=== PATIENT | male | born 1975 | race Caucasian/White ===

== ENCOUNTER 2017-04-23 17:39 | Inpatient (IN) | payer MEDICAID ==
[2017-04-23] MEDS ORDERED: Potassium Chloride 20 MEQ Tab.ER PO ONE (18:29)
[2017-04-23] MEDS ORDERED: cefTRIAXone 1,000 MG VIAL IVPUSH SCH (18:30)
[2017-04-23] MEDS ORDERED: Ibuprofen 800 MG Tab PO PRN (18:34)
[2017-04-23] MEDS ORDERED: Ondansetron 4 MG Tab.DIS PO PRN (18:34)
[2017-04-23] MEDS ORDERED: LORazepam 1 MG Tab PO PRN (18:42)
[2017-04-23] MEDS ORDERED: Aspirin 81 MG Tab.Chew PO SCH (18:45)
[2017-04-23] MEDS ORDERED: Potassium Chloride 40 MEQ in Sodium Chloride 0.9% 480 ML IV ONE (18:45)
[2017-04-23 19:00] LABS: ACETAMINOPHEN 4.1 ug/mL
[2017-04-23 19:21] LABS: HIV12 AG/AB 4TH GEN W/REFLEX 0.1 (<1.0)
--- NOTE | 2017-04-23 19:26 | PCM.HP ---
H&P History of Present Illness - General Date of Service: 04/23/17 Admit Problem/Dx: Admission Diagnosis/Problem Admission Diagnosis/Problem Jaundice secondary to alcoholic hepatitis Source of Information: Patient History Limitations: Reports: No Limitations - History of Present Illness Initial Comments - Free Text/Narative: 42-year-old male with no significant past medical history that is being admitted with jaundice secondary to alcoholic hepatitis. Patient was seen in a family medicine clinic today complaining of abdominal pain and overall feeling of "not feeling well". It was noted that the patient was extremely jaundiced and had significant abdominal distention with abdominal tenderness with palpation. Labs showed a total bilirubin of 34, albumin of 2.3, sodium of 122, potassium of 2.4 and an AST of 139. Patient's INR is 2.08, ammonia 80 and GGT 313. Urinalysis also showed evidence of a UTI with positive nitrites and +3 bacteria with large bilirubin present. Patient's urine was extremely dark. Patient was admitted to the hospital directly from clinic for further assessment and evaluation of his poor liver function and excessive jaundice. The patient also notes having some blood in his stools over the past week. Patient has no history of peptic ulcer disease or bloody stools in the past. Patient has also put on 15 pounds over the past 2 weeks. He notes that his jaundice started over the last couple of days. Patient has consumed alcohol over many years and notes that he had his last drink 4 days ago. He typically would have 4 cocktails a night. He has never been told that he has liver problems in the past. Patient currently denies any chest pain, palpitations, shortness of breath, wheezing, cough, nausea, vomiting, diarrhea, fever. He does endorse some constipation over the past few weeks. - Related Data Allergies/Adverse Reactions: Allergies Allergy/AdvReac Type Severity Reaction Status Date / Time No Known Allergies Allergy Verified 01/18/16 16:43 Home Medications: Home Meds Aspirin 81 mg PO ONETIME 01/18/16 [History] Past Medical History Cardiovascular History: Reports: Arrhythmia - Infectious Disease History Infectious Disease History: Reports: Chicken Pox - Past Surgical History Other Male Surgeries/Procedures: kidney surgery Social & Family History - Tobacco Use Smoking Status *Q: Never Smoker - Alcohol Use Days Per Week of Alcohol Use: 7 Number of Drinks Per Day: 5 Total Drinks Per Week: 35 - Recreational Drug Use Recreational Drug Use: No H&P Review of Systems - Review of Systems: Review Of Systems: See Below General: Reports: Weakness, Fatigue HEENT: Reports: No Symptoms Pulmonary: Reports: No Symptoms Cardiovascular: Reports: No Symptoms Gastrointestinal: Reports: Abdominal Pain, Bloody Stool, Constipation Genitourinary: Reports: No Symptoms Musculoskeletal: Reports: No Symptoms Skin: Reports: Jaundice Psychiatric: Reports: No Symptoms Neurological: Reports: No Symptoms Hematologic/Lymphatic: Reports: No Symptoms Immunologic: Reports: No Symptoms Exam - Exam Exam: See Below - Exam General: Alert, Oriented, Cooperative HEENT: Conjunctiva Clear, Hearing Intact, Mucosa Moist & [place], Nares Patent, Normal Nasal Septum, Posterior Pharynx Clear, Scleral Icterus Neck: Supple, Trachea Midline, 2 Lungs: Clear to Auscultation, Normal Respiratory Effort Cardiovascular: Regular Rate, Regular Rhythm GI/Abdominal Exam: Normal Bowel Sounds, No Abnormal Bruit, No Mass, Pelvis Stable, Distended, Tender, Hepatomegaly Extremities: Normal Inspection, Normal Range of Motion, Non-Tender, No Pedal Edema, Normal Capillary Refill Peripheral Pulses: 2+: Radial (L), Radial (R), Posterior Tibial (L), Posterior Tibial (R) Skin: Warm, Dry, Intact, Other (Patient is extremely jaundiced from head to toe) Neuro Extensive - Mental Status: Alert, Oriented x3, Normal Mood/Affect, Normal Cognition Psychiatric: Alert, Normal Affect, Normal Mood - Patient Data Lab Results Last 24 hrs: Laboratory Results - last 24 hr 04/23/17 04/23/17 Range/Units 16:09 16:09 Phosphorus 2.7 (2.4-4.7) mg/dL Magnesium 0.9 L (1.5-2.3) mEq/L Amylase 35 (10-90) U/L Lipase 48 (7-80) U/L Acetaminophen 4.1 ug/mL *Q Meaningful Use (ADM) - VTE *Q VTE Criteria *Q: - Stroke *Q Stroke Criteria *Q: - AMI *Q AMI Criteria *Q: - Problem List (1) Alcoholic hepatitis with ascites SNOMED Code(s): 658771008 ICD Code: K70.11 - ALCOHOLIC HEPATITIS WITH ASCITES Status: Acute Current Visit: Yes (2) Jaundice due to hepatitis SNOMED Code(s): 99328146 ICD Code: K75.9 - INFLAMMATORY LIVER DISEASE, UNSPECIFIED Status: Acute Current Visit: Yes (3) UTI (urinary tract infection) SNOMED Code(s): 76327408 ICD Code: N39.0 - URINARY TRACT INFECTION, SITE NOT SPECIFIED Status: Acute Current Visit: Yes (4) Hyponatremia SNOMED Code(s): 11571491 ICD Code: E87.1 - HYPO-OSMOLALITY AND HYPONATREMIA Status: Acute Current Visit: Yes (5) Hypokalemia SNOMED Code(s): 21075748 ICD Code: E87.6 - HYPOKALEMIA Status: Acute Current Visit: Yes (6) Bloody stool SNOMED Code(s): 052599826 ICD Code: K92.1 - MELENA Status: Acute Current Visit: Yes Problem List Initiated/Reviewed/Updated: Yes Orders Last 24hrs: Active Orders 24 hr Category Date Time Status Patient Status [ADT] Routine ADT 04/23/17 18:37 Active Antiembolic Devices [RC] PER UNIT ROUTINE Care 04/23/17 18:40 Active CIWAA Assessment [RC] Q4H Care 04/23/17 18:42 Active Height and Weight [RC] DAILY Care 04/23/17 18:34 Active Intake and Output [RC] QSHIFT Care 04/23/17 18:38 Active Notify Provider Vital Signs [RC] ASDIRECTED Care 04/23/17 18:38 Active Oxygen Therapy [RC] PRN Care 04/23/17 18:37 Active Pulse Oximetry [RC] PRN Care 04/23/17 18:38 Active Up With Assistance [RC] ASDIRECTED Care 04/23/17 18:34 Active VTE/DVT Education [RC] PER UNIT ROUTINE Care 04/23/17 18:37 Active Vital Signs [RC] Q4H Care 04/23/17 18:37 Active Regular Diet [DIET] Diet 04/23/17 Breakfast Active Abdomen Comp [US] Routine Exams 04/23/17 18:31 Ordered ACETAMINOPHEN [CHEM] Routine Lab 04/23/17 16:09 Results AMYLASE [CHEM] Routine Lab 04/23/17 16:09 Results ANCA PANEL W/TRAMAINE REFLEX [REF] Routine Lab 04/23/17 16:09 Received BASIC METABOLIC PANEL,BMP [CHEM] Q4H Lab 04/23/17 22:00 Ordered BASIC METABOLIC PANEL,BMP [CHEM] Q4H Lab 04/24/17 02:00 Ordered BASIC METABOLIC PANEL,BMP [CHEM] Q4H Lab 04/24/17 06:00 Ordered CBC WITH AUTO DIFF [HEME] AM Lab 04/24/17 05:11 Ordered CBC WITH AUTO DIFF [HEME] AM Lab 04/25/17 05:11 Ordered CBC WITH AUTO DIFF [HEME] AM Lab 04/26/17 05:11 Ordered COMPREHENSIVE METABOLIC PN,CMP [CHEM] AM Lab 04/24/17 05:11 Ordered COMPREHENSIVE METABOLIC PN,CMP [CHEM] AM Lab 04/25/17 05:11 Ordered COMPREHENSIVE METABOLIC PN,CMP [CHEM] AM Lab 04/26/17 05:11 Ordered CULTURE BLOOD [BC] Stat Lab 04/23/17 18:29 Ordered CULTURE BLOOD [BC] Stat Lab 04/23/17 18:29 Ordered CULTURE URINE [RM] Routine Lab 04/23/17 18:29 Uncollected HEPATITIS PANEL, ACUTE [REF] Routine Lab 04/23/17 16:09 Received HIV12 AG/AB 4TH GEN W/REFLEX [CHEM] Routine Lab 04/23/17 16:09 Results INR,PT,PROTHROMBIN TIME [COAG] AM Lab 04/24/17 05:11 Ordered INR,PT,PROTHROMBIN TIME [COAG] AM Lab 04/25/17 05:11 Ordered INR,PT,PROTHROMBIN TIME [COAG] AM Lab 04/26/17 05:11 Ordered LACTIC ACID,WHOLE BLOOD [BG] Routine Lab 04/23/17 18:42 Ordered LIPASE [CHEM] Routine Lab 04/23/17 16:09 Results Aspirin Med 04/23/17 18:45 Active 81 mg PO ONETIME Ibuprofen [Motrin] Med 04/23/17 18:34 Active 800 mg PO Q6H PRN LORazepam [Ativan] Med 04/23/17 18:42 Active See Protocol PO Q4H PRN Magnesium Sulfate/Water [Magnesium Sulfate 4 GM in Med 04/23/17 19:20 Ordered Water 100 ML] 4 gm Premix Bag 1 bag IV ONETIME Ondansetron [Zofran ODT] Med 04/23/17 18:34 Active 4 mg PO Q4H PRN Potassium Chloride 40 meq Med 04/23/17 18:45 Active Sodium Chloride 0.9% [Normal Saline] 480 ml IV ONETIME cefTRIAXone [Rocephin in Dextrose,Iso-Osm 1 GM/50 ML] Med 04/23/17 19:00 Active 50 ml IV Q24H Blood Culture x2 Reflex Set [OM.PC] Stat Oth 04/23/17 18:28 Ordered Sequential Compression Device [OM.PC] Per Unit Routine Oth 04/23/17 18:38 Ordered Resuscitation Status Routine Resus Stat 04/23/17 18:34 Ordered Medication Orders Aspirin (Aspirin) 81 mg PO ONETIME HOSSEIN Ceftriaxone Sodium/Dextrose (Rocephin In Dextrose,Iso-Osm 1 Gm/50 Ml) 50 mls @ 100 mls/hr IV Q24H HOSSEIN Potassium Chloride 40 meq/ (Sodium Chloride) 500 mls @ 125 mls/hr IV ONETIME ONE Stop: 04/23/17 22:44 Magnesium Sulfate 4 gm/ Premix 100 mls @ 50 mls/hr IV ONETIME ONE Stop: 04/23/17 21:19 Ibuprofen (Motrin) 800 mg PO Q6H PRN PRN Reason: Pain (mild 1-3) Lorazepam (Ativan) 0 mg PO Q4H PRN; Protocol PRN Reason: Withdrawal Symptoms Ondansetron HCl (Zofran Odt) 4 mg PO Q4H PRN PRN Reason: nausea, able to take PO Assessment/Plan Comment:: 42-year-old male admitted with jaundice/liver failure secondary to alcoholic hepatitis #1. Jaundice/liver failure secondary to alcoholic hepatitis: -Patient's calculated meld score is 33 giving a 52% three-month mortality rate. -Liver enzymes will be trended with daily CMP's. -Further workup pending including hepatitis panel, HIV, autoimmune panel, Tylenol level, lactate, amylase, lipase, magnesium, phosphorus -Abdominal ultrasound is pending. -I spoke with Dr. Sanford, gericare aide teacher, from [place], [place] who suggested that we could transfer the patient if we are not comfortable treating him. He stated that there is not much more that they would do there then what we are doing here. He recommended that we watch the patient's total bilirubin and keep him admitted until it plateaus and begins to decrease. He notes that this can take a number of days. He does not recommend treating the patient with steroids at this time secondary to the patient's current UTI and bloody stools. He does agree with our current treatment plan of Rocephin for the patient's UTI and to prevent spontaneous bacterial peritonitis. #2. Hyponatremia, hypokalemia: -Patient will receive by mouth potassium chloride daily. -Patient will also receive normal saline with potassium at 125 mL/hour. -BMP will be trended every 4 hours to make sure that sodium is not rising too quickly. Will need to be careful that we do not exacerbate the patient's ascites. #3. UTI: -We'll treat with Rocephin 1 g every 24 hours -White blood cell count is 12,000. #4. Bloody stools: -Hemoccult is pending. -We will treat with Protonix by mouth. #5. Alcohol abuse: -Patient's last drink was 4 nights ago. -Patient will be placed on CIWAA protocol and Ativan protocol for withdrawal symptoms. -Patient will be given thiamine and folate. DVT prophylaxis: SCDs. Lovenox not being used secondary to possible GI bleed Discharge: 3-5 days pending improvement.
[2017-04-23] MEDS ORDERED: Pantoprazole 40 MG in Sodium Chloride 0.9% 20 ML IV ONE (19:34)
[2017-04-23] MEDS ORDERED: Phytonadione 10 MG in Sodium Chloride 0.9% 50 ML IV ONE (19:59)
[2017-04-23] MEDS: Folic Acid 1 MG Tab PO SCH (20:37)
[2017-04-23] MEDS: Pantoprazole 40 MG Tab.CR PO SCH (20:37)
[2017-04-23] MEDS: Thiamine 100 MG Tab PO SCH ×2 (20:37→21:24)
[2017-04-23] MEDS: Lactulose Soln 10 GM/15 ML 15 ML UD Cup PO SCH ×2 (20:37→21:23)
[2017-04-24] MEDS ORDERED: Potassium Chloride 20 MEQ Tab.ER PO ONE (02:56)
[2017-04-24] MEDS ORDERED: fentaNYL 250 MCG/5 ML SDV IVPUSH ONE (02:59)
[2017-04-24] MEDS ORDERED: fentaNYL 100 MCG/2 ML SDV IVPUSH ONE ×2 (03:45→16:50)
[2017-04-24] MEDS: Pantoprazole 40 MG Tab.CR PO SCH ×2 (10:18→16:39)
[2017-04-24] MEDS: Lactulose Soln 10 GM/15 ML 15 ML UD Cup PO SCH ×2 (10:40→20:50)
[2017-04-24] MEDS: Folic Acid 1 MG Tab PO SCH (10:41)
--- NOTE | 2017-04-24 11:03 | PCM.PN ---
- General Info Date of Service: 04/24/17 Admission Dx/Problem (Free Text): Admission Diagnosis/Problem Admission Diagnosis/Problem Jaundice secondary to alcoholic hepatitis Subjective Update: Patient is doing well this morning. He continues to have abdominal pain rated as 8 out of 10. He does have an appetite but it is diminished. He denies any nausea or vomiting. He is voiding appropriately. Overnight he did have some back pain and was given fentanyl 25 g 2 by the eICU. He does not complain of back pains morning. See was scores have been 0. He has not required any Ativan for withdrawal symptoms from alcohol. Patient is also started on lactulose by the eICU. He continues on Rocephin IV for his UTI. Patient has no additional concerns including chest pain, palpitations, shortness of breath, wheezing, cough. Functional Status: Reports: Pain Controlled, Tolerating Diet, Ambulating, Urinating - Patient Data Vitals - Most Recent: Last Vital Signs Temp 97.8 F 04/24/17 04:00 Pulse 87 04/24/17 06:00 Resp 19 04/24/17 06:00 BP 96/67 04/24/17 06:00 Pulse Ox 92 L 04/24/17 06:29 Weight - Most Recent: 201 lb 12.8 oz I&O - Last 24 Hours: Intake & Output 04/23/17 04/24/17 04/24/17 22:59 06:59 14:59 Intake Total 150 600 Output Total 400 Balance 150 200 Lab Results Last 24 Hours: Laboratory Results - last 24 hr 04/23/17 04/23/17 04/23/17 Range/Units 16:09 16:09 19:11 WBC (4.0-11.0) K/uL RBC (4.50-5.90) M/uL Hgb (13.0-17.0) g/dL Hct (38.0-50.0) % MCV (80.0-98.0) fL MCH (27.0-32.0) pg MCHC (31.0-37.0) g/dL RDW Std Deviation (28.0-62.0) fl RDW Coeff of Sandra (11.0-15.0) % Plt Count (150-400) K/uL MPV (7.40-12.00) fL Add Manual Diff Neutrophils % (Manual) (48.0-80.0) % Band Neutrophils % % Lymphocytes % (Manual) (16.0-40.0) % Monocytes % (Manual) (0.0-15.0) % Nucleated RBC % /100WBC Absolute Seg Neuts (1.4-5.7) Band Neutrophils # Lymphocytes # (Manual) (0.6-2.4) Monocytes # (Manual) (0.0-0.8) Nucleated RBCs # K/uL INR (0.86-1.11) Lactate 1.8 (0.20-2.00) mmol/L Sodium (136-146) mmol/L Potassium (3.5-5.1) mmol/L Chloride (98-110) mmol/L Carbon Dioxide (21-31) mmol/L BUN (6.0-23.0) mg/dL Creatinine (0.6-1.5) mg/dL Est Cr Clr Drug Dosing mL/min Estimated GFR (MDRD) ml/min Glucose (60-110) mg/dL Calcium (8.8-10.8) mg/dL Phosphorus 2.7 (2.4-4.7) mg/dL Magnesium 0.9 L (1.5-2.3) mEq/L Total Bilirubin (0.1-1.5) mg/dL AST (5-40) IU/L ALT (8-54) IU/L Alkaline Phosphatase (40-150) Total Protein (6.0-8.0) g/dL Albumin (3.5-5.0) g/dL Globulin (2.0-3.5) g/dL Albumin/Globulin Ratio (1.3-2.8) Amylase 35 (10-90) U/L Lipase 48 (7-80) U/L Acetaminophen 4.1 ug/mL HIV 1&2 Ag/Ab, 4th Gen 0.1 (<1.0) 04/23/17 04/24/17 04/24/17 Range/Units 22:05 01:58 01:58 WBC (4.0-11.0) K/uL RBC (4.50-5.90) M/uL Hgb (13.0-17.0) g/dL Hct (38.0-50.0) % MCV (80.0-98.0) fL MCH (27.0-32.0) pg MCHC (31.0-37.0) g/dL RDW Std Deviation (28.0-62.0) fl RDW Coeff of Sandra (11.0-15.0) % Plt Count (150-400) K/uL MPV (7.40-12.00) fL Add Manual Diff Neutrophils % (Manual) (48.0-80.0) % Band Neutrophils % % Lymphocytes % (Manual) (16.0-40.0) % Monocytes % (Manual) (0.0-15.0) % Nucleated RBC % /100WBC Absolute Seg Neuts (1.4-5.7) Band Neutrophils # Lymphocytes # (Manual) (0.6-2.4) Monocytes # (Manual) (0.0-0.8) Nucleated RBCs # K/uL INR (0.86-1.11) Lactate (0.20-2.00) mmol/L Sodium 122 L 123 L (136-146) mmol/L Potassium 2.7 L 3.1 L (3.5-5.1) mmol/L Chloride 91 L 93 L (98-110) mmol/L Carbon Dioxide 20 L 20 L (21-31) mmol/L BUN 20 20 (6.0-23.0) mg/dL Creatinine 1.7 H 1.8 H (0.6-1.5) mg/dL Est Cr Clr Drug Dosing 66.96 63.24 mL/min Estimated GFR (MDRD) 44.2 41.4 ml/min Glucose 125 H 111 H (60-110) mg/dL Calcium 7.7 L 7.9 L (8.8-10.8) mg/dL Phosphorus (2.4-4.7) mg/dL Magnesium 1.8 (1.5-2.3) mEq/L Total Bilirubin (0.1-1.5) mg/dL AST (5-40) IU/L ALT (8-54) IU/L Alkaline Phosphatase (40-150) Total Protein (6.0-8.0) g/dL Albumin (3.5-5.0) g/dL Globulin (2.0-3.5) g/dL Albumin/Globulin Ratio (1.3-2.8) Amylase (10-90) U/L Lipase (7-80) U/L Acetaminophen ug/mL HIV 1&2 Ag/Ab, 4th Gen (<1.0) 04/24/17 04/24/17 04/24/17 Range/Units 05:58 05:58 05:58 WBC 13.42 H (4.0-11.0) K/uL RBC 3.73 L (4.50-5.90) M/uL Hgb 13.0 (13.0-17.0) g/dL Hct 34.5 L (38.0-50.0) % MCV 92.5 (80.0-98.0) fL MCH 34.9 H (27.0-32.0) pg MCHC 37.7 H (31.0-37.0) g/dL RDW Std Deviation 59.4 (28.0-62.0) fl RDW Coeff of Sandra 18 H (11.0-15.0) % Plt Count 180 (150-400) K/uL MPV 11.40 (7.40-12.00) fL Add Manual Diff YES Neutrophils % (Manual) 81 H (48.0-80.0) % Band Neutrophils % 1 % Lymphocytes % (Manual) 12 L (16.0-40.0) % Monocytes % (Manual) 6 (0.0-15.0) % Nucleated RBC % 0.1 /100WBC Absolute Seg Neuts 10.9 H (1.4-5.7) Band Neutrophils # 0.1 Lymphocytes # (Manual) 1.6 (0.6-2.4) Monocytes # (Manual) 0.8 (0.0-0.8) Nucleated RBCs # 0 K/uL INR 2.02 H (0.86-1.11) Lactate (0.20-2.00) mmol/L Sodium 124 L (136-146) mmol/L Potassium 3.8 (3.5-5.1) mmol/L Chloride 92 L (98-110) mmol/L Carbon Dioxide 21 (21-31) mmol/L BUN 21 (6.0-23.0) mg/dL Creatinine 1.8 H (0.6-1.5) mg/dL Est Cr Clr Drug Dosing 63.58 mL/min Estimated GFR (MDRD) 41.4 ml/min Glucose 99 (60-110) mg/dL Calcium 7.9 L (8.8-10.8) mg/dL Phosphorus (2.4-4.7) mg/dL Magnesium (1.5-2.3) mEq/L Total Bilirubin 28.9 H (0.1-1.5) mg/dL AST 122 H (5-40) IU/L ALT 36 (8-54) IU/L Alkaline Phosphatase 112 (40-150) Total Protein 6.9 (6.0-8.0) g/dL Albumin 2.0 L (3.5-5.0) g/dL Globulin 4.9 H (2.0-3.5) g/dL Albumin/Globulin Ratio 0.4 L (1.3-2.8) Amylase (10-90) U/L Lipase (7-80) U/L Acetaminophen ug/mL HIV 1&2 Ag/Ab, 4th Gen (<1.0) Enzo Results Last 24 Hours: Microbiology 04/24/17 01:00 Stool Occult Blood (ENZO) - Final Stool / Feces POSITIVE OCCULT BLOOD Med Orders - Current: Current Medications Folic Acid (Folic Acid) 1 mg PO DAILY [facility] Last Admin: 04/24/17 10:41 Dose: Not Given Ceftriaxone Sodium/Dextrose (Rocephin In Dextrose,Iso-Osm 1 Gm/50 Ml) 50 mls @ 100 mls/hr IV Q24H [facility] Last Admin: 04/23/17 19:40 Dose: 100 mls/hr Lactulose (Chronulac) 10 gm PO BID [facility] Last Admin: 04/24/17 10:40 Dose: Not Given Lorazepam (Ativan) 0 mg PO Q4H PRN; Protocol PRN Reason: Withdrawal Symptoms Ondansetron HCl (Zofran Odt) 4 mg PO Q4H PRN PRN Reason: nausea, able to take PO Pantoprazole Sodium (Protonix) 40 mg PO BIDAC [facility] Last Admin: 04/24/17 10:18 Dose: Not Given Thiamine HCl (Vitamin B-1) 100 mg PO BEDTIME [facility] Last Admin: 04/23/17 21:24 Dose: Not Given Discontinued Medications Aspirin (Aspirin) 81 mg PO ONETIME [facility] Ceftriaxone Sodium (Rocephin) 1,000 mg IVPUSH Q24H [facility] Last Admin: 04/23/17 20:23 Dose: Not Given Fentanyl (Sublimaze) 25 mcg IVPUSH ONETIME ONE Stop: 04/24/17 03:00 Last Admin: 04/24/17 03:41 Dose: Not Given Fentanyl (Sublimaze) 25 mcg IVPUSH ONETIME ONE Stop: 04/24/17 03:46 Last Admin: 04/24/17 04:48 Dose: 25 mcg Potassium Chloride 40 meq/ (Sodium Chloride) 500 mls @ 125 mls/hr IV ONETIME ONE Stop: 04/23/17 22:44 Last Infusion: 04/23/17 20:00 Dose: 75 mls/hr Magnesium Sulfate 4 gm/ Sodium (Chloride) 108 mls @ 54 mls/hr IV ONETIME HOSSEIN Stop: 04/23/17 21:29 Last Admin: 04/23/17 20:22 Dose: 54 mls/hr Pantoprazole Sodium 40 mg/ (Sodium Chloride) 20 mls @ 80 mls/hr IV Q12HR ONE Stop: 04/23/17 19:48 Last Admin: 04/23/17 20:23 Dose: Not Given Phytonadione 10 mg/ Sodium (Chloride) 51 mls @ 100 mls/hr IV NOW ONE Stop: 04/23/17 20:29 Last Admin: 04/23/17 22:49 Dose: 100 mls/hr Ibuprofen (Motrin) 800 mg PO Q6H PRN PRN Reason: Pain (mild 1-3) Potassium Chloride (Klor-Con M20) 40 meq PO ONETIME ONE Stop: 04/23/17 18:30 Last Admin: 04/23/17 18:39 Dose: 40 meq Potassium Chloride (Klor-Con M20) 40 meq PO ONETIME ONE Stop: 04/24/17 02:57 Last Admin: 04/24/17 03:15 Dose: 40 meq - Exam Quality Assessment: Supplemental Oxygen (5 L via nasal cannula), DVT Prophylaxis (SCDs.) General: Alert, Oriented, Cooperative, No Acute Distress HEENT: Scleral Icterus (Bilaterally) Neck: Supple Lungs: Clear to Auscultation, Normal Respiratory Effort Cardiovascular: Regular Rate, Regular Rhythm GI/Abdominal Exam: Normal Bowel Sounds, No Abnormal Bruit, Distended, Tender, Hepatomegaly Extremities: Normal Inspection, Normal Range of Motion, Non-Tender, No Pedal Edema, Normal Capillary Refill Peripheral Pulses: 2+: Radial (L), Radial (R), Posterior Tibial (L), Posterior Tibial (R) Skin: Warm, Dry, Intact, Other (Diffuse jaundice) Neurological: No New Focal Deficit Psy/Mental Status: Alert, Normal Affect, Normal Mood - Problem List & Annotations (1) Alcoholic hepatitis with ascites SNOMED Code(s): 128868251 Code(s): K70.11 - ALCOHOLIC HEPATITIS WITH ASCITES Status: Acute Current Visit: Yes (2) Jaundice due to hepatitis SNOMED Code(s): 62249062 Code(s): K75.9 - INFLAMMATORY LIVER DISEASE, UNSPECIFIED Status: Acute Current Visit: Yes (3) UTI (urinary tract infection) SNOMED Code(s): 38053770 Code(s): N39.0 - URINARY TRACT INFECTION, SITE NOT SPECIFIED Status: Acute Current Visit: Yes (4) Hyponatremia SNOMED Code(s): 34649631 Code(s): E87.1 - HYPO-OSMOLALITY AND HYPONATREMIA Status: Acute Current Visit: Yes (5) Hypokalemia SNOMED Code(s): 80671957 Code(s): E87.6 - HYPOKALEMIA Status: Acute Current Visit: Yes (6) Bloody stool SNOMED Code(s): 583870717 Code(s): K92.1 - MELENA Status: Acute Current Visit: Yes - Problem List Review Problem List Initiated/Reviewed/Updated: Yes - My Orders Last 24 Hours: My Active Orders 04/23/17 16:09 ANCA PANEL W/TRAMAINE REFLEX [REF] Routine HEPATITIS PANEL, ACUTE [REF] Routine 04/23/17 18:34 Height and Weight [RC] DAILY Up With Assistance [RC] ASDIRECTED Ondansetron [Zofran ODT] 4 mg PO Q4H PRN Resuscitation Status Routine 04/23/17 18:37 Patient Status [ADT] Routine Oxygen Therapy [RC] PRN Vital Signs [RC] Q1H 04/23/17 18:38 Intake and Output [RC] Q12H Notify Provider Vital Signs [RC] ASDIRECTED Pulse Oximetry [RC] PRN Sequential Compression Device [OM.PC] Per Unit Routine 04/23/17 18:40 Antiembolic Devices [RC] PER UNIT ROUTINE 04/23/17 18:42 CIWAA Assessment [RC] Q4H LORazepam [Ativan] See Protocol PO Q4H PRN 04/23/17 19:45 Folic Acid 1 mg PO DAILY Pantoprazole [ProTONIX] 40 mg PO BIDAC Thiamine [Vitamin B-1] 100 mg PO BEDTIME 04/24/17 10:33 Abdomen Pelvis wo Cont [CT] Routine 04/25/17 05:11 CBC WITH AUTO DIFF [HEME] AM COMPREHENSIVE METABOLIC PN,CMP [CHEM] AM INR,PT,PROTHROMBIN TIME [COAG] AM 04/26/17 05:11 CBC WITH AUTO DIFF [HEME] AM COMPREHENSIVE METABOLIC PN,CMP [CHEM] AM INR,PT,PROTHROMBIN TIME [COAG] AM - Plan Plan:: 42-year-old male admitted with jaundice/liver failure secondary to alcoholic hepatitis #1. Jaundice/liver failure secondary to alcoholic hepatitis: -Patient's calculated meld score is 33 giving a 52% three-month mortality rate. -AST has improved to 122. ALT and ALP remain within normal limits. Total bilirubin has improved to 29 from 34 albumin has decreased to 2 from 2.3. INR is 2.02. -Results of liver ultrasound are pending. I spoke with Dr. Jeffery, radiologist, who is hesitant about doing a paracentesis given the patient's INR greater than 2. He suggested getting a abdomen/pelvis CT to assess further for ascites. Patient will get this CT this morning. -EICU recommends giving the patient's potassium and magnesium stable before introducing any diuretic medications to treat the patient's ascites. -I spoke with Dr. Sanford, paper products inspector, from [place], [place] who suggested that we could transfer the patient if we are not comfortable treating him. He stated that there is not much more that they would do there then what we are doing here. He recommended that we watch the patient's total bilirubin and keep him admitted until it plateaus and begins to decrease. He notes that this can take a number of days. He does not recommend treating the patient with steroids at this time secondary to the patient's current UTI and bloody stools. He does agree with our current treatment plan of Rocephin for the patient's UTI and to prevent spontaneous bacterial peritonitis. #2. Hyponatremia, hypokalemia: -Continue oral potassium chloride daily. -Sodium has improved to 124. -BMP will be trended every 4 hours to make sure that sodium is not rising too quickly. #3. UTI: -Continue Rocephin 1 g every 24 hours. WBC has increased to 13.4 from 12. We'll continue with IV antibiotics and recheck CBC in the morning. If WBC continues to rise we can consider more aggressive antibiotic therapy. #4. Bloody stools: -Hemoccult-positive. Continue with oral Protonix #5. Alcohol abuse: -Patient's last drink was 4 nights ago. -CIWAA scores have been 0. Patient has not required any Ativan. -continue thiamine and folate. DVT prophylaxis: SCDs. Discharge: 3-5 days pending improvement.
[2017-04-24] MEDS ORDERED: Potassium Chloride 20 MEQ Tab.ER PO SCH (17:15)
[2017-04-24] MEDS: Thiamine 100 MG Tab PO SCH (20:50)
[2017-04-24] MEDS: fentaNYL 100 MCG/2 ML SDV IVPUSH PRN (22:11)
[2017-04-25] MEDS ORDERED: Potassium Chloride 20 MEQ Tab.ER PO ONE ×3 (00:30→15:05)
[2017-04-25 05:52] LABS: CHLORIDE,CL 92 mmol/L (98-110); SODIUM,NA 122 mmol/L (136-146)
[2017-04-25] MEDS: Pantoprazole 40 MG Tab.CR PO SCH ×2 (07:43→16:59)
[2017-04-25] MEDS ORDERED: Potassium Chloride 20 MEQ Tab.ER PO SCH (09:00)
[2017-04-25] MEDS: Folic Acid 1 MG Tab PO SCH (09:06)
[2017-04-25] MEDS: Lactulose Soln 10 GM/15 ML 15 ML UD Cup PO SCH ×2 (09:06→20:51)
--- NOTE | 2017-04-25 11:25 | PCM.PN ---
- General Info Date of Service: 04/25/17 Admission Dx/Problem (Free Text): Admission Diagnosis/Problem Admission Diagnosis/Problem Jaundice secondary to alcoholic hepatitis and liver failure Subjective Update: Patient is doing better this morning. He did have some diffuse back pain last night and was treated with fentanyl with the back pain resolving and the patient was able to sleep through the night. He notes continued abdominal distention and abdominal pain. He is voiding appropriately. He has very little appetite but denies any nausea, vomiting. Patient does not have any other acute concerns this morning. Functional Status: Reports: Pain Controlled, Tolerating Diet, Ambulating, Urinating - Review of Systems General: Reports: Weakness, Fatigue HEENT: Reports: No Symptoms Pulmonary: Reports: No Symptoms Cardiovascular: Reports: No Symptoms Gastrointestinal: Reports: Abdominal Pain, Decreased Appetite Genitourinary: Reports: No Symptoms Musculoskeletal: Reports: Back Pain Skin: Reports: Jaundice Neurological: Reports: No Symptoms Psychiatric: Reports: No Symptoms - Patient Data Vitals - Most Recent: Last Vital Signs Temp 97.2 F 04/25/17 08:00 Pulse 87 04/24/17 06:00 Resp 14 04/25/17 11:00 BP 98/77 04/25/17 11:00 Pulse Ox 96 04/25/17 11:00 Weight - Most Recent: 205 lb 14.4 oz I&O - Last 24 Hours: Intake & Output 04/24/17 04/25/17 04/25/17 22:59 06:59 14:59 Intake Total 980 860 Output Total 330 325 Balance 650 535 Lab Results Last 24 Hours: Laboratory Results - last 24 hr 04/24/17 04/24/17 04/24/17 Range/Units 16:04 16:04 22:54 WBC (4.0-11.0) K/uL RBC (4.50-5.90) M/uL Hgb (13.0-17.0) g/dL Hct (38.0-50.0) % MCV (80.0-98.0) fL MCH (27.0-32.0) pg MCHC (31.0-37.0) g/dL RDW Std Deviation (28.0-62.0) fl RDW Coeff of Sandra (11.0-15.0) % Plt Count (150-400) K/uL MPV (7.40-12.00) fL Add Manual Diff Neutrophils % (Manual) (48.0-80.0) % Band Neutrophils % % Lymphocytes % (Manual) (16.0-40.0) % Monocytes % (Manual) (0.0-15.0) % Nucleated RBC % /100WBC Absolute Seg Neuts (1.4-5.7) Band Neutrophils # Lymphocytes # (Manual) (0.6-2.4) Monocytes # (Manual) (0.0-0.8) Nucleated RBCs # K/uL ESR 14 (0-14) mm/hr INR (0.86-1.11) Sodium 124 L (136-146) mmol/L Potassium 3.0 L (3.5-5.1) mmol/L Chloride 92 L (98-110) mmol/L Carbon Dioxide 22 (21-31) mmol/L BUN 21 (6.0-23.0) mg/dL Creatinine 2.0 H (0.6-1.5) mg/dL Est Cr Clr Drug Dosing 57.22 mL/min Estimated GFR (MDRD) 36.6 ml/min Glucose 120 H (60-110) mg/dL Calcium 7.9 L (8.8-10.8) mg/dL Phosphorus (2.4-4.7) mg/dL Magnesium (1.5-2.3) mEq/L Total Bilirubin (0.1-1.5) mg/dL AST (5-40) IU/L ALT (8-54) IU/L Alkaline Phosphatase (40-150) Ammonia (14-68) UG/DL C-Reactive Protein 4.63 H (0.0-0.5) mg/dL Total Protein (6.0-8.0) g/dL Albumin (3.5-5.0) g/dL Globulin (2.0-3.5) g/dL Albumin/Globulin Ratio (1.3-2.8) 04/24/17 04/24/17 04/24/17 Range/Units 22:54 22:54 22:54 WBC (4.0-11.0) K/uL RBC (4.50-5.90) M/uL Hgb (13.0-17.0) g/dL Hct (38.0-50.0) % MCV (80.0-98.0) fL MCH (27.0-32.0) pg MCHC (31.0-37.0) g/dL RDW Std Deviation (28.0-62.0) fl RDW Coeff of Sandra (11.0-15.0) % Plt Count (150-400) K/uL MPV (7.40-12.00) fL Add Manual Diff Neutrophils % (Manual) (48.0-80.0) % Band Neutrophils % % Lymphocytes % (Manual) (16.0-40.0) % Monocytes % (Manual) (0.0-15.0) % Nucleated RBC % /100WBC Absolute Seg Neuts (1.4-5.7) Band Neutrophils # Lymphocytes # (Manual) (0.6-2.4) Monocytes # (Manual) (0.0-0.8) Nucleated RBCs # K/uL ESR (0-14) mm/hr INR (0.86-1.11) Sodium 122 L (136-146) mmol/L Potassium 3.2 L (3.5-5.1) mmol/L Chloride 92 L (98-110) mmol/L Carbon Dioxide 19 L (21-31) mmol/L BUN 22 (6.0-23.0) mg/dL Creatinine 1.9 H (0.6-1.5) mg/dL Est Cr Clr Drug Dosing 60.24 mL/min Estimated GFR (MDRD) 38.9 ml/min Glucose 108 (60-110) mg/dL Calcium 8.0 L (8.8-10.8) mg/dL Phosphorus (2.4-4.7) mg/dL Magnesium 1.5 (1.5-2.3) mEq/L Total Bilirubin (0.1-1.5) mg/dL AST (5-40) IU/L ALT (8-54) IU/L Alkaline Phosphatase (40-150) Ammonia 105 H (14-68) UG/DL C-Reactive Protein (0.0-0.5) mg/dL Total Protein (6.0-8.0) g/dL Albumin (3.5-5.0) g/dL Globulin (2.0-3.5) g/dL Albumin/Globulin Ratio (1.3-2.8) 04/25/17 04/25/17 04/25/17 Range/Units 05:02 05:02 05:02 WBC 13.72 H (4.0-11.0) K/uL RBC 3.81 L (4.50-5.90) M/uL Hgb 13.4 (13.0-17.0) g/dL Hct 35.3 L (38.0-50.0) % MCV 92.7 (80.0-98.0) fL MCH 35.2 H (27.0-32.0) pg MCHC 38.0 H (31.0-37.0) g/dL RDW Std Deviation 60.0 (28.0-62.0) fl RDW Coeff of Sandra 18 H (11.0-15.0) % Plt Count 169 (150-400) K/uL MPV 10.80 (7.40-12.00) fL Add Manual Diff YES Neutrophils % (Manual) 78 (48.0-80.0) % Band Neutrophils % 1 % Lymphocytes % (Manual) 15 L (16.0-40.0) % Monocytes % (Manual) 6 (0.0-15.0) % Nucleated RBC % 0.0 /100WBC Absolute Seg Neuts 10.7 H (1.4-5.7) Band Neutrophils # 0.1 Lymphocytes # (Manual) 2.1 (0.6-2.4) Monocytes # (Manual) 0.8 (0.0-0.8) Nucleated RBCs # 0 K/uL ESR (0-14) mm/hr INR 1.85 H (0.86-1.11) Sodium 122 L (136-146) mmol/L Potassium 3.6 (3.5-5.1) mmol/L Chloride 92 L (98-110) mmol/L Carbon Dioxide 20 L (21-31) mmol/L BUN 23 (6.0-23.0) mg/dL Creatinine 2.0 H (0.6-1.5) mg/dL Est Cr Clr Drug Dosing 57.22 mL/min Estimated GFR (MDRD) 36.6 ml/min Glucose 92 (60-110) mg/dL Calcium 8.2 L (8.8-10.8) mg/dL Phosphorus 3.3 (2.4-4.7) mg/dL Magnesium 1.6 (1.5-2.3) mEq/L Total Bilirubin > 18.2 H (0.1-1.5) mg/dL AST 106 H (5-40) IU/L ALT 36 (8-54) IU/L Alkaline Phosphatase 113 (40-150) Ammonia (14-68) UG/DL C-Reactive Protein (0.0-0.5) mg/dL Total Protein 6.9 (6.0-8.0) g/dL Albumin 2.1 L (3.5-5.0) g/dL Globulin 4.8 H (2.0-3.5) g/dL Albumin/Globulin Ratio 0.4 L (1.3-2.8) 04/25/17 Range/Units 05:02 WBC (4.0-11.0) K/uL RBC (4.50-5.90) M/uL Hgb (13.0-17.0) g/dL Hct (38.0-50.0) % MCV (80.0-98.0) fL MCH (27.0-32.0) pg MCHC (31.0-37.0) g/dL RDW Std Deviation (28.0-62.0) fl RDW Coeff of Sandra (11.0-15.0) % Plt Count (150-400) K/uL MPV (7.40-12.00) fL Add Manual Diff Neutrophils % (Manual) (48.0-80.0) % Band Neutrophils % % Lymphocytes % (Manual) (16.0-40.0) % Monocytes % (Manual) (0.0-15.0) % Nucleated RBC % /100WBC Absolute Seg Neuts (1.4-5.7) Band Neutrophils # Lymphocytes # (Manual) (0.6-2.4) Monocytes # (Manual) (0.0-0.8) Nucleated RBCs # K/uL ESR (0-14) mm/hr INR (0.86-1.11) Sodium (136-146) mmol/L Potassium (3.5-5.1) mmol/L Chloride (98-110) mmol/L Carbon Dioxide (21-31) mmol/L BUN (6.0-23.0) mg/dL Creatinine (0.6-1.5) mg/dL Est Cr Clr Drug Dosing mL/min Estimated GFR (MDRD) ml/min Glucose (60-110) mg/dL Calcium (8.8-10.8) mg/dL Phosphorus (2.4-4.7) mg/dL Magnesium (1.5-2.3) mEq/L Total Bilirubin (0.1-1.5) mg/dL AST (5-40) IU/L ALT (8-54) IU/L Alkaline Phosphatase (40-150) Ammonia 81 H (14-68) UG/DL C-Reactive Protein (0.0-0.5) mg/dL Total Protein (6.0-8.0) g/dL Albumin (3.5-5.0) g/dL Globulin (2.0-3.5) g/dL Albumin/Globulin Ratio (1.3-2.8) Enzo Results Last 24 Hours: Microbiology 04/23/17 16:50 Urine Culture - Final Urine, Clean Catch MIXED SATNAM 10,000-100,000 CFU/ML 04/23/17 19:11 Aerobic Blood Culture - Preliminary Blood - Venous - Lab Draw NO GROWTH AFTER 1 DAY Anaerobic Blood Culture - Preliminary NO GROWTH AFTER 1 DAY 04/23/17 19:01 Aerobic Blood Culture - Preliminary Blood - Venous NO GROWTH AFTER 1 DAY Anaerobic Blood Culture - Preliminary NO GROWTH AFTER 1 DAY Med Orders - Current: Current Medications Fentanyl (Sublimaze) 25 mcg IVPUSH Q1H PRN PRN Reason: Pain Last Admin: 04/24/17 22:11 Dose: 25 mcg Folic Acid (Folic Acid) 1 mg PO DAILY [facility] Last Admin: 04/25/17 09:06 Dose: 1 mg Ceftriaxone Sodium/Dextrose (Rocephin In Dextrose,Iso-Osm 1 Gm/50 Ml) 50 mls @ 100 mls/hr IV Q24H [facility] Last Admin: 04/24/17 18:37 Dose: 100 mls/hr Lactulose (Chronulac) 10 gm PO BID [facility] Last Admin: 04/25/17 09:06 Dose: 10 gm Lorazepam (Ativan) 0 mg PO Q4H PRN; Protocol PRN Reason: Withdrawal Symptoms Ondansetron HCl (Zofran Odt) 4 mg PO Q4H PRN PRN Reason: nausea, able to take PO Pantoprazole Sodium (Protonix) 40 mg PO BIDAC [facility] Last Admin: 04/25/17 07:43 Dose: 40 mg Thiamine HCl (Vitamin B-1) 100 mg PO BEDTIME [facility] Last Admin: 04/24/17 20:50 Dose: 100 mg Discontinued Medications Aspirin (Aspirin) 81 mg PO ONETIME [facility] Ceftriaxone Sodium (Rocephin) 1,000 mg IVPUSH Q24H [facility] Last Admin: 04/23/17 20:23 Dose: Not Given Fentanyl (Sublimaze) 25 mcg IVPUSH ONETIME ONE Stop: 04/24/17 03:00 Last Admin: 04/24/17 03:41 Dose: Not Given Fentanyl (Sublimaze) 25 mcg IVPUSH ONETIME ONE Stop: 04/24/17 03:46 Last Admin: 04/24/17 04:48 Dose: 25 mcg Fentanyl (Sublimaze) 25 mcg IVPUSH ONETIME ONE Stop: 04/24/17 16:51 Last Admin: 04/24/17 17:05 Dose: 25 mcg Potassium Chloride 40 meq/ (Sodium Chloride) 500 mls @ 125 mls/hr IV ONETIME ONE Stop: 04/23/17 22:44 Last Infusion: 04/23/17 20:00 Dose: 75 mls/hr Magnesium Sulfate 4 gm/ Sodium (Chloride) 108 mls @ 54 mls/hr IV ONETIME [facility] Stop: 04/23/17 21:29 Last Admin: 04/23/17 20:22 Dose: 54 mls/hr Pantoprazole Sodium 40 mg/ (Sodium Chloride) 20 mls @ 80 mls/hr IV Q12HR ONE Stop: 04/23/17 19:48 Last Admin: 04/23/17 20:23 Dose: Not Given Phytonadione 10 mg/ Sodium (Chloride) 51 mls @ 100 mls/hr IV NOW ONE Stop: 04/23/17 20:29 Last Admin: 04/23/17 22:49 Dose: 100 mls/hr Ibuprofen (Motrin) 800 mg PO Q6H PRN PRN Reason: Pain (mild 1-3) Potassium Chloride (Klor-Con M20) 40 meq PO ONETIME ONE Stop: 04/23/17 18:30 Last Admin: 04/23/17 18:39 Dose: 40 meq Potassium Chloride (Klor-Con M20) 40 meq PO ONETIME ONE Stop: 04/24/17 02:57 Last Admin: 04/24/17 03:15 Dose: 40 meq Potassium Chloride (Klor-Con M20) 40 meq PO DAILY [facility] Last Admin: 04/24/17 17:25 Dose: 40 meq Potassium Chloride (Klor-Con M20) 40 meq PO ONETIME ONE Stop: 04/25/17 00:31 Last Admin: 04/25/17 00:51 Dose: 40 meq Potassium Chloride (Klor-Con M20) 40 meq PO DAILY [facility] Comments:: Patient was sitting in a bedside chair and seemed comfortable. - Exam Quality Assessment: Supplemental Oxygen (2 L nasal cannula), DVT Prophylaxis General: Alert, Oriented, Cooperative, No Acute Distress HEENT: Mucous Membr. Moist/[place], Scleral Icterus Neck: Supple Lungs: Clear to Auscultation, Normal Respiratory Effort Cardiovascular: Regular Rate, Regular Rhythm GI/Abdominal Exam: Normal Bowel Sounds, No Abnormal Bruit, No Mass, Distended, Tender, Hepatomegaly Extremities: Normal Inspection, Normal Range of Motion, Non-Tender, No Pedal Edema, Normal Capillary Refill Peripheral Pulses: 2+: Radial (L), Radial (R), Posterior Tibial (L), Posterior Tibial (R) Skin: Warm, Dry, Intact, Other (Jaundice) Neurological: No New Focal Deficit Psy/Mental Status: Alert, Normal Affect, Normal Mood - Problem List & Annotations (1) Alcoholic hepatitis with ascites SNOMED Code(s): 089878444 Code(s): K70.11 - ALCOHOLIC HEPATITIS WITH ASCITES Status: Acute Current Visit: Yes (2) Jaundice due to hepatitis SNOMED Code(s): 52813073 Code(s): K75.9 - INFLAMMATORY LIVER DISEASE, UNSPECIFIED Status: Acute Current Visit: Yes (3) UTI (urinary tract infection) SNOMED Code(s): 52268014 Code(s): N39.0 - URINARY TRACT INFECTION, SITE NOT SPECIFIED Status: Acute Current Visit: Yes (4) Hyponatremia SNOMED Code(s): 56049473 Code(s): E87.1 - HYPO-OSMOLALITY AND HYPONATREMIA Status: Acute Current Visit: Yes (5) Hypokalemia SNOMED Code(s): 40085036 Code(s): E87.6 - HYPOKALEMIA Status: Acute Current Visit: Yes (6) Bloody stool SNOMED Code(s): 180831616 Code(s): K92.1 - MELENA Status: Acute Current Visit: Yes - Problem List Review Problem List Initiated/Reviewed/Updated: Yes - My Orders Last 24 Hours: My Active Orders 04/24/17 10:33 Abdomen Pelvis wo Cont [CT] Routine 04/24/17 17:01 fentaNYL [Sublimaze] 25 mcg IVPUSH Q1H PRN 04/25/17 10:44 ALBUMIN,BODY FLUID [BF] Routine 04/25/17 12:00 BASIC METABOLIC PANEL,BMP [CHEM] Q6H 04/25/17 18:00 BASIC METABOLIC PANEL,BMP [CHEM] Q6H 04/25/17 Breakfast Fluid Restriction [DIET] 04/26/17 00:00 BASIC METABOLIC PANEL,BMP [CHEM] Q6H 04/26/17 05:11 CBC WITH AUTO DIFF [HEME] AM COMPREHENSIVE METABOLIC PN,CMP [CHEM] AM INR,PT,PROTHROMBIN TIME [COAG] AM MAGNESIUM [CHEM] AM PHOSPHORUS [CHEM] AM 04/27/17 05:11 MAGNESIUM [CHEM] AM PHOSPHORUS [CHEM] AM - Plan Plan:: 42-year-old male admitted with jaundice/liver failure secondary to alcoholic hepatitis #1. Jaundice/liver failure secondary to alcoholic hepatitis: -Patient's calculated meld score is 33 giving a 52% three-month mortality rate. -AST continues to improve. ALT and ALP are normal. INR is 1.85. Total bilirubin continues to decrease and today is 18.2. -I spoke with Dr. Jeffery, radiologist, and he believes that the patient would benefit from a paracentesis. He notes that on CT abdomen/pelvis that hepatocellular carcinoma cannot be ruled out. Orders have been placed and patient will receive paracentesis with fluid being sent off for analysis. -EICU recommends giving the patient's potassium and magnesium stable before introducing any diuretic medications to treat the patient's ascites. -I spoke with Dr. Sanford, correspondence renew clerk, from [place], [place] who suggested that we could transfer the patient if we are not comfortable treating him. He stated that there is not much more that they would do there then what we are doing here. He recommended that we watch the patient's total bilirubin and keep him admitted until it plateaus and begins to decrease. He notes that this can take a number of days. He does not recommend treating the patient with steroids at this time secondary to the patient's current UTI and bloody stools. He does agree with our current treatment plan of Rocephin for the patient's UTI and to prevent spontaneous bacterial peritonitis. #2. Hyponatremia, hypokalemia: -Continue oral potassium chloride daily. Potassium is within normal limits -Sodium has decreased to 122. Continue fluid restriction. Fluid not being given secondary to the patient's abdominal distention. -BMP will be trended every 6 hours. #3. UTI: -Continue Rocephin 1 g every 24 hours. WBC has increased to 13.7. We'll continue with IV antibiotics and recheck CBC in the morning. If WBC continues to rise we can consider more aggressive antibiotic therapy. #4. Bloody stools: -Hemoccult-positive. Continue with oral Protonix #5. Alcohol abuse: -CIWAA scores have been 0. Patient has not required any Ativan. -continue thiamine and folate. DVT prophylaxis: SCDs. Discharge: 3-5 days pending improvement.
--- NOTE | 2017-04-25 11:57 | CT ---
CT of the abdomen and pelvis without contrast. HISTORY: Abdominal distention TECHNIQUE: Axial CT images were obtained of the abdomen and pelvis without contrast. Coronal and sagi ttal reconstructions obtained. FINDINGS: There is atelectasis within the lung bases. The liver is heterogeneous in echotexture and nodular and contour. There is possibly a round 2.5 cm h ypodensity within the right hepatic lobe adjacent to the gallbladder fossa. Spleen, adrenal glands, a nd pancreas appear unremarkable for noncontrast examination. The gallbladder is mildly distended with out notable wall thickening. Cholelithiasis noted. There is no bulky retroperitoneal lymphadenopathy. There is a moderate amount of abdominal ascites. There are no calcifications noted within the kidneys or along the courses of the ureters bilaterally. Partial left nephrectomy changes noted. The large and small bowel are normal in caliber without evidence of obstruction. The appendix appears normal. There is no bulky pelvic lymphadenopathy. No free fluid. No free air. The urinary bladder ap pears normal. Degenerative changes are noted within the lower lumbar spine. No acute osseous abnormalities. IMPRESSION: 1. Moderate to large amount of abdominal ascites. 2. Heterogeneous nodular appearing liver consistent with cirrhosis and/or hepatitis. 3. There is a vague nodular area within the lower right hepatic lobe there are the falciform ligament , and underlying hepatic neoplastic process is not excluded without IV contrast. 4. Partial left nephrectomy.
--- NOTE | 2017-04-25 12:22 | US ---
EXAMINATION: Abdomen ultrasound HISTORY: Elevated bilirubin COMPARISON: None TECHNIQUE: Grayscale and color Doppler images obtained of the abdomen. FINDINGS: The visualized pancreas appears normal. The gallbladder is distended with underlying sludge . No shadowing gallstones or pericholecystic fluid. Gallbladder wall measures 3 mm. The liver is hete rogeneous in echotexture and nodular in contour. Right kidney measures 14.3 cm and the left kidney is not well characterized. The spleen appears grossly unremarkable. Abdominal ascites is noted. Common bile duct measures 8 mm. The visualized aorta and IVC appear normal. IMPRESSION: 1. Heterogeneous echogenic liver consistent with hepatocellular disease and/or fatty infiltration. 2. Abdominal ascites. 3. Sludge within an otherwise unremarkable gallbladder. 4. The left kidney is not well characterized.
[2017-04-25] MEDS ORDERED: Albumin 25% 12.5 GM/50 ML BAG IV ONE ×2 (15:27→15:29)
--- NOTE | 2017-04-25 16:54 | US ---
EXAMINATION: Ultrasound guided paracentesis. HISTORY: Ascites. FINDINGS/TECHNIQUE: The procedure, risks, and benefits were discussed with the patient. The patient is informed of his in creased bleeding risk due to elevated INR. The risk of transfusion or additional intervention was exp lained. Written informed consent was obtained. The right lower quadrant was sterilely prepped and ana ped. 1% lidocaine was administered for local anesthesia. Using ultrasound guidance a 5 Sinhala one-ryan p needle was advanced. The catheter was left in place. 4.3 L of bright yellow fluid was collected. Th e patient tolerated the procedure well. IMPRESSION: Successful US guided paracentesis.
[2017-04-25] MEDS: Thiamine 100 MG Tab PO SCH (20:51)
[2017-04-26] MEDS: Pantoprazole 40 MG Tab.CR PO SCH ×2 (06:32→18:02)
[2017-04-26] MEDS: Lactulose Soln 10 GM/15 ML 15 ML UD Cup PO SCH ×2 (08:09→21:17)
[2017-04-26] MEDS: Folic Acid 1 MG Tab PO SCH (08:09)
--- NOTE | 2017-04-26 11:34 | PCM.PN ---
- General Info Date of Service: 04/26/17 Admission Dx/Problem (Free Text): Admission Diagnosis/Problem Admission Diagnosis/Problem Jaundice secondary to alcoholic hepatitis and liver failure Subjective Update: Patient had 4.5 L taken from his abdomen yesterday via paracentesis. He states improved abdominal pain, improved shortness of breath and desire to eat. He continues to be fatigued when transferring from his bed to the bedside chair but denies any dizziness, lightheadedness when ambulating. He denies any chest pain, palpitations, wheezing, cough, nausea, vomiting. He is voiding appropriately. Functional Status: Reports: Pain Controlled, Tolerating Diet, Ambulating, Urinating - Review of Systems General: Reports: Fatigue HEENT: Reports: No Symptoms Pulmonary: Reports: No Symptoms Cardiovascular: Reports: No Symptoms Gastrointestinal: Reports: Abdominal Pain (Improved following paracentesis), Decreased Appetite (Improved following paracentesis) Genitourinary: Reports: No Symptoms Musculoskeletal: Reports: No Symptoms Skin: Reports: No Symptoms Neurological: Reports: No Symptoms Psychiatric: Reports: No Symptoms - Patient Data Vitals - Most Recent: Last Vital Signs Temp 97.5 F 04/26/17 08:00 Pulse 90 04/26/17 08:00 Resp 18 04/26/17 08:00 BP 103/65 04/26/17 08:00 Pulse Ox 91 L 04/26/17 08:00 Weight - Most Recent: 195 lb 1.745 oz I&O - Last 24 Hours: Intake & Output 04/25/17 04/26/17 04/26/17 22:59 06:59 14:59 Intake Total 900 500 Output Total 450 500 Balance 450 0 Lab Results Last 24 Hours: Laboratory Results - last 24 hr 04/25/17 04/25/17 04/25/17 Range/Units 11:55 14:10 14:10 WBC (4.0-11.0) K/uL RBC (4.50-5.90) M/uL Hgb (13.0-17.0) g/dL Hct (38.0-50.0) % MCV (80.0-98.0) fL MCH (27.0-32.0) pg MCHC (31.0-37.0) g/dL RDW Std Deviation (28.0-62.0) fl RDW Coeff of Sandra (11.0-15.0) % Plt Count (150-400) K/uL MPV (7.40-12.00) fL Add Manual Diff Neutrophils % (Manual) (48.0-80.0) % Band Neutrophils % % Lymphocytes % (Manual) (16.0-40.0) % Monocytes % (Manual) (0.0-15.0) % Basophils % (Manual) (0.0-1.5) % Nucleated RBC % /100WBC Absolute Seg Neuts (1.4-5.7) Band Neutrophils # Lymphocytes # (Manual) (0.6-2.4) Monocytes # (Manual) (0.0-0.8) Basophils # (Manual) (0.0-0.1) Nucleated RBCs # K/uL INR (0.86-1.11) Sodium 122 L (136-146) mmol/L Potassium 3.4 L (3.5-5.1) mmol/L Chloride 93 L (98-110) mmol/L Carbon Dioxide 20 L (21-31) mmol/L BUN 23 (6.0-23.0) mg/dL Creatinine 2.0 H (0.6-1.5) mg/dL Est Cr Clr Drug Dosing 57.22 mL/min Estimated GFR (MDRD) 36.6 ml/min Glucose 110 (60-110) mg/dL Calcium 8.3 L (8.8-10.8) mg/dL Phosphorus (2.4-4.7) mg/dL Magnesium (1.5-2.3) mEq/L Total Bilirubin (0.1-1.5) mg/dL AST (5-40) IU/L ALT (8-54) IU/L Alkaline Phosphatase (40-150) Total Protein (6.0-8.0) g/dL Albumin (3.5-5.0) g/dL Globulin (2.0-3.5) g/dL Albumin/Globulin Ratio (1.3-2.8) Fluid Type PER PER Fluid Color YELLOW Fluid Appearance CLEAR Fluid pH 8.0 Fluid WBC 0.18 K/uL Fluid RBC 0.00 M/uL Fluid Mononuclear Cell 89.8 % Fl Polymorphonucl Cell 10.2 % Fluid Glucose 121 mg/dL Fluid Total Protein g/dL Fluid Albumin g/dL Fluid LDH 39 U/L Fluid Amylase < 12 U/L Fluid Cholesterol < 16.0 g/dL Fluid Triglycerides mg/dL 04/25/17 04/26/17 04/26/17 Range/Units 14:10 05:02 05:02 WBC 12.12 H (4.0-11.0) K/uL RBC 3.58 L (4.50-5.90) M/uL Hgb 11.5 L (13.0-17.0) g/dL Hct 33.3 L (38.0-50.0) % MCV 93.0 (80.0-98.0) fL MCH 32.1 H (27.0-32.0) pg MCHC 34.5 (31.0-37.0) g/dL RDW Std Deviation 60.7 (28.0-62.0) fl RDW Coeff of Sandra 18 H (11.0-15.0) % Plt Count 164 (150-400) K/uL MPV 11.40 (7.40-12.00) fL Add Manual Diff YES Neutrophils % (Manual) 71 (48.0-80.0) % Band Neutrophils % 1 % Lymphocytes % (Manual) 22 (16.0-40.0) % Monocytes % (Manual) 5 (0.0-15.0) % Basophils % (Manual) 1 (0.0-1.5) % Nucleated RBC % 0.0 /100WBC Absolute Seg Neuts 8.6 H (1.4-5.7) Band Neutrophils # 0.1 Lymphocytes # (Manual) 2.7 H (0.6-2.4) Monocytes # (Manual) 0.6 (0.0-0.8) Basophils # (Manual) 0.1 (0.0-0.1) Nucleated RBCs # 0 K/uL INR 2.01 H (0.86-1.11) Sodium (136-146) mmol/L Potassium (3.5-5.1) mmol/L Chloride (98-110) mmol/L Carbon Dioxide (21-31) mmol/L BUN (6.0-23.0) mg/dL Creatinine (0.6-1.5) mg/dL Est Cr Clr Drug Dosing mL/min Estimated GFR (MDRD) ml/min Glucose (60-110) mg/dL Calcium (8.8-10.8) mg/dL Phosphorus (2.4-4.7) mg/dL Magnesium (1.5-2.3) mEq/L Total Bilirubin (0.1-1.5) mg/dL AST (5-40) IU/L ALT (8-54) IU/L Alkaline Phosphatase (40-150) Total Protein (6.0-8.0) g/dL Albumin (3.5-5.0) g/dL Globulin (2.0-3.5) g/dL Albumin/Globulin Ratio (1.3-2.8) Fluid Type PER Fluid Color Fluid Appearance Fluid pH Fluid WBC K/uL Fluid RBC M/uL Fluid Mononuclear Cell % Fl Polymorphonucl Cell % Fluid Glucose mg/dL Fluid Total Protein < 1.6 g/dL Fluid Albumin < 0.7 g/dL Fluid LDH U/L Fluid Amylase U/L Fluid Cholesterol g/dL Fluid Triglycerides 20 mg/dL 04/26/17 Range/Units 05:02 WBC (4.0-11.0) K/uL RBC (4.50-5.90) M/uL Hgb (13.0-17.0) g/dL Hct (38.0-50.0) % MCV (80.0-98.0) fL MCH (27.0-32.0) pg MCHC (31.0-37.0) g/dL RDW Std Deviation (28.0-62.0) fl RDW Coeff of Sandra (11.0-15.0) % Plt Count (150-400) K/uL MPV (7.40-12.00) fL Add Manual Diff Neutrophils % (Manual) (48.0-80.0) % Band Neutrophils % % Lymphocytes % (Manual) (16.0-40.0) % Monocytes % (Manual) (0.0-15.0) % Basophils % (Manual) (0.0-1.5) % Nucleated RBC % /100WBC Absolute Seg Neuts (1.4-5.7) Band Neutrophils # Lymphocytes # (Manual) (0.6-2.4) Monocytes # (Manual) (0.0-0.8) Basophils # (Manual) (0.0-0.1) Nucleated RBCs # K/uL INR (0.86-1.11) Sodium 124 L (136-146) mmol/L Potassium 3.5 (3.5-5.1) mmol/L Chloride 97 L (98-110) mmol/L Carbon Dioxide 17 L (21-31) mmol/L BUN 26 H (6.0-23.0) mg/dL Creatinine 2.1 H (0.6-1.5) mg/dL Est Cr Clr Drug Dosing 54.50 mL/min Estimated GFR (MDRD) 34.6 ml/min Glucose 100 (60-110) mg/dL Calcium 8.1 L (8.8-10.8) mg/dL Phosphorus 2.6 (2.4-4.7) mg/dL Magnesium 1.5 (1.5-2.3) mEq/L Total Bilirubin 30.5 H (0.1-1.5) mg/dL AST 87 H (5-40) IU/L ALT 30 (8-54) IU/L Alkaline Phosphatase 95 (40-150) Total Protein 6.2 (6.0-8.0) g/dL Albumin 2.1 L (3.5-5.0) g/dL Globulin 4.1 H (2.0-3.5) g/dL Albumin/Globulin Ratio 0.5 L (1.3-2.8) Fluid Type Fluid Color Fluid Appearance Fluid pH Fluid WBC K/uL Fluid RBC M/uL Fluid Mononuclear Cell % Fl Polymorphonucl Cell % Fluid Glucose mg/dL Fluid Total Protein g/dL Fluid Albumin g/dL Fluid LDH U/L Fluid Amylase U/L Fluid Cholesterol g/dL Fluid Triglycerides mg/dL Enzo Results Last 24 Hours: Microbiology 04/25/17 14:10 Gram Stain - Preliminary Peritoneal Fluid Body Fluid Culture - Preliminary NO GROWTH AFTER 1 DAY 04/23/17 19:11 Aerobic Blood Culture - Preliminary Blood - Venous - Lab Draw NO GROWTH AFTER 2 DAYS Anaerobic Blood Culture - Preliminary NO GROWTH AFTER 2 DAYS 04/23/17 19:01 Aerobic Blood Culture - Preliminary Blood - Venous NO GROWTH AFTER 2 DAYS Anaerobic Blood Culture - Preliminary NO GROWTH AFTER 2 DAYS 04/23/17 16:50 Urine Culture - Final Urine, Clean Catch MIXED SATNAM 10,000-100,000 CFU/ML Med Orders - Current: Current Medications Cefdinir (Omnicef) 300 mg PO BID [facility] Fentanyl (Sublimaze) 25 mcg IVPUSH Q1H PRN PRN Reason: Pain Last Admin: 04/24/17 22:11 Dose: 25 mcg Folic Acid (Folic Acid) 1 mg PO DAILY [facility] Last Admin: 04/26/17 08:09 Dose: 1 mg Lactulose (Chronulac) 10 gm PO BID [facility] Last Admin: 04/26/17 08:09 Dose: 10 gm Lorazepam (Ativan) 0 mg PO Q4H PRN; Protocol PRN Reason: Withdrawal Symptoms Ondansetron HCl (Zofran Odt) 4 mg PO Q4H PRN PRN Reason: nausea, able to take PO Pantoprazole Sodium (Protonix) 40 mg PO BIDAC [facility] Last Admin: 04/26/17 06:32 Dose: 40 mg Thiamine HCl (Vitamin B-1) 100 mg PO BEDTIME [facility] Last Admin: 04/25/17 20:51 Dose: 100 mg Discontinued Medications Aspirin (Aspirin) 81 mg PO ONETIME [facility] Ceftriaxone Sodium (Rocephin) 1,000 mg IVPUSH Q24H [facility] Last Admin: 04/23/17 20:23 Dose: Not Given Fentanyl (Sublimaze) 25 mcg IVPUSH ONETIME ONE Stop: 04/24/17 03:00 Last Admin: 04/24/17 03:41 Dose: Not Given Fentanyl (Sublimaze) 25 mcg IVPUSH ONETIME ONE Stop: 04/24/17 03:46 Last Admin: 04/24/17 04:48 Dose: 25 mcg Fentanyl (Sublimaze) 25 mcg IVPUSH ONETIME ONE Stop: 04/24/17 16:51 Last Admin: 04/24/17 17:05 Dose: 25 mcg Ceftriaxone Sodium/Dextrose (Rocephin In Dextrose,Iso-Osm 1 Gm/50 Ml) 50 mls @ 100 mls/hr IV Q24H [facility] Last Admin: 04/25/17 19:43 Dose: 100 mls/hr Potassium Chloride 40 meq/ (Sodium Chloride) 500 mls @ 125 mls/hr IV ONETIME ONE Stop: 04/23/17 22:44 Last Infusion: 04/23/17 20:00 Dose: 75 mls/hr Magnesium Sulfate 4 gm/ Sodium (Chloride) 108 mls @ 54 mls/hr IV ONETIME [facility] Stop: 04/23/17 21:29 Last Admin: 04/23/17 20:22 Dose: 54 mls/hr Pantoprazole Sodium 40 mg/ (Sodium Chloride) 20 mls @ 80 mls/hr IV Q12HR ONE Stop: 04/23/17 19:48 Last Admin: 04/23/17 20:23 Dose: Not Given Phytonadione 10 mg/ Sodium (Chloride) 51 mls @ 100 mls/hr IV NOW ONE Stop: 04/23/17 20:29 Last Admin: 04/23/17 22:49 Dose: 100 mls/hr Albumin Human (Flexbumin 25%) 12.5 gm in 50 mls @ 100 mls/hr IV ONETIME ONE Stop: 04/25/17 15:56 Last Admin: 04/25/17 15:43 Dose: 100 mls/hr Albumin Human (Flexbumin 25%) 12.5 gm in 50 mls @ 100 mls/hr IV ONETIME ONE Stop: 04/25/17 15:58 Last Admin: 04/25/17 16:15 Dose: 100 mls/hr Ibuprofen (Motrin) 800 mg PO Q6H PRN PRN Reason: Pain (mild 1-3) Potassium Chloride (Klor-Con M20) 40 meq PO ONETIME ONE Stop: 04/23/17 18:30 Last Admin: 04/23/17 18:39 Dose: 40 meq Potassium Chloride (Klor-Con M20) 40 meq PO ONETIME ONE Stop: 04/24/17 02:57 Last Admin: 04/24/17 03:15 Dose: 40 meq Potassium Chloride (Klor-Con M20) 40 meq PO DAILY [facility] Last Admin: 04/24/17 17:25 Dose: 40 meq Potassium Chloride (Klor-Con M20) 40 meq PO ONETIME ONE Stop: 04/25/17 00:31 Last Admin: 04/25/17 00:51 Dose: 40 meq Potassium Chloride (Klor-Con M20) 40 meq PO DAILY [facility] Potassium Chloride (Klor-Con M20) 40 meq PO ONETIME ONE Stop: 04/25/17 13:57 Last Admin: 04/25/17 15:18 Dose: Not Given Potassium Chloride (Klor-Con M20) 40 meq PO ONETIME ONE Stop: 04/25/17 15:06 Last Admin: 04/25/17 15:21 Dose: 40 meq Comments:: Patient is sitting in bedside chair - Exam Quality Assessment: DVT Prophylaxis General: Alert, Oriented, Cooperative, No Acute Distress HEENT: Mucous Membr. Moist/[place], Scleral Icterus Neck: Supple Lungs: Clear to Auscultation, Normal Respiratory Effort Cardiovascular: Regular Rate, Regular Rhythm GI/Abdominal Exam: Normal Bowel Sounds, No Abnormal Bruit, Distended (Improved following paracentesis), Tender (Improved), Hepatomegaly Extremities: Normal Inspection, Normal Range of Motion, Non-Tender, No Pedal Edema, Normal Capillary Refill Peripheral Pulses: 2+: Radial (L), Radial (R), Posterior Tibial (L), Posterior Tibial (R) Skin: Warm, Dry, Intact, Other (Jaundice) Neurological: No New Focal Deficit Psy/Mental Status: Alert, Normal Affect, Normal Mood - Problem List & Annotations (1) Alcoholic hepatitis with ascites SNOMED Code(s): 926883082 Code(s): K70.11 - ALCOHOLIC HEPATITIS WITH ASCITES Status: Acute Current Visit: Yes (2) Jaundice due to hepatitis SNOMED Code(s): 60820928 Code(s): K75.9 - INFLAMMATORY LIVER DISEASE, UNSPECIFIED Status: Acute Current Visit: Yes (3) UTI (urinary tract infection) SNOMED Code(s): 94273499 Code(s): N39.0 - URINARY TRACT INFECTION, SITE NOT SPECIFIED Status: Acute Current Visit: Yes (4) Hyponatremia SNOMED Code(s): 04069063 Code(s): E87.1 - HYPO-OSMOLALITY AND HYPONATREMIA Status: Acute Current Visit: Yes (5) Hypokalemia SNOMED Code(s): 73568594 Code(s): E87.6 - HYPOKALEMIA Status: Acute Current Visit: Yes (6) Bloody stool SNOMED Code(s): 017075366 Code(s): K92.1 - MELENA Status: Acute Current Visit: Yes - Problem List Review Problem List Initiated/Reviewed/Updated: Yes - My Orders Last 24 Hours: My Active Orders 04/26/17 21:00 Cefdinir [Omnicef] 300 mg PO BID 04/27/17 05:11 CBC WITH AUTO DIFF [HEME] AM CMP [COMPREHENSIVE METABOLIC PN,CMP] [CHEM] AM MAGNESIUM [CHEM] AM PHOSPHORUS [CHEM] AM 04/28/17 05:11 CBC WITH AUTO DIFF [HEME] AM CMP [COMPREHENSIVE METABOLIC PN,CMP] [CHEM] AM 04/29/17 05:11 CBC WITH AUTO DIFF [HEME] AM CMP [COMPREHENSIVE METABOLIC PN,CMP] [CHEM] AM - Plan Plan:: 42-year-old male admitted with jaundice/liver failure secondary to alcoholic hepatitis #1. Jaundice/liver failure secondary to alcoholic hepatitis: -Patient's calculated meld score is 33 giving a 52% three-month mortality rate. -AST continues to improve. ALT and ALP are normal. INR is 2.01. Total bilirubin is 30.5. -Paracentesis yesterday drained 4.5 L. Analysis of fluid does not show evidence of spontaneous bacterial peritonitis. -Consider introducing Lasix tomorrow to help with reaccumulating ascites. We'll continue to monitor sodium, potassium and magnesium. -I spoke with Dr. Sanford, transit mixer operator, from [place], [place] who suggested that we could transfer the patient if we are not comfortable treating him. He stated that there is not much more that they would do there then what we are doing here. He recommended that we watch the patient's total bilirubin and keep him admitted until it plateaus and begins to decrease. He notes that this can take a number of days. He does not recommend treating the patient with steroids at this time secondary to the patient's current UTI and bloody stools. #2. Hyponatremia, hypokalemia: -Continue oral potassium chloride daily. Potassium is within normal limits -Sodium has increased to 124. Fluids are not being given secondary to the patient's abdominal distention secondary to his ascites. #3. UTI: -Patient switched to cefdinir 300 mg daily. Her blood cell count is improving. #4. Bloody stools: -Hemoccult-positive. Continue with oral Protonix #5. Alcohol abuse: -CIWAA assessment has been discontinued as CIWAA scores have been 0. -continue thiamine and folate. DVT prophylaxis: SCDs. Discharge: 2-4 days pending improvement.
[2017-04-26] MEDS: Cefdinir 300 MG Cap PO SCH (21:17)
[2017-04-26] MEDS: Thiamine 100 MG Tab PO SCH (21:17)
[2017-04-27] MEDS: Pantoprazole 40 MG Tab.CR PO SCH ×2 (06:56→17:00)
[2017-04-27] MEDS: Cefdinir 300 MG Cap PO SCH ×2 (08:08→20:08)
[2017-04-27] MEDS: Lactulose Soln 10 GM/15 ML 15 ML UD Cup PO SCH (08:08)
[2017-04-27] MEDS: Folic Acid 1 MG Tab PO SCH (08:08)
[2017-04-27] MEDS ORDERED: Lactulose Soln 10 GM/15 ML 15 ML UD Cup PO PRN (10:06)
--- NOTE | 2017-04-27 10:10 | PCM.PN ---
- Review of Systems Systems Review Comment:: feeling better, no new complaints - Patient Data Vitals - Most Recent: Last Vital Signs Temp 36.1 C 04/27/17 08:00 Pulse 86 04/27/17 08:00 Resp 18 04/27/17 08:00 BP 108/66 04/27/17 08:00 Pulse Ox 93 L 04/27/17 08:00 Weight - Most Recent: 89.993 kg I&O - Last 24 Hours: Intake & Output 04/26/17 04/27/17 04/27/17 22:59 06:59 14:59 Intake Total 450 500 Output Total 400 450 Balance 50 50 Lab Results Last 24 Hours: Laboratory Results - last 24 hr 04/27/17 04/27/17 04/27/17 Range/Units 05:30 05:30 05:30 WBC 15.07 H (4.0-11.0) K/uL RBC 3.79 L (4.50-5.90) M/uL Hgb 13.4 (13.0-17.0) g/dL Hct 35.5 L (38.0-50.0) % MCV 93.7 (80.0-98.0) fL MCH 35.4 H (27.0-32.0) pg MCHC 37.7 H (31.0-37.0) g/dL RDW Std Deviation 61.9 (28.0-62.0) fl RDW Coeff of Sandra 18 H (11.0-15.0) % Plt Count 178 (150-400) K/uL MPV 11.10 (7.40-12.00) fL Add Manual Diff YES Neutrophils % (Manual) 66 (48.0-80.0) % Band Neutrophils % 8 % Lymphocytes % (Manual) 14 L (16.0-40.0) % Monocytes % (Manual) 10 (0.0-15.0) % Eosinophils % (Manual) 1 (0.0-7.0) % Basophils % (Manual) 1 (0.0-1.5) % Nucleated RBC % 0.0 /100WBC Absolute Seg Neuts 9.9 H (1.4-5.7) Band Neutrophils # 1.2 Lymphocytes # (Manual) 2.1 (0.6-2.4) Monocytes # (Manual) 1.5 H (0.0-0.8) Eosinophils # (Manual) 0.2 (0.0-0.7) Basophils # (Manual) 0.2 H (0.0-0.1) Nucleated RBCs # 0 K/uL INR 2.02 H (0.86-1.11) Sodium 123 L (136-146) mmol/L Potassium 3.5 (3.5-5.1) mmol/L Chloride 96 L (98-110) mmol/L Carbon Dioxide 18 L (21-31) mmol/L BUN 29 H (6.0-23.0) mg/dL Creatinine 2.2 H (0.6-1.5) mg/dL Est Cr Clr Drug Dosing 52.02 mL/min Estimated GFR (MDRD) 32.8 ml/min Glucose 89 (60-110) mg/dL Calcium 8.4 L (8.8-10.8) mg/dL Phosphorus 2.8 (2.4-4.7) mg/dL Magnesium 1.4 L (1.5-2.3) mEq/L Total Bilirubin 31.1 H (0.1-1.5) mg/dL AST 91 H (5-40) IU/L ALT 33 (8-54) IU/L Alkaline Phosphatase 112 (40-150) Total Protein 6.9 (6.0-8.0) g/dL Albumin 2.1 L (3.5-5.0) g/dL Globulin 4.8 H (2.0-3.5) g/dL Albumin/Globulin Ratio 0.4 L (1.3-2.8) Enzo Results Last 24 Hours: Microbiology 04/25/17 14:10 Gram Stain - Final Peritoneal Fluid Body Fluid Culture - Preliminary NO GROWTH AFTER 2 DAYS 04/23/17 19:11 Aerobic Blood Culture - Preliminary Blood - Venous - Lab Draw NO GROWTH AFTER 3 DAYS Anaerobic Blood Culture - Preliminary NO GROWTH AFTER 3 DAYS 04/23/17 19:01 Aerobic Blood Culture - Preliminary Blood - Venous NO GROWTH AFTER 3 DAYS Anaerobic Blood Culture - Preliminary NO GROWTH AFTER 3 DAYS Med Orders - Current: Current Medications Cefdinir (Omnicef) 300 mg PO BID [facility] Last Admin: 04/27/17 08:08 Dose: 300 mg Fentanyl (Sublimaze) 25 mcg IVPUSH Q1H PRN PRN Reason: Pain Last Admin: 04/24/17 22:11 Dose: 25 mcg Folic Acid (Folic Acid) 1 mg PO DAILY [facility] Last Admin: 04/27/17 08:08 Dose: 1 mg Lactulose (Chronulac) 10 gm PO BID PRN PRN Reason: titrate to two loose BM Lorazepam (Ativan) 0 mg PO Q4H PRN; Protocol PRN Reason: Withdrawal Symptoms Ondansetron HCl (Zofran Odt) 4 mg PO Q4H PRN PRN Reason: nausea, able to take PO Pantoprazole Sodium (Protonix) 40 mg PO BIDAC [facility] Last Admin: 04/27/17 06:56 Dose: 40 mg Thiamine HCl (Vitamin B-1) 100 mg PO BEDTIME [facility] Last Admin: 04/26/17 21:17 Dose: 100 mg Discontinued Medications Aspirin (Aspirin) 81 mg PO ONETIME [facility] Ceftriaxone Sodium (Rocephin) 1,000 mg IVPUSH Q24H [facility] Last Admin: 04/23/17 20:23 Dose: Not Given Fentanyl (Sublimaze) 25 mcg IVPUSH ONETIME ONE Stop: 04/24/17 03:00 Last Admin: 04/24/17 03:41 Dose: Not Given Fentanyl (Sublimaze) 25 mcg IVPUSH ONETIME ONE Stop: 04/24/17 03:46 Last Admin: 04/24/17 04:48 Dose: 25 mcg Fentanyl (Sublimaze) 25 mcg IVPUSH ONETIME ONE Stop: 04/24/17 16:51 Last Admin: 04/24/17 17:05 Dose: 25 mcg Ceftriaxone Sodium/Dextrose (Rocephin In Dextrose,Iso-Osm 1 Gm/50 Ml) 50 mls @ 100 mls/hr IV Q24H [facility] Last Admin: 04/25/17 19:43 Dose: 100 mls/hr Potassium Chloride 40 meq/ (Sodium Chloride) 500 mls @ 125 mls/hr IV ONETIME ONE Stop: 04/23/17 22:44 Last Infusion: 04/23/17 20:00 Dose: 75 mls/hr Magnesium Sulfate 4 gm/ Sodium (Chloride) 108 mls @ 54 mls/hr IV ONETIME [facility] Stop: 04/23/17 21:29 Last Admin: 04/23/17 20:22 Dose: 54 mls/hr Pantoprazole Sodium 40 mg/ (Sodium Chloride) 20 mls @ 80 mls/hr IV Q12HR ONE Stop: 04/23/17 19:48 Last Admin: 04/23/17 20:23 Dose: Not Given Phytonadione 10 mg/ Sodium (Chloride) 51 mls @ 100 mls/hr IV NOW ONE Stop: 04/23/17 20:29 Last Admin: 04/23/17 22:49 Dose: 100 mls/hr Albumin Human (Flexbumin 25%) 12.5 gm in 50 mls @ 100 mls/hr IV ONETIME ONE Stop: 04/25/17 15:56 Last Admin: 04/25/17 15:43 Dose: 100 mls/hr Albumin Human (Flexbumin 25%) 12.5 gm in 50 mls @ 100 mls/hr IV ONETIME ONE Stop: 04/25/17 15:58 Last Admin: 04/25/17 16:15 Dose: 100 mls/hr Ibuprofen (Motrin) 800 mg PO Q6H PRN PRN Reason: Pain (mild 1-3) Lactulose (Chronulac) 10 gm PO BID [facility] Last Admin: 04/27/17 08:08 Dose: 10 gm Potassium Chloride (Klor-Con M20) 40 meq PO ONETIME ONE Stop: 04/23/17 18:30 Last Admin: 04/23/17 18:39 Dose: 40 meq Potassium Chloride (Klor-Con M20) 40 meq PO ONETIME ONE Stop: 04/24/17 02:57 Last Admin: 04/24/17 03:15 Dose: 40 meq Potassium Chloride (Klor-Con M20) 40 meq PO DAILY [facility] Last Admin: 04/24/17 17:25 Dose: 40 meq Potassium Chloride (Klor-Con M20) 40 meq PO ONETIME ONE Stop: 04/25/17 00:31 Last Admin: 04/25/17 00:51 Dose: 40 meq Potassium Chloride (Klor-Con M20) 40 meq PO DAILY [facility] Potassium Chloride (Klor-Con M20) 40 meq PO ONETIME ONE Stop: 04/25/17 13:57 Last Admin: 04/25/17 15:18 Dose: Not Given Potassium Chloride (Klor-Con M20) 40 meq PO ONETIME ONE Stop: 04/25/17 15:06 Last Admin: 04/25/17 15:21 Dose: 40 meq - Exam General: Alert, Oriented Lungs: Clear to Auscultation, Normal Respiratory Effort Cardiovascular: Regular Rate, Regular Rhythm GI/Abdominal Exam: Soft, Non-Tender, Distended Extremities: No Pedal Edema Skin: Warm, Dry, Intact - Problem List Review Problem List Initiated/Reviewed/Updated: Yes - My Orders Last 24 Hours: My Active Orders 04/27/17 10:06 Lactulose [Chronulac] 10 gm PO BID PRN - Plan Plan:: 42-year-old male admitted with jaundice/liver failure secondary to alcoholic hepatitis and UTI. alcoholic hepatitis: continue to trend CMP, not on steroids due to UTI and reported hsitory of bloody stools prior to admission, s/p paracentesis on , anticipate discharge in next few days. Kidney disease: creatinine 2.2, will continue to monitor UTI: continue cefdinir
[2017-04-27] MEDS: Thiamine 100 MG Tab PO SCH (20:08)
[2017-04-28] MEDS: fentaNYL 100 MCG/2 ML SDV IVPUSH PRN (00:33)
[2017-04-28 06:18] LABS: CHLORIDE,CL 96 mmol/L (98-110); SODIUM,NA 124 mmol/L (136-146)
[2017-04-28] MEDS: Pantoprazole 40 MG Tab.CR PO SCH ×2 (06:38→16:04)
[2017-04-28] MEDS: Spironolactone 25 MG Tab PO SCH ×2 (09:03→10:18)
[2017-04-28] MEDS: Cefdinir 300 MG Cap PO SCH ×2 (10:19→21:24)
[2017-04-28] MEDS: Folic Acid 1 MG Tab PO SCH (10:19)
[2017-04-28] MEDS: Furosemide 40 MG Tab PO SCH (10:19)
--- NOTE | 2017-04-28 11:40 | PCM.PN ---
- General Info Date of Service: 04/28/17 Subjective Update: 42-year-old male with alcoholic hepatitis status post paracentesis for ascites currently on our service. Patient complains of persistent abdominal pain that is under control. He feels that his abdominal distention is about the same as how it's been. Denies any new symptoms such as fevers chills nausea or vomiting. Denies any confusion or headache. - Review of Systems General: Reports: Other (See history of present illness) - Patient Data Vitals - Most Recent: Last Vital Signs Temp 36.3 C 04/28/17 08:00 Pulse 88 04/28/17 08:00 Resp 18 04/28/17 08:00 BP 100/67 04/28/17 08:00 Pulse Ox 96 04/28/17 08:00 Weight - Most Recent: 90.265 kg I&O - Last 24 Hours: Intake & Output 04/27/17 04/28/17 04/28/17 23:59 06:59 14:59 Intake Total Output Total Balance Lab Results Last 24 Hours: Laboratory Results - last 24 hr 04/23/17 04/28/17 04/28/17 Range/Units 16:09 05:30 05:30 WBC 17.17 H (4.0-11.0) K/uL RBC 3.82 L (4.50-5.90) M/uL Hgb 13.6 (13.0-17.0) g/dL Hct 35.9 L (38.0-50.0) % MCV 94.0 (80.0-98.0) fL MCH 35.6 H (27.0-32.0) pg MCHC 37.9 H (31.0-37.0) g/dL RDW Std Deviation 62.6 H (28.0-62.0) fl RDW Coeff of Sandra 19 H (11.0-15.0) % Plt Count 180 (150-400) K/uL MPV 10.70 (7.40-12.00) fL Add Manual Diff YES Neutrophils % (Manual) 71 (48.0-80.0) % Band Neutrophils % 2 % Lymphocytes % (Manual) 11 L (16.0-40.0) % Monocytes % (Manual) 15 (0.0-15.0) % Basophils % (Manual) 1 (0.0-1.5) % Nucleated RBC % 0.0 /100WBC Absolute Seg Neuts 12.2 H (1.4-5.7) Band Neutrophils # 0.3 Lymphocytes # (Manual) 1.9 (0.6-2.4) Monocytes # (Manual) 2.6 H (0.0-0.8) Basophils # (Manual) 0.2 H (0.0-0.1) Nucleated RBCs # 0 K/uL INR (0.86-1.11) Sodium 124 L (136-146) mmol/L Potassium 4.0 (3.5-5.1) mmol/L Chloride 96 L (98-110) mmol/L Carbon Dioxide 20 L (21-31) mmol/L BUN 35 H (6.0-23.0) mg/dL Creatinine 2.3 H (0.6-1.5) mg/dL Est Cr Clr Drug Dosing 49.76 mL/min Estimated GFR (MDRD) 31.2 ml/min Glucose 94 (60-110) mg/dL Calcium 8.9 (8.8-10.8) mg/dL Total Bilirubin > 18.2 H (0.1-1.5) mg/dL AST 86 H (5-40) IU/L ALT 34 (8-54) IU/L Alkaline Phosphatase 111 (40-150) Total Protein 7.0 (6.0-8.0) g/dL Albumin 2.1 L (3.5-5.0) g/dL Globulin 4.9 H (2.0-3.5) g/dL Albumin/Globulin Ratio 0.4 L (1.3-2.8) ANCA Screen <1:20 Proteinase 3 (PR3) Ab <0.2 (<1.0) AI Myeloperoxidase Ab <0.2 (<1.0) AI Anti-Neutrophil Ab Negative (NEG) 04/28/17 Range/Units 05:30 WBC (4.0-11.0) K/uL RBC (4.50-5.90) M/uL Hgb (13.0-17.0) g/dL Hct (38.0-50.0) % MCV (80.0-98.0) fL MCH (27.0-32.0) pg MCHC (31.0-37.0) g/dL RDW Std Deviation (28.0-62.0) fl RDW Coeff of Sandra (11.0-15.0) % Plt Count (150-400) K/uL MPV (7.40-12.00) fL Add Manual Diff Neutrophils % (Manual) (48.0-80.0) % Band Neutrophils % % Lymphocytes % (Manual) (16.0-40.0) % Monocytes % (Manual) (0.0-15.0) % Basophils % (Manual) (0.0-1.5) % Nucleated RBC % /100WBC Absolute Seg Neuts (1.4-5.7) Band Neutrophils # Lymphocytes # (Manual) (0.6-2.4) Monocytes # (Manual) (0.0-0.8) Basophils # (Manual) (0.0-0.1) Nucleated RBCs # K/uL INR 1.87 H (0.86-1.11) Sodium (136-146) mmol/L Potassium (3.5-5.1) mmol/L Chloride (98-110) mmol/L Carbon Dioxide (21-31) mmol/L BUN (6.0-23.0) mg/dL Creatinine (0.6-1.5) mg/dL Est Cr Clr Drug Dosing mL/min Estimated GFR (MDRD) ml/min Glucose (60-110) mg/dL Calcium (8.8-10.8) mg/dL Total Bilirubin (0.1-1.5) mg/dL AST (5-40) IU/L ALT (8-54) IU/L Alkaline Phosphatase (40-150) Total Protein (6.0-8.0) g/dL Albumin (3.5-5.0) g/dL Globulin (2.0-3.5) g/dL Albumin/Globulin Ratio (1.3-2.8) ANCA Screen Proteinase 3 (PR3) Ab (<1.0) AI Myeloperoxidase Ab (<1.0) AI Anti-Neutrophil Ab (NEG) Enzo Results Last 24 Hours: Microbiology 04/25/17 14:10 Gram Stain - Final Peritoneal Fluid Body Fluid Culture - Final NO GROWTH AFTER 3 DAYS 04/23/17 19:11 Aerobic Blood Culture - Preliminary Blood - Venous - Lab Draw NO GROWTH AFTER 4 DAYS Anaerobic Blood Culture - Preliminary NO GROWTH AFTER 4 DAYS 04/23/17 19:01 Aerobic Blood Culture - Preliminary Blood - Venous NO GROWTH AFTER 4 DAYS Anaerobic Blood Culture - Preliminary NO GROWTH AFTER 4 DAYS Med Orders - Current: Current Medications Cefdinir (Omnicef) 300 mg PO BID [facility] Last Admin: 04/28/17 10:19 Dose: 300 mg Folic Acid (Folic Acid) 1 mg PO DAILY [facility] Last Admin: 04/28/17 10:19 Dose: 1 mg Furosemide (Lasix) 40 mg PO DAILY [facility] Last Admin: 04/28/17 10:19 Dose: 40 mg Lactulose (Chronulac) 10 gm PO BID PRN PRN Reason: titrate to two loose BM Lorazepam (Ativan) 0 mg PO Q4H PRN; Protocol PRN Reason: Withdrawal Symptoms Ondansetron HCl (Zofran Odt) 4 mg PO Q4H PRN PRN Reason: nausea, able to take PO Pantoprazole Sodium (Protonix) 40 mg PO BIDAC [facility] Last Admin: 04/28/17 06:38 Dose: 40 mg Spironolactone (Aldactone) 12.5 mg PO DAILY [facility] Last Admin: 04/28/17 10:18 Dose: 12.5 mg Thiamine HCl (Vitamin B-1) 100 mg PO BEDTIME [facility] Last Admin: 04/27/17 20:08 Dose: 100 mg Discontinued Medications Aspirin (Aspirin) 81 mg PO ONETIME [facility] Ceftriaxone Sodium (Rocephin) 1,000 mg IVPUSH Q24H [facility] Last Admin: 04/23/17 20:23 Dose: Not Given Fentanyl (Sublimaze) 25 mcg IVPUSH ONETIME ONE Stop: 04/24/17 03:00 Last Admin: 04/24/17 03:41 Dose: Not Given Fentanyl (Sublimaze) 25 mcg IVPUSH ONETIME ONE Stop: 04/24/17 03:46 Last Admin: 04/24/17 04:48 Dose: 25 mcg Fentanyl (Sublimaze) 25 mcg IVPUSH ONETIME ONE Stop: 04/24/17 16:51 Last Admin: 04/24/17 17:05 Dose: 25 mcg Fentanyl (Sublimaze) 25 mcg IVPUSH Q1H PRN PRN Reason: Pain Last Admin: 04/28/17 00:33 Dose: 25 mcg Ceftriaxone Sodium/Dextrose (Rocephin In Dextrose,Iso-Osm 1 Gm/50 Ml) 50 mls @ 100 mls/hr IV Q24H [facility] Last Admin: 04/25/17 19:43 Dose: 100 mls/hr Potassium Chloride 40 meq/ (Sodium Chloride) 500 mls @ 125 mls/hr IV ONETIME ONE Stop: 04/23/17 22:44 Last Infusion: 04/23/17 20:00 Dose: 75 mls/hr Magnesium Sulfate 4 gm/ Sodium (Chloride) 108 mls @ 54 mls/hr IV ONETIME [facility] Stop: 04/23/17 21:29 Last Admin: 04/23/17 20:22 Dose: 54 mls/hr Pantoprazole Sodium 40 mg/ (Sodium Chloride) 20 mls @ 80 mls/hr IV Q12HR ONE Stop: 04/23/17 19:48 Last Admin: 04/23/17 20:23 Dose: Not Given Phytonadione 10 mg/ Sodium (Chloride) 51 mls @ 100 mls/hr IV NOW ONE Stop: 04/23/17 20:29 Last Admin: 04/23/17 22:49 Dose: 100 mls/hr Albumin Human (Flexbumin 25%) 12.5 gm in 50 mls @ 100 mls/hr IV ONETIME ONE Stop: 04/25/17 15:56 Last Admin: 04/25/17 15:43 Dose: 100 mls/hr Albumin Human (Flexbumin 25%) 12.5 gm in 50 mls @ 100 mls/hr IV ONETIME ONE Stop: 04/25/17 15:58 Last Admin: 04/25/17 16:15 Dose: 100 mls/hr Ibuprofen (Motrin) 800 mg PO Q6H PRN PRN Reason: Pain (mild 1-3) Lactulose (Chronulac) 10 gm PO BID [facility] Last Admin: 04/27/17 08:08 Dose: 10 gm Potassium Chloride (Klor-Con M20) 40 meq PO ONETIME ONE Stop: 04/23/17 18:30 Last Admin: 04/23/17 18:39 Dose: 40 meq Potassium Chloride (Klor-Con M20) 40 meq PO ONETIME ONE Stop: 04/24/17 02:57 Last Admin: 04/24/17 03:15 Dose: 40 meq Potassium Chloride (Klor-Con M20) 40 meq PO DAILY [facility] Last Admin: 04/24/17 17:25 Dose: 40 meq Potassium Chloride (Klor-Con M20) 40 meq PO ONETIME ONE Stop: 04/25/17 00:31 Last Admin: 04/25/17 00:51 Dose: 40 meq Potassium Chloride (Klor-Con M20) 40 meq PO DAILY [facility] Potassium Chloride (Klor-Con M20) 40 meq PO ONETIME ONE Stop: 04/25/17 13:57 Last Admin: 04/25/17 15:18 Dose: Not Given Potassium Chloride (Klor-Con M20) 40 meq PO ONETIME ONE Stop: 04/25/17 15:06 Last Admin: 04/25/17 15:21 Dose: 40 meq - Exam General: Alert, Oriented, Cooperative HEENT: Pupils Equal, Pupils Reactive, Other (Scleral icterus) Neck: Supple Lungs: Clear to Auscultation, Normal Respiratory Effort Cardiovascular: Regular Rate, Regular Rhythm GI/Abdominal Exam: Normal Bowel Sounds, Distended, Other (Generalized ascites with spider angiomas no fluid wave. ) - Problem List Review Problem List Initiated/Reviewed/Updated: Yes - My Orders Last 24 Hours: My Active Orders 04/28/17 08:45 Spironolactone [Aldactone] 12.5 mg PO DAILY 04/28/17 09:00 Furosemide [Lasix] 40 mg PO DAILY - Assessment Assessment:: #1. Acute alcoholic hepatitis #2. Abdominal ascites, jaundice secondary to #1 #3. Thrombocytopenia #4. Elevated INR #5. Hyponatremia #6. Urinary tract infection #7. Renal insufficiency with elevated BUNs/creatinine #8. Elevated bilirubin, elevated LFTs Plan #1. Hepatitis panel that was done in clinic prior to admission was negative #2. Continue Cefdinir for UTI #3. Continue to trend CMP. #4. Fluid restriction for hyponatremia #5. Start Lasix 40 mg by mouth daily for ascites along with 12.5 mg spironolactone by mouth daily
[2017-04-28] MEDS: Morphine 2 MG/ML Syringe IVPUSH PRN ×2 (16:04→21:04)
[2017-04-28] MEDS: Thiamine 100 MG Tab PO SCH (21:06)
[2017-04-29] MEDS: Morphine 2 MG/ML Syringe IVPUSH PRN ×6 (01:12→22:49)
[2017-04-29] MEDS: Pantoprazole 40 MG Tab.CR PO SCH ×2 (06:49→17:46)
[2017-04-29] MEDS ORDERED: Potassium Chloride 20 MEQ Tab.ER PO ONE (07:51)
[2017-04-29] MEDS: Spironolactone 25 MG Tab PO SCH (09:22)
[2017-04-29] MEDS: Cefdinir 300 MG Cap PO SCH ×2 (09:24→20:22)
[2017-04-29] MEDS: Folic Acid 1 MG Tab PO SCH (09:24)
[2017-04-29] MEDS: Furosemide 40 MG Tab PO SCH (09:25)
[2017-04-29] MEDS: Cyclobenzaprine 5 MG Tab PO PRN (09:44)
--- NOTE | 2017-04-29 10:33 | PCM.PN ---
- General Info Date of Service: 04/29/17 Admission Dx/Problem (Free Text): Admission Diagnosis/Problem Admission Diagnosis/Problem Jaundice secondary to alcoholic hepatitis and liver failure Subjective Update: Patient doing well. Has been started on IV morphine for pain relief of his belly and back which he states has been helping. Patient is tolerating oral intake and voiding appropriately. He does note some cramping in his thighs bilaterally since last night. He denies any other acute concerns today. Functional Status: Reports: Pain Controlled, Tolerating Diet, Ambulating, Urinating - Review of Systems General: Reports: Weakness, Fatigue HEENT: Reports: No Symptoms Pulmonary: Reports: No Symptoms Cardiovascular: Reports: No Symptoms Gastrointestinal: Reports: Abdominal Pain Genitourinary: Reports: No Symptoms Musculoskeletal: Reports: Other (Cramping in thighs bilaterally.) Skin: Reports: Jaundice Neurological: Reports: No Symptoms Psychiatric: Reports: No Symptoms - Patient Data Vitals - Most Recent: Last Vital Signs Temp 98.8 F 04/29/17 08:00 Pulse 82 04/29/17 08:00 Resp 20 04/29/17 08:00 BP 100/58 L 04/29/17 08:00 Pulse Ox 93 L 04/29/17 08:00 Weight - Most Recent: 194 lb 9.6 oz I&O - Last 24 Hours: Intake & Output 04/28/17 04/29/17 04/29/17 22:59 06:59 14:59 Intake Total 500 500 Output Total 275 460 Balance 225 40 Lab Results Last 24 Hours: Laboratory Results - last 24 hr 04/29/17 04/29/17 04/29/17 Range/Units 05:30 05:30 05:30 WBC 18.78 H (4.0-11.0) K/uL RBC 3.63 L (4.50-5.90) M/uL Hgb 12.8 L (13.0-17.0) g/dL Hct 34.1 L (38.0-50.0) % MCV 93.9 (80.0-98.0) fL MCH 35.3 H (27.0-32.0) pg MCHC 37.5 H (31.0-37.0) g/dL RDW Std Deviation 62.3 H (28.0-62.0) fl RDW Coeff of Sandra 18 H (11.0-15.0) % Plt Count 206 (150-400) K/uL MPV 10.90 (7.40-12.00) fL Add Manual Diff YES Neutrophils % (Manual) 69 (48.0-80.0) % Band Neutrophils % 5 % Lymphocytes % (Manual) 14 L (16.0-40.0) % Monocytes % (Manual) 12 (0.0-15.0) % Nucleated RBC % 0.0 /100WBC Absolute Seg Neuts 13.0 H (1.4-5.7) Band Neutrophils # 0.9 Lymphocytes # (Manual) 2.6 H (0.6-2.4) Monocytes # (Manual) 2.3 H (0.0-0.8) Nucleated RBCs # 0 K/uL INR 1.78 H (0.86-1.11) Sodium 125 L (136-146) mmol/L Potassium 3.4 L (3.5-5.1) mmol/L Chloride 97 L (98-110) mmol/L Carbon Dioxide 20 L (21-31) mmol/L BUN 44 H (6.0-23.0) mg/dL Creatinine 2.8 H (0.6-1.5) mg/dL Est Cr Clr Drug Dosing 40.87 mL/min Estimated GFR (MDRD) 24.9 ml/min Glucose 104 (60-110) mg/dL Calcium 8.6 L (8.8-10.8) mg/dL Magnesium (1.5-2.3) mEq/L Total Bilirubin 30.0 H (0.1-1.5) mg/dL AST 82 H (5-40) IU/L ALT 35 (8-54) IU/L Alkaline Phosphatase 106 (40-150) Total Protein 7.0 (6.0-8.0) g/dL Albumin 2.1 L (3.5-5.0) g/dL Globulin 4.9 H (2.0-3.5) g/dL Albumin/Globulin Ratio 0.4 L (1.3-2.8) 04/29/17 Range/Units 05:30 WBC (4.0-11.0) K/uL RBC (4.50-5.90) M/uL Hgb (13.0-17.0) g/dL Hct (38.0-50.0) % MCV (80.0-98.0) fL MCH (27.0-32.0) pg MCHC (31.0-37.0) g/dL RDW Std Deviation (28.0-62.0) fl RDW Coeff of Sandra (11.0-15.0) % Plt Count (150-400) K/uL MPV (7.40-12.00) fL Add Manual Diff Neutrophils % (Manual) (48.0-80.0) % Band Neutrophils % % Lymphocytes % (Manual) (16.0-40.0) % Monocytes % (Manual) (0.0-15.0) % Nucleated RBC % /100WBC Absolute Seg Neuts (1.4-5.7) Band Neutrophils # Lymphocytes # (Manual) (0.6-2.4) Monocytes # (Manual) (0.0-0.8) Nucleated RBCs # K/uL INR (0.86-1.11) Sodium (136-146) mmol/L Potassium (3.5-5.1) mmol/L Chloride (98-110) mmol/L Carbon Dioxide (21-31) mmol/L BUN (6.0-23.0) mg/dL Creatinine (0.6-1.5) mg/dL Est Cr Clr Drug Dosing mL/min Estimated GFR (MDRD) ml/min Glucose (60-110) mg/dL Calcium (8.8-10.8) mg/dL Magnesium 1.4 L (1.5-2.3) mEq/L Total Bilirubin (0.1-1.5) mg/dL AST (5-40) IU/L ALT (8-54) IU/L Alkaline Phosphatase (40-150) Total Protein (6.0-8.0) g/dL Albumin (3.5-5.0) g/dL Globulin (2.0-3.5) g/dL Albumin/Globulin Ratio (1.3-2.8) Enzo Results Last 24 Hours: Microbiology 04/23/17 19:11 Aerobic Blood Culture - Final Blood - Venous - Lab Draw NO GROWTH AFTER 5 DAYS Anaerobic Blood Culture - Final NO GROWTH AFTER 5 DAYS 04/23/17 19:01 Aerobic Blood Culture - Final Blood - Venous NO GROWTH AFTER 5 DAYS Anaerobic Blood Culture - Final NO GROWTH AFTER 5 DAYS 04/25/17 14:10 Gram Stain - Final Peritoneal Fluid Body Fluid Culture - Final NO GROWTH AFTER 3 DAYS Med Orders - Current: Current Medications Cefdinir (Omnicef) 300 mg PO BID [facility] Last Admin: 04/29/17 09:24 Dose: 300 mg Cyclobenzaprine HCl (Flexeril) 5 mg PO TID PRN PRN Reason: Spasms Last Admin: 04/29/17 09:44 Dose: 5 mg Folic Acid (Folic Acid) 1 mg PO DAILY [facility] Last Admin: 04/29/17 09:24 Dose: 1 mg Lactulose (Chronulac) 10 gm PO BID PRN PRN Reason: titrate to two loose BM Lorazepam (Ativan) 0 mg PO Q4H PRN; Protocol PRN Reason: Withdrawal Symptoms Morphine Sulfate (Morphine) 2 mg IVPUSH Q4H PRN PRN Reason: Pain Last Admin: 04/29/17 09:19 Dose: 2 mg Ondansetron HCl (Zofran Odt) 4 mg PO Q4H PRN PRN Reason: nausea, able to take PO Pantoprazole Sodium (Protonix) 40 mg PO BIDAC [facility] Last Admin: 04/29/17 06:49 Dose: 40 mg Thiamine HCl (Vitamin B-1) 100 mg PO BEDTIME [facility] Last Admin: 04/28/17 21:06 Dose: 100 mg Discontinued Medications Aspirin (Aspirin) 81 mg PO ONETIME [facility] Ceftriaxone Sodium (Rocephin) 1,000 mg IVPUSH Q24H [facility] Last Admin: 04/23/17 20:23 Dose: Not Given Fentanyl (Sublimaze) 25 mcg IVPUSH ONETIME ONE Stop: 04/24/17 03:00 Last Admin: 04/24/17 03:41 Dose: Not Given Fentanyl (Sublimaze) 25 mcg IVPUSH ONETIME ONE Stop: 04/24/17 03:46 Last Admin: 04/24/17 04:48 Dose: 25 mcg Fentanyl (Sublimaze) 25 mcg IVPUSH ONETIME ONE Stop: 04/24/17 16:51 Last Admin: 04/24/17 17:05 Dose: 25 mcg Fentanyl (Sublimaze) 25 mcg IVPUSH Q1H PRN PRN Reason: Pain Last Admin: 04/28/17 00:33 Dose: 25 mcg Furosemide (Lasix) 40 mg PO DAILY [facility] Last Admin: 04/29/17 09:25 Dose: 40 mg Ceftriaxone Sodium/Dextrose (Rocephin In Dextrose,Iso-Osm 1 Gm/50 Ml) 50 mls @ 100 mls/hr IV Q24H [facility] Last Admin: 04/25/17 19:43 Dose: 100 mls/hr Potassium Chloride 40 meq/ (Sodium Chloride) 500 mls @ 125 mls/hr IV ONETIME ONE Stop: 04/23/17 22:44 Last Infusion: 04/23/17 20:00 Dose: 75 mls/hr Magnesium Sulfate 4 gm/ Sodium (Chloride) 108 mls @ 54 mls/hr IV ONETIME [facility] Stop: 04/23/17 21:29 Last Admin: 04/23/17 20:22 Dose: 54 mls/hr Pantoprazole Sodium 40 mg/ (Sodium Chloride) 20 mls @ 80 mls/hr IV Q12HR ONE Stop: 04/23/17 19:48 Last Admin: 04/23/17 20:23 Dose: Not Given Phytonadione 10 mg/ Sodium (Chloride) 51 mls @ 100 mls/hr IV NOW ONE Stop: 04/23/17 20:29 Last Admin: 04/23/17 22:49 Dose: 100 mls/hr Albumin Human (Flexbumin 25%) 12.5 gm in 50 mls @ 100 mls/hr IV ONETIME ONE Stop: 04/25/17 15:56 Last Admin: 04/25/17 15:43 Dose: 100 mls/hr Albumin Human (Flexbumin 25%) 12.5 gm in 50 mls @ 100 mls/hr IV ONETIME ONE Stop: 04/25/17 15:58 Last Admin: 04/25/17 16:15 Dose: 100 mls/hr Ibuprofen (Motrin) 800 mg PO Q6H PRN PRN Reason: Pain (mild 1-3) Lactulose (Chronulac) 10 gm PO BID [facility] Last Admin: 04/27/17 08:08 Dose: 10 gm Potassium Chloride (Klor-Con M20) 40 meq PO ONETIME ONE Stop: 04/23/17 18:30 Last Admin: 04/23/17 18:39 Dose: 40 meq Potassium Chloride (Klor-Con M20) 40 meq PO ONETIME ONE Stop: 04/24/17 02:57 Last Admin: 04/24/17 03:15 Dose: 40 meq Potassium Chloride (Klor-Con M20) 40 meq PO DAILY [facility] Last Admin: 04/24/17 17:25 Dose: 40 meq Potassium Chloride (Klor-Con M20) 40 meq PO ONETIME ONE Stop: 04/25/17 00:31 Last Admin: 04/25/17 00:51 Dose: 40 meq Potassium Chloride (Klor-Con M20) 40 meq PO DAILY [facility] Potassium Chloride (Klor-Con M20) 40 meq PO ONETIME ONE Stop: 04/25/17 13:57 Last Admin: 04/25/17 15:18 Dose: Not Given Potassium Chloride (Klor-Con M20) 40 meq PO ONETIME ONE Stop: 04/25/17 15:06 Last Admin: 04/25/17 15:21 Dose: 40 meq Potassium Chloride (Klor-Con M20) 40 meq PO ONETIME ONE Stop: 04/29/17 07:52 Last Admin: 04/29/17 09:25 Dose: 40 meq Spironolactone (Aldactone) 12.5 mg PO DAILY [facility] Last Admin: 04/29/17 09:22 Dose: 12.5 mg - Exam General: Alert, Oriented, Cooperative, No Acute Distress HEENT: Mucous Membr. Moist/[place], Scleral Icterus Lungs: Clear to Auscultation, Normal Respiratory Effort Cardiovascular: Regular Rate, Regular Rhythm GI/Abdominal Exam: Normal Bowel Sounds, No Abnormal Bruit, No Mass, Distended, Tender, Hepatomegaly Extremities: Normal Inspection, Normal Range of Motion, Non-Tender, No Pedal Edema, Normal Capillary Refill Peripheral Pulses: 2+: Radial (L), Radial (R), Posterior Tibial (L), Posterior Tibial (R) Skin: Warm, Dry, Intact, Other (Jaundice) Neurological: No New Focal Deficit Psy/Mental Status: Alert, Normal Affect, Normal Mood - Problem List & Annotations (1) Alcoholic hepatitis with ascites SNOMED Code(s): 927278101 Code(s): K70.11 - ALCOHOLIC HEPATITIS WITH ASCITES Status: Acute Current Visit: Yes (2) Jaundice due to hepatitis SNOMED Code(s): 70468933 Code(s): K75.9 - INFLAMMATORY LIVER DISEASE, UNSPECIFIED Status: Acute Current Visit: Yes (3) UTI (urinary tract infection) SNOMED Code(s): 14953496 Code(s): N39.0 - URINARY TRACT INFECTION, SITE NOT SPECIFIED Status: Acute Current Visit: Yes (4) Hyponatremia SNOMED Code(s): 25366847 Code(s): E87.1 - HYPO-OSMOLALITY AND HYPONATREMIA Status: Acute Current Visit: Yes (5) Hypokalemia SNOMED Code(s): 71739194 Code(s): E87.6 - HYPOKALEMIA Status: Acute Current Visit: Yes (6) Bloody stool SNOMED Code(s): 862938305 Code(s): K92.1 - MELENA Status: Acute Current Visit: Yes - Problem List Review Problem List Initiated/Reviewed/Updated: Yes - My Orders Last 24 Hours: My Active Orders 04/29/17 08:24 Cyclobenzaprine [Flexeril] 5 mg PO TID PRN - Plan Plan:: 42-year-old male admitted with jaundice/liver failure secondary to alcoholic hepatitis #1. Jaundice/liver failure secondary to alcoholic hepatitis: -Patient's calculated meld score is 33 giving a 52% three-month mortality rate. -AST, ALP and ALT have stabilized. INR is 1.87. -I spoke with Dr. Gonzales, stone carriage operator, from [place] who suggested that we speak to a handicapped teacher in [place]. I spoke with Dr. Carlisle from the [facility] who is a stone carriage operator and he suggested that the patient does not need to be transferred as there is no additional treatment that they would initiate there. He does think that the patient needs follow-up at some point in the next several weeks with a specialist to have the mass on his liver examined further. He does recommend starting the patient on prednisone 40 mg daily. He also recommended that we get an alpha-fetoprotein to assess for hepatocellular carcinoma. #2. Hyponatremia, hypokalemia: -Discontinue Lasix and spironolactone secondary to worsening kidney function -Sodium has increased to 12. Fluids are not being given secondary to the patient 's abdominal distention secondary to his ascites. patient is on a 2 L fluid restriction to try and increase his sodium #3. UTI: -Continue cefdinir #4. Bloody stools: -Hemoccult-positive. Continue with oral Protonix #5. Alcohol abuse: -continue thiamine and folate. DVT prophylaxis: SCDs. Discharge: After speaking with both Dr. Gonzales and Dr. Carlisle, both stone carriage operator from [place] and [place] respectively, they do not believe that the patient needs to be transferred is no additional treatments would be done apart from what were doing here. Patient will need to be set up with a specialist as an outpatient. They believe that the patient is safe to be discharged. Potential discharge tomorrow.
[2017-04-29] MEDS: Thiamine 100 MG Tab PO SCH (20:22)
[2017-04-30] MEDS: Morphine 2 MG/ML Syringe IVPUSH PRN ×4 (03:43→16:14)
[2017-04-30] MEDS: Pantoprazole 40 MG Tab.CR PO SCH ×2 (06:32→16:17)
[2017-04-30] MEDS ORDERED: Potassium Chloride 20 MEQ Tab.ER PO ONE (08:24)
[2017-04-30] MEDS ORDERED: Magnesium Oxide 400 MG Tab PO ONE (08:25)
[2017-04-30] MEDS: Folic Acid 1 MG Tab PO SCH (10:03)
[2017-04-30] MEDS: Cefdinir 300 MG Cap PO SCH (10:04)
[2017-04-30] MEDS: Cyclobenzaprine 5 MG Tab PO PRN (14:58)
[2017-04-30 16:33] VITALS: BP 98/64
== END 2017-04-30 16:53 | disposition home or self-care (01) | DRG 433 ==
LOC: MW.ICU 17:39 → MW.MS 04-25 15:08 → MW.ICU 04-25 15:08 → MW.MS 04-25 15:23 → MW.ICU 04-25 16:11 → MW.MS 04-26 20:06
PROVIDERS: ADMIT Internal Medicine; ATTEND Internal Medicine
PROC: 0W9G3ZX Drainage of Peritoneal Cavity, Percutaneous Approach, Diagnostic (ICD-10-PCS; principal; 2017-04-25)
DX: K70.11 Alcoholic hepatitis with ascites (principal); R17 Unspecified jaundice; N39.0 Urinary tract infection, site not specified; E87.1 Hypo-osmolality and hyponatremia; K92.1 Melena; F10.239 Alcohol dependence with withdrawal, unspecified; K70.40 Alcoholic hepatic failure without coma; K75.9 Inflammatory liver disease, unspecified; E87.6 Hypokalemia
CPT/HCPCS: 36415; 49083; 74176; 74176-26; 76700; 76700-26; 80048; 80053; 82105; 82140; 82150; 82272; 82945; 83516; 83605; 83615; 83690; 83735; 83986; 84100; 84157; 84478; 85025; 85610; 85652; 86038; 86140; 86256; 87040; 87070; 87086; 87205; 87389; 88104; 89050; A9270-GY; C1729; G0480; J0696; J2270; J3010; J3430; J3475; J3480; J7030; J7040; J7050; P9047

== ENCOUNTER 2017-05-03 15:33 | Emergency (ER) | payer MEDICAID ==
[2017-05-03] MEDS ORDERED: Sodium Chloride 0.9% 2.5 ML Syringe FLUSH PRN (16:02)
[2017-05-03] MEDS ORDERED: Sodium Chloride 0.9% 10 ML Syringe FLUSH PRN (16:02)
[2017-05-03] MEDS ORDERED: Cefdinir 300 MG Cap PO ONE (16:04)
[2017-05-03] MEDS ORDERED: Pantoprazole 40 MG Vial IVPUSH ONE (16:04)
--- NOTE | 2017-05-03 16:04 | EDM.PDOC ---
ED HPI GENERAL MEDICAL PROBLEM - General Chief Complaint: General Stated Complaint: PT SPOKE TO NURSE Time Seen by Provider: 05/03/17 15:46 - History of Present Illness INITIAL COMMENTS - FREE TEXT/NARRATIVE: HISTORY AND PHYSICAL: History of present illness: The patient is a 42-year-old male who follows in our clinic and recently had an admission from April 23 until April 30 and was discharged home on antibiotics for his UTI as well as lactulose prednisone a PPI and fluid restrictions due to his recurrent ascites and he presents from the clinic saying that his ascites is worsening and he is having pain. He tells me here in the ER that he was unable to fill his prescriptions because they were too expensive and he is unsure if he discussed this with the drug abuse social worker before he left. According to the clinic he does look at his baseline overall and when he was discharged from our hospital he had a meld score of 33 and his bilirubin was still elevated. On that admission gastroenterology at [place] as well as in [place] was contacted and they did not feel that the patient needed to be emergently transferred on that admission. On that admission he also had a CT scan of the abdomen and pelvis and an abdominal ultrasound. He did have fluid drained and the fluid was sent to the lab for study. I will be reviewing his labs from this admission. He did not have any labs or workup in the clinic and he was sent over here for probable transfer or admission. The patient tells me he is eating and drinking but not very much as he does not have much of an appetite. He is mostly constipated but is not passing any black or bloody stools and he is passing his urine. He says he has been alcohol free for over 10 days. He says he has generalized weakness but is not passing out or blacking out. He has no headache chest pain or shortness of breath. Complains only of diffuse abdominal pain which is mild to moderate. Please note the patient does have a history of a partial nephrectomy on the left side Review of systems: As per history of present illness and below otherwise all systems reviewed and negative. Past medical history: As per history of present illness and as reviewed below otherwise noncontributory. Surgical history: As per history of present illness and as reviewed below otherwise noncontributory. Social history: No reported history of drug or alcohol abuse. Family history: As per history of present illness and as reviewed below otherwise noncontributory. Physical exam: Gen.: Well-developed thin man who is visibly jaundiced and is nontoxic speaking clearly and easily in the ED. His mucous membranes are very dry. HEENT: Atraumatic, normocephalic, pupils reactive, mucous membranes very tacky , throat clear, neck supple, nontender, trachea midline. Lungs: Clear to auscultation with scattered breath sounds bilaterally but no worker breathing or sensory muscle use, breath sounds equal bilaterally, chest nontender. Heart: S1S2, regular rate and rhythm no overt murmurs are appreciated Abdomen: Soft, not completely tense with ascites but there is a large amount of ascites and a fluid wave appreciated, there is no rebound or guarding but there is diffuse tenderness which is very mild on deep palpation. I cannot assess for hepatosplenomegaly due to the ascites. Bowel sounds are hypoactive and there is some tympany on percussion but no rebound or guarding with percussion Pelvis: Stable nontender. Genitourinary: Deferred. Rectal: Deferred. Extremities: Atraumatic, negative for cords or calf pain. Neurovascular unremarkable. Full range of motion without defects or deficits and there is no pedal edema Neuro: Awake, alert, oriented. Cranial nerves II through XII unremarkable. Motor and sensory unremarkable throughout. Exam nonfocal. Skin: Slightly decreased turgor and jaundice is appreciated no diaphoresis Diagnostics: CBC CMP EtOH level ammonia INR amylase lipase UA chest x-ray magnesium level Therapeutics: Small IV fluid bolus morphine Zofran thiamine Solu-Medrol cefdinir, lactulose Protonix These note that the patient did not fill his prescription for the Cefdinir Protonix lactulose or prednisone I will give him those medications here I discussed with the patient his testing results and the concern for the worsening renal function -- and h/o partiel left nephrectomy in the past --- as well as the persistent elevated liver function tests and he has increased ascites. I've also discussed with them has hyperammonemia and the need for lactulose. He says that he would like to meet with gastroenterology and nephrology to see if there are any options and he is willing to be transferred to [place] to at least start that process. 1654: I discussed his case with our hospitalist Dr. Kathleen and he agrees that the patient merits transfer for GI and nephrology consult as we are unable to offer at that here at our hospital. 1714: Case was discussed with the ER physician at [facility] in [place]. He is aware of this patient's clinical course over the last weeks and his current presentation here and has accepted him for transfer. Patient is willing to do the transfer. Critical care time excluding procedures:35min Impression: Alcoholic hepatitis with extreme jaundice, recurrent ascites, hyperammonemia and progressive renal dysfunction, dominant pain Definitive disposition and diagnosis as appropriate pending reevaluation and review of above. Back Pain Score (Numeric/FACES): 8 Lower Abdominal Pain Score (Numeric/FACES): 8 - Related Data Allergies Allergy/AdvReac Type Severity Reaction Status Date / Time No Known Allergies Allergy Verified 05/03/17 15:47 Home Meds: Home Meds Cefdinir [IJD: Cefdinir] 300 mg PO BID 3 Days #6 capsule 04/30/17 [Rx] Lactulose 10 gm PO BID PRN 30 Days #1 bottle 04/30/17 [Rx] Pantoprazole [ProTONIX] 40 mg PO BIDAC 30 Days #60 tab.cr 04/30/17 [Rx] Prednisone [IMW: predniSONE] 40 mg PO WITHBREAKFAST 28 Days #28 tab 04/30/17 [Rx ] Prednisone [IJD: predniSONE] See Taper PO WITHBREAKFAST #20 tab 05/28/17 [Rx] Past Medical History Cardiovascular History: Reports: Arrhythmia Other Cardiovascular History: palpitations Gastrointestinal History: Reports: Hemorrhoids, Hepatitis, Jaundice, Other (See Below) Other Gastrointestinal History: hematochezia. ascities Genitourinary History: Reports: Prostate Disorder - Infectious Disease History Infectious Disease History: Reports: Chicken Pox - Past Surgical History GI Surgical History: Reports: None Other Male Surgeries/Procedures: kidney surgery Social & Family History - Family History Family Medical History: Noncontributory Cardiac: Reports: Heart Failure, [place] - Tobacco Use Smoking Status *Q: Never Smoker Years of Tobacco use: 20 Packs/Tins Daily: 1 Used Tobacco, but Quit: Yes Month Tobacco Last Used: 0 Second Hand Smoke Exposure: No - Caffeine Use Caffeine Use: Reports: None - Alcohol Use Days Per Week of Alcohol Use: 7 Number of Drinks Per Day: 3 Total Drinks Per Week: 21 - Recreational Drug Use Recreational Drug Use: No ED ROS GENERAL - Review of Systems Review Of Systems: ROS reveals no pertinent complaints other than HPI. ED EXAM, GENERAL - Physical Exam Exam: See Below (See dictation) Course - Vital Signs Last Recorded V/S: Last Vital Signs Temp 36.5 C 05/03/17 15:43 Pulse 90 05/03/17 15:43 Resp 16 05/03/17 15:43 BP 109/72 05/03/17 15:43 Pulse Ox 94 L 05/03/17 15:43 - Orders/Labs/Meds Orders: Active Orders 24 hr Category Date Time Status Blood Glucose Check, Bedside [RC] ONETIME Care 05/03/17 15:54 Active Cardiac Monitoring [RC] . DIRECTED Care 05/03/17 16:02 Active Oxygen Therapy, ED [RC] ASDIRECTED Care 05/03/17 16:02 Active Pulse Oximetry [RC] ASDIRECTED Care 05/03/17 16:02 Active Chest 1V Frontal [CR] Stat Exams 05/03/17 16:02 Taken UA W/MICROSCOPIC [URIN] Stat Lab 05/03/17 16:56 Received Sodium Chloride 0.9% [Normal Saline] 250 ml Med 05/03/17 16:15 Active IV STAT Sodium Chloride 0.9% [Saline Flush] Med 05/03/17 16:02 Active 10 ml FLUSH ASDIRECTED PRN Sodium Chloride 0.9% [Saline Flush] Med 05/03/17 16:02 Active 2.5 ml FLUSH ASDIRECTED PRN Saline Lock Insert [OM.PC] Stat Oth 05/03/17 16:02 Ordered Medication Orders Sodium Chloride (Normal Saline) 250 mls @ 999 mls/hr IV STAT HOSSEIN Last Admin: 05/03/17 16:24 Dose: 999 mls/hr Sodium Chloride (Saline Flush) 10 ml FLUSH ASDIRECTED PRN PRN Reason: Keep Vein Open Last Admin: 05/03/17 16:17 Dose: 10 ml Sodium Chloride (Saline Flush) 2.5 ml FLUSH ASDIRECTED PRN PRN Reason: Keep Vein Open Last Admin: 05/03/17 16:17 Dose: 2.5 ml Labs: Laboratory Tests 05/03/17 05/03/17 05/03/17 Range/Units 16:02 16:02 16:02 WBC 19.82 H (4.0-11.0) K/uL RBC 3.57 L (4.50-5.90) M/uL Hgb 12.5 L (13.0-17.0) g/dL Hct 33.6 L (38.0-50.0) % MCV 94.1 (80.0-98.0) fL MCH 35.0 H (27.0-32.0) pg MCHC 37.2 H (31.0-37.0) g/dL RDW Std Deviation 60.1 (28.0-62.0) fl RDW Coeff of Sandra 18 H (11.0-15.0) % Plt Count 267 (150-400) K/uL MPV 10.40 (7.40-12.00) fL Add Manual Diff YES Neutrophils % (Manual) 78 (48.0-80.0) % Band Neutrophils % 4 % Lymphocytes % (Manual) 8 L (16.0-40.0) % Monocytes % (Manual) 10 (0.0-15.0) % Nucleated RBC % 0.0 /100WBC Absolute Seg Neuts 15.5 H (1.4-5.7) Band Neutrophils # 0.8 Lymphocytes # (Manual) 1.6 (0.6-2.4) Monocytes # (Manual) 2.0 H (0.0-0.8) Nucleated RBCs # 0 K/uL INR 1.83 H (0.86-1.11) Sodium 125 L (136-146) mmol/L Potassium 3.4 L (3.5-5.1) mmol/L Chloride 96 L (98-110) mmol/L Carbon Dioxide 17 L (21-31) mmol/L BUN 70 H (6.0-23.0) mg/dL Creatinine 3.5 H (0.6-1.5) mg/dL Est Cr Clr Drug Dosing 32.53 mL/min Estimated GFR (MDRD) 19.2 ml/min Glucose 105 (60-110) mg/dL Calcium 8.7 L (8.8-10.8) mg/dL Magnesium (1.5-2.3) mEq/L Total Bilirubin 28.0 H (0.1-1.5) mg/dL AST 103 H (5-40) IU/L ALT 41 (8-54) IU/L Alkaline Phosphatase 104 (40-150) Ammonia (14-68) UG/DL Total Protein 7.1 (6.0-8.0) g/dL Albumin 2.1 L (3.5-5.0) g/dL Globulin 5.0 H (2.0-3.5) g/dL Albumin/Globulin Ratio 0.4 L (1.3-2.8) Amylase 48 (10-90) U/L Lipase 77 (7-80) U/L Ethyl Alcohol < 10.0 mg/dL 05/03/17 05/03/17 Range/Units 16:02 16:02 WBC (4.0-11.0) K/uL RBC (4.50-5.90) M/uL Hgb (13.0-17.0) g/dL Hct (38.0-50.0) % MCV (80.0-98.0) fL MCH (27.0-32.0) pg MCHC (31.0-37.0) g/dL RDW Std Deviation (28.0-62.0) fl RDW Coeff of Sandra (11.0-15.0) % Plt Count (150-400) K/uL MPV (7.40-12.00) fL Add Manual Diff Neutrophils % (Manual) (48.0-80.0) % Band Neutrophils % % Lymphocytes % (Manual) (16.0-40.0) % Monocytes % (Manual) (0.0-15.0) % Nucleated RBC % /100WBC Absolute Seg Neuts (1.4-5.7) Band Neutrophils # Lymphocytes # (Manual) (0.6-2.4) Monocytes # (Manual) (0.0-0.8) Nucleated RBCs # K/uL INR (0.86-1.11) Sodium (136-146) mmol/L Potassium (3.5-5.1) mmol/L Chloride (98-110) mmol/L Carbon Dioxide (21-31) mmol/L BUN (6.0-23.0) mg/dL Creatinine (0.6-1.5) mg/dL Est Cr Clr Drug Dosing mL/min Estimated GFR (MDRD) ml/min Glucose (60-110) mg/dL Calcium (8.8-10.8) mg/dL Magnesium 1.9 (1.5-2.3) mEq/L Total Bilirubin (0.1-1.5) mg/dL AST (5-40) IU/L ALT (8-54) IU/L Alkaline Phosphatase (40-150) Ammonia 90 H (14-68) UG/DL Total Protein (6.0-8.0) g/dL Albumin (3.5-5.0) g/dL Globulin (2.0-3.5) g/dL Albumin/Globulin Ratio (1.3-2.8) Amylase (10-90) U/L Lipase (7-80) U/L Ethyl Alcohol mg/dL Meds: Medications Generic Name Dose Route Start Last Admin Trade Name Freq PRN Reason Stop Dose Admin Sodium Chloride 250 mls @ 999 mls/hr 05/03/17 16:15 05/03/17 16:24 Normal Saline IV 999 mls/hr STAT HOSSEIN Administration Sodium Chloride 10 ml 05/03/17 16:02 05/03/17 16:17 Saline Flush FLUSH 10 ml ASDIRECTED PRN Administration Keep Vein Open Sodium Chloride 2.5 ml 05/03/17 16:02 05/03/17 16:17 Saline Flush FLUSH 2.5 ml ASDIRECTED PRN Administration Keep Vein Open Discontinued Medications Generic Name Dose Route Start Last Admin Trade Name Freq PRN Reason Stop Dose Admin Cefdinir 300 mg 05/03/17 16:04 05/03/17 16:30 Omnicef PO 05/03/17 16:05 300 mg ONETIME ONE Administration Thiamine HCl 100 mg/ Sodium 101 mls @ 202 mls/hr 05/03/17 16:10 05/03/17 17: 03 Chloride IV 05/03/17 16:11 202 mls/hr ONETIME ONE Administration Lactulose 30 gm 05/03/17 16:59 05/03/17 17:20 Chronulac PO 05/03/17 17:00 30 gm ONETIME ONE Administration Methylprednisolone Sodium Succinate 125 mg 05/03/17 16:58 05/03/17 17:20 Solu-Medrol IVPUSH 05/03/17 16:59 125 mg ONETIME ONE Administration Morphine Sulfate 2 mg 05/03/17 16:10 05/03/17 16:24 Morphine IVPUSH 05/03/17 16:11 2 mg ONETIME ONE Administration Ondansetron HCl 4 mg 05/03/17 16:10 05/03/17 16:24 Zofran IVPUSH 05/03/17 16:11 4 mg ONETIME ONE Administration Pantoprazole Sodium 80 mg 05/03/17 16:04 05/03/17 16:24 Protonix Iv IVPUSH 05/03/17 16:05 80 mg .BOLUS ONE Administration Departure - Departure Time of Disposition: 17:23 Disposition: DC/Tfer to Acute Hospital 02 Condition: Fair Clinical Impression: Hyperammonemia, Alcoholic hepatitis with ascites, Abnormal renal function Abdominal pain Qualifiers: Abdominal location: generalized Qualified Code(s): R10.84 - Generalized abdominal pain - Discharge Information Referrals: PCP,None [Primary Care Provider] - Forms: ED Department Discharge - My Orders Last 24 Hours: My Active Orders 05/03/17 15:54 Blood Glucose Check, Bedside [RC] ONETIME 05/03/17 16:02 Cardiac Monitoring [RC] . DIRECTED Oxygen Therapy, ED [RC] ASDIRECTED Pulse Oximetry [RC] ASDIRECTED Chest 1V Frontal [CR] Stat Sodium Chloride 0.9% [Saline Flush] 10 ml FLUSH ASDIRECTED PRN Sodium Chloride 0.9% [Saline Flush] 2.5 ml FLUSH ASDIRECTED PRN Saline Lock Insert [OM.PC] Stat 05/03/17 16:15 Sodium Chloride 0.9% [Normal Saline] 250 ml IV STAT 05/03/17 16:56 UA W/MICROSCOPIC [URIN] Stat - Assessment/Plan Last 24 Hours: My Active Orders 05/03/17 15:54 Blood Glucose Check, Bedside [RC] ONETIME 05/03/17 16:02 Cardiac Monitoring [RC] . DIRECTED Oxygen Therapy, ED [RC] ASDIRECTED Pulse Oximetry [RC] ASDIRECTED Chest 1V Frontal [CR] Stat Sodium Chloride 0.9% [Saline Flush] 10 ml FLUSH ASDIRECTED PRN Sodium Chloride 0.9% [Saline Flush] 2.5 ml FLUSH ASDIRECTED PRN Saline Lock Insert [OM.PC] Stat 05/03/17 16:15 Sodium Chloride 0.9% [Normal Saline] 250 ml IV STAT 05/03/17 16:56 UA W/MICROSCOPIC [URIN] Stat
[2017-05-03] MEDS ORDERED: Thiamine 100 MG in Sodium Chloride 0.9% 100 ML IV ONE (16:10)
[2017-05-03] MEDS ORDERED: Morphine 2 MG/ML Syringe IVPUSH ONE (16:10)
[2017-05-03] MEDS ORDERED: Ondansetron 4 MG/2 ML SDV IVPUSH ONE (16:10)
[2017-05-03] MEDS ORDERED: Sodium Chloride 0.9% 250 ML IV SCH (16:15)
[2017-05-03 16:38] LABS: CHLORIDE,CL 96 mmol/L (98-110); SODIUM,NA 125 mmol/L (136-146)
[2017-05-03] MEDS ORDERED: methylPREDNISolone Sodium Succinate 125 MG/2 ML SDV IVPUSH ONE (16:58)
[2017-05-03] MEDS ORDERED: Lactulose Soln 10 GM/15 ML 15 ML UD Cup PO ONE (16:59)
[2017-05-03] MEDS ORDERED: Sodium Chloride 0.9% 500 ML IV ONE (17:45)
[2017-05-03 17:58] VITALS: BP 101/58
--- NOTE | 2017-05-06 10:29 | CR ---
EXAM DATE: 05/03/17 PATIENT'S AGE: 42 Patient: BONI AGRAWAL Facility: [place], [place] Site . Site : [id number] Study: XRay Chest [id number]/10/2017 4:30:03 PM Ordering Physician: Radha Romero Final Report: INDICATION: Weakness. Jaundice. Diarrhea. COMPARISON: None. FINDINGS/IMPRESSION: Shallow inspiration with mild bibasilar stranding consistent with atelectasis. No pleural effusions. Normal heart size and pulmonary vasculature. Unremarkable bony structures. Dictated by Jose Chan MD @ 05/03/2017 4:40:34 PM Dictated by: Jose Chan MD @ 05/03/2017 16:40:43 (Electronic Signature) Report Signed by Proxy. [facility] CENTERRonnie
== END 2017-05-03 18:28 ==
LOC: MW.ED 15:33
DX: K70.11 Alcoholic hepatitis with ascites (principal); E72.20 Disorder of urea cycle metabolism, unspecified; R94.4 Abnormal results of kidney function studies; Z87.891 Personal history of nicotine dependence; Z79.899 Other long term (current) drug therapy
CPT/HCPCS: 36415; 71010; 80053; 81001; 82140; 82150; 83690; 83735; 85025; 85610; 96361; 96365; 96375; 99285; A9270; C9113; G0480; J2270; J2405; J2930; J3411; J7030; J7040; J7050; 99284

== ENCOUNTER 2017-05-24 14:36 | Emergency (ER) | payer MEDICAID ==
[2017-05-24] MEDS ORDERED: Sodium Chloride 0.9% 10 ML Syringe FLUSH PRN (14:53)
[2017-05-24] MEDS ORDERED: Sodium Chloride 0.9% 2.5 ML Syringe FLUSH PRN (14:53)
--- NOTE | 2017-05-24 15:00 | EDM.PDOC ---
ED HPI GENERAL MEDICAL PROBLEM - General Stated Complaint: UNRESPONSIVE Time Seen by Provider: 05/24/17 14:55 Source of Information: Reports: EMS History Limitations: Reports: No Limitations - History of Present Illness INITIAL COMMENTS - FREE TEXT/NARRATIVE: HISTORY AND PHYSICAL: []42-year-old male presenting after being found in the bathtub by his brother he was unresponsive he was pulled out of the bathtub EMS arrived and brought him to the emergency department History of Present Illness: []history of liver failure Recently had admission from April 23 until April 30 dysfunction discharged on antibiotics for UTI as well as lactulose prednisolone and PPI fluid restrictions due to his recurrent ascites. Patient presented to ER on 05/03/17 as he is ascites as well as worsening he had not filled his medications due to cost bilirubin was elevated gastroenterology in [place] as well as [place] was contacted they don't feel that he needed to be emergently transferred on that admission he will at last admission had been alcohol free for 10 days. Diagnosis after that visit was hyper ammoniaimia. Alcoholic hepatitis with ascites and abnormal renal function. Review of Systems: As per history of present illness and below otherwise all systems reviewed and negative. Past medical history: As per history of present illness and as reviewed below otherwise noncontributory. Surgical history: As per history of present illness and as reviewed below otherwise noncontributory. Social history: No reported history of drug or alcohol abuse. Family history: As per history of present illness and as reviewed below otherwise noncontributory. Physical exam: Patient is lying with eyes open staring. Does not know where he is at. Very slow to respond. GCS 10 HEENT: Atraumatic, normocehpalic, pupils reactive, negative for conjunctival pallor or scleral icterus, mucous membranes moist, throat clear, neck supple, nontender, trachea midline. Lungs: Clear to auscultation, breath sounds equal bilaterally, chest non tender. Heart: S1S2, regular, negative for clicks, rubs, or JVD. Abdomen: Soft, nondistended, nontender. Negative for masses or hepatossplenmegaly. Negative for costovertebral tenderness. Pelvis: Stable nontender. Genitourinary: Deferred. Rectal: Deferred Extremities: Atraumatic, negative for cords or calf pain. Neurovascular unremarkable. Neuro: Awake, alert, oriented. Cranial nerves II through XII unremarkable. Cerebellum unremarkable. Motor and sensory unremarkable throughout. Exam nonfocal. Have spoken to Dr. Barrie Pepper who has accepted the patient for admission. Discussed case with Dr. Yee and [facility] emergency room who has accepted this patient for transfer. Discussed this case with patient and his brother patient is not responding at this time brother continues to say he would like a cold one on this patient. Diagnostics: [CBC CMP head CT chest x-ray ABGs amylase lipase ammonia] EtOH Therapeutics: [Normal saline] Impression: []Hepatic encephalopathy Plan: []Transport to [facility] Definitive disposition and diagnosis as appropriate pending reevaluation and review of above. Onset: Today, Sudden Duration: Minutes: Location: Reports: Generalized Severity: Moderate Improves with: Reports: None Worsens with: Reports: None Associated Symptoms: Reports: Confusion, Weakness, Other (Slowly responding) - Related Data Allergies Allergy/AdvReac Type Severity Reaction Status Date / Time No Known Allergies Allergy Verified 05/03/17 15:47 Home Meds: Home Meds Cefdinir [IJD: Cefdinir] 300 mg PO BID 3 Days #6 capsule 04/30/17 [Rx] Lactulose 10 gm PO BID PRN 30 Days #1 bottle 04/30/17 [Rx] Pantoprazole [ProTONIX] 40 mg PO BIDAC 30 Days #60 tab.cr 04/30/17 [Rx] Prednisone [IMW: predniSONE] 40 mg PO WITHBREAKFAST 28 Days #28 tab 04/30/17 [Rx ] Prednisone [IJD: predniSONE] See Taper PO WITHBREAKFAST #20 tab 05/28/17 [Rx] Past Medical History Cardiovascular History: Reports: Arrhythmia Other Cardiovascular History: palpitations Gastrointestinal History: Reports: Hemorrhoids, Hepatitis, Jaundice, Other (See Below) Other Gastrointestinal History: hematochezia. ascities Genitourinary History: Reports: Prostate Disorder - Infectious Disease History Infectious Disease History: Reports: Chicken Pox - Past Surgical History GI Surgical History: Reports: None Other Male Surgeries/Procedures: kidney surgery Social & Family History - Family History Family Medical History: Noncontributory Cardiac: Reports: Heart Failure, [place] - Tobacco Use Smoking Status *Q: Never Smoker Years of Tobacco use: 20 Packs/Tins Daily: 1 Used Tobacco, but Quit: Yes Month Tobacco Last Used: 0 Second Hand Smoke Exposure: No - Caffeine Use Caffeine Use: Reports: None - Alcohol Use Days Per Week of Alcohol Use: 7 Number of Drinks Per Day: 3 Total Drinks Per Week: 21 - Recreational Drug Use Recreational Drug Use: No ED ROS GENERAL - Review of Systems Review Of Systems: ROS reveals no pertinent complaints other than HPI. ED EXAM, GENERAL - Physical Exam Exam: See Below (See dictation) EKG INTERPRETATION EKG Date: 05/24/17 Rhythm: NSR Course - Vital Signs Last Recorded V/S: Last Vital Signs Temp 35.9 C 05/24/17 14:45 Pulse 55 L 05/24/17 14:45 Resp 20 05/24/17 14:45 BP 100/69 05/24/17 14:45 Pulse Ox 98 05/24/17 14:45 - Orders/Labs/Meds Orders: Active Orders 24 hr Category Date Time Status Cardiac Monitoring [RC] . DIRECTED Care 05/24/17 14:51 Active EKG Documentation Completion [RC] STAT Care 05/24/17 14:51 Active Oxygen Therapy, ED [RC] ASDIRECTED Care 05/24/17 14:51 Active Chest 1V Frontal [CR] Stat Exams 05/24/17 14:52 Taken DRUG SCREEN, URINE [URCHEM] Stat Lab 05/24/17 14:52 Uncollected UA W/MICROSCOPIC [URIN] Stat Lab 05/24/17 14:51 Uncollected Sodium Chloride 0.9% [Normal Saline] 1,000 ml Med 05/24/17 16:26 Ordered IV STAT Sodium Chloride 0.9% [Saline Flush] Med 05/24/17 14:53 Active 10 ml FLUSH ASDIRECTED PRN Sodium Chloride 0.9% [Saline Flush] Med 05/24/17 14:53 Active 2.5 ml FLUSH ASDIRECTED PRN Saline Lock Insert [OM.PC] Stat Oth 05/24/17 14:51 Ordered Medication Orders Sodium Chloride (Normal Saline) 1,000 mls @ 999 mls/hr IV STAT ONE Stop: 05/24/17 17:26 Sodium Chloride (Saline Flush) 10 ml FLUSH ASDIRECTED PRN PRN Reason: Keep Vein Open Sodium Chloride (Saline Flush) 2.5 ml FLUSH ASDIRECTED PRN PRN Reason: Keep Vein Open Labs: Laboratory Tests 05/24/17 05/24/1717 Range/Units 14:56 15:32 15:32 WBC 22.81 H (4.0-11.0) K/uL RBC 3.41 L (4.50-5.90) M/uL Hgb 11.9 L (13.0-17.0) g/dL Hct 32.6 L (38.0-50.0) % MCV 95.6 (80.0-98.0) fL MCH 34.9 H (27.0-32.0) pg MCHC 36.5 (31.0-37.0) g/dL RDW Std Deviation 71.4 H (28.0-62.0) fl RDW Coeff of Sandra 20 H (11.0-15.0) % Plt Count 146 L (150-400) K/uL MPV 10.90 (7.40-12.00) fL Add Manual Diff YES Neutrophils % (Manual) 71 (48.0-80.0) % Lymphocytes % (Manual) 23 (16.0-40.0) % Monocytes % (Manual) 6 (0.0-15.0) % Nucleated RBC % 0.0 /100WBC Absolute Seg Neuts 16.2 H (1.4-5.7) Lymphocytes # (Manual) 5.2 H (0.6-2.4) Monocytes # (Manual) 1.4 H (0.0-0.8) Nucleated RBCs # 0 K/uL INR (0.86-1.11) ABG pH 7.534 H (7.35-7.45) ABG pCO2 23 L (35-45) mmHG ABG pO2 94 (75-100) mmHG ABG HCO3 19 L (22-26) mEq/L ABG Total CO2 17.5 ABG Base Excess -1.9 (-2.0-2.0) Sodium 140 (136-146) mmol/L Potassium 3.0 L (3.5-5.1) mmol/L Chloride 110 (98-110) mmol/L Carbon Dioxide 21 (21-31) mmol/L BUN 44 H (6.0-23.0) mg/dL Creatinine 1.5 (0.6-1.5) mg/dL Est Cr Clr Drug Dosing TNP Estimated GFR (MDRD) 51.1 ml/min Glucose 90 (60-110) mg/dL Calcium 9.9 (8.8-10.8) mg/dL Total Bilirubin 7.7 H (0.1-1.5) mg/dL AST 87 H (5-40) IU/L ALT 86 H (8-54) IU/L Alkaline Phosphatase 107 (40-150) Ammonia (14-68) UG/DL Troponin I < 0.10 (0.0-0.29) NG/ML Total Protein 6.8 (6.0-8.0) g/dL Albumin 2.5 L (3.5-5.0) g/dL Globulin 4.3 H (2.0-3.5) g/dL Albumin/Globulin Ratio 0.6 L (1.3-2.8) Amylase 79 (10-90) U/L Lipase 204 H (7-80) U/L Ethyl Alcohol mg/dL 05/24/17 05/24/17 05/24/17 Range/Units 15:32 15:32 15:32 WBC (4.0-11.0) K/uL RBC (4.50-5.90) M/uL Hgb (13.0-17.0) g/dL Hct (38.0-50.0) % MCV (80.0-98.0) fL MCH (27.0-32.0) pg MCHC (31.0-37.0) g/dL RDW Std Deviation (28.0-62.0) fl RDW Coeff of Sandra (11.0-15.0) % Plt Count (150-400) K/uL MPV (7.40-12.00) fL Add Manual Diff Neutrophils % (Manual) (48.0-80.0) % Lymphocytes % (Manual) (16.0-40.0) % Monocytes % (Manual) (0.0-15.0) % Nucleated RBC % /100WBC Absolute Seg Neuts (1.4-5.7) Lymphocytes # (Manual) (0.6-2.4) Monocytes # (Manual) (0.0-0.8) Nucleated RBCs # K/uL INR 1.80 H (0.86-1.11) ABG pH (7.35-7.45) ABG pCO2 (35-45) mmHG ABG pO2 (75-100) mmHG ABG HCO3 (22-26) mEq/L ABG Total CO2 ABG Base Excess (-2.0-2.0) Sodium (136-146) mmol/L Potassium (3.5-5.1) mmol/L Chloride (98-110) mmol/L Carbon Dioxide (21-31) mmol/L BUN (6.0-23.0) mg/dL Creatinine (0.6-1.5) mg/dL Est Cr Clr Drug Dosing Estimated GFR (MDRD) ml/min Glucose (60-110) mg/dL Calcium (8.8-10.8) mg/dL Total Bilirubin (0.1-1.5) mg/dL AST (5-40) IU/L ALT (8-54) IU/L Alkaline Phosphatase (40-150) Ammonia 95 H (14-68) UG/DL Troponin I (0.0-0.29) NG/ML Total Protein (6.0-8.0) g/dL Albumin (3.5-5.0) g/dL Globulin (2.0-3.5) g/dL Albumin/Globulin Ratio (1.3-2.8) Amylase (10-90) U/L Lipase (7-80) U/L Ethyl Alcohol < 10.0 mg/dL Meds: Medications Generic Name Dose Route Start Last Admin Trade Name Freq PRN Reason Stop Dose Admin Sodium Chloride 1,000 mls @ 999 mls/hr 05/24/17 16:26 Normal Saline IV 05/24/17 17:26 STAT ONE Sodium Chloride 10 ml 05/24/17 14:53 Saline Flush FLUSH ASDIRECTED PRN Keep Vein Open Sodium Chloride 2.5 ml 05/24/17 14:53 Saline Flush FLUSH ASDIRECTED PRN Keep Vein Open Departure - Departure Time of Disposition: 16:37 Disposition: DC/Tfer to Acute Hospital 02 Condition: Fair Clinical Impression: Alcoholic encephalopathy - Discharge Information Referrals: PCP,None [Primary Care Provider] - - My Orders Last 24 Hours: My Active Orders 05/24/17 14:51 Cardiac Monitoring [RC] . DIRECTED EKG Documentation Completion [RC] STAT Oxygen Therapy, ED [RC] ASDIRECTED UA W/MICROSCOPIC [URIN] Stat Saline Lock Insert [OM.PC] Stat 05/24/17 14:52 Chest 1V Frontal [CR] Stat DRUG SCREEN, URINE [URCHEM] Stat 05/24/17 14:53 Sodium Chloride 0.9% [Saline Flush] 10 ml FLUSH ASDIRECTED PRN Sodium Chloride 0.9% [Saline Flush] 2.5 ml FLUSH ASDIRECTED PRN 05/24/17 16:26 Sodium Chloride 0.9% [Normal Saline] 1,000 ml IV STAT - Assessment/Plan Last 24 Hours: My Active Orders 05/24/17 14:51 Cardiac Monitoring [RC] . DIRECTED EKG Documentation Completion [RC] STAT Oxygen Therapy, ED [RC] ASDIRECTED UA W/MICROSCOPIC [URIN] Stat Saline Lock Insert [OM.PC] Stat 05/24/17 14:52 Chest 1V Frontal [CR] Stat DRUG SCREEN, URINE [URCHEM] Stat 05/24/17 14:53 Sodium Chloride 0.9% [Saline Flush] 10 ml FLUSH ASDIRECTED PRN Sodium Chloride 0.9% [Saline Flush] 2.5 ml FLUSH ASDIRECTED PRN 05/24/17 16:26 Sodium Chloride 0.9% [Normal Saline] 1,000 ml IV STAT
--- NOTE | 2017-05-24 15:25 | CT ---
EXAMINATION: Non contrast CT head. Coronal and sagittal reformats. HISTORY: Pain FINDINGS: No evidence of intra or extra axial hemorrhage, mass, midline shift, hydrocephalus or edema. There a re a few subtle nonspecific subcortical white matter hypodensities noted. No hypoattenuation changes in the major vascular territories to suggest acute infarct. No abnormal intracranial calcifications are detected. No evidence of substantial vascular calcificat ions. Paranasal sinuses and mastoid air cells are well aerated without substantial findings. Pituitary fossa appears unremarkable. The orbits and globes are symmetric. Calvarium is intact. No evidence of skull fracture. IMPRESSION: 1. No acute intracranial findings. 2. There are a few subtle subcortical white matter hypodensities most prominent within the frontal lo bes. Nonspecific, however may represent early small vessel ischemic changes. Correlate clinically.
[2017-05-24 16:02] LABS: CHLORIDE,CL 110 mmol/L (98-110); SODIUM,NA 140 mmol/L (136-146)
[2017-05-24] MEDS ORDERED: Sodium Chloride 0.9% 1,000 ML IV ONE (16:26)
[2017-05-24 19:29] VITALS: BP 94/57
--- NOTE | 2017-05-27 11:23 | CR ---
EXAM DATE: 05/24/17 PATIENT'S AGE: 42 Patient: BONI AGRAWAL Facility: [place], [place] Site . Site : 1975 Study: XRay Chest [id number] 4:08:28 PM Ordering Physician: Doctor Kam Final Report: INDICATION: Pain, shortness of breath. TECHNIQUE: Chest radiograph 1 view COMPARISON: 05/03/2017. FINDINGS: Cardiovascular and mediastinum: The heart silhouette is normal in size and morphology. The mediastinum is normal in appearance. Lungs and pleural spaces: Both lungs are unremarkable in appearance. No sign of pleural effusion seen. No pneumothorax is identified. Bones and soft tissues: No significant findings. IMPRESSION: 1. No acute abnormality. Dictated by Jameson Caballero MD @ 05/24/2017 4:43:21 PM Dictated by: Jameson Caballero MD @ 05/24/2017 16:43:24 (Electronic Signature) Report Signed by Proxy. [facility]
== END 2017-05-24 17:10 ==
LOC: MW.ED 14:36
DX: G31.2 Degeneration of nervous system due to alcohol (principal); K72.90 Hepatic failure, unspecified without coma; Z87.891 Personal history of nicotine dependence
CPT/HCPCS: 36415; 36600; 70450; 71010; 80053; 82140; 82150; 82803; 83690; 84484; 85025; 85610; 93005; 96360; 99285; G0480; J7040; 99283

== ENCOUNTER 2017-07-22 23:37 | Emergency (ER) | payer MEDICAID ==
[2017-07-22] MEDS ORDERED: Diltiazem 25 MG/5 ML SDV IVPUSH ONE (23:42)
[2017-07-22] MEDS ORDERED: Sodium Chloride 0.9% 1,000 ML IV ONE (23:47)
--- NOTE | 2017-07-22 23:51 | EDM.PDOC ---
ED HPI GENERAL MEDICAL PROBLEM - General Chief Complaint: Cardiovascular Problem Stated Complaint: RAPID HEART RATE Time Seen by Provider: 07/22/17 23:43 - History of Present Illness INITIAL COMMENTS - FREE TEXT/NARRATIVE: HISTORY AND PHYSICAL: History of present illness: Patient's 42-year-old male with extensive past medical history including advanced liver disease presents with a concern of palpitations patient has had similar episodes in the past has been diagnosed with A. fib prior patient denies chest pain vomiting diarrhea or other concern Review of systems: As per history of present illness and below otherwise all systems reviewed and negative. Past medical history: As per history of present illness and as reviewed below otherwise noncontributory. Surgical history: As per history of present illness and as reviewed below otherwise noncontributory. Social history: No reported history of drug or alcohol abuse. Family history: As per history of present illness and as reviewed below otherwise noncontributory. Physical exam: HEENT: Atraumatic, normocephalic, pupils reactive, conjunctival pallor and scleral icterus noted, mucous membranes dry, throat clear, neck supple, nontender, trachea midline. Lungs: Clear to auscultation, breath sounds equal bilaterally, chest nontender. Heart: S1S2, regular, negative for clicks, rubs, or JVD. Abdomen: Soft, protuberant, positive ascites. Negative for masses . Negative for costovertebral tenderness. Pelvis: Stable nontender. Genitourinary: Deferred. Rectal: Deferred. Extremities: Atraumatic, negative for cords or calf pain. Neurovascular unremarkable. Neuro: Awake, alert, oriented. Cranial nerves II through XII unremarkable. Cerebellum unremarkable. Motor and sensory unremarkable throughout. Exam nonfocal. Diagnostics: CBC CMP PT/INR troponin EKG chest x-ray Therapeutics: IV O2 monitor Cardizem 20 mg IV Impression: #1 palpitations #2 advanced liver disease Definitive disposition and diagnosis as appropriate pending reevaluation and review of above. right flank Pain Score (Numeric/FACES): 3 - Related Data Allergies Allergy/AdvReac Type Severity Reaction Status Date / Time No Known Allergies Allergy Verified 07/22/17 23:41 Home Meds: Home Meds Furosemide [Lasix] 80 mg PO DAILY 07/22/17 [History] Metoprolol Succinate [Toprol XL] 25 mg PO DAILY 07/22/17 [History] Midodrine 5 mg PO DAILY 07/22/17 [History] Pantoprazole [ProTONIX Granules] 40 mg PO BID 07/22/17 [History] Potassium Chloride [Klor-Con 8] 8 meq PO DAILY 07/22/17 [History] Spironolactone [Aldactone] 25 mg PO DAILY 07/22/17 [History] Warfarin Sodium [Jantoven] 1 mg PO DAILY 07/22/17 [History] Past Medical History Cardiovascular History: Reports: Arrhythmia Other Cardiovascular History: palpitations Gastrointestinal History: Reports: Hemorrhoids, Hepatitis, Jaundice, Other (See Below) Other Gastrointestinal History: hematochezia. ascities Genitourinary History: Reports: Prostate Disorder - Infectious Disease History Infectious Disease History: Reports: Chicken Pox - Past Surgical History GI Surgical History: Reports: None Other Male Surgeries/Procedures: kidney surgery Social & Family History - Family History Family Medical History: Noncontributory Cardiac: Reports: Heart Failure, [place] - Tobacco Use Smoking Status *Q: Never Smoker Years of Tobacco use: 20 Packs/Tins Daily: 1 Used Tobacco, but Quit: Yes Month Tobacco Last Used: 0 Second Hand Smoke Exposure: No - Caffeine Use Caffeine Use: Reports: None - Alcohol Use Days Per Week of Alcohol Use: 7 Number of Drinks Per Day: 3 Total Drinks Per Week: 21 - Recreational Drug Use Recreational Drug Use: No ED ROS GENERAL - Review of Systems Review Of Systems: ROS reveals no pertinent complaints other than HPI. ED EXAM, GENERAL - Physical Exam Exam: See Below (See dictation) Course - Vital Signs Text/Narrative:: I discussed with patient admission for further observation diagnostics and treatment patient declines requests discharge home understands risk-benefit will follow up with his doctor and continue his current medicines and return as needed as discussed Last Recorded V/S: Last Vital Signs Temp 36.1 C 07/22/17 23:37 Pulse 98 07/23/17 01:21 Resp 18 07/23/17 01:21 BP 102/74 07/23/17 01:21 Pulse Ox 97 07/23/17 01:21 - Orders/Labs/Meds Orders: Active Orders 24 hr Category Date Time Status EKG 12 Lead [EKG Documentation Completion] [RC] STAT Care 07/22/17 23:41 Active EKG Documentation Completion [RC] STAT Care 07/23/17 00:43 Active EKG Documentation Completion [RC] STAT Care 07/23/17 01:15 Active Chest 1V Frontal [CR] Stat Exams 07/22/17 23:41 Taken Sodium Chloride 0.9% [Normal Saline] 1,000 ml Med 07/22/17 23:47 Active IV STAT Sodium Chloride 0.9% [Normal Saline] 1,000 ml Med 07/23/17 01:12 Active IV STAT Medication Orders Sodium Chloride (Normal Saline) 1,000 mls @ 50 mls/hr IV STAT ONE Stop: 07/23/17 19:46 Last Infusion: 07/23/17 00:43 Dose: 999 mls/hr Infusion: 07/23/17 00:29 Dose: 50 mls/hr Infusion: 07/22/17 23:55 Dose: 999 mls/hr Admin: 07/22/17 23:54 Dose: 50 mls/hr Sodium Chloride (Normal Saline) 1,000 mls @ 999 mls/hr IV STAT ONE Stop: 07/23/17 02:12 Last Admin: 07/23/17 01:13 Dose: 999 mls/hr Labs: Laboratory Tests 07/22/17 07/22/17 07/22/17 Range/Units 23:49 23:49 23:49 WBC 12.80 H (4.0-11.0) K/uL RBC 3.03 L (4.50-5.90) M/uL Hgb 9.5 L (13.0-17.0) g/dL Hct 27.1 L (38.0-50.0) % MCV 89.4 (80.0-98.0) fL MCH 31.4 (27.0-32.0) pg MCHC 35.1 (31.0-37.0) g/dL RDW Std Deviation 49.5 (28.0-62.0) fl RDW Coeff of Sandra 15 (11.0-15.0) % Plt Count 158 (150-400) K/uL MPV 10.60 (7.40-12.00) fL Neut % (Auto) 37.2 L (48.0-80.0) % Lymph % (Auto) 47.1 H (16.0-40.0) % [place] % (Auto) 13.9 (0.0-15.0) % Eos % (Auto) 1.4 (0.0-7.0) % Baso % (Auto) 0.4 (0.0-1.5) % Neut # (Auto) 4.8 (1.4-5.7) K/uL Lymph # (Auto) 6.0 H (0.6-2.4) K/uL [place] # (Auto) 1.8 H (0.0-0.8) K/uL Eos # (Auto) 0.2 (0.0-0.7) K/uL Baso # (Auto) 0.1 (0.0-0.1) K/uL Nucleated RBC % 0.0 /100WBC Nucleated RBCs # 0 K/uL Sodium 137 (136-146) mmol/L Potassium 3.7 (3.5-5.1) mmol/L Chloride 107 (98-110) mmol/L Carbon Dioxide 19 L (21-31) mmol/L BUN 16 (6.0-23.0) mg/dL Creatinine 1.8 H (0.6-1.5) mg/dL Est Cr Clr Drug Dosing 61.82 mL/min Estimated GFR (MDRD) 41.4 ml/min Glucose 99 (60-110) mg/dL Calcium 8.7 L (8.8-10.8) mg/dL Total Bilirubin 4.3 H (0.1-1.5) mg/dL AST 53 H (5-40) IU/L ALT 23 (8-54) IU/L Alkaline Phosphatase 108 (40-150) CK-MB (CK-2) 0.8 (0-6.6) ng/ml Troponin I < 0.10 (0.0-0.29) NG/ML B-Natriuretic Peptide 250 H (<100) PG/ML Total Protein 7.1 (6.0-8.0) g/dL Albumin 1.8 L (3.5-5.0) g/dL Globulin 5.3 H (2.0-3.5) g/dL Albumin/Globulin Ratio 0.3 L (1.3-2.8) Meds: Medications Generic Name Dose Route Start Last Admin Trade Name Freq PRN Reason Stop Dose Admin Sodium Chloride 1,000 mls @ 50 mls/hr 07/22/17 23:47 07/23/17 00:43 Normal Saline IV 07/23/17 19:46 999 mls/hr STAT ONE Infusion Sodium Chloride 1,000 mls @ 999 mls/hr 07/23/17 01:12 07/23/17 01:13 Normal Saline IV 07/23/17 02:12 999 mls/hr STAT ONE Administration Discontinued Medications Generic Name Dose Route Start Last Admin Trade Name Salq PRN Reason Stop Dose Admin Diltiazem HCl 20 mg 07/22/17 23:42 Diltiazem IVPUSH 07/22/17 23:43 ONETIME ONE Ondansetron HCl 4 mg 07/23/17 00:09 07/23/17 00:29 Zofran IVPUSH 07/23/17 00:10 4 mg ONETIME ONE Administration Departure - Departure Time of Disposition: 01:50 Disposition: Home, Self-Care 01 Condition: Good Clinical Impression: Tachycardia, Hepatic cirrhosis Forms: ED Department Discharge Additional Instructions: The following information is given to patients seen in the emergency department who are being discharged to home. This information is to outline your options for follow-up care. We provide all patients seen in our emergency department with a follow-up referral. The need for follow-up, as well as the timing and circumstances, are variable depending upon the specifics of your emergency department visit. If you don't have a primary care physician on staff, we will provide you with a referral. We always advise you to contact your personal physician following an emergency department visit to inform them of the circumstance of the visit and for follow-up with them and/or the need for any referrals to a consulting specialist. The emergency department will also refer you to a specialist when appropriate. This referral assures that you have the opportunity for followup care with a specialist. All of these measure are taken in an effort to provide you with optimal care, which includes your followup. Under all circumstances we always encourage you to contact your private physician who remains a resource for coordinating your care. When calling for followup care, please make the office aware that this follow-up is from your recent emergency room visit. If for any reason you are refused follow-up, please contact the [facility] emergency department at and asked to speak to the emergency department charge nurse. Continue current medications follow-up private medical doctor 1-2 days return as needed as discussed - My Orders Last 24 Hours: My Active Orders 07/22/17 23:41 EKG 12 Lead [EKG Documentation Completion] [RC] STAT Chest 1V Frontal [CR] Stat 07/22/17 23:47 Sodium Chloride 0.9% [Normal Saline] 1,000 ml IV STAT 07/23/17 00:43 EKG Documentation Completion [RC] STAT 07/23/17 01:12 Sodium Chloride 0.9% [Normal Saline] 1,000 ml IV STAT 07/23/17 01:15 EKG Documentation Completion [RC] STAT - Assessment/Plan Last 24 Hours: My Active Orders 07/22/17 23:41 EKG 12 Lead [EKG Documentation Completion] [RC] STAT Chest 1V Frontal [CR] Stat 07/22/17 23:47 Sodium Chloride 0.9% [Normal Saline] 1,000 ml IV STAT 07/23/17 00:43 EKG Documentation Completion [RC] STAT 07/23/17 01:12 Sodium Chloride 0.9% [Normal Saline] 1,000 ml IV STAT 07/23/17 01:15 EKG Documentation Completion [RC] STAT
[2017-07-23] MEDS ORDERED: Ondansetron 4 MG/2 ML SDV IVPUSH ONE (00:09)
[2017-07-23 00:30] LABS: CHLORIDE,CL 107 mmol/L (98-110); SODIUM,NA 137 mmol/L (136-146)
[2017-07-23] MEDS ORDERED: Sodium Chloride 0.9% 1,000 ML IV ONE (01:12)
[2017-07-23 02:15] VITALS: BP 106/75
--- NOTE | 2017-07-23 11:21 | CR ---
EXAM DATE: 07/22/17 PATIENT'S AGE: 42 Patient: BONI AGRAWAL Facility: [place], [place] Site . Site : 1975 Study: XRay Chest [id number] 11:59:58 PM Ordering Physician: Aniya Jackson Final Report: INDICATION: Palpitations TECHNIQUE: Chest 1 view. COMPARISON: 05/24/17 FINDINGS: Cardiovascular and mediastinum: Heart size and vasculature are normal in caliber and appearance. Mediastinum is within normal limits. Lungs and pleural spaces: Bibasilar atelectasis. No sign of infiltrate or mass. No sign of pleural effusion. No pneumothorax. Bones and soft tissues: No significant findings. IMPRESSION: Bibasilar atelectasis. Dictated by Drake Laguerre MD @ 07/23/2017 12:06:33 AM Dictated by: Drake Laguerre MD @ 07/23/2017 00:06:57 (Electronic Signature) Report Signed by Proxy. [facility]
== END 2017-07-23 02:26 | disposition home or self-care (01) ==
LOC: MW.ED 23:37
DX: K74.60 Unspecified cirrhosis of liver (principal); R00.0 Tachycardia, unspecified; Z79.899 Other long term (current) drug therapy
CPT/HCPCS: 36415; 71045; 80053; 82553; 83880; 84484; 85025; 93005; 96361; 96374; 99285; J2405; J7040; 99283

== ENCOUNTER 2017-09-12 16:32 | Inpatient (IN) | payer MEDICAID ==
[2017-09-12] MEDS ORDERED: Acetaminophen 325 MG Tab PO PRN (18:39)
[2017-09-12] MEDS ORDERED: Sodium Chloride 0.9% 2.5 ML Syringe FLUSH PRN (18:39)
[2017-09-12] MEDS ORDERED: Sodium Chloride 0.9% 10 ML Syringe FLUSH PRN (18:39)
[2017-09-12] MEDS ORDERED: Morphine 2 MG/ML Syringe IVPUSH PRN (18:39)
[2017-09-12] MEDS ORDERED: Furosemide 40 MG/4 ML VIAL IVPUSH ONE ×2 (18:39→20:45)
--- NOTE | 2017-09-12 19:38 | PCM.HP ---
H&P History of Present Illness - General Date of Service: 09/12/17 Admit Problem/Dx: Admission Diagnosis/Problem Admission Diagnosis/Problem Ascites due to chronic alcoholic hepatitis Source of Information: Patient History Limitations: Reports: No Limitations - History of Present Illness Initial Comments - Free Text/Narative: Ben is a 42-year-old male who is being directly admitted from my clinic secondary to worsening ascites that is going to require diuresis. 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 He has had a high elevation of his meld score of greater than 33 on previous admissions. Patient has been following up in my clinic as well as GI in my not. He recently saw GI in [place] who discontinued his Lasix medication secondary to possible worsening of his creatinine function. Patient however did recently have a albumin transfusion and a therapeutic abdominal paracentesis done. However since the discontinuation of the patient's Lasix patient got acutely worse over the past few days in terms of ascites/edema. Patient is denying any fevers, chills, nausea, vomiting. Patient's hemoglobin is low at 8.3 but likely this is due to a dilutional anemia. - Related Data Allergies/Adverse Reactions: Allergies Allergy/AdvReac Type Severity Reaction Status Date / Time No Known Allergies Allergy Verified 07/22/17 23:41 Home Medications: Home Meds Metoprolol Succinate [Toprol XL] 25 mg PO DAILY 07/22/17 [History] Midodrine 10 mg PO TID 07/22/17 [History] Pantoprazole [ProTONIX Granules] 40 mg PO BID 07/22/17 [History] Spironolactone [Aldactone] 25 mg PO DAILY 07/22/17 [History] Warfarin Sodium [Jantoven] 2.5 mg PO DAILY 07/22/17 [History] Lactulose 1 bottle PO BID PRN 09/12/17 [History] Methadone 0.5 tab PO QAM 09/12/17 [History] Multivitamin [Men's Multi-Vitamin] 1 tab PO DAILY 09/12/17 [History] Past Medical History - Past Health History Medical/Surgical History: Denies Medical/Surgical History HEENT History: Reports: Epistaxis, Other (See Below) Other HEENT History: no humidifer he says, so occassionally wakes up with nose bleed Cardiovascular History: Reports: Arrhythmia Other Cardiovascular History: palpitations Gastrointestinal History: Reports: Jaundice, Other (See Below) Other Gastrointestinal History: hematochezia. ascities Genitourinary History: Reports: Prostate Disorder Other Genitourinary History: "helicoil", procedure in [place] at age 20, to stop bleeding in a kidney Musculoskeletal History: Reports: Back Pain, Chronic, Gout, Other (See Below) Other Musculoskeletal History: hx of herniated disc. has pain in low lumbar area Neurological History: Reports: None Endocrine/Metabolic History: Reports: None Hematologic History: Reports: Anemia Dermatologic History: Reports: None - Infectious Disease History Infectious Disease History: Reports: None - Past Surgical History Head Surgeries/Procedures: Reports: None HEENT Surgical History: Reports: Tonsillectomy GI Surgical History: Reports: None Other Male Surgeries/Procedures: kidney surgery Endocrine Surgical History: Reports: None Neurological Surgical History: Reports: None Musculoskeletal Surgical History: Reports: None Dermatological Surgical History: Reports: None Social & Family History - Family History Family Medical History: Noncontributory Cardiac: Reports: Heart Failure, [place] - Tobacco Use Smoking Status *Q: Former Smoker Years of Tobacco use: 7 Packs/Tins Daily: 1 Used Tobacco, but Quit: Yes Month/Year Tobacco Last Used: 2001 Second Hand Smoke Exposure: No - Caffeine Use Caffeine Use: Reports: None - Alcohol Use Days Per Week of Alcohol Use: 7 Number of Drinks Per Day: 2 Total Drinks Per Week: 14 Date of Last Drink: 04/23/17 - Recreational Drug Use Recreational Drug Use: No H&P Review of Systems - Review of Systems: Review Of Systems: ROS reveals no pertinent complaints other than HPI. Exam - Exam Exam: See Below - Vital Signs Vital Signs: Last Vital Signs Temp 37.4 C 09/12/17 16:49 Pulse 65 09/12/17 16:49 Resp 18 09/12/17 16:49 BP 100/56 L 09/12/17 16:49 Pulse Ox 97 09/12/17 16:49 Weight: 95.254 kg - Exam General: Alert, Oriented, Cooperative, Mild Distress HEENT: Scleral Icterus Lungs: Clear to Auscultation, Decreased Breath Sounds Cardiovascular: Regular Rate, Regular Rhythm GI/Abdominal Exam: Distended, Hepatomegaly (Male) Exam: Other (Patient has an enlargement/edematous shaft of his penis) Extremities: Pedal Edema, Limited Range of Motion, Increased Warmth, Mottled, Redness, Other *Q Meaningful Use (ADM) - VTE *Q VTE Criteria *Q: - Stroke *Q Stroke Criteria *Q: - AMI *Q AMI Criteria *Q: - Problem List (1) Hypoalbuminemia SNOMED Code(s): 913206007 ICD Code: E88.09 - OTH DISORDERS OF PLASMA-PROTEIN METABOLISM, NEC Status: Acute Current Visit: Yes (2) Abdominal pain SNOMED Code(s): 65670209 ICD Code: R10.9 - UNSPECIFIED ABDOMINAL PAIN Status: Acute Current Visit : No Qualifiers: Abdominal location: generalized Qualified Code(s): R10.84 - Generalized abdominal pain (3) Alcoholic hepatitis with ascites SNOMED Code(s): 852943943 ICD Code: K70.11 - ALCOHOLIC HEPATITIS WITH ASCITES Status: Acute Current Visit: No (4) Hepatic cirrhosis SNOMED Code(s): 22064100 ICD Code: K74.60 - UNSPECIFIED CIRRHOSIS OF LIVER Status: Acute Current Visit: No Problem List Initiated/Reviewed/Updated: Yes Orders Last 24hrs: Active Orders 24 hr Category Date Time Status Patient Status [ADT] Routine ADT 09/12/17 18:39 Active Antiembolic Devices [RC] PER UNIT ROUTINE Care 09/12/17 18:42 Active Height and Weight [RC] DAILY Care 09/12/17 18:39 Active Intake and Output [RC] QSHIFT Care 09/12/17 18:40 Active Notify Provider Vital Signs [RC] ASDIRECTED Care 09/12/17 18:41 Active Oxygen Therapy [RC] PRN Care 09/12/17 18:39 Active Pulse Oximetry [RC] PRN Care 09/12/17 18:41 Active Up With Assistance [RC] ASDIRECTED Care 09/12/17 18:39 Active VTE/DVT Education [RC] PER UNIT ROUTINE Care 09/12/17 18:39 Active Vital Signs [RC] Q4H Care 09/12/17 18:39 Active 2 Gram Sodium Diet [DIET] Diet 09/12/17 Breakfast Active Fluid Restriction [DIET] Diet 09/13/17 Breakfast Active CBC WITH AUTO DIFF [HEME] Stat Lab 09/12/17 18:39 Ordered COMPREHENSIVE METABOLIC PN,CMP [CHEM] Stat Lab 09/12/17 18:39 Ordered CULTURE BLOOD [BC] Stat Lab 09/12/17 18:46 Ordered CULTURE BLOOD [BC] Stat Lab 09/12/17 18:46 Ordered GAMMA GLUTAMYL TRANSFERASE,GGT [CHEM] Routine Lab 09/12/17 18:39 Ordered INR,PT,PROTHROMBIN TIME [COAG] Stat Lab 09/12/17 18:39 Ordered LACTATE DEHYDROGENASE,LDH [CHEM] Routine Lab 09/12/17 18:39 Ordered MAGNESIUM [CHEM] Stat Lab 09/12/17 18:39 Ordered PHOSPHORUS [CHEM] Stat Lab 09/12/17 18:39 Ordered SEDIMENTATION RATE AUTO [HEME] Stat Lab 09/12/17 18:39 Ordered UA W/MICROSCOPIC [URIN] Stat Lab 09/12/17 18:39 Ordered Acetaminophen [Tylenol] Med 09/12/17 18:39 Active 650 mg PO Q4H PRN Metoprolol Succinate [Toprol XL] Med 09/13/17 09:00 Active 25 mg PO DAILY Midodrine Med 09/12/17 22:00 Active 10 mg PO TID Morphine Med 09/12/17 18:39 Active 2 mg IVPUSH Q2H PRN Ondansetron [Zofran] Med 09/12/17 18:39 Active 4 mg IVPUSH Q4H PRN Sodium Chloride 0.9% [Saline Flush] Med 09/12/17 18:39 Active 10 ml FLUSH ASDIRECTED PRN Sodium Chloride 0.9% [Saline Flush] Med 09/12/17 18:39 Active 2.5 ml FLUSH ASDIRECTED PRN Warfarin Sliding Scale [Coumadin Sliding Scale] Med 09/13/17 09:00 Pending DOSE each PO DAILY Blood Culture x2 Reflex Set [OM.PC] Stat Oth 09/12/17 18:39 Ordered Peripheral IV Insertion Adult [OM.PC] Routine Oth 09/12/17 18:39 Ordered Saline Lock Insert [OM.PC] Routine Oth 09/12/17 18:39 Ordered Sequential Compression Device [OM.PC] Per Unit Routine Oth 09/12/17 18:41 Ordered Medication Orders Acetaminophen (Tylenol) 650 mg PO Q4H PRN PRN Reason: Pain (Mild 1-3)/fever Metoprolol Succinate (Toprol Xl) 25 mg PO DAILY [facility]OS[facility] Midodrine (Midodrine) 10 mg PO TID [facility]OS[facility] Morphine Sulfate (Morphine) 2 mg IVPUSH Q2H PRN PRN Reason: Pain (severe 7-10) Stop: 09/13/17 18:42 Ondansetron HCl (Zofran) 4 mg IVPUSH Q4H PRN PRN Reason: Nausea/Vomiting Sodium Chloride (Saline Flush) 10 ml FLUSH ASDIRECTED PRN PRN Reason: Keep Vein Open Sodium Chloride (Saline Flush) 2.5 ml FLUSH ASDIRECTED PRN PRN Reason: Keep Vein Open Warfarin Sodium (Coumadin Sliding Scale) each PO DAILY [facility] Assessment/Plan Comment:: This is a 42-year-old patient with a significant medical history of severe liver cirrhosis secondary to alcoholic hepatitis, patient is presenting with generalized ascites of bilateral lower extremities with pitting edema extending up to his thighs, a protuberant belly secondary to fluid in his belly, a enlarged penis shaft secondary to edema, patient currently is denying any shortness of breath or difficulty breathing. #1. Generalized ascites secondary to hypoalbuminemia, chronic liver cirrhosis -Strict I's and O's, patient will get an initial IV Lasix dose of 40 mg shall assess in the a.m. to see how much he responds and reassess how much Lasix to give at that point in time. - Once the patient has had a decent diuresis we will reassess his anemia to see whether or not he needs blood replacement, patient will also likely need to have albumin replaced as well. -Full set of labs have been ordered to assess the patient's status, we will make the decisions as to what needs to be done once all labs are in.
[2017-09-12] MEDS ORDERED: Magnesium Sulfate/Water 2 GM in Premix Bag 1 BAG IV ONE (20:02)
[2017-09-12] MEDS: Midodrine 5 MG Tab PO SCH (21:01)
[2017-09-13] MEDS: Ondansetron 4 MG/2 ML SDV IVPUSH PRN ×2 (00:03→12:27)
[2017-09-13] MEDS: Midodrine 5 MG Tab PO SCH ×3 (06:42→21:44)
[2017-09-13] MEDS ORDERED: Morphine 4 MG/ML Syringe IVPUSH PRN (07:24)
[2017-09-13] MEDS ORDERED: Warfarin Sliding Scale PO SCH (09:00)
[2017-09-13] MEDS ORDERED: Albumin 25% 12.5 GM/50 ML BAG IV ONE ×2 (09:35→14:14)
[2017-09-13] MEDS ORDERED: Octreotide 500 MCG in Sodium Chloride 0.9% 495 ML IV SCH (10:00)
[2017-09-13] MEDS: Metoprolol Succinate 25 MG Tab.ER PO SCH (11:00)
[2017-09-13] MEDS ORDERED: Furosemide 40 MG/4 ML VIAL IVPUSH ONE (13:49)
[2017-09-13] MEDS: Albumin 25% 12.5 GM/50 ML BAG IV SCH ×3 (18:32→23:04)
--- NOTE | 2017-09-13 19:56 | PCM.PN ---
- General Info Date of Service: 09/13/17 Subjective Update: Patient overall is stable, he still is edematous, however his edema is mildly better from yesterday after a 40 IV of Lasix. Denies any shortness of breath. - Patient Data Vitals - Most Recent: Last Vital Signs Temp 36.3 C 09/13/17 15:00 Pulse 65 09/13/17 15:00 Resp 16 09/13/17 15:00 BP 93/54 L 09/13/17 15:00 Pulse Ox 93 L 09/13/17 15:00 Weight - Most Recent: 95.254 kg I&O - Last 24 Hours: Intake & Output 09/13/17 09/13/17 09/13/17 06:59 14:59 22:59 Intake Total 450 50 Output Total 950 Balance -500 50 Lab Results Last 24 Hours: Laboratory Results - last 24 hr 09/12/17 09/13/17 09/13/17 Range/Units 22:15 09:45 09:45 WBC 5.43 (4.0-11.0) K/uL RBC 2.66 L (4.50-5.90) M/uL Hgb 8.0 L (13.0-17.0) g/dL Hct 23.0 L (38.0-50.0) % MCV 86.5 (80.0-98.0) fL MCH 30.1 (27.0-32.0) pg MCHC 34.8 (31.0-37.0) g/dL RDW Std Deviation 63.5 H (28.0-62.0) fl RDW Coeff of Sandra 20 H (11.0-15.0) % Plt Count 131 L (150-400) K/uL MPV 9.90 (7.40-12.00) fL Add Manual Diff YES Neutrophils % (Manual) 50 (48.0-80.0) % Lymphocytes % (Manual) 38 (16.0-40.0) % Monocytes % (Manual) 12 (0.0-15.0) % Nucleated RBC % 0.0 /100WBC Absolute Seg Neuts 2.7 (1.4-5.7) Lymphocytes # (Manual) 2.1 (0.6-2.4) Monocytes # (Manual) 0.7 (0.0-0.8) Nucleated RBCs # 0 K/uL INR Sodium 136 (136-148) mmol/L Potassium 4.8 (3.5-5.1) mmol/L Chloride 107 (98-107) mmol/L Carbon Dioxide 24.8 (21.0-32.0) mmol/L BUN 29 H (7.0-18.0) mg/dL Creatinine 2.4 H (0.8-1.3) mg/dL Est Cr Clr Drug Dosing 47.43 mL/min Estimated GFR (MDRD) 29.7 ml/min Glucose 110 H (74-106) mg/dL Calcium 9.4 (8.5-10.1) mg/dL Magnesium 1.5 (1.5-2.0) mg/dL Total Bilirubin 2.8 H (0.2-1.0) mg/dL AST 42 H (15-37) IU/L ALT 15 (14-63) IU/L Alkaline Phosphatase 77 (46-116) U/L Total Protein 6.2 L (6.4-8.2) g/dL Albumin 1.6 L (3.4-5.0) g/dL Globulin 4.6 H (2.0-3.5) g/dL Albumin/Globulin Ratio 0.4 L (1.3-2.8) Urine Color YELLOW Urine Appearance CLEAR Urine pH 6.0 (5.0-8.0) Ur Specific Davidson 1.010 (1.001-1.035) Urine Protein NEGATIVE (NEGATIVE) mg/dL Urine Glucose (UA) NEGATIVE (NEGATIVE) mg/dL Urine Ketones NEGATIVE (NEGATIVE) mg/dL Urine Occult Blood SMALL H (NEGATIVE) Urine Nitrite NEGATIVE (NEGATIVE) Urine Bilirubin NEGATIVE (NEGATIVE) Urine Urobilinogen 0.2 (<2.0) EU/dL Ur Leukocyte Esterase NEGATIVE (NEGATIVE) Urine RBC 0-2 (0-2/HPF) Urine WBC 0-1 (0-5/HPF) Ur Epithelial Cells RARE (NONE-FEW) Urine Bacteria RARE (NEGATIVE) Blood Type Antibody Screen Crossmatch 09/13/17 09/13/17 Range/Units 09:57 15:39 WBC (4.0-11.0) K/uL RBC (4.50-5.90) M/uL Hgb (13.0-17.0) g/dL Hct (38.0-50.0) % MCV (80.0-98.0) fL MCH (27.0-32.0) pg MCHC (31.0-37.0) g/dL RDW Std Deviation (28.0-62.0) fl RDW Coeff of Sandra (11.0-15.0) % Plt Count (150-400) K/uL MPV (7.40-12.00) fL Add Manual Diff Neutrophils % (Manual) (48.0-80.0) % Lymphocytes % (Manual) (16.0-40.0) % Monocytes % (Manual) (0.0-15.0) % Nucleated RBC % /100WBC Absolute Seg Neuts (1.4-5.7) Lymphocytes # (Manual) (0.6-2.4) Monocytes # (Manual) (0.0-0.8) Nucleated RBCs # K/uL INR 4.84 Sodium (136-148) mmol/L Potassium (3.5-5.1) mmol/L Chloride (98-107) mmol/L Carbon Dioxide (21.0-32.0) mmol/L BUN (7.0-18.0) mg/dL Creatinine (0.8-1.3) mg/dL Est Cr Clr Drug Dosing mL/min Estimated GFR (MDRD) ml/min Glucose (74-106) mg/dL Calcium (8.5-10.1) mg/dL Magnesium (1.5-2.0) mg/dL Total Bilirubin (0.2-1.0) mg/dL AST (15-37) IU/L ALT (14-63) IU/L Alkaline Phosphatase (46-116) U/L Total Protein (6.4-8.2) g/dL Albumin (3.4-5.0) g/dL Globulin (2.0-3.5) g/dL Albumin/Globulin Ratio (1.3-2.8) Urine Color Urine Appearance Urine pH (5.0-8.0) Ur Specific Davidson (1.001-1.035) Urine Protein (NEGATIVE) mg/dL Urine Glucose (UA) (NEGATIVE) mg/dL Urine Ketones (NEGATIVE) mg/dL Urine Occult Blood (NEGATIVE) Urine Nitrite (NEGATIVE) Urine Bilirubin (NEGATIVE) Urine Urobilinogen (<2.0) EU/dL Ur Leukocyte Esterase (NEGATIVE) Urine RBC (0-2/HPF) Urine WBC (0-5/HPF) Ur Epithelial Cells (NONE-FEW) Urine Bacteria (NEGATIVE) Blood Type A POSITIVE Antibody Screen NEGATIVE Crossmatch See Detail Enzo Results Last 24 Hours: Microbiology 09/12/17 19:10 Aerobic Blood Culture - Preliminary Blood - Venous - Lab Draw NO GROWTH AFTER 1 DAY Anaerobic Blood Culture - Preliminary NO GROWTH AFTER 1 DAY 09/12/17 19:04 Aerobic Blood Culture - Preliminary Blood - Venous NO GROWTH AFTER 1 DAY Anaerobic Blood Culture - Preliminary NO GROWTH AFTER 1 DAY Med Orders - Current: Current Medications Acetaminophen (Tylenol) 650 mg PO Q4H PRN PRN Reason: Pain (Mild 1-3)/fever Octreotide Acetate 500 mcg/ (Sodium Chloride) 500 mls @ 50 mls/hr IV Q10H [facility] PRN Reason: 50 MCG/HR Stop: 09/13/17 19:59 Last Admin: 09/13/17 11:33 Dose: 50 mcg/hr, 50 mls/hr Albumin Human (Flexbumin 25%) 12.5 gm in 50 mls @ 100 mls/hr IV Q6HR [facility] Stop: 09/14/17 00:29 Last Admin: 09/13/17 18:38 Dose: Not Given Metoprolol Succinate (Toprol Xl) 25 mg PO DAILY [facility] Last Admin: 09/13/17 11:00 Dose: Not Given Midodrine (Midodrine) 12.5 mg PO TID [facility] Last Admin: 09/13/17 14:51 Dose: 12.5 mg Octreotide Acetate (Sandostatin) 100 mcg SUBCUT TID [facility] Ondansetron HCl (Zofran) 4 mg IVPUSH Q4H PRN PRN Reason: Nausea/Vomiting Last Admin: 09/13/17 12:27 Dose: 4 mg Sodium Chloride (Saline Flush) 10 ml FLUSH ASDIRECTED PRN PRN Reason: Keep Vein Open Sodium Chloride (Saline Flush) 2.5 ml FLUSH ASDIRECTED PRN PRN Reason: Keep Vein Open Discontinued Medications Furosemide (Lasix) 40 mg IVPUSH NOW ONE Stop: 09/12/17 18:40 Last Admin: 09/12/17 20:46 Dose: Not Given Furosemide (Lasix) 40 mg IVPUSH NOW ONE Stop: 09/12/17 20:46 Last Admin: 09/12/17 20:52 Dose: 40 mg Furosemide (Lasix) 40 mg IVPUSH NOW ONE Stop: 09/13/17 13:50 Last Admin: 09/13/17 14:31 Dose: Not Given Magnesium Sulfate 2 gm/ Premix 50 mls @ 25 mls/hr IV ONETIME ONE Stop: 09/12/17 22:01 Last Admin: 09/12/17 20:52 Dose: 25 mls/hr Albumin Human (Flexbumin 25%) 12.5 gm in 50 mls @ 100 mls/hr IV Q4HR ONE Stop: 09/13/17 10:04 Last Admin: 09/13/17 10:59 Dose: 100 mls/hr Albumin Human (Flexbumin 25%) 12.5 gm in 50 mls @ 100 mls/hr IV Q6HR ONE Stop: 09/13/17 14:43 Last Admin: 09/13/17 17:00 Dose: Not Given Midodrine (Midodrine) 10 mg PO TID [facility]OS[facility]IN Last Admin: 09/13/17 06:42 Dose: 10 mg Morphine Sulfate (Morphine) 2 mg IVPUSH Q2H PRN PRN Reason: Pain (severe 7-10) Stop: 09/13/17 18:42 Morphine Sulfate (Morphine) 2 mg IVPUSH Q2H PRN PRN Reason: Pain (severe 7-10) Stop: 09/13/17 18:42 Warfarin Sodium (Coumadin Sliding Scale) each PO DAILY [facility] - Exam Quality Assessment: Supplemental Oxygen General: Alert, Oriented, Cooperative, Mild Distress HEENT: Scleral Icterus Lungs: Clear to Auscultation, Normal Respiratory Effort Cardiovascular: Regular Rate, Regular Rhythm GI/Abdominal Exam: Rigid, Tender, Hepatomegaly (Male) Exam: Other (Edematous penile shaft) Extremities: Pedal Edema, Other (Pitting edema up to her hips bilaterally) - Problem List & Annotations (1) Hypoalbuminemia SNOMED Code(s): 157061301 Code(s): E88.09 - OTH DISORDERS OF PLASMA-PROTEIN METABOLISM, NEC Status: Acute Current Visit: Yes (2) Abdominal pain SNOMED Code(s): 83269112 Code(s): R10.9 - UNSPECIFIED ABDOMINAL PAIN Status: Acute Current Visit: No Qualifiers: Abdominal location: generalized Qualified Code(s): R10.84 - Generalized abdominal pain (3) Alcoholic hepatitis with ascites SNOMED Code(s): 393120945 Code(s): K70.11 - ALCOHOLIC HEPATITIS WITH ASCITES Status: Acute Current Visit: No (4) Hepatic cirrhosis SNOMED Code(s): 68447044 Code(s): K74.60 - UNSPECIFIED CIRRHOSIS OF LIVER Status: Acute Current Visit: No - Problem List Review Problem List Initiated/Reviewed/Updated: Yes - My Orders Last 24 Hours: My Active Orders 09/12/17 19:04 CULTURE BLOOD [BC] Stat 09/12/17 19:10 CULTURE BLOOD [BC] Stat 09/13/17 09:00 Metoprolol Succinate [Toprol XL] 25 mg PO DAILY 09/13/17 09:48 Midodrine 12.5 mg PO TID 09/13/17 10:00 Octreotide [SandoSTATIN] 500 mcg Sodium Chloride 0.9% [Normal Saline] 495 ml IV Q10H 09/13/17 15:03 SODIUM,URINE RANDOM [URCHEM] Routine 09/13/17 15:24 Verify Patient Consent Obtain [RC] ASDIRECTED Transfuse Red Blood Cells [COMM] Routine 09/13/17 15:39 RED BLOOD CELLS LP [BBK] Routine TYPE AND SCREEN [BBK] Routine 09/13/17 17:00 Albumin 25% [Flexbumin 25%] 12.5 gm in 50 ml IV Q6HR 09/14/17 06:00 Octreotide [SandoSTATIN] 100 mcg SUBCUT TID - Plan Plan:: This is a 42-year-old patient with a significant medical history of severe liver cirrhosis secondary to alcoholic hepatitis, patient is presenting with generalized ascites of bilateral lower extremities with pitting edema extending up to his thighs, a protuberant belly secondary to fluid in his belly, a enlarged penis shaft secondary to edema, patient currently is denying any shortness of breath or difficulty breathing. #1. Generalized ascites secondary to hypoalbuminemia, chronic liver cirrhosis -Strict I's and O's, patient will get an initial IV Lasix dose of 40 mg shall assess in the a.m. to see how much he responds and reassess how much Lasix to give at that point in time. - Once the patient has had a decent diuresis we will reassess his anemia to see whether or not he needs blood replacement, patient will also likely need to have albumin replaced as well. -Full set of labs have been ordered to assess the patient's status, we will make the decisions as to what needs to be done once all labs are in. Update 09/13/2017 -I spoke with Dr. Jose D de la torre, who states that he is not comfortable doing the therapeutic paracentesis until the patient's INR is down near to or below. -Spoke with Dr. Sanford in [place] is a GI physician with the patient follows up with his nurse practitioner Radha Bennett. After explaining the patient's symptoms Dr. Sanford with like the patient to have 1 unit of RBC blood, no further diuretics, patient can continue his octreotide and Midrin, patient to get 50 mg of albumin daily, patient to be placed on a extremely low-sodium diet , patient's fluid restrictions can be eased from 1.5-2.[address] Sanford believes that the paracentesis can be held up until the patient's INR is closer to 2. He believes the primary treatment right now should be to increase the intravascular volume to ensure that the kidneys are well perfused that is why he does not want Lasix as they may further caused hypoperfusion of the renals causing prerenal azotemia to worsen. -
[2017-09-14] MEDS: Midodrine 5 MG Tab PO SCH ×3 (05:45→21:20)
[2017-09-14] MEDS: Albumin 25% 12.5 GM/50 ML BAG IV SCH (05:46)
[2017-09-14] MEDS: Octreotide 100 MCG/1 ML Amp SUBCUT SCH ×3 (06:50→21:19)
[2017-09-14] MEDS: Metoprolol Succinate 25 MG Tab.ER PO SCH (12:03)
--- NOTE | 2017-09-14 13:01 | PCM.PN ---
- General Info Date of Service: 09/14/17 Subjective Update: Ben today has started to show signs of encephalopathy. He was able to tell me where he was but it took an extended period time which was out of character for him. He appeared to be a little bit confused and that confusion started to grow further as the day progressed. He also appeared to be more somnolent than normal. His ammonia level is elevated. - Patient Data Vitals - Most Recent: Last Vital Signs Temp 36.9 C 09/14/17 12:00 Pulse 76 09/14/17 12:00 Resp 12 09/14/17 12:00 BP 104/69 09/14/17 12:00 Pulse Ox 96 09/14/17 12:00 Weight - Most Recent: 99.291 kg I&O - Last 24 Hours: Intake & Output 09/13/17 09/14/17 09/14/17 22:59 06:59 14:59 Intake Total 895 200 Output Total 450 Balance 895 -250 Lab Results Last 24 Hours: Laboratory Results - last 24 hr 09/13/17 09/13/17 09/14/17 Range/Units 15:39 22:07 06:13 WBC 5.83 (4.0-11.0) K/uL RBC 2.82 L (4.50-5.90) M/uL Hgb 8.4 L (13.0-17.0) g/dL Hct 24.2 L (38.0-50.0) % MCV 85.8 (80.0-98.0) fL MCH 29.8 (27.0-32.0) pg MCHC 34.7 (31.0-37.0) g/dL RDW Std Deviation 62.2 H (28.0-62.0) fl RDW Coeff of Sandra 20 H (11.0-15.0) % Plt Count 125 L (150-400) K/uL MPV 10.30 (7.40-12.00) fL Add Manual Diff YES Neutrophils % (Manual) 56 (48.0-80.0) % Lymphocytes % (Manual) 30 (16.0-40.0) % Monocytes % (Manual) 12 (0.0-15.0) % Basophils % (Manual) 2 H (0.0-1.5) % Nucleated RBC % 0.0 /100WBC Absolute Seg Neuts 3.3 (1.4-5.7) Lymphocytes # (Manual) 1.7 (0.6-2.4) Monocytes # (Manual) 0.7 (0.0-0.8) Basophils # (Manual) 0.1 (0.0-0.1) Nucleated RBCs # 0 K/uL INR Sodium (136-148) mmol/L Potassium (3.5-5.1) mmol/L Chloride (98-107) mmol/L Carbon Dioxide (21.0-32.0) mmol/L BUN (7.0-18.0) mg/dL Creatinine (0.8-1.3) mg/dL Est Cr Clr Drug Dosing mL/min Estimated GFR (MDRD) ml/min Glucose (74-106) mg/dL Calcium (8.5-10.1) mg/dL Total Bilirubin (0.2-1.0) mg/dL AST (15-37) IU/L ALT (14-63) IU/L Alkaline Phosphatase (46-116) U/L Total Protein (6.4-8.2) g/dL Albumin (3.4-5.0) g/dL Globulin (2.0-3.5) g/dL Albumin/Globulin Ratio (1.3-2.8) Ur Random Sodium 3.0 L (40.0-220.0) mmol/L Blood Type A POSITIVE Antibody Screen NEGATIVE Crossmatch See Detail 09/14/17 09/14/17 Range/Units 06:13 06:13 WBC (4.0-11.0) K/uL RBC (4.50-5.90) M/uL Hgb (13.0-17.0) g/dL Hct (38.0-50.0) % MCV (80.0-98.0) fL MCH (27.0-32.0) pg MCHC (31.0-37.0) g/dL RDW Std Deviation (28.0-62.0) fl RDW Coeff of Sandra (11.0-15.0) % Plt Count (150-400) K/uL MPV (7.40-12.00) fL Add Manual Diff Neutrophils % (Manual) (48.0-80.0) % Lymphocytes % (Manual) (16.0-40.0) % Monocytes % (Manual) (0.0-15.0) % Basophils % (Manual) (0.0-1.5) % Nucleated RBC % /100WBC Absolute Seg Neuts (1.4-5.7) Lymphocytes # (Manual) (0.6-2.4) Monocytes # (Manual) (0.0-0.8) Basophils # (Manual) (0.0-0.1) Nucleated RBCs # K/uL INR 4.71 Sodium 136 (136-148) mmol/L Potassium 5.1 (3.5-5.1) mmol/L Chloride 107 (98-107) mmol/L Carbon Dioxide 23.5 (21.0-32.0) mmol/L BUN 29 H (7.0-18.0) mg/dL Creatinine 2.5 H (0.8-1.3) mg/dL Est Cr Clr Drug Dosing 45.78 mL/min Estimated GFR (MDRD) 28.3 ml/min Glucose 120 H (74-106) mg/dL Calcium 9.5 (8.5-10.1) mg/dL Total Bilirubin 3.5 H (0.2-1.0) mg/dL AST 43 H (15-37) IU/L ALT 16 (14-63) IU/L Alkaline Phosphatase 65 (46-116) U/L Total Protein 6.2 L (6.4-8.2) g/dL Albumin 1.9 L (3.4-5.0) g/dL Globulin 4.3 H (2.0-3.5) g/dL Albumin/Globulin Ratio 0.4 L (1.3-2.8) Ur Random Sodium (40.0-220.0) mmol/L Blood Type Antibody Screen Crossmatch Enzo Results Last 24 Hours: Microbiology 09/12/17 19:10 Aerobic Blood Culture - Preliminary Blood - Venous - Lab Draw NO GROWTH AFTER 1 DAY Anaerobic Blood Culture - Preliminary NO GROWTH AFTER 1 DAY 09/12/17 19:04 Aerobic Blood Culture - Preliminary Blood - Venous NO GROWTH AFTER 1 DAY Anaerobic Blood Culture - Preliminary NO GROWTH AFTER 1 DAY Med Orders - Current: Current Medications Acetaminophen (Tylenol) 650 mg PO Q4H PRN PRN Reason: Pain (Mild 1-3)/fever Lactulose (Chronulac) 10 gm PO Q4H PRN PRN Reason: Constipation Metoprolol Succinate (Toprol Xl) 25 mg PO DAILY [facility] Last Admin: 09/14/17 12:03 Dose: Not Given Midodrine (Midodrine) 12.5 mg PO TID [facility] Last Admin: 09/14/17 05:45 Dose: 12.5 mg Octreotide Acetate (Sandostatin) 100 mcg SUBCUT TID [facility] Last Admin: 09/14/17 06:50 Dose: 100 mcg Ondansetron HCl (Zofran) 4 mg IVPUSH Q4H PRN PRN Reason: Nausea/Vomiting Last Admin: 09/13/17 12:27 Dose: 4 mg Sodium Chloride (Saline Flush) 10 ml FLUSH ASDIRECTED PRN PRN Reason: Keep Vein Open Sodium Chloride (Saline Flush) 2.5 ml FLUSH ASDIRECTED PRN PRN Reason: Keep Vein Open Discontinued Medications Furosemide (Lasix) 40 mg IVPUSH NOW ONE Stop: 09/12/17 18:40 Last Admin: 09/12/17 20:46 Dose: Not Given Furosemide (Lasix) 40 mg IVPUSH NOW ONE Stop: 09/12/17 20:46 Last Admin: 09/12/17 20:52 Dose: 40 mg Furosemide (Lasix) 40 mg IVPUSH NOW ONE Stop: 09/13/17 13:50 Last Admin: 09/13/17 14:31 Dose: Not Given Magnesium Sulfate 2 gm/ Premix 50 mls @ 25 mls/hr IV ONETIME ONE Stop: 09/12/17 22:01 Last Admin: 09/12/17 20:52 Dose: 25 mls/hr Albumin Human (Flexbumin 25%) 12.5 gm in 50 mls @ 100 mls/hr IV Q4HR ONE Stop: 09/13/17 10:04 Last Admin: 09/13/17 10:59 Dose: 100 mls/hr Octreotide Acetate 500 mcg/ (Sodium Chloride) 500 mls @ 50 mls/hr IV Q10H [facility] PRN Reason: 50 MCG/HR Stop: 09/13/17 19:59 Last Admin: 09/13/17 11:33 Dose: 50 mcg/hr, 50 mls/hr Albumin Human (Flexbumin 25%) 12.5 gm in 50 mls @ 100 mls/hr IV Q6HR ONE Stop: 09/13/17 14:43 Last Admin: 09/13/17 17:00 Dose: Not Given Albumin Human (Flexbumin 25%) 12.5 gm in 50 mls @ 100 mls/hr IV Q6HR [facility] Stop: 09/14/17 00:29 Last Admin: 09/14/17 05:46 Dose: 100 mls/hr Midodrine (Midodrine) 10 mg PO TID [facility] Last Admin: 09/13/17 06:42 Dose: 10 mg Morphine Sulfate (Morphine) 2 mg IVPUSH Q2H PRN PRN Reason: Pain (severe 7-10) Stop: 09/13/17 18:42 Morphine Sulfate (Morphine) 2 mg IVPUSH Q2H PRN PRN Reason: Pain (severe 7-10) Stop: 09/13/17 18:42 Warfarin Sodium (Coumadin Sliding Scale) each PO DAILY [facility] - Exam General: Cooperative, No Acute Distress, Other (Patient appears to be showing signs of hepatic encephalopathy) Lungs: Clear to Auscultation, Normal Respiratory Effort Cardiovascular: Regular Rate, Regular Rhythm GI/Abdominal Exam: Distended, Abnormal Bowel Sounds, Hepatomegaly Extremities: Other (Bilateral pitting edema extending up to the hips) - Problem List & Annotations (1) Hypoalbuminemia SNOMED Code(s): 825283343 Code(s): E88.09 - OTH DISORDERS OF PLASMA-PROTEIN METABOLISM, NEC Status: Acute Current Visit: Yes (2) Abdominal pain SNOMED Code(s): 98845657 Code(s): R10.9 - UNSPECIFIED ABDOMINAL PAIN Status: Acute Current Visit: No Qualifiers: Abdominal location: generalized Qualified Code(s): R10.84 - Generalized abdominal pain (3) Alcoholic hepatitis with ascites SNOMED Code(s): 250341083 Code(s): K70.11 - ALCOHOLIC HEPATITIS WITH ASCITES Status: Acute Current Visit: No (4) Hepatic cirrhosis SNOMED Code(s): 14987809 Code(s): K74.60 - UNSPECIFIED CIRRHOSIS OF LIVER Status: Acute Current Visit: No - Problem List Review Problem List Initiated/Reviewed/Updated: Yes - My Orders Last 24 Hours: My Active Orders 09/13/17 15:24 Verify Patient Consent Obtain [RC] ASDIRECTED Transfuse Red Blood Cells [COMM] Routine 09/14/17 06:00 Octreotide [SandoSTATIN] 100 mcg SUBCUT TID 09/14/17 09:39 SODIUM,URINE 24HR [URCHEM] Routine 09/14/17 09:43 CREATININE,URINE 24HR [URCHEM] Routine 09/14/17 12:48 AMMONIA VENOUS [CHEM] Stat 09/14/17 12:56 Lactulose [Chronulac] 10 gm PO Q4H PRN 09/14/17 Lunch Sodium Restricted Diet [DIET] 09/15/17 05:11 CBC WITH AUTO DIFF [HEME] AM COMPREHENSIVE METABOLIC PN,CMP [CHEM] AM INR,PT,PROTHROMBIN TIME [COAG] AM 09/16/17 05:11 CBC WITH AUTO DIFF [HEME] AM COMPREHENSIVE METABOLIC PN,CMP [CHEM] AM INR,PT,PROTHROMBIN TIME [COAG] AM - Plan Plan:: This is a 42-year-old patient with a significant medical history of severe liver cirrhosis secondary to alcoholic hepatitis, patient is presenting with generalized ascites of bilateral lower extremities with pitting edema extending up to his thighs, a protuberant belly secondary to fluid in his belly, a enlarged penis shaft secondary to edema, patient currently is denying any shortness of breath or difficulty breathing. #1. Generalized ascites secondary to hypoalbuminemia, chronic liver cirrhosis -Strict I's and O's, patient will get an initial IV Lasix dose of 40 mg shall assess in the a.m. to see how much he responds and reassess how much Lasix to give at that point in time. - Once the patient has had a decent diuresis we will reassess his anemia to see whether or not he needs blood replacement, patient will also likely need to have albumin replaced as well. -Full set of labs have been ordered to assess the patient's status, we will make the decisions as to what needs to be done once all labs are in. Update 09/13/2017 -I spoke with Dr. Jose D de la torre, who states that he is not comfortable doing the therapeutic paracentesis until the patient's INR is down near to or below. -Spoke with Dr. Sanford in [place] is a GI physician with the patient follows up with his nurse practitioner Radha Bennett. After explaining the patient's symptoms Dr. Sanford with like the patient to have 1 unit of RBC blood, no further diuretics, patient can continue his octreotide and Midrin, patient to get 50 mg of albumin daily, patient to be placed on a extremely low-sodium diet , patient's fluid restrictions can be eased from 1.5-2.[address] Sanford believes that the paracentesis can be held up until the patient's INR is closer to 2. He believes the primary treatment right now should be to increase the intravascular volume to ensure that the kidneys are well perfused that is why he does not want Lasix as they may further caused hypoperfusion of the renals causing prerenal azotemia to worsen. Update 09/14/2017 Ben today appears to be showing signs of hepatic encephalopathy. He is delayed in his speech, and appears to be confused. His ammonia level was checked and it is elevated. We have started him on lactulose 10 mg every 4 hours with the instructions to stop the lactulose once the patient has had 3 consecutive bowel movements. -We shall continue with the albumin with the goal of 50 g daily, continue with the octreotide 100 mg subcutaneous 3 times a day. patient's albumin has slightly risen since yesterday. We continue to hold the Coumadin to get the INR down to a level that radiology will be okay with doing the paracenteses. -If the patient's hepatic encephalopathy continues to worsen to the point where he becomes obtunded or becomes close to that phase then we will likely have to transfer to a higher care facility for this patient.
[2017-09-14] MEDS: Lactulose Soln 10 GM/15 ML 15 ML UD Cup PO PRN ×2 (14:58→19:02)
[2017-09-15] MEDS: Folic Acid 1 MG Tab PO SCH (00:54)
[2017-09-15] MEDS: Lactulose Soln 10 GM/15 ML 15 ML UD Cup PO PRN ×4 (00:54→20:56)
[2017-09-15] MEDS: Thiamine 100 MG Tab PO SCH (00:54)
[2017-09-15] MEDS: Midodrine 5 MG Tab PO SCH ×3 (05:42→21:00)
[2017-09-15] MEDS: Octreotide 100 MCG/1 ML Amp SUBCUT SCH ×3 (05:42→21:00)
[2017-09-15] MEDS: Ondansetron 4 MG/2 ML SDV IVPUSH PRN (09:18)
[2017-09-15] MEDS: Albumin 25% 12.5 GM/50 ML BAG IV SCH ×2 (11:00→15:07)
[2017-09-15] MEDS: Metoprolol Succinate 25 MG Tab.ER PO SCH (11:08)
--- NOTE | 2017-09-15 15:32 | PCM.PN ---
- Review of Systems Systems Review Comment:: confusion has improved, no abdominal pain - Patient Data Vitals - Most Recent: Last Vital Signs Temp 36.7 C 09/15/17 11:44 Pulse 72 09/15/17 11:44 Resp 20 09/15/17 11:44 BP 107/77 09/15/17 11:44 Pulse Ox 98 09/15/17 11:44 Weight - Most Recent: 97.522 kg I&O - Last 24 Hours: Intake & Output 09/15/17 09/15/17 09/15/17 06:59 14:59 22:59 Intake Total 150 50 Output Total 450 Balance -300 50 Lab Results Last 24 Hours: Laboratory Results - last 24 hr 09/15/17 09/15/17 09/15/17 Range/Units 05:38 05:38 05:38 WBC 6.42 (4.0-11.0) K/uL RBC 3.02 L (4.50-5.90) M/uL Hgb 9.0 L (13.0-17.0) g/dL Hct 25.7 L (38.0-50.0) % MCV 85.1 (80.0-98.0) fL MCH 29.8 (27.0-32.0) pg MCHC 35.0 (31.0-37.0) g/dL RDW Std Deviation 61.8 (28.0-62.0) fl RDW Coeff of Sandra 20 H (11.0-15.0) % Plt Count 136 L (150-400) K/uL MPV 9.60 (7.40-12.00) fL Neut % (Auto) 44.2 L (48.0-80.0) % Lymph % (Auto) 39.9 (16.0-40.0) % [place] % (Auto) 14.5 (0.0-15.0) % Eos % (Auto) 0.9 (0.0-7.0) % Baso % (Auto) 0.5 (0.0-1.5) % Neut # (Auto) 2.8 (1.4-5.7) K/uL Lymph # (Auto) 2.6 H (0.6-2.4) K/uL [place] # (Auto) 0.9 H (0.0-0.8) K/uL Eos # (Auto) 0.1 (0.0-0.7) K/uL Baso # (Auto) 0.0 (0.0-0.1) K/uL Nucleated RBC % 0.0 /100WBC Nucleated RBCs # 0 K/uL INR 3.75 Sodium 138 (136-148) mmol/L Potassium 4.2 (3.5-5.1) mmol/L Chloride 108 H (98-107) mmol/L Carbon Dioxide 23.0 (21.0-32.0) mmol/L BUN 26 H (7.0-18.0) mg/dL Creatinine 2.3 H (0.8-1.3) mg/dL Est Cr Clr Drug Dosing 49.76 mL/min Estimated GFR (MDRD) 31.2 ml/min Glucose 99 (74-106) mg/dL Calcium 9.6 (8.5-10.1) mg/dL Magnesium 1.5 (1.5-2.0) mg/dL Total Bilirubin 4.7 H (0.2-1.0) mg/dL AST 48 H (15-37) IU/L ALT 18 (14-63) IU/L Alkaline Phosphatase 75 (46-116) U/L Ammonia (19-54) ug/dL Total Protein 6.9 (6.4-8.2) g/dL Albumin 2.1 L (3.4-5.0) g/dL Globulin 4.8 H (2.0-3.5) g/dL Albumin/Globulin Ratio 0.4 L (1.3-2.8) 09/15/17 Range/Units 05:38 WBC (4.0-11.0) K/uL RBC (4.50-5.90) M/uL Hgb (13.0-17.0) g/dL Hct (38.0-50.0) % MCV (80.0-98.0) fL MCH (27.0-32.0) pg MCHC (31.0-37.0) g/dL RDW Std Deviation (28.0-62.0) fl RDW Coeff of Sandra (11.0-15.0) % Plt Count (150-400) K/uL MPV (7.40-12.00) fL Neut % (Auto) (48.0-80.0) % Lymph % (Auto) (16.0-40.0) % [place] % (Auto) (0.0-15.0) % Eos % (Auto) (0.0-7.0) % Baso % (Auto) (0.0-1.5) % Neut # (Auto) (1.4-5.7) K/uL Lymph # (Auto) (0.6-2.4) K/uL [place] # (Auto) (0.0-0.8) K/uL Eos # (Auto) (0.0-0.7) K/uL Baso # (Auto) (0.0-0.1) K/uL Nucleated RBC % /100WBC Nucleated RBCs # K/uL INR Sodium (136-148) mmol/L Potassium (3.5-5.1) mmol/L Chloride (98-107) mmol/L Carbon Dioxide (21.0-32.0) mmol/L BUN (7.0-18.0) mg/dL Creatinine (0.8-1.3) mg/dL Est Cr Clr Drug Dosing mL/min Estimated GFR (MDRD) ml/min Glucose (74-106) mg/dL Calcium (8.5-10.1) mg/dL Magnesium (1.5-2.0) mg/dL Total Bilirubin (0.2-1.0) mg/dL AST (15-37) IU/L ALT (14-63) IU/L Alkaline Phosphatase (46-116) U/L Ammonia 84 H (19-54) ug/dL Total Protein (6.4-8.2) g/dL Albumin (3.4-5.0) g/dL Globulin (2.0-3.5) g/dL Albumin/Globulin Ratio (1.3-2.8) Enzo Results Last 24 Hours: Microbiology 09/12/17 19:10 Aerobic Blood Culture - Preliminary Blood - Venous - Lab Draw NO GROWTH AFTER 2 DAYS Anaerobic Blood Culture - Preliminary NO GROWTH AFTER 2 DAYS 09/12/17 19:04 Aerobic Blood Culture - Preliminary Blood - Venous NO GROWTH AFTER 2 DAYS Anaerobic Blood Culture - Preliminary NO GROWTH AFTER 2 DAYS Med Orders - Current: Current Medications Acetaminophen (Tylenol) 650 mg PO Q4H PRN PRN Reason: Pain (Mild 1-3)/fever Folic Acid (Folic Acid) 1 mg PO Q24H [facility] Last Admin: 09/15/17 00:54 Dose: 1 mg Albumin Human (Flexbumin 25%) 12.5 gm in 50 mls @ 100 mls/hr IV Q6H [facility] Stop: 09/15/17 16:14 Last Admin: 09/15/17 15:07 Dose: 100 mls/hr Albumin Human (Buminate 5%) 250 mls @ 250 mls/hr IV Q6H [facility] Lactulose (Chronulac) 10 gm PO Q4H PRN PRN Reason: Constipation Last Admin: 09/15/17 08:09 Dose: 10 gm Metoprolol Succinate (Toprol Xl) 25 mg PO DAILY [facility] Last Admin: 09/15/17 11:08 Dose: Not Given Midodrine (Midodrine) 12.5 mg PO TID [facility] Last Admin: 09/15/17 14:57 Dose: 12.5 mg Octreotide Acetate (Sandostatin) 100 mcg SUBCUT TID [facility] Last Admin: 09/15/17 14:58 Dose: 100 mcg Ondansetron HCl (Zofran) 4 mg IVPUSH Q4H PRN PRN Reason: Nausea/Vomiting Last Admin: 09/15/17 09:18 Dose: 4 mg Sodium Chloride (Saline Flush) 10 ml FLUSH ASDIRECTED PRN PRN Reason: Keep Vein Open Sodium Chloride (Saline Flush) 2.5 ml FLUSH ASDIRECTED PRN PRN Reason: Keep Vein Open Thiamine HCl (Vitamin B-1) 100 mg PO Q24H [facility] Last Admin: 09/15/17 00:54 Dose: 100 mg Discontinued Medications Furosemide (Lasix) 40 mg IVPUSH NOW ONE Stop: 09/12/17 18:40 Last Admin: 09/12/17 20:46 Dose: Not Given Furosemide (Lasix) 40 mg IVPUSH NOW ONE Stop: 09/12/17 20:46 Last Admin: 09/12/17 20:52 Dose: 40 mg Furosemide (Lasix) 40 mg IVPUSH NOW ONE Stop: 09/13/17 13:50 Last Admin: 09/13/17 14:31 Dose: Not Given Magnesium Sulfate 2 gm/ Premix 50 mls @ 25 mls/hr IV ONETIME ONE Stop: 09/12/17 22:01 Last Admin: 09/12/17 20:52 Dose: 25 mls/hr Albumin Human (Flexbumin 25%) 12.5 gm in 50 mls @ 100 mls/hr IV Q4HR ONE Stop: 09/13/17 10:04 Last Admin: 09/13/17 10:59 Dose: 100 mls/hr Octreotide Acetate 500 mcg/ (Sodium Chloride) 500 mls @ 50 mls/hr IV Q10H [facility] PRN Reason: 50 MCG/HR Stop: 09/13/17 19:59 Last Admin: 09/13/17 11:33 Dose: 50 mcg/hr, 50 mls/hr Albumin Human (Flexbumin 25%) 12.5 gm in 50 mls @ 100 mls/hr IV Q6HR ONE Stop: 09/13/17 14:43 Last Admin: 09/13/17 17:00 Dose: Not Given Albumin Human (Flexbumin 25%) 12.5 gm in 50 mls @ 100 mls/hr IV Q6HR [facility] Stop: 09/14/17 00:29 Last Admin: 09/14/17 05:46 Dose: 100 mls/hr Midodrine (Midodrine) 10 mg PO TID [facility] Last Admin: 09/13/17 06:42 Dose: 10 mg Morphine Sulfate (Morphine) 2 mg IVPUSH Q2H PRN PRN Reason: Pain (severe 7-10) Stop: 09/13/17 18:42 Morphine Sulfate (Morphine) 2 mg IVPUSH Q2H PRN PRN Reason: Pain (severe 7-10) Stop: 09/13/17 18:42 Warfarin Sodium (Coumadin Sliding Scale) each PO DAILY [facility] - Exam General: Alert, Oriented HEENT: Mucous Membr. Moist/[place] Lungs: Clear to Auscultation, Normal Respiratory Effort Cardiovascular: Regular Rate, Regular Rhythm GI/Abdominal Exam: Normal Bowel Sounds, Soft, Non-Tender, Distended Extremities: Pedal Edema (+2) Skin: Warm, Dry, Intact, Other (juandice) Neurological: No New Focal Deficit - Problem List Review Problem List Initiated/Reviewed/Updated: Yes - My Orders Last 24 Hours: My Active Orders 09/15/17 01:00 Folic Acid 1 mg PO Q24H Thiamine [Vitamin B-1] 100 mg PO Q24H 09/15/17 09:45 Albumin 25% [Flexbumin 25%] 12.5 gm in 50 ml IV Q6H 09/15/17 16:15 Albumin 5% [Buminate 5%] 250 ml IV Q6H - Plan Plan:: This is a 42-year-old patient with a significant medical history of severe liver cirrhosis secondary to alcoholic hepatitis, admitted with fluid overload Liver cirrhosis with hypoalbumineia, fluid overload, kidney disease, and hepatic encephalopathy: Will continue albumin infuisons, holding lasix, continue to moniter creatinine. We will continue lactulose. Holding anticoagulation as will need paracentesis
[2017-09-15] MEDS: Albumin 5% 250 ML IV SCH (20:55)
[2017-09-16] MEDS: Thiamine 100 MG Tab PO SCH (00:08)
[2017-09-16] MEDS: Folic Acid 1 MG Tab PO SCH (00:08)
[2017-09-16] MEDS: Albumin 5% 250 ML IV SCH ×2 (02:47→09:32)
[2017-09-16] MEDS: Midodrine 5 MG Tab PO SCH ×3 (05:40→22:03)
[2017-09-16] MEDS: Octreotide 100 MCG/1 ML Amp SUBCUT SCH (05:40)
--- NOTE | 2017-09-16 08:35 | PCM.PN ---
- General Info Date of Service: 09/16/17 Subjective Update: Patient continues to be encepholopathic, he is unable to answer my questions. He does not appear to be in any acute distress. - Patient Data Vitals - Most Recent: Last Vital Signs Temp 36.7 C 09/16/17 08:00 Pulse 71 09/16/17 08:00 Resp 16 09/16/17 08:00 BP 101/62 09/16/17 08:00 Pulse Ox 97 09/16/17 08:00 Weight - Most Recent: 97.096 kg I&O - Last 24 Hours: Intake & Output 09/15/17 09/16/17 09/16/17 22:59 06:59 14:59 Intake Total 850 350 Output Total 425 600 Balance 425 -250 Lab Results Last 24 Hours: Laboratory Results - last 24 hr 09/14/17 09/14/17 09/16/17 Range/Units 16:00 16:00 05:29 WBC 5.27 (4.0-11.0) K/uL RBC 2.67 L (4.50-5.90) M/uL Hgb 8.0 L (13.0-17.0) g/dL Hct 22.9 L (38.0-50.0) % MCV 85.8 (80.0-98.0) fL MCH 30.0 (27.0-32.0) pg MCHC 34.9 (31.0-37.0) g/dL RDW Std Deviation 62.3 H (28.0-62.0) fl RDW Coeff of Sandra 20 H (11.0-15.0) % Plt Count 110 L (150-400) K/uL MPV 10.20 (7.40-12.00) fL Add Manual Diff YES Neutrophils % (Manual) 54 (48.0-80.0) % Lymphocytes % (Manual) 30 (16.0-40.0) % Monocytes % (Manual) 14 (0.0-15.0) % Eosinophils % (Manual) 2 (0.0-7.0) % Nucleated RBC % 0.0 /100WBC Absolute Seg Neuts 2.8 (1.4-5.7) Lymphocytes # (Manual) 1.6 (0.6-2.4) Monocytes # (Manual) 0.7 (0.0-0.8) Eosinophils # (Manual) 0.1 (0.0-0.7) Nucleated RBCs # 0 K/uL INR Sodium (136-148) mmol/L Potassium (3.5-5.1) mmol/L Chloride (98-107) mmol/L Carbon Dioxide (21.0-32.0) mmol/L BUN (7.0-18.0) mg/dL Creatinine (0.8-1.3) mg/dL Est Cr Clr Drug Dosing mL/min Estimated GFR (MDRD) ml/min Glucose (74-106) mg/dL Calcium (8.5-10.1) mg/dL Magnesium (1.5-2.0) mg/dL Total Bilirubin (0.2-1.0) mg/dL AST (15-37) IU/L ALT (14-63) IU/L Alkaline Phosphatase (46-116) U/L Ammonia (19-54) ug/dL Total Protein (6.4-8.2) g/dL Albumin (3.4-5.0) g/dL Globulin (2.0-3.5) g/dL Albumin/Globulin Ratio (1.3-2.8) Ur Collection Duration 24 24 Urine Total Volume 400 L 400 L (800-1800) Ur Creatinine 24 Hour 610.6 L (7566-8583) mg/24HRS Ur Creatinine Concen 152.65 H (2.20-135.10) mg/dL Ur Sodium 24 Hour 5.2 L (40-220) mmol/24h U Sodium Concentration 13.0 mmol/L 09/16/17 09/16/17 09/16/17 Range/Units 05:29 05:29 05:29 WBC (4.0-11.0) K/uL RBC (4.50-5.90) M/uL Hgb (13.0-17.0) g/dL Hct (38.0-50.0) % MCV (80.0-98.0) fL MCH (27.0-32.0) pg MCHC (31.0-37.0) g/dL RDW Std Deviation (28.0-62.0) fl RDW Coeff of Sandra (11.0-15.0) % Plt Count (150-400) K/uL MPV (7.40-12.00) fL Add Manual Diff Neutrophils % (Manual) (48.0-80.0) % Lymphocytes % (Manual) (16.0-40.0) % Monocytes % (Manual) (0.0-15.0) % Eosinophils % (Manual) (0.0-7.0) % Nucleated RBC % /100WBC Absolute Seg Neuts (1.4-5.7) Lymphocytes # (Manual) (0.6-2.4) Monocytes # (Manual) (0.0-0.8) Eosinophils # (Manual) (0.0-0.7) Nucleated RBCs # K/uL INR 3.82 Sodium 141 (136-148) mmol/L Potassium 4.4 (3.5-5.1) mmol/L Chloride 111 H (98-107) mmol/L Carbon Dioxide 21.9 (21.0-32.0) mmol/L BUN 23 H (7.0-18.0) mg/dL Creatinine 2.3 H (0.8-1.3) mg/dL Est Cr Clr Drug Dosing 49.76 mL/min Estimated GFR (MDRD) 31.2 ml/min Glucose 118 H (74-106) mg/dL Calcium 9.5 (8.5-10.1) mg/dL Magnesium 1.5 (1.5-2.0) mg/dL Total Bilirubin 4.4 H (0.2-1.0) mg/dL AST 40 H (15-37) IU/L ALT 15 (14-63) IU/L Alkaline Phosphatase 57 (46-116) U/L Ammonia 209 H (19-54) ug/dL Total Protein 6.0 L (6.4-8.2) g/dL Albumin 2.3 L (3.4-5.0) g/dL Globulin 3.7 H (2.0-3.5) g/dL Albumin/Globulin Ratio 0.6 L (1.3-2.8) Ur Collection Duration Urine Total Volume (800-1800) Ur Creatinine 24 Hour (7527-5470) mg/24HRS Ur Creatinine Concen (2.20-135.10) mg/dL Ur Sodium 24 Hour (40-220) mmol/24h U Sodium Concentration mmol/L Enzo Results Last 24 Hours: Microbiology 09/12/17 19:10 Aerobic Blood Culture - Preliminary Blood - Venous - Lab Draw NO GROWTH AFTER 3 DAYS Anaerobic Blood Culture - Preliminary NO GROWTH AFTER 3 DAYS 09/12/17 19:04 Aerobic Blood Culture - Preliminary Blood - Venous NO GROWTH AFTER 3 DAYS Anaerobic Blood Culture - Preliminary NO GROWTH AFTER 3 DAYS Med Orders - Current: Current Medications Acetaminophen (Tylenol) 650 mg PO Q4H PRN PRN Reason: Pain (Mild 1-3)/fever Folic Acid (Folic Acid) 1 mg PO Q24H [facility] Last Admin: 09/16/17 00:08 Dose: 1 mg Albumin Human (Buminate 5%) 250 mls @ 250 mls/hr IV Q6H [facility] Last Admin: 09/16/17 02:47 Dose: 250 mls/hr Lactulose (Chronulac) 10 gm PO Q4H PRN PRN Reason: Constipation Last Admin: 09/15/17 20:56 Dose: 10 gm Metoprolol Succinate (Toprol Xl) 25 mg PO DAILY [facility] Last Admin: 09/15/17 11:08 Dose: Not Given Midodrine (Midodrine) 12.5 mg PO TID [facility] Last Admin: 09/16/17 05:40 Dose: 12.5 mg Octreotide Acetate (Sandostatin) 100 mcg SUBCUT TID [facility] Last Admin: 09/16/17 05:40 Dose: 100 mcg Ondansetron HCl (Zofran) 4 mg IVPUSH Q4H PRN PRN Reason: Nausea/Vomiting Last Admin: 09/15/17 09:18 Dose: 4 mg Sodium Chloride (Saline Flush) 10 ml FLUSH ASDIRECTED PRN PRN Reason: Keep Vein Open Sodium Chloride (Saline Flush) 2.5 ml FLUSH ASDIRECTED PRN PRN Reason: Keep Vein Open Thiamine HCl (Vitamin B-1) 100 mg PO Q24H [facility] Last Admin: 09/16/17 00:08 Dose: 100 mg Discontinued Medications Furosemide (Lasix) 40 mg IVPUSH NOW ONE Stop: 09/12/17 18:40 Last Admin: 09/12/17 20:46 Dose: Not Given Furosemide (Lasix) 40 mg IVPUSH NOW ONE Stop: 09/12/17 20:46 Last Admin: 09/12/17 20:52 Dose: 40 mg Furosemide (Lasix) 40 mg IVPUSH NOW ONE Stop: 09/13/17 13:50 Last Admin: 09/13/17 14:31 Dose: Not Given Magnesium Sulfate 2 gm/ Premix 50 mls @ 25 mls/hr IV ONETIME ONE Stop: 09/12/17 22:01 Last Admin: 09/12/17 20:52 Dose: 25 mls/hr Albumin Human (Flexbumin 25%) 12.5 gm in 50 mls @ 100 mls/hr IV Q4HR ONE Stop: 09/13/17 10:04 Last Admin: 09/13/17 10:59 Dose: 100 mls/hr Octreotide Acetate 500 mcg/ (Sodium Chloride) 500 mls @ 50 mls/hr IV Q10H [facility] PRN Reason: 50 MCG/HR Stop: 09/13/17 19:59 Last Admin: 09/13/17 11:33 Dose: 50 mcg/hr, 50 mls/hr Albumin Human (Flexbumin 25%) 12.5 gm in 50 mls @ 100 mls/hr IV Q6HR ONE Stop: 09/13/17 14:43 Last Admin: 09/13/17 17:00 Dose: Not Given Albumin Human (Flexbumin 25%) 12.5 gm in 50 mls @ 100 mls/hr IV Q6HR [facility] Stop: 09/14/17 00:29 Last Admin: 09/14/17 05:46 Dose: 100 mls/hr Albumin Human (Flexbumin 25%) 12.5 gm in 50 mls @ 100 mls/hr IV Q6H [facility] Stop: 09/15/17 16:14 Last Admin: 09/15/17 15:07 Dose: 100 mls/hr Midodrine (Midodrine) 10 mg PO TID [facility] Last Admin: 09/13/17 06:42 Dose: 10 mg Morphine Sulfate (Morphine) 2 mg IVPUSH Q2H PRN PRN Reason: Pain (severe 7-10) Stop: 09/13/17 18:42 Morphine Sulfate (Morphine) 2 mg IVPUSH Q2H PRN PRN Reason: Pain (severe 7-10) Stop: 09/13/17 18:42 Warfarin Sodium (Coumadin Sliding Scale) each PO DAILY [facility] - Exam General: Cooperative, Mild Distress, Other (Patient appears to have hepatic encephalopathy appears confused and not oriented) Lungs: Clear to Auscultation, Normal Respiratory Effort Cardiovascular: Regular Rate, Regular Rhythm GI/Abdominal Exam: Distended, Hepatomegaly, Other (Abdominal distention secondary to ascites) Extremities: Other (bilateral pitting edema extending up to hips. ) - Problem List & Annotations (1) Hypoalbuminemia SNOMED Code(s): 711488686 Code(s): E88.09 - OTH DISORDERS OF PLASMA-PROTEIN METABOLISM, NEC Status: Acute Current Visit: Yes (2) Abdominal pain SNOMED Code(s): 00259692 Code(s): R10.9 - UNSPECIFIED ABDOMINAL PAIN Status: Acute Current Visit: No Qualifiers: Abdominal location: generalized Qualified Code(s): R10.84 - Generalized abdominal pain (3) Alcoholic hepatitis with ascites SNOMED Code(s): 322699944 Code(s): K70.11 - ALCOHOLIC HEPATITIS WITH ASCITES Status: Acute Current Visit: No (4) Hepatic cirrhosis SNOMED Code(s): 42466243 Code(s): K74.60 - UNSPECIFIED CIRRHOSIS OF LIVER Status: Acute Current Visit: No - Problem List Review Problem List Initiated/Reviewed/Updated: Yes - Plan Plan:: This is a 42-year-old patient with a significant medical history of severe liver cirrhosis secondary to alcoholic hepatitis, admitted with fluid overload Liver cirrhosis with hypoalbumineia, fluid overload, kidney disease, and hepatic encephalopathy: Will continue albumin infuisons, holding lasix, continue to moniter creatinine. -Ben continues to have hepatic encephalopathy, his ammonia levels have again started to rise we will continue with lactulose. -Still awaiting on the INR to come down as he will require a therapeutic paracentesis. -Based on the FENa results it does not appear that he is in hepatorenal syndrome. Holding anticoagulation as will need paracentesis
[2017-09-16] MEDS: Metoprolol Succinate 25 MG Tab.ER PO SCH (09:59)
[2017-09-16] MEDS: Lactulose Soln 10 GM/15 ML 15 ML UD Cup PO PRN (10:00)
[2017-09-16] MEDS: Lactulose Soln 10 GM/15 ML 15 ML UD Cup PO SCH ×3 (14:52→22:03)
[2017-09-17] MEDS: Lactulose Soln 10 GM/15 ML 15 ML UD Cup PO SCH ×7 (01:17→21:37)
[2017-09-17] MEDS: Folic Acid 1 MG Tab PO SCH (01:17)
[2017-09-17] MEDS: Thiamine 100 MG Tab PO SCH (01:17)
[2017-09-17] MEDS: Midodrine 5 MG Tab PO SCH ×3 (10:10→21:36)
[2017-09-17] MEDS: Metoprolol Succinate 25 MG Tab.ER PO SCH (11:34)
--- NOTE | 2017-09-17 17:34 | PCM.PN ---
- General Info Date of Service: 09/17/17 Subjective Update: Patient is still encephalopathic, he has yet to have any bowel movements, he is scheduled every 4 for lactulose 10 mg. - Review of Systems General: Reports: Other (Encephalopathic) - Patient Data Vitals - Most Recent: Last Vital Signs Temp 36.8 C 09/17/17 12:00 Pulse 69 09/17/17 12:00 Resp 16 09/17/17 12:00 BP 108/69 09/17/17 12:00 Pulse Ox 98 09/17/17 12:00 Weight - Most Recent: 97.096 kg Lab Results Last 24 Hours: Laboratory Results - last 24 hr 09/17/17 09/17/17 09/17/17 Range/Units 05:30 05:30 05:30 WBC 8.55 (4.0-11.0) K/uL RBC 3.17 L (4.50-5.90) M/uL Hgb 9.4 L (13.0-17.0) g/dL Hct 27.7 L (38.0-50.0) % MCV 87.4 (80.0-98.0) fL MCH 29.7 (27.0-32.0) pg MCHC 33.9 (31.0-37.0) g/dL RDW Std Deviation 65.0 H (28.0-62.0) fl RDW Coeff of Sandra 21 H (11.0-15.0) % Plt Count 149 L (150-400) K/uL MPV 10.30 (7.40-12.00) fL Neut % (Auto) [employer] Lymph % (Auto) [employer] [place] % (Auto) [employer] Eos % (Auto) [employer] Baso % (Auto) [employer] Neut # (Auto) [employer] Lymph # (Auto) [employer] [place] # (Auto) [employer] Eos # (Auto) [employer] Baso # (Auto) [employer] Add Manual Diff YES Neutrophils % (Manual) 51 (48.0-80.0) % Lymphocytes % (Manual) 39 (16.0-40.0) % Monocytes % (Manual) 9 (0.0-15.0) % Basophils % (Manual) 1 (0.0-1.5) % Nucleated RBC % 0.0 /100WBC Absolute Seg Neuts 4.4 (1.4-5.7) Lymphocytes # (Manual) 3.3 H (0.6-2.4) Monocytes # (Manual) 0.8 (0.0-0.8) Basophils # (Manual) 0.1 (0.0-0.1) Nucleated RBCs # 0 K/uL INR 3.31 Sodium 142 (136-148) mmol/L Potassium 4.2 (3.5-5.1) mmol/L Chloride 110 H (98-107) mmol/L Carbon Dioxide 21.8 (21.0-32.0) mmol/L BUN 20 H (7.0-18.0) mg/dL Creatinine 2.2 H (0.8-1.3) mg/dL Est Cr Clr Drug Dosing 52.02 mL/min Estimated GFR (MDRD) 32.8 ml/min Glucose 83 (74-106) mg/dL Calcium 9.8 (8.5-10.1) mg/dL Total Bilirubin 5.6 H (0.2-1.0) mg/dL AST 46 H (15-37) IU/L ALT 17 (14-63) IU/L Alkaline Phosphatase 62 (46-116) U/L Ammonia (19-54) ug/dL Total Protein 6.9 (6.4-8.2) g/dL Albumin 2.6 L (3.4-5.0) g/dL Globulin 4.3 H (2.0-3.5) g/dL Albumin/Globulin Ratio 0.6 L (1.3-2.8) 09/17/17 Range/Units 05:30 WBC (4.0-11.0) K/uL RBC (4.50-5.90) M/uL Hgb (13.0-17.0) g/dL Hct (38.0-50.0) % MCV (80.0-98.0) fL MCH (27.0-32.0) pg MCHC (31.0-37.0) g/dL RDW Std Deviation (28.0-62.0) fl RDW Coeff of Sandra (11.0-15.0) % Plt Count (150-400) K/uL MPV (7.40-12.00) fL Neut % (Auto) Lymph % (Auto) [place] % (Auto) Eos % (Auto) Baso % (Auto) Neut # (Auto) Lymph # (Auto) [place] # (Auto) Eos # (Auto) Baso # (Auto) Add Manual Diff Neutrophils % (Manual) (48.0-80.0) % Lymphocytes % (Manual) (16.0-40.0) % Monocytes % (Manual) (0.0-15.0) % Basophils % (Manual) (0.0-1.5) % Nucleated RBC % /100WBC Absolute Seg Neuts (1.4-5.7) Lymphocytes # (Manual) (0.6-2.4) Monocytes # (Manual) (0.0-0.8) Basophils # (Manual) (0.0-0.1) Nucleated RBCs # K/uL INR Sodium (136-148) mmol/L Potassium (3.5-5.1) mmol/L Chloride (98-107) mmol/L Carbon Dioxide (21.0-32.0) mmol/L BUN (7.0-18.0) mg/dL Creatinine (0.8-1.3) mg/dL Est Cr Clr Drug Dosing mL/min Estimated GFR (MDRD) ml/min Glucose (74-106) mg/dL Calcium (8.5-10.1) mg/dL Total Bilirubin (0.2-1.0) mg/dL AST (15-37) IU/L ALT (14-63) IU/L Alkaline Phosphatase (46-116) U/L Ammonia 69 H (19-54) ug/dL Total Protein (6.4-8.2) g/dL Albumin (3.4-5.0) g/dL Globulin (2.0-3.5) g/dL Albumin/Globulin Ratio (1.3-2.8) Enzo Results Last 24 Hours: Microbiology 09/12/17 19:10 Aerobic Blood Culture - Preliminary Blood - Venous - Lab Draw NO GROWTH AFTER 4 DAYS Anaerobic Blood Culture - Preliminary NO GROWTH AFTER 4 DAYS 09/12/17 19:04 Aerobic Blood Culture - Preliminary Blood - Venous NO GROWTH AFTER 4 DAYS Anaerobic Blood Culture - Preliminary NO GROWTH AFTER 4 DAYS Med Orders - Current: Current Medications Acetaminophen (Tylenol) 650 mg PO Q4H PRN PRN Reason: Pain (Mild 1-3)/fever Folic Acid (Folic Acid) 1 mg PO Q24H [facility] Last Admin: 09/17/17 01:17 Dose: 1 mg Lactulose (Chronulac) 20 gm PO Q4H [facility] Last Admin: 09/17/17 14:50 Dose: 20 gm Metoprolol Succinate (Toprol Xl) 25 mg PO DAILY [facility] Last Admin: 09/17/17 11:34 Dose: Not Given Midodrine (Midodrine) 12.5 mg PO TID [facility] Last Admin: 09/17/17 17:10 Dose: Not Given Ondansetron HCl (Zofran) 4 mg IVPUSH Q4H PRN PRN Reason: Nausea/Vomiting Last Admin: 09/15/17 09:18 Dose: 4 mg Sodium Chloride (Saline Flush) 10 ml FLUSH ASDIRECTED PRN PRN Reason: Keep Vein Open Sodium Chloride (Saline Flush) 2.5 ml FLUSH ASDIRECTED PRN PRN Reason: Keep Vein Open Thiamine HCl (Vitamin B-1) 100 mg PO Q24H [facility] Last Admin: 09/17/17 01:17 Dose: 100 mg Discontinued Medications Furosemide (Lasix) 40 mg IVPUSH NOW ONE Stop: 09/12/17 18:40 Last Admin: 09/12/17 20:46 Dose: Not Given Furosemide (Lasix) 40 mg IVPUSH NOW ONE Stop: 09/12/17 20:46 Last Admin: 09/12/17 20:52 Dose: 40 mg Furosemide (Lasix) 40 mg IVPUSH NOW ONE Stop: 09/13/17 13:50 Last Admin: 09/13/17 14:31 Dose: Not Given Magnesium Sulfate 2 gm/ Premix 50 mls @ 25 mls/hr IV ONETIME ONE Stop: 09/12/17 22:01 Last Admin: 09/12/17 20:52 Dose: 25 mls/hr Albumin Human (Flexbumin 25%) 12.5 gm in 50 mls @ 100 mls/hr IV Q4HR ONE Stop: 09/13/17 10:04 Last Admin: 09/13/17 10:59 Dose: 100 mls/hr Octreotide Acetate 500 mcg/ (Sodium Chloride) 500 mls @ 50 mls/hr IV Q10H [facility] Stop: 09/13/17 19:59 Last Admin: 09/13/17 11:33 Dose: 50 mcg/hr, 50 mls/hr Albumin Human (Flexbumin 25%) 12.5 gm in 50 mls @ 100 mls/hr IV Q6HR ONE Stop: 09/13/17 14:43 Last Admin: 09/13/17 17:00 Dose: Not Given Albumin Human (Flexbumin 25%) 12.5 gm in 50 mls @ 100 mls/hr IV Q6HR [facility] Stop: 09/14/17 00:29 Last Admin: 09/14/17 05:46 Dose: 100 mls/hr Albumin Human (Flexbumin 25%) 12.5 gm in 50 mls @ 100 mls/hr IV Q6H [facility] Stop: 09/15/17 16:14 Last Admin: 09/15/17 15:07 Dose: 100 mls/hr Albumin Human (Buminate 5%) 250 mls @ 250 mls/hr IV Q6H [facility] Last Admin: 09/16/17 09:32 Dose: 250 mls/hr Lactulose (Chronulac) 10 gm PO Q4H PRN PRN Reason: Constipation Last Admin: 09/16/17 10:00 Dose: 10 gm Lactulose (Chronulac) 10 gm PO Q4H [facility] Last Admin: 09/17/17 10:45 Dose: Not Given Midodrine (Midodrine) 10 mg PO TID [facility] Last Admin: 09/13/17 06:42 Dose: 10 mg Morphine Sulfate (Morphine) 2 mg IVPUSH Q2H PRN PRN Reason: Pain (severe 7-10) Stop: 09/13/17 18:42 Morphine Sulfate (Morphine) 2 mg IVPUSH Q2H PRN PRN Reason: Pain (severe 7-10) Stop: 09/13/17 18:42 Octreotide Acetate (Sandostatin) 100 mcg SUBCUT TID [facility] Last Admin: 09/16/17 05:40 Dose: 100 mcg Warfarin Sodium (Coumadin Sliding Scale) each PO DAILY [facility] - Exam General: Moderate Distress Lungs: Clear to Auscultation, Normal Respiratory Effort Cardiovascular: Regular Rate, Regular Rhythm GI/Abdominal Exam: Other (Abdominal distention secondary to increased ascites) Extremities: Other (Bilateral pitting edema extending above the knees) - Problem List & Annotations (1) Hypoalbuminemia SNOMED Code(s): 538992979 Code(s): E88.09 - OTH DISORDERS OF PLASMA-PROTEIN METABOLISM, NEC Status: Acute Current Visit: Yes (2) Abdominal pain SNOMED Code(s): 09209592 Code(s): R10.9 - UNSPECIFIED ABDOMINAL PAIN Status: Acute Current Visit: No Qualifiers: Abdominal location: generalized Qualified Code(s): R10.84 - Generalized abdominal pain (3) Alcoholic hepatitis with ascites SNOMED Code(s): 153968971 Code(s): K70.11 - ALCOHOLIC HEPATITIS WITH ASCITES Status: Acute Current Visit: No (4) Hepatic cirrhosis SNOMED Code(s): 66506044 Code(s): K74.60 - UNSPECIFIED CIRRHOSIS OF LIVER Status: Acute Current Visit: No - Problem List Review Problem List Initiated/Reviewed/Updated: Yes - My Orders Last 24 Hours: My Active Orders 09/18/17 05:11 AMMONIA VENOUS [CHEM] AM CBC WITH AUTO DIFF [HEME] AM COMPREHENSIVE METABOLIC PN,CMP [CHEM] AM INR,PT,PROTHROMBIN TIME [COAG] AM 09/19/17 05:11 AMMONIA VENOUS [CHEM] AM CBC WITH AUTO DIFF [HEME] AM COMPREHENSIVE METABOLIC PN,CMP [CHEM] AM INR,PT,PROTHROMBIN TIME [COAG] AM - Plan Plan:: This is a 42-year-old patient with a significant medical history of severe liver cirrhosis secondary to alcoholic hepatitis, admitted with fluid overload Liver cirrhosis with hypoalbumineia, fluid overload, kidney disease, and hepatic encephalopathy: Will continue albumin infuisons, holding lasix, continue to moniter creatinine. -Ben continues to have hepatic encephalopathy, his ammonia levels have again started to rise has yet to have a bowel movement despite the scheduled lactulose as such we will increase the dose of lactulose to 20 mg every 4 hours . -Still awaiting on the INR to come down as he will require a therapeutic paracentesis. Holding anticoagulation as will need paracentesis
[2017-09-18] MEDS: Thiamine 100 MG Tab PO SCH (01:41)
[2017-09-18] MEDS: Lactulose Soln 10 GM/15 ML 15 ML UD Cup PO SCH ×7 (01:41→23:04)
[2017-09-18] MEDS: Folic Acid 1 MG Tab PO SCH (01:41)
[2017-09-18] MEDS: Midodrine 5 MG Tab PO SCH ×3 (05:52→21:57)
[2017-09-18] MEDS ORDERED: Lactulose Soln 10 GM/15 ML 15 ML UD Cup PO ONE (08:32)
[2017-09-18] MEDS: Metoprolol Succinate 25 MG Tab.ER PO SCH (09:11)
--- NOTE | 2017-09-18 09:33 | CR ---
EXAM DATE: 09/12/17 PATIENT'S AGE: 42 Patient: BONI AGRAWAL Facility: [place], [place] Site . Site : 1975 Study: XRay Abdomen [id number]/27/2018 7:41:46 PM Ordering Physician: Evgeny Sood Final Report: INDICATION: Assess for constipation TECHNIQUE: Abdomen 2 view COMPARISON: None FINDINGS: Bowel: Nonobstructive bowel-gas pattern. Soft tissues: Embolization coils within the left upper quadrant. No sign of soft tissue mass. No suspicious calcifications. Bones: Unremarkable for age. IMPRESSION: Nonobstructive bowel-gas pattern. Dictated by Migel Barriga MD @ 09/17/2017 7:51:21 PM Dictated by: Migel Barriga MD @ 09/17/2017 19:51:29 (Electronic Signature) Report Signed by Proxy. [place]
[2017-09-18] MEDS ORDERED: Magnesium Sulfate/Water 2 GM in Premix Bag 1 BAG IV ONE (11:17)
--- NOTE | 2017-09-18 11:19 | PCM.PN ---
- General Info Date of Service: 09/18/17 Subjective Update: Oracio was hepatic encephalopathy has gotten slightly better but he still is hepatically encephalopathic when assessed this morning. He has had 4 bouts of stooling. We will decrease the lactulose levels from 20 mg at 10 mg. - Patient Data Vitals - Most Recent: Last Vital Signs Temp 37.1 C 09/18/17 08:00 Pulse 67 09/18/17 09:11 Resp 14 09/18/17 08:00 BP 96/59 L 09/18/17 09:11 Pulse Ox 92 L 09/18/17 08:00 Weight - Most Recent: 96.615 kg I&O - Last 24 Hours: Intake & Output 09/17/17 09/18/17 09/18/17 22:59 06:59 14:59 Intake Total 400 500 Output Total 0 Balance 400 500 Lab Results Last 24 Hours: Laboratory Results - last 24 hr 09/17/17 09/17/17 09/17/17 Range/Units 05:30 05:30 05:30 WBC (4.0-11.0) K/uL RBC (4.50-5.90) M/uL Hgb (13.0-17.0) g/dL Hct (38.0-50.0) % MCV (80.0-98.0) fL MCH (27.0-32.0) pg MCHC (31.0-37.0) g/dL RDW Std Deviation (28.0-62.0) fl RDW Coeff of Sandra (11.0-15.0) % Plt Count (150-400) K/uL MPV (7.40-12.00) fL Neut % (Auto) [employer] PHYSICIAN Lymph % (Auto) AEROSPACE MEDICINE PHYSICIAN Meade % (Auto) AEROSPACE MEDICINE PHYSICIAN Eos % (Auto) AEROSPACE MEDICINE PHYSICIAN Baso % (Auto) AEROSPACE MEDICINE PHYSICIAN Neut # (Auto) AEROSPACE MEDICINE PHYSICIAN Lymph # (Auto) AEROSPACE MEDICINE PHYSICIAN Meade # (Auto) AEROSPACE MEDICINE PHYSICIAN Eos # (Auto) AEROSPACE MEDICINE PHYSICIAN Baso # (Auto) AEROSPACE MEDICINE PHYSICIAN Add Manual Diff YES Neutrophils % (Manual) 51 (48.0-80.0) % Lymphocytes % (Manual) 39 (16.0-40.0) % Monocytes % (Manual) 9 (0.0-15.0) % Basophils % (Manual) 1 (0.0-1.5) % Nucleated RBC % /100WBC Absolute Seg Neuts 4.4 (1.4-5.7) Lymphocytes # (Manual) 3.3 H (0.6-2.4) Monocytes # (Manual) 0.8 (0.0-0.8) Basophils # (Manual) 0.1 (0.0-0.1) Nucleated RBCs # K/uL INR 3.31 Sodium 142 (136-148) mmol/L Potassium 4.2 (3.5-5.1) mmol/L Chloride 110 H (98-107) mmol/L Carbon Dioxide 21.8 (21.0-32.0) mmol/L BUN 20 H (7.0-18.0) mg/dL Creatinine 2.2 H (0.8-1.3) mg/dL Est Cr Clr Drug Dosing 52.02 mL/min Estimated GFR (MDRD) 32.8 ml/min Glucose 83 (74-106) mg/dL Calcium 9.8 (8.5-10.1) mg/dL Phosphorus (2.6-4.7) mg/dL Magnesium (1.5-2.0) mg/dL Total Bilirubin 5.6 H (0.2-1.0) mg/dL AST 46 H (15-37) IU/L ALT 17 (14-63) IU/L Alkaline Phosphatase 62 (46-116) U/L Ammonia (19-54) ug/dL Total Protein 6.9 (6.4-8.2) g/dL Albumin 2.6 L (3.4-5.0) g/dL Globulin 4.3 H (2.0-3.5) g/dL Albumin/Globulin Ratio 0.6 L (1.3-2.8) 09/17/17 09/18/17 09/18/17 Range/Units 05:30 05:43 05:43 WBC 6.10 (4.0-11.0) K/uL RBC 2.52 L (4.50-5.90) M/uL Hgb 7.5 L (13.0-17.0) g/dL Hct 21.5 L (38.0-50.0) % MCV 85.3 (80.0-98.0) fL MCH 29.8 (27.0-32.0) pg MCHC 34.9 (31.0-37.0) g/dL RDW Std Deviation 61.9 (28.0-62.0) fl RDW Coeff of Sandra 20 H (11.0-15.0) % Plt Count 100 L (150-400) K/uL MPV 9.70 (7.40-12.00) fL Neut % (Auto) Lymph % (Auto) Meade % (Auto) Eos % (Auto) Baso % (Auto) Neut # (Auto) Lymph # (Auto) Meade # (Auto) Eos # (Auto) Baso # (Auto) Add Manual Diff YES Neutrophils % (Manual) 55 (48.0-80.0) % Lymphocytes % (Manual) 34 (16.0-40.0) % Monocytes % (Manual) 11 (0.0-15.0) % Basophils % (Manual) (0.0-1.5) % Nucleated RBC % 0.0 /100WBC Absolute Seg Neuts 3.4 (1.4-5.7) Lymphocytes # (Manual) 2.1 (0.6-2.4) Monocytes # (Manual) 0.7 (0.0-0.8) Basophils # (Manual) (0.0-0.1) Nucleated RBCs # 0 K/uL INR 3.49 Sodium (136-148) mmol/L Potassium (3.5-5.1) mmol/L Chloride (98-107) mmol/L Carbon Dioxide (21.0-32.0) mmol/L BUN (7.0-18.0) mg/dL Creatinine (0.8-1.3) mg/dL Est Cr Clr Drug Dosing mL/min Estimated GFR (MDRD) ml/min Glucose (74-106) mg/dL Calcium (8.5-10.1) mg/dL Phosphorus (2.6-4.7) mg/dL Magnesium (1.5-2.0) mg/dL Total Bilirubin (0.2-1.0) mg/dL AST (15-37) IU/L ALT (14-63) IU/L Alkaline Phosphatase (46-116) U/L Ammonia 69 H (19-54) ug/dL Total Protein (6.4-8.2) g/dL Albumin (3.4-5.0) g/dL Globulin (2.0-3.5) g/dL Albumin/Globulin Ratio (1.3-2.8) 09/18/17 09/18/17 09/18/17 Range/Units 05:43 05:43 05:43 WBC (4.0-11.0) K/uL RBC (4.50-5.90) M/uL Hgb (13.0-17.0) g/dL Hct (38.0-50.0) % MCV (80.0-98.0) fL MCH (27.0-32.0) pg MCHC (31.0-37.0) g/dL RDW Std Deviation (28.0-62.0) fl RDW Coeff of Sandra (11.0-15.0) % Plt Count (150-400) K/uL MPV (7.40-12.00) fL Neut % (Auto) Lymph % (Auto) Meade % (Auto) Eos % (Auto) Baso % (Auto) Neut # (Auto) Lymph # (Auto) Meade # (Auto) Eos # (Auto) Baso # (Auto) Add Manual Diff Neutrophils % (Manual) (48.0-80.0) % Lymphocytes % (Manual) (16.0-40.0) % Monocytes % (Manual) (0.0-15.0) % Basophils % (Manual) (0.0-1.5) % Nucleated RBC % /100WBC Absolute Seg Neuts (1.4-5.7) Lymphocytes # (Manual) (0.6-2.4) Monocytes # (Manual) (0.0-0.8) Basophils # (Manual) (0.0-0.1) Nucleated RBCs # K/uL INR Sodium 143 (136-148) mmol/L Potassium 3.6 (3.5-5.1) mmol/L Chloride 112 H (98-107) mmol/L Carbon Dioxide 21.8 (21.0-32.0) mmol/L BUN 19 H (7.0-18.0) mg/dL Creatinine 2.0 H (0.8-1.3) mg/dL Est Cr Clr Drug Dosing 56.92 mL/min Estimated GFR (MDRD) 36.6 ml/min Glucose 92 (74-106) mg/dL Calcium 9.2 (8.5-10.1) mg/dL Phosphorus 2.7 (2.6-4.7) mg/dL Magnesium 1.3 L (1.5-2.0) mg/dL Total Bilirubin 4.5 H (0.2-1.0) mg/dL AST 35 (15-37) IU/L ALT 14 (14-63) IU/L Alkaline Phosphatase 48 (46-116) U/L Ammonia 93 H (19-54) ug/dL Total Protein 5.5 L (6.4-8.2) g/dL Albumin 1.9 L (3.4-5.0) g/dL Globulin 3.6 H (2.0-3.5) g/dL Albumin/Globulin Ratio 0.5 L (1.3-2.8) Enzo Results Last 24 Hours: Microbiology 09/12/17 19:10 Aerobic Blood Culture - Final Blood - Venous - Lab Draw NO GROWTH AFTER 5 DAYS Anaerobic Blood Culture - Final NO GROWTH AFTER 5 DAYS 09/12/17 19:04 Aerobic Blood Culture - Final Blood - Venous NO GROWTH AFTER 5 DAYS Anaerobic Blood Culture - Final NO GROWTH AFTER 5 DAYS Med Orders - Current: Current Medications Acetaminophen (Tylenol) 650 mg PO Q4H PRN PRN Reason: Pain (Mild 1-3)/fever Folic Acid (Folic Acid) 1 mg PO Q24H [facility] Last Admin: 09/18/17 01:41 Dose: 1 mg Magnesium Sulfate 2 gm/ Premix 50 mls @ 25 mls/hr IV ONETIME ONE Stop: 09/18/17 13:16 Lactulose (Chronulac) 20 gm PO Q4H [facility] Last Admin: 09/18/17 10:23 Dose: Not Given Metoprolol Succinate (Toprol Xl) 25 mg PO DAILY [facility] Last Admin: 09/18/17 09:11 Dose: 25 mg Midodrine (Midodrine) 12.5 mg PO TID [facility] Last Admin: 09/18/17 05:52 Dose: 12.5 mg Ondansetron HCl (Zofran) 4 mg IVPUSH Q4H PRN PRN Reason: Nausea/Vomiting Last Admin: 09/15/17 09:18 Dose: 4 mg Sodium Chloride (Saline Flush) 10 ml FLUSH ASDIRECTED PRN PRN Reason: Keep Vein Open Sodium Chloride (Saline Flush) 2.5 ml FLUSH ASDIRECTED PRN PRN Reason: Keep Vein Open Thiamine HCl (Vitamin B-1) 100 mg PO Q24H [facility] Last Admin: 09/18/17 01:41 Dose: 100 mg Discontinued Medications Furosemide (Lasix) 40 mg IVPUSH NOW ONE Stop: 09/12/17 18:40 Last Admin: 09/12/17 20:46 Dose: Not Given Furosemide (Lasix) 40 mg IVPUSH NOW ONE Stop: 09/12/17 20:46 Last Admin: 09/12/17 20:52 Dose: 40 mg Furosemide (Lasix) 40 mg IVPUSH NOW ONE Stop: 09/13/17 13:50 Last Admin: 09/13/17 14:31 Dose: Not Given Magnesium Sulfate 2 gm/ Premix 50 mls @ 25 mls/hr IV ONETIME ONE Stop: 09/12/17 22:01 Last Admin: 09/12/17 20:52 Dose: 25 mls/hr Albumin Human (Flexbumin 25%) 12.5 gm in 50 mls @ 100 mls/hr IV Q4HR ONE Stop: 09/13/17 10:04 Last Admin: 09/13/17 10:59 Dose: 100 mls/hr Octreotide Acetate 500 mcg/ (Sodium Chloride) 500 mls @ 50 mls/hr IV Q10H [facility] Stop: 09/13/17 19:59 Last Admin: 09/13/17 11:33 Dose: 50 mcg/hr, 50 mls/hr Albumin Human (Flexbumin 25%) 12.5 gm in 50 mls @ 100 mls/hr IV Q6HR ONE Stop: 09/13/17 14:43 Last Admin: 09/13/17 17:00 Dose: Not Given Albumin Human (Flexbumin 25%) 12.5 gm in 50 mls @ 100 mls/hr IV Q6HR [facility] Stop: 09/14/17 00:29 Last Admin: 09/14/17 05:46 Dose: 100 mls/hr Albumin Human (Flexbumin 25%) 12.5 gm in 50 mls @ 100 mls/hr IV Q6H [facility] Stop: 09/15/17 16:14 Last Admin: 09/15/17 15:07 Dose: 100 mls/hr Albumin Human (Buminate 5%) 250 mls @ 250 mls/hr IV Q6H [facility] Last Admin: 09/16/17 09:32 Dose: 250 mls/hr Lactulose (Chronulac) 10 gm PO Q4H PRN PRN Reason: Constipation Last Admin: 09/16/17 10:00 Dose: 10 gm Lactulose (Chronulac) 10 gm PO Q4H [facility] Last Admin: 09/17/17 10:45 Dose: Not Given Lactulose (Chronulac) 10 gm PO ONETIME ONE Stop: 09/18/17 08:33 Last Admin: 09/18/17 08:57 Dose: 10 gm Midodrine (Midodrine) 10 mg PO TID [facility] Last Admin: 09/13/17 06:42 Dose: 10 mg Morphine Sulfate (Morphine) 2 mg IVPUSH Q2H PRN PRN Reason: Pain (severe 7-10) Stop: 09/13/17 18:42 Morphine Sulfate (Morphine) 2 mg IVPUSH Q2H PRN PRN Reason: Pain (severe 7-10) Stop: 09/13/17 18:42 Octreotide Acetate (Sandostatin) 100 mcg SUBCUT TID [facility] Last Admin: 09/16/17 05:40 Dose: 100 mcg Warfarin Sodium (Coumadin Sliding Scale) each PO DAILY [facility] - Exam General: Alert, Cooperative, Mild Distress, Other (Hepatically encephalopathic) Lungs: Normal Respiratory Effort Cardiovascular: Regular Rate, Regular Rhythm GI/Abdominal Exam: Distended, Hepatomegaly Extremities: Pedal Edema, Increased Warmth, Other (Pitting edema up to bilateral thighs) - Problem List & Annotations (1) Hypoalbuminemia SNOMED Code(s): 360310635 Code(s): E88.09 - OTH DISORDERS OF PLASMA-PROTEIN METABOLISM, NEC Status: Acute Current Visit: Yes (2) Abdominal pain SNOMED Code(s): 55848280 Code(s): R10.9 - UNSPECIFIED ABDOMINAL PAIN Status: Acute Current Visit: No Qualifiers: Abdominal location: generalized Qualified Code(s): R10.84 - Generalized abdominal pain (3) Alcoholic hepatitis with ascites SNOMED Code(s): 316664425 Code(s): K70.11 - ALCOHOLIC HEPATITIS WITH ASCITES Status: Acute Current Visit: No (4) Hepatic cirrhosis SNOMED Code(s): 58976459 Code(s): K74.60 - UNSPECIFIED CIRRHOSIS OF LIVER Status: Acute Current Visit: No - Problem List Review Problem List Initiated/Reviewed/Updated: Yes - My Orders Last 24 Hours: My Active Orders 09/18/17 11:17 Magnesium Sulfate/Water [Magnesium Sulfate 2 GM in Water 50 ML] 2 gm Premix Bag 1 bag IV ONETIME 09/19/17 05:11 AMMONIA VENOUS [CHEM] AM CBC WITH AUTO DIFF [HEME] AM COMPREHENSIVE METABOLIC PN,CMP [CHEM] AM INR,PT,PROTHROMBIN TIME [COAG] AM - Plan Plan:: This is a 42-year-old patient with a significant medical history of severe liver cirrhosis secondary to alcoholic hepatitis, admitted with fluid overload Liver cirrhosis with hypoalbumineia, fluid overload, kidney disease, and hepatic encephalopathy: Will continue albumin infuisons, holding lasix, continue to moniter creatinine. -Ben continues to have hepatic encephalopathy, although he has now had 4 episodes of stooling since yesterday. We will decrease his lactulose level from 20 mg every 4-10 mg every 4. Shall reassess in the afternoon to evening to see if his encephalopathic is getting better. Shall need to touch base with radiology in terms of what is there comfort level for therapeutic paracentesis. May possibly also need to get in touch with GI and my not if radiology indicates that day cannot do this until the INR is much more significantly down. Orthopedic the patient continues to be hepatically encephalopathic.. -Still awaiting on the INR to come down as he will require a therapeutic paracentesis. Holding anticoagulation as will need paracentesis
[2017-09-19] MEDS: Folic Acid 1 MG Tab PO SCH (00:22)
[2017-09-19] MEDS: Thiamine 100 MG Tab PO SCH (00:23)
[2017-09-19] MEDS: Lactulose Soln 10 GM/15 ML 15 ML UD Cup PO SCH ×6 (02:31→22:30)
[2017-09-19] MEDS: Midodrine 5 MG Tab PO SCH ×3 (05:57→22:30)
[2017-09-19] MEDS: Metoprolol Succinate 25 MG Tab.ER PO SCH (08:48)
[2017-09-19] MEDS ORDERED: Potassium Chloride 20 MEQ Tab.ER PO ONE (09:09)
--- NOTE | 2017-09-19 17:21 | PCM.PN ---
- General Info Date of Service: 09/19/17 - Review of Systems General: Reports: Weakness, Fatigue Pulmonary: Reports: No Symptoms Cardiovascular: Reports: No Symptoms Gastrointestinal: Reports: Other (Abdominal distention) Musculoskeletal: Reports: Other (Pitting edema) Neurological: Reports: Confusion Psychiatric: Reports: Confusion - Patient Data Vitals - Most Recent: Last Vital Signs Temp 36.2 C 09/19/17 15:58 Pulse 76 09/19/17 15:58 Resp 20 09/19/17 15:58 BP 112/66 09/19/17 15:58 Pulse Ox 97 09/19/17 15:58 Weight - Most Recent: 97.5 kg I&O - Last 24 Hours: Intake & Output 09/19/17 09/19/17 09/19/17 06:59 14:59 22:59 Intake Total 400 800 Output Total 0 400 Balance 400 400 Lab Results Last 24 Hours: Laboratory Results - last 24 hr 09/18/17 09/19/17 09/19/17 Range/Units 12:02 05:17 05:17 WBC 6.24 (4.0-11.0) K/uL RBC 2.86 L (4.50-5.90) M/uL Hgb 8.5 L (13.0-17.0) g/dL Hct 24.5 L (38.0-50.0) % MCV 85.7 (80.0-98.0) fL MCH 29.7 (27.0-32.0) pg MCHC 34.7 (31.0-37.0) g/dL RDW Std Deviation 60.9 (28.0-62.0) fl RDW Coeff of Sandra 20 H (11.0-15.0) % Plt Count 102 L (150-400) K/uL MPV 10.00 (7.40-12.00) fL Add Manual Diff YES Neutrophils % (Manual) 54 (48.0-80.0) % Lymphocytes % (Manual) 28 (16.0-40.0) % Monocytes % (Manual) 14 (0.0-15.0) % Eosinophils % (Manual) 2 (0.0-7.0) % Basophils % (Manual) 2 H (0.0-1.5) % Nucleated RBC % 0.0 /100WBC Absolute Seg Neuts 3.4 (1.4-5.7) Lymphocytes # (Manual) 1.7 (0.6-2.4) Monocytes # (Manual) 0.9 H (0.0-0.8) Eosinophils # (Manual) 0.1 (0.0-0.7) Basophils # (Manual) 0.1 (0.0-0.1) Nucleated RBCs # 0 K/uL INR 3.12 Sodium (136-148) mmol/L Potassium (3.5-5.1) mmol/L Chloride (98-107) mmol/L Carbon Dioxide (21.0-32.0) mmol/L BUN (7.0-18.0) mg/dL Creatinine (0.8-1.3) mg/dL Est Cr Clr Drug Dosing mL/min Estimated GFR (MDRD) ml/min Glucose (74-106) mg/dL Calcium (8.5-10.1) mg/dL Total Bilirubin (0.2-1.0) mg/dL AST (15-37) IU/L ALT (14-63) IU/L Alkaline Phosphatase (46-116) U/L Ammonia (19-54) ug/dL Total Protein (6.4-8.2) g/dL Albumin (3.4-5.0) g/dL Globulin (2.0-3.5) g/dL Albumin/Globulin Ratio (1.3-2.8) Crossmatch See Detail 09/19/17 09/19/17 Range/Units 05:17 05:17 WBC (4.0-11.0) K/uL RBC (4.50-5.90) M/uL Hgb (13.0-17.0) g/dL Hct (38.0-50.0) % MCV (80.0-98.0) fL MCH (27.0-32.0) pg MCHC (31.0-37.0) g/dL RDW Std Deviation (28.0-62.0) fl RDW Coeff of Sandra (11.0-15.0) % Plt Count (150-400) K/uL MPV (7.40-12.00) fL Add Manual Diff Neutrophils % (Manual) (48.0-80.0) % Lymphocytes % (Manual) (16.0-40.0) % Monocytes % (Manual) (0.0-15.0) % Eosinophils % (Manual) (0.0-7.0) % Basophils % (Manual) (0.0-1.5) % Nucleated RBC % /100WBC Absolute Seg Neuts (1.4-5.7) Lymphocytes # (Manual) (0.6-2.4) Monocytes # (Manual) (0.0-0.8) Eosinophils # (Manual) (0.0-0.7) Basophils # (Manual) (0.0-0.1) Nucleated RBCs # K/uL INR Sodium 141 (136-148) mmol/L Potassium 3.4 L (3.5-5.1) mmol/L Chloride 111 H (98-107) mmol/L Carbon Dioxide 22.2 (21.0-32.0) mmol/L BUN 17 (7.0-18.0) mg/dL Creatinine 1.8 H (0.8-1.3) mg/dL Est Cr Clr Drug Dosing 63.24 mL/min Estimated GFR (MDRD) 41.4 ml/min Glucose 89 (74-106) mg/dL Calcium 8.9 (8.5-10.1) mg/dL Total Bilirubin 3.9 H (0.2-1.0) mg/dL AST 36 (15-37) IU/L ALT 15 (14-63) IU/L Alkaline Phosphatase 48 (46-116) U/L Ammonia 88 H (19-54) ug/dL Total Protein 5.6 L (6.4-8.2) g/dL Albumin 1.9 L (3.4-5.0) g/dL Globulin 3.7 H (2.0-3.5) g/dL Albumin/Globulin Ratio 0.5 L (1.3-2.8) Crossmatch Med Orders - Current: Current Medications Acetaminophen (Tylenol) 650 mg PO Q4H PRN PRN Reason: Pain (Mild 1-3)/fever Folic Acid (Folic Acid) 1 mg PO Q24H [facility] Last Admin: 09/19/17 00:22 Dose: 1 mg Lactulose (Chronulac) 10 gm PO Q4H [facility] Last Admin: 09/19/17 14:38 Dose: 10 gm Metoprolol Succinate (Toprol Xl) 25 mg PO DAILY [facility] Last Admin: 09/19/17 08:48 Dose: Not Given Midodrine (Midodrine) 12.5 mg PO TID [facility] Last Admin: 09/19/17 14:38 Dose: 12.5 mg Ondansetron HCl (Zofran) 4 mg IVPUSH Q4H PRN PRN Reason: Nausea/Vomiting Last Admin: 09/15/17 09:18 Dose: 4 mg Sodium Chloride (Saline Flush) 10 ml FLUSH ASDIRECTED PRN PRN Reason: Keep Vein Open Sodium Chloride (Saline Flush) 2.5 ml FLUSH ASDIRECTED PRN PRN Reason: Keep Vein Open Thiamine HCl (Vitamin B-1) 100 mg PO Q24H [facility] Last Admin: 09/19/17 00:23 Dose: 100 mg Discontinued Medications Furosemide (Lasix) 40 mg IVPUSH NOW ONE Stop: 09/12/17 18:40 Last Admin: 09/12/17 20:46 Dose: Not Given Furosemide (Lasix) 40 mg IVPUSH NOW ONE Stop: 09/12/17 20:46 Last Admin: 09/12/17 20:52 Dose: 40 mg Furosemide (Lasix) 40 mg IVPUSH NOW ONE Stop: 09/13/17 13:50 Last Admin: 09/13/17 14:31 Dose: Not Given Magnesium Sulfate 2 gm/ Premix 50 mls @ 25 mls/hr IV ONETIME ONE Stop: 09/12/17 22:01 Last Admin: 09/12/17 20:52 Dose: 25 mls/hr Albumin Human (Flexbumin 25%) 12.5 gm in 50 mls @ 100 mls/hr IV Q4HR ONE Stop: 09/13/17 10:04 Last Admin: 09/13/17 10:59 Dose: 100 mls/hr Octreotide Acetate 500 mcg/ (Sodium Chloride) 500 mls @ 50 mls/hr IV Q10H [facility] Stop: 09/13/17 19:59 Last Admin: 09/13/17 11:33 Dose: 50 mcg/hr, 50 mls/hr Albumin Human (Flexbumin 25%) 12.5 gm in 50 mls @ 100 mls/hr IV Q6HR ONE Stop: 09/13/17 14:43 Last Admin: 09/13/17 17:00 Dose: Not Given Albumin Human (Flexbumin 25%) 12.5 gm in 50 mls @ 100 mls/hr IV Q6HR [facility] Stop: 09/14/17 00:29 Last Admin: 09/14/17 05:46 Dose: 100 mls/hr Albumin Human (Flexbumin 25%) 12.5 gm in 50 mls @ 100 mls/hr IV Q6H [facility] Stop: 09/15/17 16:14 Last Admin: 09/15/17 15:07 Dose: 100 mls/hr Albumin Human (Buminate 5%) 250 mls @ 250 mls/hr IV Q6H [facility] Last Admin: 09/16/17 09:32 Dose: 250 mls/hr Magnesium Sulfate 2 gm/ Premix 50 mls @ 25 mls/hr IV ONETIME ONE Stop: 09/18/17 13:16 Last Admin: 09/18/17 12:52 Dose: 25 mls/hr Lactulose (Chronulac) 10 gm PO Q4H PRN PRN Reason: Constipation Last Admin: 09/16/17 10:00 Dose: 10 gm Lactulose (Chronulac) 10 gm PO Q4H [facility] Last Admin: 09/17/17 10:45 Dose: Not Given Lactulose (Chronulac) 20 gm PO Q4H [facility] Last Admin: 09/18/17 15:47 Dose: Not Given Lactulose (Chronulac) 10 gm PO ONETIME ONE Stop: 09/18/17 08:33 Last Admin: 09/18/17 08:57 Dose: 10 gm Midodrine (Midodrine) 10 mg PO TID [facility] Last Admin: 09/13/17 06:42 Dose: 10 mg Morphine Sulfate (Morphine) 2 mg IVPUSH Q2H PRN PRN Reason: Pain (severe 7-10) Stop: 09/13/17 18:42 Morphine Sulfate (Morphine) 2 mg IVPUSH Q2H PRN PRN Reason: Pain (severe 7-10) Stop: 09/13/17 18:42 Octreotide Acetate (Sandostatin) 100 mcg SUBCUT TID [facility] Last Admin: 09/16/17 05:40 Dose: 100 mcg Potassium Chloride (Klor-Con M20) 40 meq PO ONETIME ONE Stop: 09/19/17 09:10 Last Admin: 09/19/17 09:17 Dose: 40 meq Warfarin Sodium (Coumadin Sliding Scale) each PO DAILY [facility] - Exam General: Alert Lungs: Clear to Auscultation, Normal Respiratory Effort Cardiovascular: Regular Rate, Regular Rhythm GI/Abdominal Exam: Distended, Tender, Hepatomegaly Extremities: Pedal Edema, Joint Swelling, Increased Warmth - Problem List & Annotations (1) Hypoalbuminemia SNOMED Code(s): 056491695 Code(s): E88.09 - OTH DISORDERS OF PLASMA-PROTEIN METABOLISM, NEC Status: Acute Current Visit: Yes (2) Abdominal pain SNOMED Code(s): 91406559 Code(s): R10.9 - UNSPECIFIED ABDOMINAL PAIN Status: Acute Current Visit: No Qualifiers: Abdominal location: generalized Qualified Code(s): R10.84 - Generalized abdominal pain (3) Alcoholic hepatitis with ascites SNOMED Code(s): 462417889 Code(s): K70.11 - ALCOHOLIC HEPATITIS WITH ASCITES Status: Acute Current Visit: No (4) Hepatic cirrhosis SNOMED Code(s): 52130121 Code(s): K74.60 - UNSPECIFIED CIRRHOSIS OF LIVER Status: Acute Current Visit: No - Problem List Review Problem List Initiated/Reviewed/Updated: Yes - My Orders Last 24 Hours: My Active Orders 09/19/17 05:17 MAGNESIUM [CHEM] Routine 09/19/17 09:09 Resuscitation Status Routine - Plan Plan:: This is a 42-year-old patient with a significant medical history of severe liver cirrhosis secondary to alcoholic hepatitis, admitted with fluid overload Liver cirrhosis with hypoalbumineia, fluid overload, kidney disease, and hepatic encephalopathy: Will continue albumin infuisons, holding lasix, continue to moniter creatinine. -Ben borja hepatic encephalopathy seems to be resolving, he is now able to recall, where he is, who his physicians are, what had essentially brought him into the hospital. Continue with the lactulose every 4 hours 10 mg -Oracio jose INR continues to trend downwards, continue to watch and see if we will reach therapeutic level to do a therapeutic paracentesis -Ben anemia is getting worse, he shall be getting 1 unit of blood to see if we can bring the hemoglobin back up. Holding anticoagulation as will need paracentesis
[2017-09-19] MEDS ORDERED: Magnesium Sulfate/Water 4 GM in Premix Bag 1 BAG IV ONE (19:59)
[2017-09-20] MEDS: Thiamine 100 MG Tab PO SCH (00:11)
[2017-09-20] MEDS: Folic Acid 1 MG Tab PO SCH (00:11)
[2017-09-20] MEDS: Lactulose Soln 10 GM/15 ML 15 ML UD Cup PO SCH ×4 (03:47→16:30)
[2017-09-20] MEDS: Midodrine 5 MG Tab PO SCH ×3 (06:47→21:16)
[2017-09-20] MEDS: Metoprolol Succinate 25 MG Tab.ER PO SCH (09:01)
--- NOTE | 2017-09-20 12:12 | PCM.PN ---
- General Info Date of Service: 09/20/17 Subjective Update: Stable, no longer encephalopathic, has had multiple stools - Patient Data Vitals - Most Recent: Last Vital Signs Temp 36.9 C 09/20/17 08:00 Pulse 57 L 09/20/17 09:01 Resp 16 09/20/17 08:00 BP 103/68 09/20/17 09:01 Pulse Ox 93 L 09/20/17 08:00 Weight - Most Recent: 98.384 kg I&O - Last 24 Hours: Intake & Output 09/19/17 09/20/17 09/20/17 22:59 06:59 14:59 Intake Total 800 690 Output Total 400 175 Balance 400 515 Lab Results Last 24 Hours: Laboratory Results - last 24 hr 09/19/17 09/20/17 09/20/17 Range/Units 05:17 04:58 04:58 WBC 5.98 (4.0-11.0) K/uL RBC 2.94 L (4.50-5.90) M/uL Hgb 8.8 L (13.0-17.0) g/dL Hct 25.5 L (38.0-50.0) % MCV 86.7 (80.0-98.0) fL MCH 29.9 (27.0-32.0) pg MCHC 34.5 (31.0-37.0) g/dL RDW Std Deviation 61.8 (28.0-62.0) fl RDW Coeff of Sandra 20 H (11.0-15.0) % Plt Count 101 L (150-400) K/uL MPV 10.20 (7.40-12.00) fL Add Manual Diff YES Neutrophils % (Manual) 50 (48.0-80.0) % Band Neutrophils % 2 % Lymphocytes % (Manual) 33 (16.0-40.0) % Monocytes % (Manual) 12 (0.0-15.0) % Eosinophils % (Manual) 3 (0.0-7.0) % Nucleated RBC % 0.0 /100WBC Absolute Seg Neuts 3.0 (1.4-5.7) Band Neutrophils # 0.1 Lymphocytes # (Manual) 2.0 (0.6-2.4) Monocytes # (Manual) 0.7 (0.0-0.8) Eosinophils # (Manual) 0.2 (0.0-0.7) Nucleated RBCs # 0 K/uL INR 3.12 Sodium (136-148) mmol/L Potassium (3.5-5.1) mmol/L Chloride (98-107) mmol/L Carbon Dioxide (21.0-32.0) mmol/L BUN (7.0-18.0) mg/dL Creatinine (0.8-1.3) mg/dL Est Cr Clr Drug Dosing mL/min Estimated GFR (MDRD) ml/min Glucose (74-106) mg/dL Calcium (8.5-10.1) mg/dL Magnesium 1.2 L (1.5-2.0) mg/dL Total Bilirubin (0.2-1.0) mg/dL AST (15-37) IU/L ALT (14-63) IU/L Alkaline Phosphatase (46-116) U/L Total Protein (6.4-8.2) g/dL Albumin (3.4-5.0) g/dL Globulin (2.0-3.5) g/dL Albumin/Globulin Ratio (1.3-2.8) 09/20/17 Range/Units 04:58 WBC (4.0-11.0) K/uL RBC (4.50-5.90) M/uL Hgb (13.0-17.0) g/dL Hct (38.0-50.0) % MCV (80.0-98.0) fL MCH (27.0-32.0) pg MCHC (31.0-37.0) g/dL RDW Std Deviation (28.0-62.0) fl RDW Coeff of Sandra (11.0-15.0) % Plt Count (150-400) K/uL MPV (7.40-12.00) fL Add Manual Diff Neutrophils % (Manual) (48.0-80.0) % Band Neutrophils % % Lymphocytes % (Manual) (16.0-40.0) % Monocytes % (Manual) (0.0-15.0) % Eosinophils % (Manual) (0.0-7.0) % Nucleated RBC % /100WBC Absolute Seg Neuts (1.4-5.7) Band Neutrophils # Lymphocytes # (Manual) (0.6-2.4) Monocytes # (Manual) (0.0-0.8) Eosinophils # (Manual) (0.0-0.7) Nucleated RBCs # K/uL INR Sodium 142 (136-148) mmol/L Potassium 3.6 (3.5-5.1) mmol/L Chloride 111 H (98-107) mmol/L Carbon Dioxide 23.9 (21.0-32.0) mmol/L BUN 16 (7.0-18.0) mg/dL Creatinine 1.8 H (0.8-1.3) mg/dL Est Cr Clr Drug Dosing 63.24 mL/min Estimated GFR (MDRD) 41.4 ml/min Glucose 88 (74-106) mg/dL Calcium 8.8 (8.5-10.1) mg/dL Magnesium 1.8 (1.5-2.0) mg/dL Total Bilirubin 4.3 H (0.2-1.0) mg/dL AST 39 H (15-37) IU/L ALT 16 (14-63) IU/L Alkaline Phosphatase 49 (46-116) U/L Total Protein 5.8 L (6.4-8.2) g/dL Albumin 1.8 L (3.4-5.0) g/dL Globulin 4.0 H (2.0-3.5) g/dL Albumin/Globulin Ratio 0.5 L (1.3-2.8) Med Orders - Current: Current Medications Acetaminophen (Tylenol) 650 mg PO Q4H PRN PRN Reason: Pain (Mild 1-3)/fever Last Admin: 09/20/17 00:38 Dose: 650 mg Folic Acid (Folic Acid) 1 mg PO Q24H [facility] Last Admin: 09/20/17 00:11 Dose: 1 mg Lactulose (Chronulac) 10 gm PO Q4H [facility] Last Admin: 09/20/17 10:29 Dose: Not Given Metoprolol Succinate (Toprol Xl) 25 mg PO DAILY [facility] Last Admin: 09/20/17 09:01 Dose: Not Given Midodrine (Midodrine) 12.5 mg PO TID [facility] Last Admin: 09/20/17 06:47 Dose: 12.5 mg Ondansetron HCl (Zofran) 4 mg IVPUSH Q4H PRN PRN Reason: Nausea/Vomiting Last Admin: 09/15/17 09:18 Dose: 4 mg Sodium Chloride (Saline Flush) 10 ml FLUSH ASDIRECTED PRN PRN Reason: Keep Vein Open Sodium Chloride (Saline Flush) 2.5 ml FLUSH ASDIRECTED PRN PRN Reason: Keep Vein Open Thiamine HCl (Vitamin B-1) 100 mg PO Q24H [facility] Last Admin: 09/20/17 00:11 Dose: 100 mg Discontinued Medications Furosemide (Lasix) 40 mg IVPUSH NOW ONE Stop: 09/12/17 18:40 Last Admin: 09/12/17 20:46 Dose: Not Given Furosemide (Lasix) 40 mg IVPUSH NOW ONE Stop: 09/12/17 20:46 Last Admin: 09/12/17 20:52 Dose: 40 mg Furosemide (Lasix) 40 mg IVPUSH NOW ONE Stop: 09/13/17 13:50 Last Admin: 09/13/17 14:31 Dose: Not Given Magnesium Sulfate 2 gm/ Premix 50 mls @ 25 mls/hr IV ONETIME ONE Stop: 09/12/17 22:01 Last Admin: 09/12/17 20:52 Dose: 25 mls/hr Albumin Human (Flexbumin 25%) 12.5 gm in 50 mls @ 100 mls/hr IV Q4HR ONE Stop: 09/13/17 10:04 Last Admin: 09/13/17 10:59 Dose: 100 mls/hr Octreotide Acetate 500 mcg/ (Sodium Chloride) 500 mls @ 50 mls/hr IV Q10H [facility] Stop: 09/13/17 19:59 Last Admin: 09/13/17 11:33 Dose: 50 mcg/hr, 50 mls/hr Albumin Human (Flexbumin 25%) 12.5 gm in 50 mls @ 100 mls/hr IV Q6HR ONE Stop: 09/13/17 14:43 Last Admin: 09/13/17 17:00 Dose: Not Given Albumin Human (Flexbumin 25%) 12.5 gm in 50 mls @ 100 mls/hr IV Q6HR [facility] Stop: 09/14/17 00:29 Last Admin: 09/14/17 05:46 Dose: 100 mls/hr Albumin Human (Flexbumin 25%) 12.5 gm in 50 mls @ 100 mls/hr IV Q6H [facility] Stop: 09/15/17 16:14 Last Admin: 09/15/17 15:07 Dose: 100 mls/hr Albumin Human (Buminate 5%) 250 mls @ 250 mls/hr IV Q6H [facility] Last Admin: 09/16/17 09:32 Dose: 250 mls/hr Magnesium Sulfate 2 gm/ Premix 50 mls @ 25 mls/hr IV ONETIME ONE Stop: 09/18/17 13:16 Last Admin: 09/18/17 12:52 Dose: 25 mls/hr Magnesium Sulfate 4 gm/ Premix 100 mls @ 25 mls/hr IV ONETIME ONE Stop: 09/19/17 23:58 Last Admin: 09/19/17 20:45 Dose: 25 mls/hr Lactulose (Chronulac) 10 gm PO Q4H PRN PRN Reason: Constipation Last Admin: 09/16/17 10:00 Dose: 10 gm Lactulose (Chronulac) 10 gm PO Q4H [facility] Last Admin: 09/17/17 10:45 Dose: Not Given Lactulose (Chronulac) 20 gm PO Q4H [facility] Last Admin: 09/18/17 15:47 Dose: Not Given Lactulose (Chronulac) 10 gm PO ONETIME ONE Stop: 09/18/17 08:33 Last Admin: 09/18/17 08:57 Dose: 10 gm Midodrine (Midodrine) 10 mg PO TID [facility] Last Admin: 09/13/17 06:42 Dose: 10 mg Morphine Sulfate (Morphine) 2 mg IVPUSH Q2H PRN PRN Reason: Pain (severe 7-10) Stop: 09/13/17 18:42 Morphine Sulfate (Morphine) 2 mg IVPUSH Q2H PRN PRN Reason: Pain (severe 7-10) Stop: 09/13/17 18:42 Octreotide Acetate (Sandostatin) 100 mcg SUBCUT TID [facility] Last Admin: 09/16/17 05:40 Dose: 100 mcg Potassium Chloride (Klor-Con M20) 40 meq PO ONETIME ONE Stop: 09/19/17 09:10 Last Admin: 09/19/17 09:17 Dose: 40 meq Warfarin Sodium (Coumadin Sliding Scale) each PO DAILY [facility] - Exam General: Alert, Oriented, Cooperative, Mild Distress Lungs: Clear to Auscultation, Decreased Breath Sounds Cardiovascular: Regular Rate, Regular Rhythm GI/Abdominal Exam: Distended, Tender, Hepatomegaly - Problem List & Annotations (1) Hypoalbuminemia SNOMED Code(s): 958315641 Code(s): E88.09 - OTH DISORDERS OF PLASMA-PROTEIN METABOLISM, NEC Status: Acute Current Visit: Yes (2) Abdominal pain SNOMED Code(s): 36647124 Code(s): R10.9 - UNSPECIFIED ABDOMINAL PAIN Status: Acute Current Visit: No Qualifiers: Abdominal location: generalized Qualified Code(s): R10.84 - Generalized abdominal pain (3) Alcoholic hepatitis with ascites SNOMED Code(s): 561480154 Code(s): K70.11 - ALCOHOLIC HEPATITIS WITH ASCITES Status: Acute Current Visit: No (4) Hepatic cirrhosis SNOMED Code(s): 00783018 Code(s): K74.60 - UNSPECIFIED CIRRHOSIS OF LIVER Status: Acute Current Visit: No - Problem List Review Problem List Initiated/Reviewed/Updated: Yes - My Orders Last 24 Hours: My Active Orders 09/21/17 05:11 CBC WITH AUTO DIFF [HEME] AM COMPREHENSIVE METABOLIC PN,CMP [CHEM] AM INR,PT,PROTHROMBIN TIME [COAG] AM MAGNESIUM [CHEM] AM - Plan Plan:: This is a 42-year-old patient with a significant medical history of severe liver cirrhosis secondary to alcoholic hepatitis, admitted with fluid overload Liver cirrhosis with hypoalbumineia, fluid overload, kidney disease, and hepatic encephalopathy: Will continue albumin infuisons, holding lasix, continue to moniter creatinine. -Ben Narayanan is hepatic encephalopathy has now resolved, shall discontinue the lactulose -Oracio jose INR continues to trend downwards, continue to watch and see if we will reach therapeutic level to do a therapeutic paracentesis -Ben anemia is getting worse, he shall be getting 1 unit of blood to see if we can bring the hemoglobin back up. Patient overall doing much better, still having some mild abdominal pain and bilateral feet pain, we shall watch for 1 more day to ensure encephalopathy is completely resolved and showed DC in the morning, with follow-up with PCP for a therapeutic paracentesis once the INR is within appropriate range for intervention. Holding anticoagulation as will need paracentesis
[2017-09-20] MEDS ORDERED: Bacitracin Oint 28.35 GM Tube TOP PRN (18:43)
[2017-09-21] MEDS: Thiamine 100 MG Tab PO SCH (00:51)
[2017-09-21] MEDS: Folic Acid 1 MG Tab PO SCH (00:51)
[2017-09-21] MEDS: Midodrine 5 MG Tab PO SCH (06:54)
[2017-09-21] MEDS: Metoprolol Succinate 25 MG Tab.ER PO SCH (09:50)
[2017-09-21 11:57] VITALS: BP 103/64
--- NOTE | 2017-09-21 12:03 | PCM.DCSUM1 ---
<Krystian De Guzman Z - Last Filed: 09/21/17 12:43> Discharge Summary - Hospital Course HPI Initial Comments: Discharge Summary Date of admission: 09/12/2017 Date of discharge: 09/21/2017 Admitting diagnosis: #1. 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 Elevated LFTs, elevated total bili, hypoalbuminemia secondary to chronic liver cirrhosis #3. Anemia with a hemoglobin of 8.4 #4. Supratherapeutic INR in a patient that is taking Coumadin for atrial fibrillation #5. Hypomagnesemia, hyponatremia both mild in nature #6. Elevated creatinine level likely secondary to prerenal azotemia however hepatorenal syndrome needs to be ruled out Discharge diagnoses: #1. Abdominal pain/discomfort improving, anasarca, ascites still present, hypoalbuminemia improving secondary to albumin transfusion, patient requires therapeutic paracentesis once INR is resolved #2. LFTs, total bili elevated but stable, hypoalbuminemia improved secondary transfusions. #3. Anemia still present, however improved secondary to blood transfusions #4.INR trending downwards, goal of INR needs to be 2.1 or below and ordered for the patient to have his therapeutic paracentesis #5. Elevated creatinine level due to prerenal azotemia based upon FENa analysis. Consultations: None Procedures: None Hospitalization course: Patient was admitted due to abdominal distention due to ascites as a result of alcoholic hepatitis, he also is presenting with generalized anasarca, pitting edema all the way up to bilateral hips. The initial reason for the admission was for the patient to get a therapeutic paracenteses and to be properly evaluated for his hemoglobin of 8.4, supratherapeutic INR, and levels of hypomagnesemia hyponatremia and elevated creatinine function. Due to the fact the patient's INR was greater than 4 radiology did not feel that they would be able to safely do a therapeutic paracenteses due to the increased risk of bleeding. I then consulted [facility] Rojo, and spoke with Dr. Sanford, after explaining the patient's clinical presentation, and the evaluations that we had done Dr. Sanford advised to continue with the patient's Midrin at a rate of 12.5 mg, ensure that the patient is getting albumin at 50 g a day, continue with the octreotide to help with increasing of intravascular pressure and to ensure that we get the FENa levels as that will determine whether or not the patient is in hepatorenal syndrome or whether this is just prerenal azotemia, and to give the patient blood transfusion to increase his hemoglobin levels. He did not feel that the patient was in any danger of SBP, and that we could hold off until the INR was within range to be able to do the therapeutic paracenteses. All of these interventions were continued to be implemented, patient's Coumadin had been held since admission, his INR was slowly trending downwards, however on day 3 of admission the patient had started to show signs of hepatic encephalopathy, as a result we did start the patient on lactulose, his hepatic encephalopathy continued to worsen his ammonia levels continue to increase up until lactulose was finally affective about 48 hours after the initiation of hepatic encephalopathy. Subsequent to the bowel movements and continuing lactulose dosages the patient had a improvement of his hepatic encephalopathy to which she was back to baseline. It was determined that the patient was not suffering from hepatorenal syndrome, and that this was simply prerenal azotemia, and since the patient was no longer encephalopathic, patient could be safely discharged home ensure that he follows up with his primary care provider who is myself Dr. De Guzman, patient will be continued evaluated up until his INR is within the level that we can conduct the therapeutic paracenteses, patient will likely need to have continued scheduled paracenteses, replacement of albumin as needed, replacement of hemoglobin as needed, and continue evaluation of his clinical status. Patient agreed to this plan and was safely discharged on 09/21/2017. Disposition on discharge:Home Condition on discharge: Stable Discharge medications: Continuation of home medication, with a discontinuation of his Coumadin until he is at a INR of 2.0 below so that we can do the paracenteses, patient to continue with metoprolol succinate, lactulose 10 g 3 times a day, midordrine 12.5 mg, patient to hold his spironolactone, patient also given a prescription for methadone 5 mg tab to be broken in half to be taken for his liver cirrhosis pain Follow-up instructions: Follow-up with Dr. De Guzman on September 24 - Discharge Data Discharge Date: 09/21/17 Discharge Disposition: Home, Self-Care 01 Condition: Good - Discharge Diagnosis/Problem(s) (1) Hypoalbuminemia SNOMED Code(s): 570568400 ICD Code: E88.09 - OTH DISORDERS OF PLASMA-PROTEIN METABOLISM, NEC Status: Acute (2) Abdominal pain SNOMED Code(s): 43567338 ICD Code: R10.9 - UNSPECIFIED ABDOMINAL PAIN Status: Acute Qualifiers: Abdominal location: generalized Qualified Code(s): R10.84 - Generalized abdominal pain (3) Alcoholic hepatitis with ascites SNOMED Code(s): 209711993 ICD Code: K70.11 - ALCOHOLIC HEPATITIS WITH ASCITES Status: Acute (4) Hepatic cirrhosis SNOMED Code(s): 30167554 ICD Code: K74.60 - UNSPECIFIED CIRRHOSIS OF LIVER Status: Acute - Patient Instructions Diet: Usual Diet as Tolerated (Low protien diet. ), No Alcoholic Beverages Activity: As Tolerated Driving: Do Not Drive Showering/Bathing: May Shower Notify Provider of: Fever, Increased Pain, Swelling and Redness, Drainage, Nausea and/or Vomiting - Discharge Plan Prescriptions/Med Rec: Lactulose 1 bottle PO TID 30 Days #1 bottle Midodrine 10 mg PO DAILY 30 Days #30 tablet Midodrine 2.5 mg PO DAILY 30 Days #30 tablet Home Medications: Home Meds Metoprolol Succinate [Toprol XL] 25 mg PO DAILY 07/22/17 [History] Pantoprazole [ProTONIX Granules] 40 mg PO BID 07/22/17 [History] Methadone 0.5 tab PO QAM 09/12/17 [History] Multivitamin [Men's Multi-Vitamin] 1 tab PO DAILY 09/12/17 [History] Lactulose 1 bottle PO TID 30 Days #1 bottle 09/21/17 [Rx] Midodrine 2.5 mg PO DAILY 30 Days #30 tablet 09/21/17 [Rx] Midodrine 10 mg PO DAILY 30 Days #30 tablet 09/21/17 [Rx] Patient Handouts: Alcoholic Liver Disease, [id number], Hepatic Encephalopathy , Ascites, Midodrine tablets, Lactulose oral solution Referrals: Krystian De Guzman MD [Primary Care Provider] - 09/24/17 1:30 pm - Discharge Summary/Plan Comment DC Time >30 min.: No - Patient Data Vitals - Most Recent: Last Vital Signs Temp 37.1 C 09/21/17 11:57 Pulse 64 09/21/17 11:57 Resp 18 09/21/17 11:57 BP 103/64 09/21/17 11:57 Pulse Ox 93 L 09/21/17 11:57 Weight - Most Recent: 101 kg I&O - Last 24 hours: Intake & Output 09/20/17 09/21/17 09/21/17 22:59 06:59 14:59 Intake Total 1100 150 Output Total 300 450 Balance 800 -300 Lab Results - Last 24 hrs: Laboratory Results - last 24 hr 09/20/17 09/21/17 09/21/17 Range/Units 17:07 05:55 05:55 WBC 5.19 (4.0-11.0) K/uL RBC 2.81 L (4.50-5.90) M/uL Hgb 8.4 L (13.0-17.0) g/dL Hct 24.2 L (38.0-50.0) % MCV 86.1 (80.0-98.0) fL MCH 29.9 (27.0-32.0) pg MCHC 34.7 (31.0-37.0) g/dL RDW Std Deviation 61.2 (28.0-62.0) fl RDW Coeff of Sandra 20 H (11.0-15.0) % Plt Count 91 L (150-400) K/uL MPV 10.60 (7.40-12.00) fL Add Manual Diff YES Neutrophils % (Manual) 45 L (48.0-80.0) % Band Neutrophils % 3 % Lymphocytes % (Manual) 39 (16.0-40.0) % Monocytes % (Manual) 13 (0.0-15.0) % Basophils % (Manual) 1 (0.0-1.5) % Nucleated RBC % 0.0 /100WBC Absolute Seg Neuts 2.3 (1.4-5.7) Band Neutrophils # 0.2 Lymphocytes # (Manual) 2.0 (0.6-2.4) Monocytes # (Manual) 0.7 (0.0-0.8) Basophils # (Manual) 0.1 (0.0-0.1) Nucleated RBCs # 0 K/uL INR 3.04 Sodium (136-148) mmol/L Potassium (3.5-5.1) mmol/L Chloride (98-107) mmol/L Carbon Dioxide (21.0-32.0) mmol/L BUN (7.0-18.0) mg/dL Creatinine (0.8-1.3) mg/dL Est Cr Clr Drug Dosing mL/min Estimated GFR (MDRD) ml/min Glucose (74-106) mg/dL Calcium (8.5-10.1) mg/dL Magnesium (1.5-2.0) mg/dL Total Bilirubin (0.2-1.0) mg/dL AST (15-37) IU/L ALT (14-63) IU/L Alkaline Phosphatase (46-116) U/L Ammonia 24 (19-54) ug/dL Total Protein (6.4-8.2) g/dL Albumin (3.4-5.0) g/dL Globulin (2.0-3.5) g/dL Albumin/Globulin Ratio (1.3-2.8) 09/21/17 Range/Units 05:55 WBC (4.0-11.0) K/uL RBC (4.50-5.90) M/uL Hgb (13.0-17.0) g/dL Hct (38.0-50.0) % MCV (80.0-98.0) fL MCH (27.0-32.0) pg MCHC (31.0-37.0) g/dL RDW Std Deviation (28.0-62.0) fl RDW Coeff of Sandra (11.0-15.0) % Plt Count (150-400) K/uL MPV (7.40-12.00) fL Add Manual Diff Neutrophils % (Manual) (48.0-80.0) % Band Neutrophils % % Lymphocytes % (Manual) (16.0-40.0) % Monocytes % (Manual) (0.0-15.0) % Basophils % (Manual) (0.0-1.5) % Nucleated RBC % /100WBC Absolute Seg Neuts (1.4-5.7) Band Neutrophils # Lymphocytes # (Manual) (0.6-2.4) Monocytes # (Manual) (0.0-0.8) Basophils # (Manual) (0.0-0.1) Nucleated RBCs # K/uL INR Sodium 140 (136-148) mmol/L Potassium 3.9 (3.5-5.1) mmol/L Chloride 110 H (98-107) mmol/L Carbon Dioxide 23.2 (21.0-32.0) mmol/L BUN 16 (7.0-18.0) mg/dL Creatinine 1.7 H (0.8-1.3) mg/dL Est Cr Clr Drug Dosing 67.32 mL/min Estimated GFR (MDRD) 44.2 ml/min Glucose 105 (74-106) mg/dL Calcium 8.7 (8.5-10.1) mg/dL Magnesium 1.5 (1.5-2.0) mg/dL Total Bilirubin 3.2 H (0.2-1.0) mg/dL AST 39 H (15-37) IU/L ALT 12 L (14-63) IU/L Alkaline Phosphatase 54 (46-116) U/L Ammonia (19-54) ug/dL Total Protein 5.5 L (6.4-8.2) g/dL Albumin 1.7 L (3.4-5.0) g/dL Globulin 3.8 H (2.0-3.5) g/dL Albumin/Globulin Ratio 0.5 L (1.3-2.8) Med Orders - Current: Current Medications Acetaminophen (Tylenol) 650 mg PO Q4H PRN PRN Reason: Pain (Mild 1-3)/fever Last Admin: 09/20/17 00:38 Dose: 650 mg Bacitracin (Bacitracin Oint) 0 gm TOP TID PRN PRN Reason: Nasal Dryness Last Admin: 09/20/17 21:16 Dose: 1 applic Folic Acid (Folic Acid) 1 mg PO Q24H [facility] Last Admin: 09/21/17 00:51 Dose: 1 mg Metoprolol Succinate (Toprol Xl) 25 mg PO DAILY [facility] Last Admin: 09/21/17 09:50 Dose: 25 mg Midodrine (Midodrine) 12.5 mg PO TID [facility] Last Admin: 09/21/17 06:54 Dose: 12.5 mg Ondansetron HCl (Zofran) 4 mg IVPUSH Q4H PRN PRN Reason: Nausea/Vomiting Last Admin: 09/15/17 09:18 Dose: 4 mg Sodium Chloride (Saline Flush) 10 ml FLUSH ASDIRECTED PRN PRN Reason: Keep Vein Open Sodium Chloride (Saline Flush) 2.5 ml FLUSH ASDIRECTED PRN PRN Reason: Keep Vein Open Thiamine HCl (Vitamin B-1) 100 mg PO Q24H [facility] Last Admin: 09/21/17 00:51 Dose: 100 mg Discontinued Medications Furosemide (Lasix) 40 mg IVPUSH NOW ONE Stop: 09/12/17 18:40 Last Admin: 09/12/17 20:46 Dose: Not Given Furosemide (Lasix) 40 mg IVPUSH NOW ONE Stop: 09/12/17 20:46 Last Admin: 09/12/17 20:52 Dose: 40 mg Furosemide (Lasix) 40 mg IVPUSH NOW ONE Stop: 09/13/17 13:50 Last Admin: 09/13/17 14:31 Dose: Not Given Magnesium Sulfate 2 gm/ Premix 50 mls @ 25 mls/hr IV ONETIME ONE Stop: 09/12/17 22:01 Last Admin: 09/12/17 20:52 Dose: 25 mls/hr Albumin Human (Flexbumin 25%) 12.5 gm in 50 mls @ 100 mls/hr IV Q4HR ONE Stop: 09/13/17 10:04 Last Admin: 09/13/17 10:59 Dose: 100 mls/hr Octreotide Acetate 500 mcg/ (Sodium Chloride) 500 mls @ 50 mls/hr IV Q10H [facility] Stop: 09/13/17 19:59 Last Admin: 09/13/17 11:33 Dose: 50 mcg/hr, 50 mls/hr Albumin Human (Flexbumin 25%) 12.5 gm in 50 mls @ 100 mls/hr IV Q6HR ONE Stop: 09/13/17 14:43 Last Admin: 09/13/17 17:00 Dose: Not Given Albumin Human (Flexbumin 25%) 12.5 gm in 50 mls @ 100 mls/hr IV Q6HR [facility] Stop: 09/14/17 00:29 Last Admin: 09/14/17 05:46 Dose: 100 mls/hr Albumin Human (Flexbumin 25%) 12.5 gm in 50 mls @ 100 mls/hr IV Q6H [facility] Stop: 09/15/17 16:14 Last Admin: 09/15/17 15:07 Dose: 100 mls/hr Albumin Human (Buminate 5%) 250 mls @ 250 mls/hr IV Q6H [facility] Last Admin: 09/16/17 09:32 Dose: 250 mls/hr Magnesium Sulfate 2 gm/ Premix 50 mls @ 25 mls/hr IV ONETIME ONE Stop: 09/18/17 13:16 Last Admin: 09/18/17 12:52 Dose: 25 mls/hr Magnesium Sulfate 4 gm/ Premix 100 mls @ 25 mls/hr IV ONETIME ONE Stop: 09/19/17 23:58 Last Admin: 09/19/17 20:45 Dose: 25 mls/hr Lactulose (Chronulac) 10 gm PO Q4H PRN PRN Reason: Constipation Last Admin: 09/16/17 10:00 Dose: 10 gm Lactulose (Chronulac) 10 gm PO Q4H [facility] Last Admin: 09/17/17 10:45 Dose: Not Given Lactulose (Chronulac) 20 gm PO Q4H [facility] Last Admin: 09/18/17 15:47 Dose: Not Given Lactulose (Chronulac) 10 gm PO ONETIME ONE Stop: 09/18/17 08:33 Last Admin: 09/18/17 08:57 Dose: 10 gm Lactulose (Chronulac) 10 gm PO Q4H [facility] Last Admin: 09/20/17 16:30 Dose: Not Given Midodrine (Midodrine) 10 mg PO TID [facility] Last Admin: 09/13/17 06:42 Dose: 10 mg Morphine Sulfate (Morphine) 2 mg IVPUSH Q2H PRN PRN Reason: Pain (severe 7-10) Stop: 09/13/17 18:42 Morphine Sulfate (Morphine) 2 mg IVPUSH Q2H PRN PRN Reason: Pain (severe 7-10) Stop: 09/13/17 18:42 Octreotide Acetate (Sandostatin) 100 mcg SUBCUT TID [facility] Last Admin: 09/16/17 05:40 Dose: 100 mcg Potassium Chloride (Klor-Con M20) 40 meq PO ONETIME ONE Stop: 09/19/17 09:10 Last Admin: 09/19/17 09:17 Dose: 40 meq Warfarin Sodium (Coumadin Sliding Scale) each PO DAILY [facility] <Barrie Pepper - Last Filed: 09/24/17 10:35> - Patient Data Vitals - Most Recent: Last Vital Signs Temp 98.7 F 09/21/17 11:57 Pulse 64 09/21/17 11:57 Resp 18 09/21/17 11:57 BP 103/64 09/21/17 11:57 Pulse Ox 93 L 09/21/17 11:57 Med Orders - Current: Current Medications Discontinued Medications Acetaminophen (Tylenol) 650 mg PO Q4H PRN PRN Reason: Pain (Mild 1-3)/fever Last Admin: 09/20/17 00:38 Dose: 650 mg Bacitracin (Bacitracin Oint) 0 gm TOP TID PRN PRN Reason: Nasal Dryness Last Admin: 09/20/17 21:16 Dose: 1 applic Folic Acid (Folic Acid) 1 mg PO Q24H [facility] Last Admin: 09/21/17 00:51 Dose: 1 mg Furosemide (Lasix) 40 mg IVPUSH NOW ONE Stop: 09/12/17 18:40 Last Admin: 09/12/17 20:46 Dose: Not Given Furosemide (Lasix) 40 mg IVPUSH NOW ONE Stop: 09/12/17 20:46 Last Admin: 09/12/17 20:52 Dose: 40 mg Furosemide (Lasix) 40 mg IVPUSH NOW ONE Stop: 09/13/17 13:50 Last Admin: 09/13/17 14:31 Dose: Not Given Magnesium Sulfate 2 gm/ Premix 50 mls @ 25 mls/hr IV ONETIME ONE Stop: 09/12/17 22:01 Last Admin: 09/12/17 20:52 Dose: 25 mls/hr Albumin Human (Flexbumin 25%) 12.5 gm in 50 mls @ 100 mls/hr IV Q4HR ONE Stop: 09/13/17 10:04 Last Admin: 09/13/17 10:59 Dose: 100 mls/hr Octreotide Acetate 500 mcg/ (Sodium Chloride) 500 mls @ 50 mls/hr IV Q10H [facility] Stop: 09/13/17 19:59 Last Admin: 09/13/17 11:33 Dose: 50 mcg/hr, 50 mls/hr Albumin Human (Flexbumin 25%) 12.5 gm in 50 mls @ 100 mls/hr IV Q6HR ONE Stop: 09/13/17 14:43 Last Admin: 09/13/17 17:00 Dose: Not Given Albumin Human (Flexbumin 25%) 12.5 gm in 50 mls @ 100 mls/hr IV Q6HR [facility] Stop: 09/14/17 00:29 Last Admin: 09/14/17 05:46 Dose: 100 mls/hr Albumin Human (Flexbumin 25%) 12.5 gm in 50 mls @ 100 mls/hr IV Q6H [facility] Stop: 09/15/17 16:14 Last Admin: 09/15/17 15:07 Dose: 100 mls/hr Albumin Human (Buminate 5%) 250 mls @ 250 mls/hr IV Q6H [facility] Last Admin: 09/16/17 09:32 Dose: 250 mls/hr Magnesium Sulfate 2 gm/ Premix 50 mls @ 25 mls/hr IV ONETIME ONE Stop: 09/18/17 13:16 Last Admin: 09/18/17 12:52 Dose: 25 mls/hr Magnesium Sulfate 4 gm/ Premix 100 mls @ 25 mls/hr IV ONETIME ONE Stop: 09/19/17 23:58 Last Admin: 09/19/17 20:45 Dose: 25 mls/hr Lactulose (Chronulac) 10 gm PO Q4H PRN PRN Reason: Constipation Last Admin: 09/16/17 10:00 Dose: 10 gm Lactulose (Chronulac) 10 gm PO Q4H [facility] Last Admin: 09/17/17 10:45 Dose: Not Given Lactulose (Chronulac) 20 gm PO Q4H [facility] Last Admin: 09/18/17 15:47 Dose: Not Given Lactulose (Chronulac) 10 gm PO ONETIME ONE Stop: 09/18/17 08:33 Last Admin: 09/18/17 08:57 Dose: 10 gm Lactulose (Chronulac) 10 gm PO Q4H [facility] Last Admin: 09/20/17 16:30 Dose: Not Given Metoprolol Succinate (Toprol Xl) 25 mg PO DAILY [facility] Last Admin: 09/21/17 09:50 Dose: 25 mg Midodrine (Midodrine) 10 mg PO TID [facility] Last Admin: 09/13/17 06:42 Dose: 10 mg Midodrine (Midodrine) 12.5 mg PO TID [facility] Last Admin: 09/21/17 06:54 Dose: 12.5 mg Morphine Sulfate (Morphine) 2 mg IVPUSH Q2H PRN PRN Reason: Pain (severe 7-10) Stop: 09/13/17 18:42 Morphine Sulfate (Morphine) 2 mg IVPUSH Q2H PRN PRN Reason: Pain (severe 7-10) Stop: 09/13/17 18:42 Octreotide Acetate (Sandostatin) 100 mcg SUBCUT TID [facility] Last Admin: 09/16/17 05:40 Dose: 100 mcg Ondansetron HCl (Zofran) 4 mg IVPUSH Q4H PRN PRN Reason: Nausea/Vomiting Last Admin: 09/15/17 09:18 Dose: 4 mg Potassium Chloride (Klor-Con M20) 40 meq PO ONETIME ONE Stop: 09/19/17 09:10 Last Admin: 09/19/17 09:17 Dose: 40 meq Sodium Chloride (Saline Flush) 10 ml FLUSH ASDIRECTED PRN PRN Reason: Keep Vein Open Sodium Chloride (Saline Flush) 2.5 ml FLUSH ASDIRECTED PRN PRN Reason: Keep Vein Open Thiamine HCl (Vitamin B-1) 100 mg PO Q24H [facility] Last Admin: 09/21/17 00:51 Dose: 100 mg Warfarin Sodium (Coumadin Sliding Scale) each PO DAILY [facility] - Free Text/Narrative Note: I performed a history and physical examination of the patient and discussed patient's management with the resident. I reviewed the resident's note and agree with the documentation findings and plan of care below. Attending: Brarie Pepper MD
== END 2017-09-21 14:30 | disposition home or self-care (01) | DRG 434 ==
LOC: MW.MS 16:32
PROVIDERS: ADMIT Family Medicine; ATTEND Family Medicine
DX: K70.11 Alcoholic hepatitis with ascites (principal); K70.31 Alcoholic cirrhosis of liver with ascites; F10.20 Alcohol dependence, uncomplicated; E88.09 Other disorders of plasma-protein metabolism, not elsewhere classified; K72.90 Hepatic failure, unspecified without coma; D64.9 Anemia, unspecified; R10.84 Generalized abdominal pain; R79.89 Other specified abnormal findings of blood chemistry; Z79.899 Other long term (current) drug therapy; Z87.891 Personal history of nicotine dependence
CPT/HCPCS: 36415; 36430; 74018; 74018-26; 80053; 81001; 82140; 82570; 82977; 83615; 83735; 84100; 84300; 85025; 85610; 85652; 86850; 86900; 86901; 86920; 86921; 86922; 87040; A9270-GY; J1940; J2354-GY; J2405; J3475; J7040; P9016; P9047

== ENCOUNTER 2017-10-08 11:09 | Inpatient (IN) | payer MEDICAID ==
--- NOTE | 2017-10-08 12:18 | EDM.PDOC ---
ED HPI GENERAL MEDICAL PROBLEM - General Chief Complaint: General Stated Complaint: CONFUSION Time Seen by Provider: 10/08/17 11:27 Source of Information: Reports: Patient History Limitations: Reports: No Limitations - History of Present Illness INITIAL COMMENTS - FREE TEXT/NARRATIVE: Presents to the ER after having been found wandering around the attached clinic , confused. This patient has a long history of liver cirrhosis secondary to alcoholic hepatitis with associated anasarca, ascites, hypoalbuminemia, anemia, elevated LFTs, electrolyte imbalances, encephalopathy and prerenal azotemia. On interview, the patient is mildly confused but is able to hold a conversation. Cannot articulate what he was doing at the clinic and in fact does not realize he was there. Dr. De Guzman, his regular provider was contacted for an update of his current course of treatment which includes frequent taps and albumin infusions. - Related Data Allergies Allergy/AdvReac Type Severity Reaction Status Date / Time No Known Allergies Allergy Verified 10/08/17 11:27 Home Meds: Home Meds Metoprolol Succinate [Toprol XL] 25 mg PO DAILY 07/22/17 [History] Pantoprazole [ProTONIX Granules] 40 mg PO BID 07/22/17 [History] Methadone 5 mg PO TID 09/12/17 [History] Multivitamin [Men's Multi-Vitamin] 1 tab PO DAILY 09/12/17 [History] Midodrine 2.5 mg PO DAILY 30 Days #30 tablet 09/21/17 [Rx] Midodrine 10 mg PO DAILY 30 Days #30 tablet 09/21/17 [Rx] Lactulose 10 gm PO BID PRN 10/08/17 [History] Potassium Chloride [Klor-Con M20] 20 meq PO DAILY 10/08/17 [History] Past Medical History - Past Health History Medical/Surgical History: Denies Medical/Surgical History HEENT History: Reports: Epistaxis, Other (See Below) Other HEENT History: no humidifer he says, so occassionally wakes up with nose bleed Cardiovascular History: Reports: Arrhythmia Other Cardiovascular History: palpitations Gastrointestinal History: Reports: Jaundice, Other (See Below) Other Gastrointestinal History: hematochezia. ascities Genitourinary History: Reports: Prostate Disorder Other Genitourinary History: "helicoil", procedure in [place] at age 20, to stop bleeding in a kidney Musculoskeletal History: Reports: Back Pain, Chronic, Gout, Other (See Below) Other Musculoskeletal History: hx of herniated disc. has pain in low lumbar area Neurological History: Reports: None Endocrine/Metabolic History: Reports: None Hematologic History: Reports: Anemia Dermatologic History: Reports: None - Infectious Disease History Infectious Disease History: Reports: None - Past Surgical History Head Surgeries/Procedures: Reports: None HEENT Surgical History: Reports: Tonsillectomy GI Surgical History: Reports: None Other Male Surgeries/Procedures: kidney surgery Endocrine Surgical History: Reports: None Neurological Surgical History: Reports: None Musculoskeletal Surgical History: Reports: None Dermatological Surgical History: Reports: None Social & Family History - Family History Family Medical History: Noncontributory Cardiac: Reports: Heart Failure, [place] - Tobacco Use Smoking Status *Q: Unknown Ever Smoked Years of Tobacco use: 7 Packs/Tins Daily: 1 Used Tobacco, but Quit: Yes Month/Year Tobacco Last Used: 2001 Second Hand Smoke Exposure: No - Caffeine Use Caffeine Use: Reports: Other - Alcohol Use Days Per Week of Alcohol Use: 7 Number of Drinks Per Day: 2 Total Drinks Per Week: 14 - Recreational Drug Use Recreational Drug Use: No ED EXAM, GENERAL - Physical Exam Exam: See Below Exam Limited By: Other (Unkept) General Appearance: Alert, No Apparent Distress Ears: Normal External Exam Nose: Normal Inspection Throat/Mouth: Normal Inspection Head: Atraumatic, Normocephalic Neck: Normal Inspection Respiratory/Chest: No Respiratory Distress, Lungs Clear, Normal Breath Sounds Cardiovascular: Normal Peripheral Pulses, Regular Rate, Rhythm, No Murmur GI/Abdominal: Distended, Other (Large, rounded, leaking yellow serous through the) Course - Vital Signs Last Recorded V/S: Last Vital Signs Temp 36.3 C 10/08/17 11:27 Pulse 71 10/08/17 11:27 Resp 18 10/08/17 11:27 BP 96/61 10/08/17 11:27 Pulse Ox 99 10/08/17 11:27 - Orders/Labs/Meds Orders: Active Orders 24 hr Category Date Time Status AMMONIA VENOUS [CHEM] Stat Lab 10/08/17 11:40 Received COMPREHENSIVE METABOLIC PN,CMP [CHEM] Stat Lab 10/08/17 11:40 Received INR,PT,PROTHROMBIN TIME [COAG] Stat Lab 10/08/17 11:40 Received Labs: Laboratory Tests 10/08/17 Range/Units 11:40 WBC 4.74 (4.0-11.0) K/uL RBC 3.09 L (4.50-5.90) M/uL Hgb 9.2 L (13.0-17.0) g/dL Hct 26.3 L (38.0-50.0) % MCV 85.1 (80.0-98.0) fL MCH 29.8 (27.0-32.0) pg MCHC 35.0 (31.0-37.0) g/dL RDW Std Deviation 56.0 (28.0-62.0) fl RDW Coeff of Sandra 19 H (11.0-15.0) % Plt Count 119 L (150-400) K/uL MPV 10.30 (7.40-12.00) fL Neut % (Auto) 77.2 (48.0-80.0) % Lymph % (Auto) 16.7 (16.0-40.0) % [place] % (Auto) 5.9 (0.0-15.0) % Eos % (Auto) 0.2 (0.0-7.0) % Baso % (Auto) 0.0 (0.0-1.5) % Neut # (Auto) 3.7 (1.4-5.7) K/uL Lymph # (Auto) 0.8 (0.6-2.4) K/uL [place] # (Auto) 0.3 (0.0-0.8) K/uL Eos # (Auto) 0.0 (0.0-0.7) K/uL Baso # (Auto) 0.0 (0.0-0.1) K/uL Nucleated RBC % 0.0 /100WBC Nucleated RBCs # 0 K/uL Departure - Discharge Information Forms: ED Department Discharge - My Orders Last 24 Hours: My Active Orders 10/08/17 11:40 AMMONIA VENOUS [CHEM] Stat COMPREHENSIVE METABOLIC PN,CMP [CHEM] Stat INR,PT,PROTHROMBIN TIME [COAG] Stat - Assessment/Plan Last 24 Hours: My Active Orders 10/08/17 11:40 AMMONIA VENOUS [CHEM] Stat COMPREHENSIVE METABOLIC PN,CMP [CHEM] Stat INR,PT,PROTHROMBIN TIME [COAG] Stat
[2017-10-08 12:28] LABS: CHLORIDE,CL 107 mmol/L (98-107); SODIUM,NA 139 mmol/L (136-148)
[2017-10-08] MEDS ORDERED: Sodium Chloride 0.9% 2.5 ML Syringe FLUSH PRN (17:18)
[2017-10-08] MEDS ORDERED: Sodium Chloride 0.9% 10 ML Syringe FLUSH PRN (17:18)
[2017-10-08] MEDS ORDERED: Morphine 4 MG/ML Syringe IVPUSH PRN (17:18)
[2017-10-08] MEDS ORDERED: Albumin 25% 12.5 GM/50 ML BAG IV ONE ×2 (17:27→22:22)
[2017-10-08] MEDS ORDERED: Piperacillin/Tazobactam 3.375 GM in Sodium Chloride 0.9% 100 ML IV ONE (17:27)
[2017-10-08] MEDS ORDERED: Spironolactone 25 MG Tab PO ONE (17:28)
[2017-10-08] MEDS ORDERED: Furosemide 40 MG/4 ML VIAL IVPUSH ONE (20:17)
[2017-10-08] MEDS ORDERED: Lactulose Soln 10 GM/15 ML 15 ML UD Cup PO ONE (20:30)
--- NOTE | 2017-10-08 20:57 | PCM.HP ---
H&P History of Present Illness - General Date of Service: 10/08/17 Admit Problem/Dx: Admission Diagnosis/Problem Admission Diagnosis/Problem Encephalopathy, lethargy , cellulites , abdominal pain Patient presented to [facility] because he was found confused in the hallway while he was trying to go have albumin infusion.He has hystory of liver failure with encephalopathy and he is s/p 9L paracenthesis about 1 week ago. Currently he is not on any diuretics , his abdomen is very distended and tender.His liver failure was due to alcohol abuse , patient stopped drinking since May 2017 Source of Information: Patient History Limitations: Reports: Altered Mental Status - History of Present Illness Onset of Symptoms: Reports: Today, Sudden Duration of Symptoms: Reports: Hour(s): Abdomen Pain Score (Numeric/FACES): 10 - Related Data Allergies/Adverse Reactions: Allergies Allergy/AdvReac Type Severity Reaction Status Date / Time No Known Allergies Allergy Verified 10/08/17 11:27 Home Medications: Home Meds RX: Metoprolol Succinate [Toprol XL] 25 mg PO DAILY 07/22/17 [History] RX: Pantoprazole [ProTONIX Granules] 40 mg PO BID 07/22/17 [History] RX: Methadone 5 mg PO TID 09/12/17 [History] RX: Multivitamin [Men's Multi-Vitamin] 1 tab PO DAILY 09/12/17 [History] RX: Midodrine 2.5 mg PO DAILY 30 Days #30 tablet 09/21/17 [Rx] RX: Midodrine 10 mg PO DAILY 30 Days #30 tablet 09/21/17 [Rx] RX: Lactulose 10 gm PO BID PRN 10/08/17 [History] RX: Potassium Chloride [Klor-Con M20] 20 meq PO DAILY 10/08/17 [History] Past Medical History - Past Health History Medical/Surgical History: Denies Medical/Surgical History HEENT History: Reports: Epistaxis, Other (See Below) Other HEENT History: no humidifer he says, so occassionally wakes up with nose bleed Cardiovascular History: Reports: Arrhythmia Other Cardiovascular History: palpitations Gastrointestinal History: Reports: Jaundice, Other (See Below) Other Gastrointestinal History: hematochezia. ascities Genitourinary History: Reports: Prostate Disorder Other Genitourinary History: "helicoil", procedure in [place] at age 20, to stop bleeding in a kidney Musculoskeletal History: Reports: Back Pain, Chronic, Gout, Other (See Below) Other Musculoskeletal History: hx of herniated disc. has pain in low lumbar area Neurological History: Reports: None Endocrine/Metabolic History: Reports: None Hematologic History: Reports: Anemia, Blood Transfusion(s) Dermatologic History: Reports: None - Infectious Disease History Infectious Disease History: Reports: None - Past Surgical History Head Surgeries/Procedures: Reports: None HEENT Surgical History: Reports: Tonsillectomy GI Surgical History: Reports: None Other Male Surgeries/Procedures: kidney surgery Endocrine Surgical History: Reports: None Neurological Surgical History: Reports: None Musculoskeletal Surgical History: Reports: None Dermatological Surgical History: Reports: None Social & Family History - Family History Family Medical History: Noncontributory Cardiac: Reports: Heart Failure, [place] - Tobacco Use Smoking Status *Q: Unknown Ever Smoked Years of Tobacco use: 7 Packs/Tins Daily: 1 Used Tobacco, but Quit: Yes Month/Year Tobacco Last Used: 2001 Second Hand Smoke Exposure: No - Caffeine Use Caffeine Use: Reports: Other - Alcohol Use Days Per Week of Alcohol Use: 7 Number of Drinks Per Day: 2 Total Drinks Per Week: 14 - Recreational Drug Use Recreational Drug Use: No H&P Review of Systems - Review of Systems: Review Of Systems: See Below General: Reports: Weakness HEENT: Reports: No Symptoms Pulmonary: Reports: No Symptoms Cardiovascular: Reports: No Symptoms Gastrointestinal: Reports: Abdominal Pain, Distension. Denies: Nausea, Vomiting Genitourinary: Reports: No Symptoms Musculoskeletal: Reports: No Symptoms Skin: Reports: Jaundice, Other (erythema of b/l LE) Psychiatric: Reports: Confusion Exam - Exam Exam: See Below - Vital Signs Vital Signs: Last Vital Signs Temp 97.8 F 10/08/17 15:48 Pulse 59 L 10/08/17 15:48 Resp 18 10/08/17 15:48 BP 109/69 10/08/17 17:19 Pulse Ox 96 10/08/17 17:20 Weight: 222 lb 9.6 oz - Exam Quality Assessment: Supplemental Oxygen General: Alert, Oriented HEENT: Conjunctiva Clear, EOMI, Hearing Intact, Mucosa Moist & [place], Pupils Equal Neck: Supple, Trachea Midline Lungs: Clear to Auscultation, Normal Respiratory Effort Cardiovascular: Regular Rate, Regular Rhythm, Normal S1, Normal S2 GI/Abdominal Exam: Distended, Tender, Abnormal Bowel Sounds (decreased Bs) Back Exam: Normal Inspection Extremities: Normal Inspection Skin: Warm, Dry Skin Alteration Location (Drawings Not To Scale): 1 - erythema 2 - erythema Neurological: Cranial Nerves Intact Neuro Extensive - Mental Status: Alert, Inattentive, Slow Response to Commands Neuro Extensive - Motor, Sensory, Reflexes: Abnormal Reflexes, Ataxia - Patient Data Lab Results Last 24 hrs: Laboratory Results - last 24 hr 10/08/17 10/08/17 10/08/17 Range/Units 11:40 11:40 11:40 WBC 4.74 (4.0-11.0) K/uL RBC 3.09 L (4.50-5.90) M/uL Hgb 9.2 L (13.0-17.0) g/dL Hct 26.3 L (38.0-50.0) % MCV 85.1 (80.0-98.0) fL MCH 29.8 (27.0-32.0) pg MCHC 35.0 (31.0-37.0) g/dL RDW Std Deviation 56.0 (28.0-62.0) fl RDW Coeff of Sandra 19 H (11.0-15.0) % Plt Count 119 L (150-400) K/uL MPV 10.30 (7.40-12.00) fL Neut % (Auto) 77.2 (48.0-80.0) % Lymph % (Auto) 16.7 (16.0-40.0) % Dukes % (Auto) 5.9 (0.0-15.0) % Eos % (Auto) 0.2 (0.0-7.0) % Baso % (Auto) 0.0 (0.0-1.5) % Neut # (Auto) 3.7 (1.4-5.7) K/uL Lymph # (Auto) 0.8 (0.6-2.4) K/uL Dukes # (Auto) 0.3 (0.0-0.8) K/uL Eos # (Auto) 0.0 (0.0-0.7) K/uL Baso # (Auto) 0.0 (0.0-0.1) K/uL Nucleated RBC % 0.0 /100WBC Nucleated RBCs # 0 K/uL INR 2.62 Sodium 139 (136-148) mmol/L Potassium 4.1 (3.5-5.1) mmol/L Chloride 107 (98-107) mmol/L Carbon Dioxide 22.8 (21.0-32.0) mmol/L BUN 22 H (7.0-18.0) mg/dL Creatinine 1.8 H (0.8-1.3) mg/dL Est Cr Clr Drug Dosing TNP Estimated GFR (MDRD) 41.4 ml/min Glucose 117 H (74-106) mg/dL Calcium 9.9 (8.5-10.1) mg/dL Total Bilirubin 6.5 H (0.2-1.0) mg/dL AST 57 H (15-37) IU/L ALT 21 (14-63) IU/L Alkaline Phosphatase 72 (46-116) U/L Ammonia (19-54) ug/dL C-Reactive Protein (0.00-0.90) mg/dL Total Protein 6.5 (6.4-8.2) g/dL Albumin 2.6 L (3.4-5.0) g/dL Globulin 3.9 H (2.0-3.5) g/dL Albumin/Globulin Ratio 0.7 L (1.3-2.8) 10/08/17 10/08/17 Range/Units 11:40 17:54 WBC (4.0-11.0) K/uL RBC (4.50-5.90) M/uL Hgb (13.0-17.0) g/dL Hct (38.0-50.0) % MCV (80.0-98.0) fL MCH (27.0-32.0) pg MCHC (31.0-37.0) g/dL RDW Std Deviation (28.0-62.0) fl RDW Coeff of Sandra (11.0-15.0) % Plt Count (150-400) K/uL MPV (7.40-12.00) fL Neut % (Auto) (48.0-80.0) % Lymph % (Auto) (16.0-40.0) % Dukes % (Auto) (0.0-15.0) % Eos % (Auto) (0.0-7.0) % Baso % (Auto) (0.0-1.5) % Neut # (Auto) (1.4-5.7) K/uL Lymph # (Auto) (0.6-2.4) K/uL Dukes # (Auto) (0.0-0.8) K/uL Eos # (Auto) (0.0-0.7) K/uL Baso # (Auto) (0.0-0.1) K/uL Nucleated RBC % /100WBC Nucleated RBCs # K/uL INR Sodium (136-148) mmol/L Potassium (3.5-5.1) mmol/L Chloride (98-107) mmol/L Carbon Dioxide (21.0-32.0) mmol/L BUN (7.0-18.0) mg/dL Creatinine (0.8-1.3) mg/dL Est Cr Clr Drug Dosing Estimated GFR (MDRD) ml/min Glucose (74-106) mg/dL Calcium (8.5-10.1) mg/dL Total Bilirubin (0.2-1.0) mg/dL AST (15-37) IU/L ALT (14-63) IU/L Alkaline Phosphatase (46-116) U/L Ammonia 63 H (19-54) ug/dL C-Reactive Protein 2.80 H (0.00-0.90) mg/dL Total Protein (6.4-8.2) g/dL Albumin (3.4-5.0) g/dL Globulin (2.0-3.5) g/dL Albumin/Globulin Ratio (1.3-2.8) Result Diagrams: 10/08/17 11:40 10/08/17 11:40 - Problem List (1) Abdominal pain SNOMED Code(s): 55559368 ICD Code: R10.9 - UNSPECIFIED ABDOMINAL PAIN Status: Acute Current Visit : No Qualifiers: Abdominal location: generalized Qualified Code(s): R10.84 - Generalized abdominal pain (2) Encephalopathy acute SNOMED Code(s): 35256425, 370098719 ICD Code: G93.40 - ENCEPHALOPATHY, UNSPECIFIED Status: Acute Current Visit: Yes Problem List Initiated/Reviewed/Updated: Yes Orders Last 24hrs: Active Orders 24 hr Category Date Time Status Patient Status [ADT] Routine ADT 10/08/17 17:18 Active Patient Status [ADT] Stat ADT 10/08/17 13:40 Active Bedrest Bedside Commode [RC] ASDIRECTED Care 10/08/17 17:18 Active Blood Glucose Check, Bedside [RC] QIDACANDBED Care 10/08/17 17:18 Active Cardiac Monitoring [RC] CONTINUOUS Care 10/08/17 17:20 Active Height and Weight [RC] DAILY Care 10/08/17 17:18 Active Intake and Output [RC] Q12H Care 10/08/17 17:20 Active Oxygen Therapy [RC] PRN Care 10/08/17 17:18 Active Pulse Oximetry [RC] PRN Care 10/08/17 17:20 Active Telemetry Monitoring [Cardiac Monitoring] [RC] . Care 10/08/17 18:06 Active DIRECTED VTE/DVT Education [RC] PER UNIT ROUTINE Care 10/08/17 17:18 Active Vital Signs [RC] Q1H Care 10/08/17 17:18 Active Consult to Case Management [CONS] Routine Cons 10/08/17 17:18 Active Consult to Spiritual Care [CONS] Routine Cons 10/08/17 17:18 Active CBC WITH AUTO DIFF [HEME] AM Lab 10/09/17 05:11 Ordered CBC WITH AUTO DIFF [HEME] AM Lab 10/10/17 05:11 Ordered CBC WITH AUTO DIFF [HEME] AM Lab 10/11/17 05:11 Ordered CBC WITH AUTO DIFF [HEME] AM Lab 10/12/17 05:11 Ordered CBC WITH AUTO DIFF [HEME] AM Lab 10/13/17 05:11 Ordered COMPREHENSIVE METABOLIC PN,CMP [CHEM] AM Lab 10/09/17 05:11 Ordered COMPREHENSIVE METABOLIC PN,CMP [CHEM] AM Lab 10/10/17 05:11 Ordered COMPREHENSIVE METABOLIC PN,CMP [CHEM] AM Lab 10/11/17 05:11 Ordered COMPREHENSIVE METABOLIC PN,CMP [CHEM] AM Lab 10/12/17 05:11 Ordered COMPREHENSIVE METABOLIC PN,CMP [CHEM] AM Lab 10/13/17 05:11 Ordered CULTURE BLOOD [BC] Routine Lab 10/08/17 18:04 Received CULTURE BLOOD [BC] Stat Lab 10/08/17 17:54 Received Furosemide [Lasix] Med 10/09/17 09:00 Pending 40 mg IVPUSH BID Lactulose [Chronulac] Med 10/08/17 21:00 Ordered 30 gm PO BID Morphine Med 10/08/17 17:18 Active 2 mg IVPUSH Q2H PRN Piperacillin/Tazobactam [Piperacil-Tazobact] 3.375 gm Med 10/09/17 00:00 Ordered Sodium Chloride 0.9% [Normal Saline] 50 ml IV Q8H Sodium Chloride 0.9% [Saline Flush] Med 10/08/17 17:18 Active 10 ml FLUSH ASDIRECTED PRN Sodium Chloride 0.9% [Saline Flush] Med 10/08/17 17:18 Active 2.5 ml FLUSH ASDIRECTED PRN Spironolactone [Aldactone] Med 10/08/17 21:00 Active 25 mg PO BID Peripheral IV Insertion Adult [OM.PC] Routine Oth 10/08/17 17:18 Ordered Saline Lock Insert [OM.PC] Routine Oth 10/08/17 17:18 Ordered Resuscitation Status Routine Resus Stat 10/08/17 17:18 Ordered Medication Orders Furosemide (Lasix) 40 mg IVPUSH BID [facility] Piperacillin Sod/Tazobactam (Sod 3.375 gm/ Sodium Chloride) 50 mls @ 100 mls/ hr IV Q8H [facility] Lactulose (Chronulac) 30 gm PO BID [facility] Morphine Sulfate (Morphine) 2 mg IVPUSH Q2H PRN PRN Reason: Pain (severe 7-10) Stop: 10/09/17 17:22 Sodium Chloride (Saline Flush) 10 ml FLUSH ASDIRECTED PRN PRN Reason: Keep Vein Open Sodium Chloride (Saline Flush) 2.5 ml FLUSH ASDIRECTED PRN PRN Reason: Keep Vein Open Spironolactone (Aldactone) 25 mg PO BID [facility] Assessment/Plan Comment:: will admit patient to ICu , will give patient lactulose 30 cc q 12 h , start lasix 40 mg iv q 12h , spironolactone 25 mg po q 12h , f/up ammonia level, Us guided paracenthesis. start zosyn 3.375 grams iv q 6 h , will order bc times 2 , f/up results
[2017-10-08] MEDS ORDERED: Furosemide 40 MG/4 ML VIAL IVPUSH SCH (21:00)
[2017-10-08] MEDS ORDERED: Lactulose Soln 10 GM/15 ML 15 ML UD Cup PO SCH (21:00)
[2017-10-08] MEDS: Spironolactone 25 MG Tab PO SCH (21:33)
[2017-10-09] MEDS ORDERED: Piperacillin/Tazobactam 3.375 GM in Sodium Chloride 0.9% 50 ML IV SCH ×2
[2017-10-09] MEDS: Piperacillin/Tazobactam 3.375 GM in Sodium Chloride 0.9% 50 ML IV SCH ×2 (00:01→06:12)
[2017-10-09] MEDS ORDERED: Piperacillin/Tazobactam 2.25 GM in Sodium Chloride 0.9% 50 ML IV SCH (04:00)
[2017-10-09] MEDS ORDERED: Ondansetron 4 MG/2 ML SDV IVPUSH PRN (07:42)
[2017-10-09] MEDS: Spironolactone 25 MG Tab PO SCH (08:02)
[2017-10-09] MEDS ORDERED: Albumin 25% 12.5 GM/50 ML BAG IV ONE ×2 (08:50→08:51)
[2017-10-09] MEDS ORDERED: Pantoprazole 40 MG Vial IVPUSH SCH (09:00)
[2017-10-09] MEDS ORDERED: Lactulose Soln 10 GM/15 ML 15 ML UD Cup PO SCH (09:00)
[2017-10-09] MEDS ORDERED: Furosemide 40 MG/4 ML VIAL IVPUSH SCH (09:00)
[2017-10-09] MEDS ORDERED: cefTRIAXone 1,000 MG in Dextrose 5% in Water 50 ML IV SCH ×2 (12:00)
[2017-10-09 13:00] VITALS: BP 100/67
--- NOTE | 2017-10-09 13:50 | PCM.DCSUM1 ---
Discharge Summary - Hospital Course Free Text/Narrative:: PATIENT ADMITTED IN THE HOSPITAL DUE TO CONFUSION , HEPATIC ENCEPHALOPATHY , SEVERE ABDOMINAL DISTENSION DUE TO ASCITIS , WAS FOUND TO HAVE CONFUSION , AMMONIA LEVEL 62. HE ALSO HAD CELLULITES AT ADMISSION AND WAS STARTED ON ZOSYN 3.375 GRAMS IV. PATIENT HAS LIVER FAILURE SECONDARY TO ALCOHOLIC CIRRHOSIS AND HIS INR WAS ELEVATED TO 2.83 , HIS BASELINE ALBUMIN IS 1.5 , AND HE IS COMPLETELY DEPENDENT ON ALBUMIN INFUSION 50 GRAMS THREE TIMES A WEEK.PATIENT WAS SCHEDULED FOR PARACENTHESIS TODAY PATIENT ADMITTED TO ICU , HAD A DROP OF ALBUMIN TO 8 FROM PREVIOUS LEVEL 9 AND HIS PLATELETS DROPPED TO LOW 100, AMMONIA LEVEL INCREASED TO 200 OVERNIGHT. I HAVE DISCUSSED PATIENT WITH GI [facility], DR.BURTON CRABTREE WHO ACCEPTED TO ASSUME CARE OF PATIENT, PATIENT WAS TRANSFERRED TO [facility]IA [facility]UL[facility]. - Discharge Data Discharge Date: 10/09/17 Discharge Disposition: DC/Tfer to Other 70 Condition: Serious - Discharge Diagnosis/Problem(s) (1) Abdominal pain SNOMED Code(s): 81993680 ICD Code: R10.9 - UNSPECIFIED ABDOMINAL PAIN Status: Acute Qualifiers: Abdominal location: generalized Qualified Code(s): R10.84 - Generalized abdominal pain (2) Encephalopathy acute SNOMED Code(s): 81859766, 516866299 ICD Code: G93.40 - ENCEPHALOPATHY, UNSPECIFIED Status: Acute (3) Abdominal pain SNOMED Code(s): 22585460 ICD Code: R10.9 - UNSPECIFIED ABDOMINAL PAIN Status: Acute (4) Abnormal renal function SNOMED Code(s): 99302651 ICD Code: N28.9 - DISORDER OF KIDNEY AND URETER, UNSPECIFIED Status: Acute (5) Alcoholic encephalopathy SNOMED Code(s): 494916052 ICD Code: G31.2 - DEGENERATION OF NERVOUS SYSTEM DUE TO ALCOHOL; F10.20 - ALCOHOL DEPENDENCE, UNCOMPLICATED Status: Acute (6) Alcoholic hepatitis with ascites SNOMED Code(s): 082647814 ICD Code: K70.11 - ALCOHOLIC HEPATITIS WITH ASCITES Status: Acute (7) Cellulitis SNOMED Code(s): 284756738 ICD Code: L03.90 - CELLULITIS, UNSPECIFIED Status: Acute - Patient Summary/Data Consults: Consultations 10/08/17 17:18 Consult to Case Management [CONS] Routine Consult to Spiritual Care [CONS] Routine - Patient Instructions Diet: Low Sodium Activity: Bedrest Driving: Do Not Drive Showering/Bathing: May Shower - Discharge Plan Home Medications: Home Meds Metoprolol Succinate [Toprol XL] 25 mg PO DAILY 07/22/17 [History] Pantoprazole [ProTONIX Granules] 40 mg PO BID 07/22/17 [History] Methadone 5 mg PO TID 09/12/17 [History] Multivitamin [Men's Multi-Vitamin] 1 tab PO DAILY 09/12/17 [History] Midodrine 2.5 mg PO DAILY 30 Days #30 tablet 09/21/17 [Rx] Midodrine 10 mg PO DAILY 30 Days #30 tablet 09/21/17 [Rx] Lactulose 10 gm PO BID PRN 10/08/17 [History] Potassium Chloride [Klor-Con M20] 20 meq PO DAILY 10/08/17 [History] - Discharge Summary/Plan Comment DC Time >30 min.: Yes - General Info Date of Service: 10/09/17 Admission Dx/Problem (Free Text: AO TIMES 3 , C/O ABDOMINAL PAIN DUE TO ABDOMINAL DISTENSION , SCHEDULED FOR PARACENTHESIS TODAY. - Review of Systems General: Reports: Weakness HEENT: Reports: No Symptoms Pulmonary: Reports: No Symptoms Cardiovascular: Reports: Dyspnea on Exertion Gastrointestinal: Reports: Abdominal Pain, Other (LARGE VOLUME ASCITIS) Genitourinary: Reports: No Symptoms Musculoskeletal: Reports: No Symptoms Skin: Reports: Jaundice Neurological: Reports: Other (PROBLEMS FINDING HIS WORDS ) - Patient Data Vitals - Most Recent: Last Vital Signs Temp 97.2 F 10/09/17 12:59 Pulse 59 L 10/08/17 15:48 Resp 11 L 10/09/17 13:00 BP 100/67 10/09/17 13:00 Pulse Ox 98 10/09/17 13:00 Weight - Most Recent: 221 lb 5.506 oz I&O - Last 24 hours: Intake & Output 10/08/17 10/09/17 10/09/17 22:59 06:59 14:59 Intake Total 150 950 579 Output Total 110 435 Balance 40 515 579 Lab Results - Last 24 hrs: Laboratory Results - last 24 hr 10/08/17 10/08/17 10/08/17 Range/Units 17:54 21:17 21:17 WBC (4.0-11.0) K/uL RBC (4.50-5.90) M/uL Hgb (13.0-17.0) g/dL Hct (38.0-50.0) % MCV (80.0-98.0) fL MCH (27.0-32.0) pg MCHC (31.0-37.0) g/dL RDW Std Deviation (28.0-62.0) fl RDW Coeff of Sandra (11.0-15.0) % Plt Count (150-400) K/uL MPV (7.40-12.00) fL Neut % (Auto) (48.0-80.0) % Lymph % (Auto) (16.0-40.0) % [place] % (Auto) (0.0-15.0) % Eos % (Auto) (0.0-7.0) % Baso % (Auto) (0.0-1.5) % Neut # (Auto) (1.4-5.7) K/uL Lymph # (Auto) (0.6-2.4) K/uL [place] # (Auto) (0.0-0.8) K/uL Eos # (Auto) (0.0-0.7) K/uL Baso # (Auto) (0.0-0.1) K/uL Nucleated RBC % /100WBC Nucleated RBCs # K/uL INR APTT (18.6-31.3) SEC Lactate 1.8 (0.20-2.00) mmol/L Sodium (136-148) mmol/L Potassium (3.5-5.1) mmol/L Chloride (98-107) mmol/L Carbon Dioxide (21.0-32.0) mmol/L BUN (7.0-18.0) mg/dL Creatinine (0.8-1.3) mg/dL Est Cr Clr Drug Dosing mL/min Estimated GFR (MDRD) ml/min Glucose (74-106) mg/dL POC Glucose 132 H (60-110) mg/dL Calcium (8.5-10.1) mg/dL Total Bilirubin (0.2-1.0) mg/dL AST (15-37) IU/L ALT (14-63) IU/L Alkaline Phosphatase (46-116) U/L Ammonia (19-54) ug/dL C-Reactive Protein 2.80 H (0.00-0.90) mg/dL Total Protein (6.4-8.2) g/dL Albumin (3.4-5.0) g/dL Globulin (2.0-3.5) g/dL Albumin/Globulin Ratio (1.3-2.8) Blood Type Antibody Screen 10/09/17 10/09/17 10/09/17 Range/Units 05:03 05:03 05:03 WBC 5.28 (4.0-11.0) K/uL RBC 2.77 L (4.50-5.90) M/uL Hgb 8.2 L (13.0-17.0) g/dL Hct 23.5 L (38.0-50.0) % MCV 84.8 (80.0-98.0) fL MCH 29.6 (27.0-32.0) pg MCHC 34.9 (31.0-37.0) g/dL RDW Std Deviation 56.2 (28.0-62.0) fl RDW Coeff of Sandra 19 H (11.0-15.0) % Plt Count 96 L (150-400) K/uL MPV 10.20 (7.40-12.00) fL Neut % (Auto) 60.6 (48.0-80.0) % Lymph % (Auto) 24.8 (16.0-40.0) % [place] % (Auto) 14.6 (0.0-15.0) % Eos % (Auto) 0.0 (0.0-7.0) % Baso % (Auto) 0.0 (0.0-1.5) % Neut # (Auto) 3.2 (1.4-5.7) K/uL Lymph # (Auto) 1.3 (0.6-2.4) K/uL [place] # (Auto) 0.8 (0.0-0.8) K/uL Eos # (Auto) 0.0 (0.0-0.7) K/uL Baso # (Auto) 0.0 (0.0-0.1) K/uL Nucleated RBC % 0.0 /100WBC Nucleated RBCs # 0 K/uL INR APTT (18.6-31.3) SEC Lactate (0.20-2.00) mmol/L Sodium 141 (136-148) mmol/L Potassium 4.2 (3.5-5.1) mmol/L Chloride 109 H (98-107) mmol/L Carbon Dioxide 23.8 (21.0-32.0) mmol/L BUN 25 H (7.0-18.0) mg/dL Creatinine 1.8 H (0.8-1.3) mg/dL Est Cr Clr Drug Dosing 58.16 mL/min Estimated GFR (MDRD) 41.4 ml/min Glucose 139 H (74-106) mg/dL POC Glucose (60-110) mg/dL Calcium 9.7 (8.5-10.1) mg/dL Total Bilirubin 4.7 H (0.2-1.0) mg/dL AST 38 H (15-37) IU/L ALT 17 (14-63) IU/L Alkaline Phosphatase 56 (46-116) U/L Ammonia 192 H (19-54) ug/dL C-Reactive Protein (0.00-0.90) mg/dL Total Protein 5.7 L (6.4-8.2) g/dL Albumin 2.3 L (3.4-5.0) g/dL Globulin 3.4 (2.0-3.5) g/dL Albumin/Globulin Ratio 0.7 L (1.3-2.8) Blood Type Antibody Screen 10/09/17 10/09/17 10/09/17 Range/Units 05:03 09:33 09:33 WBC (4.0-11.0) K/uL RBC (4.50-5.90) M/uL Hgb (13.0-17.0) g/dL Hct (38.0-50.0) % MCV (80.0-98.0) fL MCH (27.0-32.0) pg MCHC (31.0-37.0) g/dL RDW Std Deviation (28.0-62.0) fl RDW Coeff of Sandra (11.0-15.0) % Plt Count (150-400) K/uL MPV (7.40-12.00) fL Neut % (Auto) (48.0-80.0) % Lymph % (Auto) (16.0-40.0) % [place] % (Auto) (0.0-15.0) % Eos % (Auto) (0.0-7.0) % Baso % (Auto) (0.0-1.5) % Neut # (Auto) (1.4-5.7) K/uL Lymph # (Auto) (0.6-2.4) K/uL [place] # (Auto) (0.0-0.8) K/uL Eos # (Auto) (0.0-0.7) K/uL Baso # (Auto) (0.0-0.1) K/uL Nucleated RBC % /100WBC Nucleated RBCs # K/uL INR 2.85 2.58 APTT 36.0 H (18.6-31.3) SEC Lactate (0.20-2.00) mmol/L Sodium (136-148) mmol/L Potassium (3.5-5.1) mmol/L Chloride (98-107) mmol/L Carbon Dioxide (21.0-32.0) mmol/L BUN (7.0-18.0) mg/dL Creatinine (0.8-1.3) mg/dL Est Cr Clr Drug Dosing mL/min Estimated GFR (MDRD) ml/min Glucose (74-106) mg/dL POC Glucose (60-110) mg/dL Calcium (8.5-10.1) mg/dL Total Bilirubin (0.2-1.0) mg/dL AST (15-37) IU/L ALT (14-63) IU/L Alkaline Phosphatase (46-116) U/L Ammonia (19-54) ug/dL C-Reactive Protein (0.00-0.90) mg/dL Total Protein (6.4-8.2) g/dL Albumin (3.4-5.0) g/dL Globulin (2.0-3.5) g/dL Albumin/Globulin Ratio (1.3-2.8) Blood Type A POSITIVE Antibody Screen NEGATIVE Med Orders - Current: Current Medications Furosemide (Lasix) 40 mg IVPUSH BIDDIURETIC [facility] Last Admin: 10/09/17 08:02 Dose: 40 mg Ceftriaxone Sodium 1,000 mg/ (Dextrose/Water) 50 mls @ 100 mls/hr IV Q24H [facility] Last Admin: 10/09/17 12:12 Dose: 100 mls/hr Lactulose (Chronulac) 30 gm PO BID [facility] Last Admin: 10/09/17 08:02 Dose: 30 gm Morphine Sulfate (Morphine) 2 mg IVPUSH Q2H PRN PRN Reason: Pain (severe 7-10) Stop: 10/09/17 17:22 Ondansetron HCl (Zofran) 4 mg IVPUSH Q8H PRN PRN Reason: Nausea/Vomiting Last Admin: 10/09/17 08:13 Dose: 4 mg Pantoprazole Sodium (Protonix Iv) 40 mg IVPUSH DAILY [facility] Last Admin: 10/09/17 08:02 Dose: 40 mg Sodium Chloride (Saline Flush) 10 ml FLUSH ASDIRECTED PRN PRN Reason: Keep Vein Open Sodium Chloride (Saline Flush) 2.5 ml FLUSH ASDIRECTED PRN PRN Reason: Keep Vein Open Spironolactone (Aldactone) 25 mg PO BID [facility] Last Admin: 10/09/17 08:02 Dose: 25 mg Discontinued Medications Furosemide (Lasix) 40 mg IVPUSH NOW ONE Stop: 10/08/17 20:18 Last Admin: 10/08/17 21:34 Dose: 40 mg Furosemide (Lasix) 40 mg IVPUSH BID [facility] Piperacillin Sod/Tazobactam (Sod 3.375 gm/ Sodium Chloride) 100 mls @ 200 mls/ hr IV ONETIME ONE Stop: 10/08/17 17:56 Last Admin: 10/08/17 18:31 Dose: 200 mls/hr Albumin Human (Flexbumin 25%) 12.5 gm in 50 mls @ 100 mls/hr IV ONETIME ONE Stop: 10/08/17 17:56 Last Admin: 10/08/17 17:56 Dose: 100 mls/hr Piperacillin Sod/Tazobactam (Sod 2.25 gm/ Sodium Chloride) 50 mls @ 100 mls/hr IV Q8H [facility] Piperacillin Sod/Tazobactam (Sod 3.375 gm/ Sodium Chloride) 50 mls @ 100 mls/ hr IV Q8H [facility] Piperacillin Sod/Tazobactam (Sod 3.375 gm/ Sodium Chloride) 50 mls @ 100 mls/ hr IV Q6H [facility] Last Admin: 10/09/17 06:12 Dose: 100 mls/hr Albumin Human (Flexbumin 25%) 12.5 gm in 50 mls @ 100 mls/hr IV ONETIME ONE Stop: 10/08/17 22:51 Last Admin: 10/08/17 23:10 Dose: 100 mls/hr Albumin Human (Flexbumin 25%) 12.5 gm in 50 mls @ 100 mls/hr IV ONETIME ONE Stop: 10/09/17 09:19 Last Admin: 10/09/17 09:59 Dose: 100 mls/hr Albumin Human (Flexbumin 25%) 12.5 gm in 50 mls @ 100 mls/hr IV ONETIME ONE Stop: 10/09/17 09:20 Last Admin: 10/09/17 10:05 Dose: 100 mls/hr Lactulose (Chronulac) 30 gm PO ONETIME ONE Stop: 10/08/17 20:31 Last Admin: 10/08/17 21:33 Dose: 30 gm Lactulose (Chronulac) 30 gm PO BID [facility] Last Admin: 10/08/17 21:33 Dose: Not Given Spironolactone (Aldactone) 25 mg PO ONETIME ONE Stop: 10/08/17 17:29 Last Admin: 10/08/17 18:13 Dose: 25 mg - Exam General: Reports: Alert, Oriented HEENT: Reports: Pupils Equal, Pupils Reactive Neck: Reports: Supple, Trachea Midline Cardiovascular: Reports: Regular Rate, Regular Rhythm, No Murmurs GI/Abdominal Exam: Distended, Tender, Abnormal Bowel Sounds (DECREASED) Extremities: Normal Inspection Skin: Reports: Other (JAUNDICE) Neurological: Reports: No New Focal Deficit Psy/Mental Status: Reports: Alert
== END 2017-10-09 13:50 | disposition other institution (70) | DRG 57 ==
LOC: MW.ED 11:09 → MW.MS 14:06 → MW.ICU 21:19
PROVIDERS: ADMIT Internal Medicine; ATTEND Internal Medicine
PROC: 30233N1 Transfusion of Nonautologous Red Blood Cells into Peripheral Vein, Percutaneous Approach (ICD-10-PCS; principal; 2017-10-09)
DX: G31.2 Degeneration of nervous system due to alcohol (principal); L03.116 Cellulitis of left lower limb; L03.115 Cellulitis of right lower limb; R10.84 Generalized abdominal pain; F10.20 Alcohol dependence, uncomplicated; K70.11 Alcoholic hepatitis with ascites; K70.30 Alcoholic cirrhosis of liver without ascites; N28.9 Disorder of kidney and ureter, unspecified; Z79.899 Other long term (current) drug therapy
CPT/HCPCS: 36415; 36430; 80053; 82140; 82962; 83605; 85025; 85610; 85730; 86140; 86850; 86900; 86901; 87040; 99285; A9270-GY; C9113; J0696; J1940; J2405; J2543; J7030; J7050; J7060; P9017; P9047

== ENCOUNTER 2017-11-13 15:18 | Observation (INO) | payer MEDICAID ==
--- NOTE | 2017-11-13 15:36 | EDM.PDOC ---
ED HPI GENERAL MEDICAL PROBLEM - General Chief Complaint: General Stated Complaint: PT SPOKE TO NURSE Time Seen by Provider: 11/13/17 15:26 - History of Present Illness INITIAL COMMENTS - FREE TEXT/NARRATIVE: HISTORY AND PHYSICAL: History of present illness: Patient's 41-year-old male history of alcoholic hepatitis with cirrhosis and history of hepatic encephalopathy with hyperammonemia with center by oncology for admission for blood transfusion was he which he is needed in the past as well as lactulose treatment. Upon arrival here patient's somewhat feeble appearing he has slightly icteric and does have conjunctival pallor vital signs are stable he does acknowledge his cirrhosis he denies any malignancy or other concern and does follow commands and is cooperative on arrival Review of systems: As per history of present illness and below otherwise all systems reviewed and negative. Past medical history: As per history of present illness and as reviewed below otherwise noncontributory. Surgical history: As per history of present illness and as reviewed below otherwise noncontributory. Social history: No reported history of drug or alcohol abuse. Family history: As per history of present illness and as reviewed below otherwise noncontributory. Physical exam: HEENT: Atraumatic, normocephalic, pupils reactive conjunctival pallor or scleral icterus noted, mucous membranes dry, throat clear, neck supple, nontender, trachea midline. Lungs: Clear to auscultation, breath sounds equal bilaterally, chest nontender. Heart: S1S2, regular, negative for clicks, rubs, or JVD. Abdomen: Soft, nondistended, protuberant nontender Negative for masses . Negative for costovertebral tenderness. Pelvis: Stable nontender. Genitourinary: Deferred. Rectal: Deferred. Extremities: Atraumatic, negative for cords or calf pain. Neurovascular unremarkable. Neuro: Awake, alert, follows commands and moves all extremities limited but grossly nonfocal exam Diagnostics:CBC CMP ammonia level as per outpatient labs today Therapeutics: Saline lock Impression: #1 History of hepatic cirrhosis with hepatic encephalopathy #2 history of anemia] Definitive disposition and diagnosis as appropriate pending reevaluation and review of above. - Related Data Allergies Allergy/AdvReac Type Severity Reaction Status Date / Time No Known Allergies Allergy Verified 11/13/17 15:24 Home Meds: Home Meds Metoprolol Succinate [Toprol XL] 25 mg PO DAILY 07/22/17 [History] Pantoprazole [ProTONIX Granules] 40 mg PO BID 07/22/17 [History] Methadone 5 mg PO TID 09/12/17 [History] Multivitamin [Men's Multi-Vitamin] 1 tab PO DAILY 09/12/17 [History] Midodrine 2.5 mg PO DAILY 30 Days #30 tablet 09/21/17 [Rx] Midodrine 10 mg PO DAILY 30 Days #30 tablet 09/21/17 [Rx] Lactulose 10 gm PO BID PRN 10/08/17 [History] Potassium Chloride [Klor-Con M20] 20 meq PO DAILY 10/08/17 [History] Past Medical History - Past Health History Medical/Surgical History: Denies Medical/Surgical History HEENT History: Reports: Epistaxis, Other (See Below) Other HEENT History: no humidifer he says, so occassionally wakes up with nose bleed Cardiovascular History: Reports: Arrhythmia Other Cardiovascular History: palpitations Respiratory History: Reports: None Gastrointestinal History: Reports: Jaundice, Other (See Below) Other Gastrointestinal History: hematochezia. ascities Genitourinary History: Reports: Prostate Disorder Other Genitourinary History: "helicoil", procedure in [place] at age 20, to stop bleeding in a kidney Musculoskeletal History: Reports: Back Pain, Chronic, Gout, Other (See Below) Other Musculoskeletal History: hx of herniated disc. has pain in low lumbar area Neurological History: Reports: None Psychiatric History: Reports: None Endocrine/Metabolic History: Reports: None Hematologic History: Reports: Anemia, Blood Transfusion(s) Immunologic History: Reports: None Oncologic (Cancer) History: Reports: None Dermatologic History: Reports: None - Infectious Disease History Infectious Disease History: Reports: None - Past Surgical History Head Surgeries/Procedures: Reports: None HEENT Surgical History: Reports: Tonsillectomy Cardiovascular Surgical History: Reports: None Respiratory Surgical History: Reports: None GI Surgical History: Reports: None Male Surgical History: Reports: Other (See Below) Other Male Surgeries/Procedures: kidney surgery Endocrine Surgical History: Reports: None Neurological Surgical History: Reports: None Musculoskeletal Surgical History: Reports: None Oncologic Surgical History: Reports: None Dermatological Surgical History: Reports: None Social & Family History - Family History Family Medical History: Noncontributory Cardiac: Reports: Heart Failure, [place] - Tobacco Use Smoking Status *Q: Never Smoker Second Hand Smoke Exposure: No - Caffeine Use Caffeine Use: Reports: None - Recreational Drug Use Recreational Drug Use: No ED ROS GENERAL - Review of Systems Review Of Systems: ROS reveals no pertinent complaints other than HPI. ED EXAM, GENERAL - Physical Exam Exam: See Below (See dictation) Course - Vital Signs Text/Narrative:: I discussed case with hospitalist who graciously accepted patient will be admitted as observation for blood transfusion and lactulose therapy Last Recorded V/S: Last Vital Signs Temp 36.1 C 11/13/17 15:25 Pulse 66 11/13/17 15:25 Resp 18 11/13/17 15:25 BP 116/65 11/13/17 15:25 Pulse Ox 99 11/13/17 15:25 Departure - Departure Time of Disposition: 15:35 Disposition: Home, Self-Care 01 Condition: Good Clinical Impression: Hepatic encephalopathy, Anemia - Discharge Information Referrals: PCP,None [Primary Care Provider] -
[2017-11-13] MEDS ORDERED: Morphine 4 MG/ML Syringe IVPUSH PRN (17:48)
[2017-11-13] MEDS ORDERED: Sodium Chloride 0.9% 10 ML Syringe FLUSH PRN (17:48)
[2017-11-13] MEDS ORDERED: Albuterol/Ipratropium 3.0-0.5 MG/3 ML Neb Soln NEB PRN (17:48)
[2017-11-13] MEDS ORDERED: Sodium Chloride 0.9% 2.5 ML Syringe FLUSH PRN (17:48)
[2017-11-13] MEDS ORDERED: Lactulose Soln 10 GM/15 ML 15 ML UD Cup ONE (18:43)
[2017-11-13] MEDS: Lactulose Soln 10 GM/15 ML ML 473 ML Bottle PO SCH ×2 (18:48→18:49)
[2017-11-13] MEDS: Furosemide 40 MG/4 ML VIAL IVPUSH SCH (20:57)
[2017-11-13] MEDS ORDERED: Lactulose Soln 10 GM/15 ML 15 ML UD Cup PO PRN (21:44)
[2017-11-13] MEDS ORDERED: Methadone 10 MG Tab PO PRN (22:00)
[2017-11-14] MEDS: Midodrine 5 MG Tab PO SCH ×3 (05:23→21:12)
[2017-11-14] MEDS: Pantoprazole 40 MG Tab.CR PO SCH ×3 (07:34→21:15)
[2017-11-14] MEDS ORDERED: Midodrine 5 MG Tab PO SCH ×2 (09:00→14:00)
[2017-11-14] MEDS ORDERED: Metoprolol Succinate 25 MG Tab.ER PO SCH (09:00)
[2017-11-14] MEDS ORDERED: Multivitamin Tab PO SCH (09:00)
[2017-11-14] MEDS ORDERED: Potassium Chloride 20 MEQ Tab.ER PO SCH (09:00)
[2017-11-14] MEDS: Furosemide 40 MG/4 ML VIAL IVPUSH SCH (09:43)
--- NOTE | 2017-11-14 09:46 | CR ---
EXAM DATE: 11/13/17 PATIENT'S AGE: 42 Patient: BONI AGRAWAL Facility: [place], [place] Site . Site : 1975 Study: XRay Chest [id number] 6:45:13 PM Ordering Physician: Duy Bryan Final Report: INDICATION: Altered mental status. COMPARISON: 22 July 2017. FINDINGS: Linear atelectasis in both lung bases. This is somewhat improved from comparison. Heart size is normal. Pulmonary vascularity is upper normal. Punctate highly dense nodule projecting over the lateral left mid lung new from comparison may be external to the patient. No acute cardiopulmonary disease. Dictated by Allen Goodman MD @ Nov 13 2017 6:56PM (Electronic Signature) Report Signed by Proxy. GA
[2017-11-14] MEDS ORDERED: Magnesium Oxide 400 MG Tab PO SCH (17:00)
--- NOTE | 2017-11-14 17:49 | PCM.HP ---
H&P History of Present Illness - General Date of Service: 11/13/17 Admit Problem/Dx: Admission Diagnosis/Problem Admission Diagnosis/Problem Hepatic encephalopathy Source of Information: Patient History Limitations: Reports: No Limitations - History of Present Illness Initial Comments - Free Text/Narative: Patient 42 y old man with PmHx of hepatic cirrhosis end stage liver failure presented to hospital to to confusion when he went to be seen in the resident clinic. Patient was admitted at [facility] in [place] and his medications were ajusted by GI , he needs to be on spironolactone as it essential to prevent the mechanism of edema and ascitis.Recently his spironolactone was completely discontinued , temporally by medical practice assistant due to concern of mild hyperkaliemia, K today was 5.2 . Patient hemoglobin today was 8.7 and he is status post transfusion 2 units of blood.Ammonia level today at admission is 135.His ammonia level is variable between 80 and 200. Patient needs home Health Care to help him with medications at home. . Onset of Symptoms: Reports: Gradual Duration of Symptoms: Reports: Hour(s): Bilateral Upper Pain Score (Numeric/FACES): 0 - Related Data Allergies/Adverse Reactions: Allergies Allergy/AdvReac Type Severity Reaction Status Date / Time No Known Allergies Allergy Verified 11/13/17 15:24 Home Medications: Home Meds Metoprolol Succinate [Toprol XL] 25 mg PO DAILY 07/22/17 [History] Methadone 10 mg PO TID PRN 09/12/17 [History] Multivitamin [Men's Multi-Vitamin] 1 tab PO DAILY 09/12/17 [History] Lactulose 45 ml PO BID PRN 10/08/17 [History] Potassium Chloride [Klor-Con M20] 20 meq PO DAILY 10/08/17 [History] Furosemide 40 mg PO BID 11/13/17 [History] Magnesium Oxide 800 mg PO BIDMEALS 11/14/17 [History] Midodrine 10 mg PO TID tablet 11/14/17 [Rx] Pantoprazole [ProTONIX] 40 mg PO ACBREAKFAST tab.cr 11/14/17 [Rx] Spironolactone 100 mg PO BID 11/14/17 [History] Past Medical History - Past Health History Medical/Surgical History: Denies Medical/Surgical History HEENT History: Reports: Epistaxis, Other (See Below) Other HEENT History: no humidifer he says, so occassionally wakes up with nose bleed Cardiovascular History: Reports: Arrhythmia, Other (See Below) Other Cardiovascular History: edema to lower extremities. palpitations Respiratory History: Reports: None Gastrointestinal History: Reports: Jaundice, Other (See Below) Other Gastrointestinal History: hematochezia. ascities Genitourinary History: Reports: Prostate Disorder Other Genitourinary History: "helicoil", procedure in [place] at age 20, to stop bleeding in a kidney Musculoskeletal History: Reports: Back Pain, Chronic, Gout, Other (See Below) Other Musculoskeletal History: hx of herniated disc. has pain in low lumbar area Neurological History: Reports: None, Other (See Below) Other Neuro History: hx of hepatic encephalopathy Psychiatric History: Reports: Addiction Endocrine/Metabolic History: Reports: None Hematologic History: Reports: Anemia, Blood Transfusion(s) Immunologic History: Reports: None Oncologic (Cancer) History: Reports: None Dermatologic History: Reports: Cellulitis, Other (See Below) Other Dermatologic History: redness and swelling to lower legs - Infectious Disease History Infectious Disease History: Reports: Chicken Pox - Past Surgical History Head Surgeries/Procedures: Reports: None HEENT Surgical History: Reports: Tonsillectomy Cardiovascular Surgical History: Reports: None Respiratory Surgical History: Reports: None GI Surgical History: Reports: None Male Surgical History: Reports: Other (See Below) Other Male Surgeries/Procedures: kidney surgery Endocrine Surgical History: Reports: None Neurological Surgical History: Reports: None Musculoskeletal Surgical History: Reports: None Oncologic Surgical History: Reports: None Dermatological Surgical History: Reports: None Social & Family History - Family History Family Medical History: Noncontributory Cardiac: Reports: Heart Failure, [place] - Tobacco Use Smoking Status *Q: Never Smoker Second Hand Smoke Exposure: No - Caffeine Use Caffeine Use: Reports: None - Recreational Drug Use Recreational Drug Use: No H&P Review of Systems - Review of Systems: Review Of Systems: See Below General: Reports: Fatigue HEENT: Reports: No Symptoms Pulmonary: Reports: No Symptoms Cardiovascular: Reports: No Symptoms Gastrointestinal: Reports: No Symptoms, Other (end stage liver disease , abdominal ascitis) Genitourinary: Reports: No Symptoms Musculoskeletal: Reports: No Symptoms Skin: Reports: Jaundice Psychiatric: Reports: No Symptoms Neurological: Reports: Confusion Hematologic/Lymphatic: Reports: No Symptoms Immunologic: Reports: No Symptoms Exam - Exam Exam: See Below - Vital Signs Vital Signs: Last Vital Signs Temp 98.4 F 11/14/17 16:00 Pulse 76 11/14/17 16:00 Resp 18 11/14/17 16:00 BP 129/79 11/14/17 16:00 Pulse Ox 98 11/14/17 16:00 Weight: 202 lb 13.204 oz - Exam General: Alert, Oriented HEENT: Conjunctiva Clear Neck: Supple, Trachea Midline Lungs: Clear to Auscultation, Normal Respiratory Effort Cardiovascular: Regular Rate, Regular Rhythm, Normal S1, Normal S2 GI/Abdominal Exam: Normal Bowel Sounds, Soft, Non-Tender, Distended, Hernia ( umbilical ). No: Guarding, Rigid, Rebound, Tender Back Exam: Normal Inspection Extremities: Normal Inspection Skin: Warm, Dry Neurological: Cranial Nerves Intact Neuro Extensive - Mental Status: Alert, Oriented x3, Normal Mood/Affect Neuro Extensive - Motor, Sensory, Reflexes: CN II-XII Intact Psychiatric: Alert - Patient Data Lab Results Last 24 hrs: Laboratory Results - last 24 hr 11/13/17 11/13/17 11/13/17 Range/Units 18:23 18:23 18:23 WBC (4.0-11.0) K/uL RBC (4.50-5.90) M/uL Hgb (13.0-17.0) g/dL Hct (38.0-50.0) % MCV (80.0-98.0) fL MCH (27.0-32.0) pg MCHC (31.0-37.0) g/dL RDW Std Deviation (28.0-62.0) fl RDW Coeff of Sandra (11.0-15.0) % Plt Count (150-400) K/uL MPV (7.40-12.00) fL Add Manual Diff Neutrophils % (Manual) (48.0-80.0) % Lymphocytes % (Manual) (16.0-40.0) % Monocytes % (Manual) (0.0-15.0) % Eosinophils % (Manual) (0.0-7.0) % Nucleated RBC % /100WBC Absolute Seg Neuts (1.4-5.7) Lymphocytes # (Manual) (0.6-2.4) Monocytes # (Manual) (0.0-0.8) Eosinophils # (Manual) (0.0-0.7) Nucleated RBCs # K/uL INR 2.22 Sodium 137 (136-148) mmol/L Potassium 5.2 H (3.5-5.1) mmol/L Chloride 105 (98-107) mmol/L Carbon Dioxide 22.1 (21.0-32.0) mmol/L BUN 41 H (7.0-18.0) mg/dL Creatinine 2.2 H (0.8-1.3) mg/dL Est Cr Clr Drug Dosing 51.75 mL/min Estimated GFR (MDRD) 32.8 ml/min Glucose 94 (74-106) mg/dL Calcium 10.2 H (8.5-10.1) mg/dL Total Bilirubin 6.5 H (0.2-1.0) mg/dL AST 40 H (15-37) IU/L ALT 15 (14-63) IU/L Alkaline Phosphatase 72 (46-116) U/L Ammonia 82 H (19-54) ug/dL Total Protein 6.9 (6.4-8.2) g/dL Albumin 3.1 L (3.4-5.0) g/dL Globulin 3.8 H (2.0-3.5) g/dL Albumin/Globulin Ratio 0.8 L (1.3-2.8) 11/13/17 11/14/17 11/14/17 Range/Units 18:23 04:28 04:28 WBC 4.62 5.66 (4.0-11.0) K/uL RBC 3.18 L 3.36 L (4.50-5.90) M/uL Hgb 10.2 L 10.4 L (13.0-17.0) g/dL Hct 28.7 L 30.3 L (38.0-50.0) % MCV 90.3 90.2 (80.0-98.0) fL MCH 32.1 H 31.0 (27.0-32.0) pg MCHC 35.5 34.3 (31.0-37.0) g/dL RDW Std Deviation 65.0 H 64.8 H (28.0-62.0) fl RDW Coeff of Sandra 20 H 20 H (11.0-15.0) % Plt Count 81 L 99 L (150-400) K/uL MPV 10.50 10.50 (7.40-12.00) fL Add Manual Diff YES Neutrophils % (Manual) 54 (48.0-80.0) % Lymphocytes % (Manual) 27 (16.0-40.0) % Monocytes % (Manual) 17 H (0.0-15.0) % Eosinophils % (Manual) 2 (0.0-7.0) % Nucleated RBC % 0.0 0.0 /100WBC Absolute Seg Neuts 3.1 (1.4-5.7) Lymphocytes # (Manual) 1.5 (0.6-2.4) Monocytes # (Manual) 1.0 H (0.0-0.8) Eosinophils # (Manual) 0.1 (0.0-0.7) Nucleated RBCs # 0 0 K/uL INR Sodium 139 (136-148) mmol/L Potassium 4.3 (3.5-5.1) mmol/L Chloride 106 (98-107) mmol/L Carbon Dioxide 23.3 (21.0-32.0) mmol/L BUN 41 H (7.0-18.0) mg/dL Creatinine 2.4 H (0.8-1.3) mg/dL Est Cr Clr Drug Dosing 47.43 mL/min Estimated GFR (MDRD) 29.7 ml/min Glucose 112 H (74-106) mg/dL Calcium 10.2 H (8.5-10.1) mg/dL Total Bilirubin 6.9 H (0.2-1.0) mg/dL AST 40 H (15-37) IU/L ALT 16 (14-63) IU/L Alkaline Phosphatase 73 (46-116) U/L Ammonia (19-54) ug/dL Total Protein 7.2 (6.4-8.2) g/dL Albumin 3.2 L (3.4-5.0) g/dL Globulin 4.0 H (2.0-3.5) g/dL Albumin/Globulin Ratio 0.8 L (1.3-2.8) Result Diagrams: 11/14/17 04:28 11/14/17 04:28 - Problem List (1) Anemia SNOMED Code(s): 210398357 ICD Code: D64.9 - ANEMIA, UNSPECIFIED Status: Acute Current Visit: Yes (2) Hepatic encephalopathy SNOMED Code(s): 41185542 ICD Code: K72.90 - HEPATIC FAILURE, UNSPECIFIED WITHOUT COMA Status: Acute Current Visit: Yes (3) Umbilical hernia SNOMED Code(s): 366422197 ICD Code: K42.9 - UMBILICAL HERNIA WITHOUT OBSTRUCTION OR GANGRENE Status: Acute Current Visit: Yes Qualifiers: Obstruction and gangrene presence: without obstruction or gangrene Qualified Code(s): K42.9 - Umbilical hernia without obstruction or gangrene Problem List Initiated/Reviewed/Updated: Yes Orders Last 24hrs: Active Orders 24 hr Category Date Time Status Oxygen Therapy [RC] PRN Care 11/13/17 17:48 Active Pulse Oximetry [RC] PRN Care 11/13/17 17:49 Active RT Aerosol Therapy [RC] ASDIRECTED Care 11/13/17 17:51 Active Up With Assistance [RC] ASDIRECTED Care 11/13/17 17:48 Active VTE/DVT Education [RC] PER UNIT ROUTINE Care 11/13/17 17:48 Active Vital Signs [RC] Q4H Care 11/13/17 17:48 Active OT Evaluation and Treatment [CONS] Routine Cons 11/13/17 17:48 Active PT Evaluation and Treatment [CONS] Routine Cons 11/13/17 17:48 Active PT Evaluation and Treatment [CONS] Routine Cons 11/13/17 20:17 Active Low Sodium [Sodium Restricted Diet] [DIET] Diet 11/14/17 Breakfast Active CBC WITH AUTO DIFF [HEME] AM Lab 11/15/17 05:11 Ordered CBC WITH AUTO DIFF [HEME] AM Lab 11/16/17 05:11 Ordered CBC WITH AUTO DIFF [HEME] AM Lab 11/17/17 05:11 Ordered CBC WITH AUTO DIFF [HEME] AM Lab 11/18/17 05:11 Ordered COMPREHENSIVE METABOLIC PN,CMP [CHEM] AM Lab 11/15/17 05:11 Ordered COMPREHENSIVE METABOLIC PN,CMP [CHEM] AM Lab 11/16/17 05:11 Ordered COMPREHENSIVE METABOLIC PN,CMP [CHEM] AM Lab 11/17/17 05:11 Ordered COMPREHENSIVE METABOLIC PN,CMP [CHEM] AM Lab 11/18/17 05:11 Ordered CULTURE BLOOD [BC] Stat Lab 11/13/17 18:16 Received CULTURE BLOOD [BC] Stat Lab 11/13/17 18:23 Received Albuterol/Ipratropium [DuoNeb 3.0-0.5 MG/3 ML] Med 11/13/17 17:48 Active 3 ml NEB Q4HRRT PRN Furosemide [Lasix] Med 11/13/17 20:30 Active 40 mg IVPUSH DAILY Furosemide [Lasix] Med 11/14/17 21:00 Active 40 mg PO BID Lactulose [Chronulac] Med 11/13/17 21:44 Active 10 gm PO BID PRN Magnesium Oxide Med 11/14/17 17:00 Active 800 mg PO BIDMEALS Methadone Med 11/13/17 22:00 Active 5 mg PO TID PRN Metoprolol Succinate [Toprol XL] Med 11/14/17 09:00 Active 25 mg PO DAILY Midodrine Med 11/14/17 06:00 Active 10 mg PO TID Morphine Med 11/13/17 17:48 Active 2 mg IVPUSH Q2H PRN Multivitamins [Tab-A-Christiana] Med 11/14/17 09:00 Active 1 tab PO DAILY Pantoprazole [ProTONIX] Med 11/15/17 07:30 Active 40 mg PO ACBREAKFAST Pantoprazole [ProTONIX] Med 11/13/17 21:00 Active 40 mg PO BID Potassium Chloride [Klor-Con M20] Med 11/14/17 09:00 Active 20 meq PO DAILY Sodium Chloride 0.9% [Saline Flush] Med 11/13/17 17:48 Active 10 ml FLUSH ASDIRECTED PRN Sodium Chloride 0.9% [Saline Flush] Med 11/13/17 17:48 Active 2.5 ml FLUSH ASDIRECTED PRN Spironolactone [Aldactone] Med 11/14/17 21:00 Active 100 mg PO BID Blood Culture x2 Reflex Set [OM.PC] Stat Oth 11/13/17 17:48 Ordered Peripheral IV Insertion Adult [OM.PC] Routine Oth 11/13/17 17:48 Ordered Sequential Compression Device [OM.PC] Per Unit Routine Oth 11/13/17 17:49 Ordered Resuscitation Status Routine Resus Stat 11/13/17 17:48 Ordered Medication Orders Albuterol/Ipratropium (Duoneb 3.0-0.5 Mg/3 Ml) 3 ml NEB Q4HRRT PRN PRN Reason: Shortness Of Breath/wheezing Furosemide (Lasix) [address] [facility] Last Admin: 11/14/17 09:43 Dose: 40 mg Admin: 11/13/17 20:57 Dose: 40 mg Furosemide (Lasix) [address] [facility] Lactulose (Chronulac) 10 gm PO BID PRN PRN Reason: liver disease Last Admin: 11/14/17 09:43 Dose: 10 gm Magnesium Oxide (Magnesium Oxide) [address] [facility] Last Admin: 11/14/17 16:09 Dose: 800 mg Methadone HCl (Methadone) 5 mg PO TID PRN PRN Reason: U Metoprolol Succinate (Toprol Xl) [address] [facility] Last Admin: 11/14/17 09:46 Dose: 25 mg Midodrine (Midodrine) [address] [facility] Last Admin: 11/14/17 14:42 Dose: 10 mg Admin: 11/14/17 05:23 Dose: 10 mg Morphine Sulfate (Morphine) 2 mg IVPUSH Q2H PRN PRN Reason: Pain (severe 7-10) Stop: 11/14/17 17:49 Multivitamins/Minerals/Vitamin C (Tab-A-Christiana) [address] [facility] Last Admin: 11/14/17 09:43 Dose: 1 tab Pantoprazole Sodium (Protonix) [address] [facility] Last Admin: 11/14/17 09:43 Dose: 40 mg Admin: 11/14/17 07:34 Dose: Pantoprazole Sodium (Protonix) [address] [facility] Potassium Chloride (Klor-Con M20) [address] [facility] Last Admin: 11/14/17 09:43 Dose: 20 meq Sodium Chloride (Saline Flush) 10 ml FLUSH ASDIRECTED PRN PRN Reason: Keep Vein Open Sodium Chloride (Saline Flush) 2.5 ml FLUSH ASDIRECTED PRN PRN Reason: Keep Vein Open Spironolactone (Aldactone) [address] [facility] CXR - no acute disease Assessment and plan 1) hepatic encephalopathy - will admit patient in hospital and will give patient lactulose 30 mg po now and will continue with lactulose 30 mg po TID 2) B/l LE edema - will give patient lasix 40 mg iv now and will continue patient with lasix 40 mg po BID 3) Blisters with fluid b/l LE - wound care consult 4) ascitis- umbilical hernia , leg swelling- will restart patient on the medication he was recommended at hospital discharge : lasix 40 mg po BID , spironolactone 100 mg po BID. 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 7) umbilical hernia- belly binder 8) Gi profilaxis- protonix 40 mg po daily
[2017-11-14] MEDS ORDERED: Phytonadione 5 MG Tab PO ONE (17:55)
--- NOTE | 2017-11-14 18:53 | PCM.PN ---
- General Info Date of Service: 11/14/17 Subjective Update: Patient today more alert , he is walking on the hallway restless , he doesn't make sense when he talks , has difficulties finding his words , ammonia level decreased to 85 today, potassium decreased to 4.4 today , there is increased in bilirubin to 6.9 today and the creatinine increased to 2.4 today. His brother came in the evening and wants patient to be transferred to [place]. - Review of Systems General: Reports: No Symptoms HEENT: Reports: No Symptoms Pulmonary: Reports: No Symptoms Cardiovascular: Reports: No Symptoms Gastrointestinal: Reports: Other (ascitis , unbilical hernia ). Denies: Abdominal Pain Genitourinary: Reports: No Symptoms Musculoskeletal: Reports: No Symptoms Skin: Reports: Other (skin ulceration rt lower extremity and also left lower extremity ) Psychiatric: Reports: Confusion, Other (agitation) - Patient Data Vitals - Most Recent: Last Vital Signs Temp 98.4 F 11/14/17 16:00 Pulse 76 11/14/17 16:00 Resp 18 11/14/17 16:00 BP 129/79 11/14/17 16:00 Pulse Ox 98 11/14/17 16:00 Weight - Most Recent: 202 lb 13.204 oz I&O - Last 24 Hours: Intake & Output 11/14/17 11/14/17 11/14/17 06:59 14:59 22:59 Intake Total 300 490 Output Total 600 900 Balance -300 -410 Lab Results Last 24 Hours: Laboratory Results - last 24 hr 11/13/17 11/13/17 11/13/17 Range/Units 18:23 18:23 18:23 WBC (4.0-11.0) K/uL RBC (4.50-5.90) M/uL Hgb (13.0-17.0) g/dL Hct (38.0-50.0) % MCV (80.0-98.0) fL MCH (27.0-32.0) pg MCHC (31.0-37.0) g/dL RDW Std Deviation (28.0-62.0) fl RDW Coeff of Sandra (11.0-15.0) % Plt Count (150-400) K/uL MPV (7.40-12.00) fL Add Manual Diff Neutrophils % (Manual) (48.0-80.0) % Lymphocytes % (Manual) (16.0-40.0) % Monocytes % (Manual) (0.0-15.0) % Eosinophils % (Manual) (0.0-7.0) % Nucleated RBC % /100WBC Absolute Seg Neuts (1.4-5.7) Lymphocytes # (Manual) (0.6-2.4) Monocytes # (Manual) (0.0-0.8) Eosinophils # (Manual) (0.0-0.7) Nucleated RBCs # K/uL INR 2.22 Sodium 137 (136-148) mmol/L Potassium 5.2 H (3.5-5.1) mmol/L Chloride 105 (98-107) mmol/L Carbon Dioxide 22.1 (21.0-32.0) mmol/L BUN 41 H (7.0-18.0) mg/dL Creatinine 2.2 H (0.8-1.3) mg/dL Est Cr Clr Drug Dosing 51.75 mL/min Estimated GFR (MDRD) 32.8 ml/min Glucose 94 (74-106) mg/dL Calcium 10.2 H (8.5-10.1) mg/dL Total Bilirubin 6.5 H (0.2-1.0) mg/dL AST 40 H (15-37) IU/L ALT 15 (14-63) IU/L Alkaline Phosphatase 72 (46-116) U/L Ammonia 82 H (19-54) ug/dL Total Protein 6.9 (6.4-8.2) g/dL Albumin 3.1 L (3.4-5.0) g/dL Globulin 3.8 H (2.0-3.5) g/dL Albumin/Globulin Ratio 0.8 L (1.3-2.8) 18 11/14/17 Range/Units 04:28 04:28 WBC 5.66 (4.0-11.0) K/uL RBC 3.36 L (4.50-5.90) M/uL Hgb 10.4 L (13.0-17.0) g/dL Hct 30.3 L (38.0-50.0) % MCV 90.2 (80.0-98.0) fL MCH 31.0 (27.0-32.0) pg MCHC 34.3 (31.0-37.0) g/dL RDW Std Deviation 64.8 H (28.0-62.0) fl RDW Coeff of Sandra 20 H (11.0-15.0) % Plt Count 99 L (150-400) K/uL MPV 10.50 (7.40-12.00) fL Add Manual Diff YES Neutrophils % (Manual) 54 (48.0-80.0) % Lymphocytes % (Manual) 27 (16.0-40.0) % Monocytes % (Manual) 17 H (0.0-15.0) % Eosinophils % (Manual) 2 (0.0-7.0) % Nucleated RBC % 0.0 /100WBC Absolute Seg Neuts 3.1 (1.4-5.7) Lymphocytes # (Manual) 1.5 (0.6-2.4) Monocytes # (Manual) 1.0 H (0.0-0.8) Eosinophils # (Manual) 0.1 (0.0-0.7) Nucleated RBCs # 0 K/uL INR Sodium 139 (136-148) mmol/L Potassium 4.3 (3.5-5.1) mmol/L Chloride 106 (98-107) mmol/L Carbon Dioxide 23.3 (21.0-32.0) mmol/L BUN 41 H (7.0-18.0) mg/dL Creatinine 2.4 H (0.8-1.3) mg/dL Est Cr Clr Drug Dosing 47.43 mL/min Estimated GFR (MDRD) 29.7 ml/min Glucose 112 H (74-106) mg/dL Calcium 10.2 H (8.5-10.1) mg/dL Total Bilirubin 6.9 H (0.2-1.0) mg/dL AST 40 H (15-37) IU/L ALT 16 (14-63) IU/L Alkaline Phosphatase 73 (46-116) U/L Ammonia (19-54) ug/dL Total Protein 7.2 (6.4-8.2) g/dL Albumin 3.2 L (3.4-5.0) g/dL Globulin 4.0 H (2.0-3.5) g/dL Albumin/Globulin Ratio 0.8 L (1.3-2.8) Enzo Results Last 24 Hours: Microbiology 11/13/17 18:23 Aerobic Blood Culture - Preliminary Blood - Venous - Lab Draw NO GROWTH AFTER 1 DAY Anaerobic Blood Culture - Preliminary NO GROWTH AFTER 1 DAY 11/13/17 18:16 Aerobic Blood Culture - Preliminary Blood - Venous NO GROWTH AFTER 1 DAY Anaerobic Blood Culture - Preliminary NO GROWTH AFTER 1 DAY Med Orders - Current: Current Medications Albuterol/Ipratropium (Duoneb 3.0-0.5 Mg/3 Ml) 3 ml NEB Q4HRRT PRN PRN Reason: Shortness Of Breath/wheezing Furosemide (Lasix) 40 mg IVPUSH DAILY [facility] Last Admin: 11/14/17 09:43 Dose: 40 mg Furosemide (Lasix) 40 mg PO BID [facility] Lactulose (Chronulac) 10 gm PO BID PRN PRN Reason: liver disease Last Admin: 11/14/17 09:43 Dose: 10 gm Magnesium Oxide (Magnesium Oxide) 800 mg PO BIDMEALS [facility] Last Admin: 11/14/17 16:09 Dose: 800 mg Methadone HCl (Methadone) 5 mg PO TID PRN PRN Reason: U Metoprolol Succinate (Toprol Xl) 25 mg PO DAILY [facility] Last Admin: 11/14/17 09:46 Dose: 25 mg Midodrine (Midodrine) 10 mg PO TID [facility] Last Admin: 11/14/17 14:42 Dose: 10 mg Multivitamins/Minerals/Vitamin C (Tab-A-Christiana) 1 tab PO DAILY [facility] Last Admin: 11/14/17 09:43 Dose: 1 tab Pantoprazole Sodium (Protonix) 40 mg PO BID [facility] Last Admin: 11/14/17 09:43 Dose: 40 mg Pantoprazole Sodium (Protonix) 40 mg PO ACBREAKFAST [facility] Potassium Chloride (Klor-Con M20) 20 meq PO DAILY [facility] Last Admin: 11/14/17 09:43 Dose: 20 meq Sodium Chloride (Saline Flush) 10 ml FLUSH ASDIRECTED PRN PRN Reason: Keep Vein Open Sodium Chloride (Saline Flush) 2.5 ml FLUSH ASDIRECTED PRN PRN Reason: Keep Vein Open Spironolactone (Aldactone) 100 mg PO BID [facility] Discontinued Medications Lactulose (Chronulac) 0 gm PO BID [facility] Last Admin: 11/13/17 18:49 Dose: Not Given Lactulose (Chronulac) Confirm Administered Dose 30 gm .ROUTE .STK-MED ONE Stop: 11/13/17 18:44 Last Admin: 11/13/17 18:48 Dose: 30 gm Midodrine (Midodrine) 2.5 mg PO DAILY [facility] Midodrine (Midodrine) 10 mg PO TID [facility] Morphine Sulfate (Morphine) 2 mg IVPUSH Q2H PRN PRN Reason: Pain (severe 7-10) Stop: 11/14/17 17:49 Phytonadione (Mephyton) 2.5 mg PO ONETIME ONE Stop: 11/14/17 17:56 - Exam General: Alert HEENT: Pupils Equal, Pupils Reactive, EOMI Neck: Supple, Trachea Midline, No JVD, No Thyromegaly Lungs: Clear to Auscultation, Normal Respiratory Effort Cardiovascular: Regular Rate, Regular Rhythm, No Murmurs GI/Abdominal Exam: Normal Bowel Sounds, No Mass, Hernia (umbilical), Other. No : Distended, Guarding, Rebound Back Exam: Normal Inspection Extremities: Other (b/l edema of LE , fluid filled blister on the rt lower extremity, 2 inch diameter) Skin: Warm, Dry, Other (skin ulcerations b/l LE ) Wound/Incisions: Other (leg wrapping ) Neurological: Other (confusion) Psy/Mental Status: Alert, Agitated - Problem List & Annotations (1) Anemia SNOMED Code(s): 614580791 Code(s): D64.9 - ANEMIA, UNSPECIFIED Status: Acute Current Visit: Yes (2) Hepatic encephalopathy SNOMED Code(s): 86682682 Code(s): K72.90 - HEPATIC FAILURE, UNSPECIFIED WITHOUT COMA Status: Acute Current Visit: Yes (3) Umbilical hernia SNOMED Code(s): 635526368 Code(s): K42.9 - UMBILICAL HERNIA WITHOUT OBSTRUCTION OR GANGRENE Status: Acute Current Visit: Yes Qualifiers: Obstruction and gangrene presence: without obstruction or gangrene Qualified Code(s): K42.9 - Umbilical hernia without obstruction or gangrene (4) Localized swelling of both lower legs SNOMED Code(s): 298737660 Code(s): R22.43 - LOCALIZED SWELLING, MASS AND LUMP, LOWER LIMB, BILATERAL Status: Acute Current Visit: Yes (5) Blood creatinine increased compared with prior measurement SNOMED Code(s): 175253103 Code(s): R79.89 - OTHER SPECIFIED ABNORMAL FINDINGS OF BLOOD CHEMISTRY Status: Acute Current Visit: Yes (6) Blood bilirubin increased compared with prior measurement SNOMED Code(s): 87966319 Code(s): R79.89 - OTHER SPECIFIED ABNORMAL FINDINGS OF BLOOD CHEMISTRY Status: Acute Current Visit: Yes (7) Hepatic failure due to alcoholism SNOMED Code(s): 290779566 Code(s): K70.40 - ALCOHOLIC HEPATIC FAILURE WITHOUT COMA Status: Acute Current Visit: Yes (8) Blister of leg SNOMED Code(s): 746197651, 597122064, 433432284 Code(s): S80.829A - BLISTER (NONTHERMAL), UNSPECIFIED LOWER LEG, INIT ENCNTR Status: Acute Current Visit: Yes - Problem List Review Problem List Initiated/Reviewed/Updated: Yes - My Orders Last 24 Hours: My Active Orders 11/13/17 17:49 Pulse Oximetry [RC] PRN Sequential Compression Device [OM.PC] Per Unit Routine 11/13/17 17:51 RT Aerosol Therapy [RC] ASDIRECTED 11/13/17 18:16 CULTURE BLOOD [BC] Stat 11/13/17 18:23 CULTURE BLOOD [BC] Stat 11/13/17 20:17 PT Evaluation and Treatment [CONS] Routine 11/13/17 20:30 Furosemide [Lasix] 40 mg IVPUSH DAILY 11/13/17 21:00 Pantoprazole [ProTONIX] 40 mg PO BID 11/13/17 21:44 Lactulose [Chronulac] 10 gm PO BID PRN 11/13/17 22:00 Methadone 5 mg PO TID PRN 11/14/17 06:00 Midodrine 10 mg PO TID 11/14/17 09:00 Metoprolol Succinate [Toprol XL] 25 mg PO DAILY Multivitamins [Tab-A-Chritsiana] 1 tab PO DAILY Potassium Chloride [Klor-Con M20] 20 meq PO DAILY 11/14/17 17:00 Magnesium Oxide 800 mg PO BIDMEALS 11/14/17 18:45 Consult to Home Health [CONS] Routine 11/14/17 21:00 Furosemide [Lasix] 40 mg PO BID Spironolactone [Aldactone] 100 mg PO BID 11/15/17 05:11 CBC WITH AUTO DIFF [HEME] AM COMPREHENSIVE METABOLIC PN,CMP [CHEM] AM 11/15/17 07:30 Pantoprazole [ProTONIX] 40 mg PO ACBREAKFAST 11/16/17 05:11 CBC WITH AUTO DIFF [HEME] AM COMPREHENSIVE METABOLIC PN,CMP [CHEM] AM 11/17/17 05:11 CBC WITH AUTO DIFF [HEME] AM COMPREHENSIVE METABOLIC PN,CMP [CHEM] AM 11/18/17 05:11 CBC WITH AUTO DIFF [HEME] AM COMPREHENSIVE METABOLIC PN,CMP [CHEM] AM - Plan Plan:: 1) hepatic encephalopathy - patient ammonia level decreased to 85 , patient still confused , agitated on the hallway , can not find his words. 2) B/l LE edema - patient was restarted on his home medication at discharge from [facility]. 3) Blisters with fluid b/l LE - wound care consult, leg wrapping 4) ascitis- umbilical hernia , leg swelling- will restart patient on the medication he was recommended at hospital discharge : lasix 40 mg po BID , spironolactone 100 mg po BID. Patient bilirubin is trending up , creatinine is increasing , his K level is above 5 when on spironolactone, patient brother wants patient to be transferred to [place] this evening , I have called Dr. Spicer , Er physician at [facility] and he accepted the patient. 5) Coagulopathy- monitor iNR 6) esophageal varices - will continue patient with metoprolol 25 mg po daily , will recommend nadolol as this is the drug of choice for the esophageal varices Home health care Clinic notes and hospitalizations were reviewed. 7) umbilical hernia- belly binder 8) Gi prophylaxis- protonix 40 mg po daily End stage liver disease - increasing bilirubin- will transfer patient to [place] to follow up with GI elevated creatinine increasing today- acute on chronic kidney failure - will transfer patient to [place] to F/up with GI and university intern and have medications readjusted
[2017-11-14] MEDS ORDERED: Furosemide 40 MG Tab PO SCH (21:00)
[2017-11-14] MEDS ORDERED: Spironolactone 25 MG Tab PO SCH (21:00)
--- NOTE | 2017-11-14 21:52 | PCM.DCSUM1 ---
Discharge Summary - Hospital Course Free Text/Narrative:: Patient admitted in hospital with hepatic encephalopathy had ammonia level 135 , decreased to 85 in the morning after he received lactulose 30 grams at night. Patient was sent from resident clinic due to concern he has increased confusion. He was transfused 2 units PRBc in clinic and Hb increased to 10.4 in am from 8.7 previously. There was concern regarding his kidney function , increasing creatinine and some increase in K level above 5 , mild , and spironolactone was held temporally. Patient has leg edema and 1 blister on each leg filled with fluid , the blister on the left leg broke and clear greenish fluid was on the bed sheet. Wound care was consulted and he had leg wrapped. Patient was admitted in ICU at [place] 1 month ago where he was treated by the ICU team and GI . He improved semnificative , but now his bilirubin is trending up to 6.9 from 3.7 at discharge from [place] , and creatinine is increasing to 2.4 from 1.8 since discharge from [facility] on October 21. Patient is sober and did not drink since [facility] last year. He applied for disability but was denied. He needs Home health Care and needs arrangements for liver transplant. Due to progressive increase in bilirubin and due to increase in creatinine family agreed to be transferred to [place] to be seen by GI and have medications readjusted and be evaluated and monitored there. SIDNEY Spicer who accepted the patient at 9 pm. HPI Initial Comments: Patient 42 y old man with PmHx of hepatic cirrhosis end stage liver failure presented to hospital to to confusion when he went to be seen in the resident clinic. Patient was admitted at [facility] in [place] and his medications were ajusted by GI , he needs to be on spironolactone as it essential to prevent the mechanism of edema and ascitis.Recently his spironolactone was completely discontinued , temporally by medical scientific officer due to concern of mild hyperkaliemia, K today was 5.2 . Patient hemoglobin today was 8.7 and he is status post transfusion 2 units of blood.Ammonia level today at admission is 135.His ammonia level is variable between 80 and 200. Patient needs home Health Care to help him with medications at home. - Discharge Data Discharge Date: 11/14/17 Discharge Disposition: DC/Tfer to Acute Hospital 02 Condition: Stable - Discharge Diagnosis/Problem(s) (1) Anemia SNOMED Code(s): 226513320 ICD Code: D64.9 - ANEMIA, UNSPECIFIED Status: Acute Current Visit: Yes (2) Hepatic encephalopathy SNOMED Code(s): 14384616 ICD Code: K72.90 - HEPATIC FAILURE, UNSPECIFIED WITHOUT COMA Status: Acute Current Visit: Yes (3) Umbilical hernia SNOMED Code(s): 826559291 ICD Code: K42.9 - UMBILICAL HERNIA WITHOUT OBSTRUCTION OR GANGRENE Status: Acute Current Visit: Yes Qualifiers: Obstruction and gangrene presence: without obstruction or gangrene Qualified Code(s): K42.9 - Umbilical hernia without obstruction or gangrene (4) Localized swelling of both lower legs SNOMED Code(s): 794167426 ICD Code: R22.43 - LOCALIZED SWELLING, MASS AND LUMP, LOWER LIMB, BILATERAL Status: Acute Current Visit: Yes (5) Blood creatinine increased compared with prior measurement SNOMED Code(s): 769650971 ICD Code: R79.89 - OTHER SPECIFIED ABNORMAL FINDINGS OF BLOOD CHEMISTRY Status: Acute Current Visit: Yes (6) Blood bilirubin increased compared with prior measurement SNOMED Code(s): 77094211 ICD Code: R79.89 - OTHER SPECIFIED ABNORMAL FINDINGS OF BLOOD CHEMISTRY Status: Acute Current Visit: Yes (7) Hepatic failure due to alcoholism SNOMED Code(s): 969048412 ICD Code: K70.40 - ALCOHOLIC HEPATIC FAILURE WITHOUT COMA Status: Acute Current Visit: Yes (8) Blister of leg SNOMED Code(s): 088959507, 557258964, 855403357 ICD Code: S80.829A - BLISTER (NONTHERMAL), UNSPECIFIED LOWER LEG, INIT ENCNTR Status: Acute Current Visit: Yes - Patient Summary/Data Consults: Consultations 11/13/17 17:48 OT Evaluation and Treatment [CONS] Routine PT Evaluation and Treatment [CONS] Routine 11/13/17 20:17 PT Evaluation and Treatment [CONS] Routine 11/14/17 18:45 Consult to Home Health [CONS] Routine - Patient Instructions Diet: Usual Diet as Tolerated Activity: As Tolerated Showering/Bathing: May Shower Notify Provider of: Fever - Discharge Plan Home Medications: Home Meds Metoprolol Succinate [Toprol XL] 25 mg PO DAILY 07/22/17 [History] Methadone 10 mg PO TID PRN 09/12/17 [History] Multivitamin [Men's Multi-Vitamin] 1 tab PO DAILY 09/12/17 [History] Lactulose 45 ml PO BID PRN 10/08/17 [History] Potassium Chloride [Klor-Con M20] 20 meq PO DAILY 10/08/17 [History] Furosemide 40 mg PO BID 11/13/17 [History] Magnesium Oxide 800 mg PO BIDMEALS 11/14/17 [History] Midodrine 10 mg PO TID tablet 11/14/17 [Rx] Pantoprazole [ProTONIX] 40 mg PO ACBREAKFAST tab.cr 11/14/17 [Rx] Spironolactone 100 mg PO BID 11/14/17 [History] Forms: ED Department Discharge Referrals: PCP,None [Primary Care Provider] - - Discharge Summary/Plan Comment DC Time >30 min.: Yes - Review of Systems General: Reports: No Symptoms HEENT: Reports: No Symptoms Pulmonary: Reports: No Symptoms Cardiovascular: Reports: No Symptoms Gastrointestinal: Reports: Other (ascitis) Genitourinary: Reports: No Symptoms Musculoskeletal: Reports: No Symptoms, Other (leg edema b/l) Skin: Reports: No Symptoms Neurological: Reports: Confusion Psychiatric: Reports: Confusion, Agitation - Patient Data Vitals - Most Recent: Last Vital Signs Temp 98.4 F 11/14/17 16:00 Pulse 76 11/14/17 16:00 Resp 18 11/14/17 16:00 BP 129/79 11/14/17 16:00 Pulse Ox 98 11/14/17 16:00 Weight - Most Recent: 202 lb 13.204 oz I&O - Last 24 hours: Intake & Output 11/14/17 11/14/17 11/14/17 06:59 14:59 22:59 Intake Total 300 490 Output Total 600 900 Balance -300 -410 Lab Results - Last 24 hrs: Laboratory Results - last 24 hr 11/14/17 11/14/17 Range/Units 04:28 04:28 WBC 5.66 (4.0-11.0) K/uL RBC 3.36 L (4.50-5.90) M/uL Hgb 10.4 L (13.0-17.0) g/dL Hct 30.3 L (38.0-50.0) % MCV 90.2 (80.0-98.0) fL MCH 31.0 (27.0-32.0) pg MCHC 34.3 (31.0-37.0) g/dL RDW Std Deviation 64.8 H (28.0-62.0) fl RDW Coeff of Sandra 20 H (11.0-15.0) % Plt Count 99 L (150-400) K/uL MPV 10.50 (7.40-12.00) fL Add Manual Diff YES Neutrophils % (Manual) 54 (48.0-80.0) % Lymphocytes % (Manual) 27 (16.0-40.0) % Monocytes % (Manual) 17 H (0.0-15.0) % Eosinophils % (Manual) 2 (0.0-7.0) % Nucleated RBC % 0.0 /100WBC Absolute Seg Neuts 3.1 (1.4-5.7) Lymphocytes # (Manual) 1.5 (0.6-2.4) Monocytes # (Manual) 1.0 H (0.0-0.8) Eosinophils # (Manual) 0.1 (0.0-0.7) Nucleated RBCs # 0 K/uL Sodium 139 (136-148) mmol/L Potassium 4.3 (3.5-5.1) mmol/L Chloride 106 (98-107) mmol/L Carbon Dioxide 23.3 (21.0-32.0) mmol/L BUN 41 H (7.0-18.0) mg/dL Creatinine 2.4 H (0.8-1.3) mg/dL Est Cr Clr Drug Dosing 47.43 mL/min Estimated GFR (MDRD) 29.7 ml/min Glucose 112 H (74-106) mg/dL Calcium 10.2 H (8.5-10.1) mg/dL Total Bilirubin 6.9 H (0.2-1.0) mg/dL AST 40 H (15-37) IU/L ALT 16 (14-63) IU/L Alkaline Phosphatase 73 (46-116) U/L Total Protein 7.2 (6.4-8.2) g/dL Albumin 3.2 L (3.4-5.0) g/dL Globulin 4.0 H (2.0-3.5) g/dL Albumin/Globulin Ratio 0.8 L (1.3-2.8) DAMI Results - Last 24 hrs: Microbiology 11/13/17 18:23 Aerobic Blood Culture - Preliminary Blood - Venous - Lab Draw NO GROWTH AFTER 1 DAY Anaerobic Blood Culture - Preliminary NO GROWTH AFTER 1 DAY 11/13/17 18:16 Aerobic Blood Culture - Preliminary Blood - Venous NO GROWTH AFTER 1 DAY Anaerobic Blood Culture - Preliminary NO GROWTH AFTER 1 DAY Med Orders - Current: Current Medications Albuterol/Ipratropium (Duoneb 3.0-0.5 Mg/3 Ml) 3 ml NEB Q4HRRT PRN PRN Reason: Shortness Of Breath/wheezing Furosemide (Lasix) 40 mg IVPUSH DAILY [facility] Last Admin: 11/14/17 09:43 Dose: 40 mg Furosemide (Lasix) 40 mg PO BID [facility] Last Admin: 11/14/17 21:12 Dose: 40 mg Lactulose (Chronulac) 10 gm PO BID PRN PRN Reason: liver disease Last Admin: 11/14/17 09:43 Dose: 10 gm Magnesium Oxide (Magnesium Oxide) 800 mg PO BIDMEALS [facility] Last Admin: 11/14/17 16:09 Dose: 800 mg Methadone HCl (Methadone) 5 mg PO TID PRN PRN Reason: U Last Admin: 11/14/17 19:03 Dose: 5 mg Metoprolol Succinate (Toprol Xl) 25 mg PO DAILY [facility] Last Admin: 11/14/17 09:46 Dose: 25 mg Midodrine (Midodrine) 10 mg PO TID [facility] Last Admin: 11/14/17 21:12 Dose: 10 mg Multivitamins/Minerals/Vitamin C (Tab-A-Christiana) 1 tab PO DAILY [facility] Last Admin: 11/14/17 09:43 Dose: 1 tab Pantoprazole Sodium (Protonix) 40 mg PO BID [facility] Last Admin: 11/14/17 21:15 Dose: Not Given Pantoprazole Sodium (Protonix) 40 mg PO ACBREAKFAST [facility] Potassium Chloride (Klor-Con M20) 20 meq PO DAILY [facility] Last Admin: 11/14/17 09:43 Dose: 20 meq Sodium Chloride (Saline Flush) 10 ml FLUSH ASDIRECTED PRN PRN Reason: Keep Vein Open Sodium Chloride (Saline Flush) 2.5 ml FLUSH ASDIRECTED PRN PRN Reason: Keep Vein Open Spironolactone (Aldactone) 100 mg PO BID [facility] Last Admin: 11/14/17 21:12 Dose: 100 mg Discontinued Medications Lactulose (Chronulac) 0 gm PO BID [facility] Last Admin: 11/13/17 18:49 Dose: Not Given Lactulose (Chronulac) Confirm Administered Dose 30 gm .ROUTE .STK-MED ONE Stop: 11/13/17 18:44 Last Admin: 11/13/17 18:48 Dose: 30 gm Midodrine (Midodrine) 2.5 mg PO DAILY [facility] Midodrine (Midodrine) 10 mg PO TID [facility] Morphine Sulfate (Morphine) 2 mg IVPUSH Q2H PRN PRN Reason: Pain (severe 7-10) Stop: 11/14/17 17:49 Phytonadione (Mephyton) 2.5 mg PO ONETIME ONE Stop: 11/14/17 17:56 Last Admin: 11/14/17 20:45 Dose: Not Given - Exam General: Reports: Alert, Oriented HEENT: Reports: Pupils Equal Neck: Reports: Supple, Trachea Midline, No JVD Lungs: Reports: Clear to Auscultation, Normal Respiratory Effort Cardiovascular: Reports: Regular Rate, Regular Rhythm, No Murmurs GI/Abdominal Exam: Normal Bowel Sounds, Other (protruding abdome, umbilical hernia) Back Exam: Reports: Normal Inspection Extremities: Other (leg wrapping due to leg edema) Wound/Incisions: Reports: Other (superficial ulcerations b/l LE due to fluid filled blister rupture ) Psy/Mental Status: Reports: Alert
[2017-11-14 21:57] VITALS: BP 119/72
[2017-11-15] MEDS ORDERED: Pantoprazole 40 MG Tab.CR PO SCH (07:30)
== END 2017-11-14 22:30 ==
LOC: MW.ED 15:18 → MW.MS 15:36
PROVIDERS: ADMIT Internal Medicine; ATTEND Internal Medicine
DX: K70.40 Alcoholic hepatic failure without coma (principal); K74.60 Unspecified cirrhosis of liver; I85.10 Secondary esophageal varices without bleeding; D64.9 Anemia, unspecified; K42.9 Umbilical hernia without obstruction or gangrene; R79.89 Other specified abnormal findings of blood chemistry; S80.822A Blister (nonthermal), left lower leg, initial encounter; S80.821A Blister (nonthermal), right lower leg, initial encounter; G89.29 Other chronic pain; M54.9 Dorsalgia, unspecified; Z79.899 Other long term (current) drug therapy
CPT/HCPCS: 36415; 71045; 80053; 82140; 85025; 85027; 85610; 87040; 96374; 97161; 97165; 99283; A9270; G0378; J1940

== ENCOUNTER 2018-01-04 13:03 | Emergency (ER) | payer MEDICAID ==
--- NOTE | 2018-01-04 13:27 | EDM.PDOC ---
ED HPI GENERAL MEDICAL PROBLEM - General Stated Complaint: SOMETHING WITH HIS BOTTOM AND BLEEDING Time Seen by Provider: 01/04/18 13:07 Source of Information: Reports: Patient History Limitations: Reports: No Limitations - History of Present Illness INITIAL COMMENTS - FREE TEXT/NARRATIVE: History of present illness: []Patient has end-stage liver disease and noted this morning that he was leading from his scrotum. Review of systems: As per history of present illness and below otherwise all systems reviewed and negative. Past medical history: As per history of present illness and as reviewed below otherwise noncontributory. Surgical history: As per history of present illness and as reviewed below otherwise noncontributory. Social history: No reported history of drug or alcohol abuse. Family history: As per history of present illness and as reviewed below otherwise noncontributory. Physical exam: General: Well developed, well nourished in NAD HEENT: Right subconjunctival hemorrhage, normocephalic, pupils reactive, scleral icterus, mucous membranes moist, throat clear, neck supple, nontender, trachea midline. Lungs: Clear to auscultation, breath sounds equal bilaterally, chest nontender. No respiratory distress Heart: S1S2, regular, negative for clicks, rubs, or JVD. Abdomen: Soft, nondistended, nontender. Positive fluid wave Negative for masses or hepatosplenomegaly. Negative for costovertebral tenderness. Pelvis: Stable nontender. Genitourinary: Large amount of scrotal and penile edema Rectal: 2 mm sacral cubitus ulcer without signs of infection, granulation tissue present. Extremities: Atraumatic, negative for cords or calf pain. Neurovascular unremarkable. Neuro: Awake, alert, oriented. Cranial nerves II through XII unremarkable. Cerebellum unremarkable. Motor and sensory unremarkable throughout. Exam nonfocal. Diagnostics: [] Therapeutics: [] Surgicel and Adaptic placed on scrotum Impression: []Left Scrotum with macerated area oozing blood Plan: []Follow up with primary care. Definitive disposition and diagnosis as appropriate pending reevaluation and review of above. - Related Data Allergies Allergy/AdvReac Type Severity Reaction Status Date / Time No Known Allergies Allergy Verified 12/20/17 10:12 Home Meds: Home Meds Metoprolol Succinate [Toprol XL] 25 mg PO DAILY 07/22/17 [History] Methadone 10 mg PO TID PRN 09/12/17 [History] Multivitamin [Men's Multi-Vitamin] 1 tab PO DAILY 09/12/17 [History] Lactulose 45 ml PO TID 10/08/17 [History] Potassium Chloride [Klor-Con M20] 20 meq PO DAILY 10/08/17 [History] Furosemide 40 mg PO BID 11/13/17 [History] Magnesium Oxide 800 mg PO BIDMEALS 11/14/17 [History] Midodrine 10 mg PO TID tablet 11/14/17 [Rx] Pantoprazole [ProTONIX] 40 mg PO ACBREAKFAST tab.cr 11/14/17 [Rx] Spironolactone 100 mg PO BID 11/14/17 [History] Past Medical History - Past Health History Medical/Surgical History: Denies Medical/Surgical History HEENT History: Reports: Epistaxis, Other (See Below) Other HEENT History: no humidifer he says, so occassionally wakes up with nose bleed Cardiovascular History: Reports: Arrhythmia, Other (See Below) Other Cardiovascular History: edema to lower extremities. palpitations Respiratory History: Reports: None Gastrointestinal History: Reports: Jaundice, Other (See Below) Other Gastrointestinal History: hematochezia. ascities Genitourinary History: Reports: Prostate Disorder Other Genitourinary History: "helicoil", procedure in [place] at age 20, to stop bleeding in a kidney Musculoskeletal History: Reports: Back Pain, Chronic, Gout, Other (See Below) Other Musculoskeletal History: hx of herniated disc. has pain in low lumbar area Neurological History: Reports: None, Other (See Below) Other Neuro History: hx of hepatic encephalopathy Psychiatric History: Reports: Addiction Endocrine/Metabolic History: Reports: None Hematologic History: Reports: Anemia, Blood Transfusion(s) Immunologic History: Reports: None Oncologic (Cancer) History: Reports: None Dermatologic History: Reports: Cellulitis, Other (See Below) Other Dermatologic History: redness and swelling to lower legs - Infectious Disease History Infectious Disease History: Reports: Chicken Pox - Past Surgical History Head Surgeries/Procedures: Reports: None HEENT Surgical History: Reports: Tonsillectomy Cardiovascular Surgical History: Reports: None Respiratory Surgical History: Reports: None GI Surgical History: Reports: None Male Surgical History: Reports: Other (See Below) Other Male Surgeries/Procedures: kidney surgery Endocrine Surgical History: Reports: None Neurological Surgical History: Reports: None Musculoskeletal Surgical History: Reports: None Oncologic Surgical History: Reports: None Dermatological Surgical History: Reports: None Social & Family History - Family History Family Medical History: Noncontributory Cardiac: Reports: Heart Failure, [place] - Caffeine Use Caffeine Use: Reports: None ED ROS GENERAL - Review of Systems Review Of Systems: See Below (See history of present illness) ED EXAM, RENAL/ - Physical Exam Exam: See Below (See history of present illness) Departure - Departure Time of Disposition: 13:26 Disposition: Home, Self-Care 01 Condition: Fair Clinical Impression: Scrotal laceration Qualifiers: Encounter type: initial encounter Qualified Code(s): S31.31XA - Laceration without foreign body of scrotum and testes, initial encounter - Discharge Information Referrals: PCP,None [Primary Care Provider] - Additional Instructions: The following information is given to patients seen in the emergency department who are being discharged to home. This information is to outline your options for follow-up care. We provide all patients seen in our emergency department with a follow-up referral. The need for follow-up, as well as the timing and circumstances, are variable depending upon the specifics of your emergency department visit. If you don't have a primary care physician on staff, we will provide you with a referral. We always advise you to contact your personal physician following an emergency department visit to inform them of the circumstance of the visit and for follow-up with them and/or the need for any referrals to a consulting specialist. The emergency department will also refer you to a specialist when appropriate. This referral assures that you have the opportunity for follow-up care with a specialist. All of these measure are taken in an effort to provide you with optimal care, which includes your follow-up. Under all circumstances we always encourage you to contact your private physician who remains a resource for coordinating your care. When calling for follow-up care, please make the office aware that this follow-up is from your recent emergency room visit. If for any reason you are refused follow-up, please contact the [facility] Emergency Department at and asked to speak to the emergency department charge nurse. [facility] [address] [place] [id number]
[2018-01-04 13:28] VITALS: BP 114/66
== END 2018-01-04 14:34 | disposition home or self-care (01) ==
LOC: MW.ED 13:03
DX: S31.31XA Laceration without foreign body of scrotum and testes, initial encounter (principal); K76.9 Liver disease, unspecified; Z79.899 Other long term (current) drug therapy; X58.XXXA Exposure to other specified factors, initial encounter
CPT/HCPCS: 99283

== ENCOUNTER 2018-01-06 13:45 | Inpatient (IN) | payer MEDICAID ==
[2018-01-06] MEDS ORDERED: Sodium Chloride 0.9% 2.5 ML Syringe FLUSH PRN (13:53)
--- NOTE | 2018-01-06 14:29 | PCM.HP ---
H&P History of Present Illness - General Date of Service: 01/06/18 Admit Problem/Dx: Admission Diagnosis/Problem Admission Diagnosis/Problem Hepatic encephalopathy Source of Information: Old Records. No: Patient History Limitations: Reports: Altered Mental Status - History of Present Illness Initial Comments - Free Text/Narative: This 42 year old male with pmh of end stage liver failure secondary to alcohol, CKD, Anemia, and thrombocytopenia presented today to Oncology for Albumin infusion. He was seen by PCP, Dr De Guzman, secondary to increased confusion. Dr De Guzman recommended admission secondary to hepatic encephalopathy with elevated ammonia level at 231. Upon assessment Oracio is alert, but very confused and unable to answer any questions regarding HPI or health history. Health history and HPI obtained from Dr De Guzman and after review of chart. Recently, Oracio's Lasix was held due to increasing Cr and fear of developing heptorenal renal syndrome. BUN/Cr has slowly improved and are 79 and 2.9 today. He is very edematous, with BLE pitting edema from coccyx to feet, 3+, including penile and scrotal edema as well. He is afebrile on admission, VS stable. Ammonia elevated at 231. No leukocytosis noted. Hgb 10.6, platelets stabe at 63,000, K+ 5.3 BUN 79, r 2.9 today. He will be admitted inpatient for acute hepatic encephalopathy. PCP, Dr De Guzman - Related Data Allergies/Adverse Reactions: Allergies Allergy/AdvReac Type Severity Reaction Status Date / Time No Known Allergies Allergy Verified 12/20/17 10:12 Home Medications: Home Meds Metoprolol Succinate [Toprol XL] 25 mg PO DAILY 07/22/17 [History] Methadone 10 mg PO TID PRN 09/12/17 [History] Multivitamin [Men's Multi-Vitamin] 1 tab PO DAILY 09/12/17 [History] Lactulose 45 ml PO TID 10/08/17 [History] Potassium Chloride [Klor-Con M20] 20 meq PO DAILY 10/08/17 [History] Furosemide 40 mg PO BID 11/13/17 [History] Magnesium Oxide 800 mg PO BIDMEALS 11/14/17 [History] Midodrine 10 mg PO TID tablet 11/14/17 [Rx] Pantoprazole [ProTONIX] 40 mg PO ACBREAKFAST tab.cr 11/14/17 [Rx] Spironolactone 100 mg PO BID 11/14/17 [History] Past Medical History - Past Health History Medical/Surgical History: Denies Medical/Surgical History HEENT History: Reports: Epistaxis, Other (See Below) Other HEENT History: no humidifer he says, so occassionally wakes up with nose bleed Cardiovascular History: Reports: Arrhythmia, Other (See Below) Other Cardiovascular History: edema to lower extremities. palpitations Respiratory History: Reports: None Gastrointestinal History: Reports: Jaundice, Other (See Below) Other Gastrointestinal History: End stage liver failure. hematochezia. ascities Genitourinary History: Reports: Prostate Disorder Other Genitourinary History: "helicoil", procedure in [place] at age 20, to stop bleeding in a kidney Musculoskeletal History: Reports: Back Pain, Chronic, Gout, Other (See Below) Other Musculoskeletal History: hx of herniated disc. has pain in low lumbar area Neurological History: Reports: None, Other (See Below) Other Neuro History: hx of hepatic encephalopathy Psychiatric History: Reports: Addiction Endocrine/Metabolic History: Reports: None Hematologic History: Reports: Anemia, Blood Transfusion(s) Immunologic History: Reports: None Oncologic (Cancer) History: Reports: None Dermatologic History: Reports: Cellulitis, Other (See Below) Other Dermatologic History: redness and swelling to lower legs - Infectious Disease History Infectious Disease History: Reports: Chicken Pox - Past Surgical History Head Surgeries/Procedures: Reports: None HEENT Surgical History: Reports: Tonsillectomy Cardiovascular Surgical History: Reports: None Respiratory Surgical History: Reports: None GI Surgical History: Reports: None Male Surgical History: Reports: Other (See Below) Other Male Surgeries/Procedures: kidney surgery Endocrine Surgical History: Reports: None Neurological Surgical History: Reports: None Musculoskeletal Surgical History: Reports: None Oncologic Surgical History: Reports: None Dermatological Surgical History: Reports: None Social & Family History - Family History Family Medical History: Noncontributory Cardiac: Reports: Heart Failure, [place] - Caffeine Use Caffeine Use: Reports: None - Living Situation & Occupation Living situation: Reports: with Family (brother) Occupation: Unemployed H&P Review of Systems - Review of Systems: Review Of Systems: Unable To Obtain Exam - Exam Exam: See Below - Vital Signs Vital Signs: Last Vital Signs Temp Pulse Resp BP Pulse Ox 98 01/06/18 14:00 - Exam Quality Assessment: DVT Prophylaxis (SCDs) General: Alert, Cooperative, Other (confusion, mumbling, rambling, in coherent talking at times. Emaciated in appearance). No: Oriented HEENT: Pupils Reactive, Scleral Icterus Neck: Supple, Trachea Midline, Full Range of Motion. No: Lymphadenopathy Lungs: Clear to Auscultation, Normal Respiratory Effort Cardiovascular: Regular Rate, Regular Rhythm, Normal S1, Normal S2. No: Systolic Murmur GI/Abdominal Exam: Normal Bowel Sounds, Soft, Non-Tender, Hepatomegaly, Other ( Ascites, abdomen is non tender and soft. umbilical hernia, easily reducible.) (Male) Exam: Scrotal Swelling (along with penile edema) Extremities: Normal Range of Motion (but painful and heavy to move), Pedal Edema (+3 pitting edema fro coccyx to feet, taught, scant blistering noted to anterior shins.). No: Redness Skin: Ecchymosis (R eye, secondary to recent ENT evaluation for epitaxis.), Other (Venous skin changes to lower legs. multiple healing abrasions to lower legs. No signs of infection.) Neuro Extensive - Mental Status: Alert, Disorientation to Person (knows date of , but unable to state name.), Disorientation to Place, Disorientation to Time, Opens Eyes to Commands, Slow Response to Commands. No: Oriented x3 Psychiatric: Alert, Normal Affect, Normal Mood *Q Meaningful Use (ADM) - VTE *Q VTE Pharmacological Contraindications *Q: Risk of Bleeding - Problem List (1) Hepatic encephalopathy SNOMED Code(s): 95089276 ICD Code: K72.90 - HEPATIC FAILURE, UNSPECIFIED WITHOUT COMA Status: Acute Current Visit: No (2) Hyperammonemia SNOMED Code(s): 3426460 ICD Code: E72.20 - DISORDER OF UREA CYCLE METABOLISM, UNSPECIFIED Status: Acute Current Visit: No (3) Hyperbilirubinemia SNOMED Code(s): 07050658 ICD Code: E80.6 - OTHER DISORDERS OF BILIRUBIN METABOLISM Status: Acute Current Visit: Yes (4) Hyperkalemia SNOMED Code(s): 14352974 ICD Code: E87.5 - HYPERKALEMIA Status: Acute Current Visit: Yes (5) Anasarca SNOMED Code(s): 152027628, 877402919 ICD Code: R60.1 - GENERALIZED EDEMA Status: Acute Current Visit: Yes (6) End stage liver disease SNOMED Code(s): 548736667 ICD Code: K72.90 - HEPATIC FAILURE, UNSPECIFIED WITHOUT COMA Status: Chronic Current Visit: No (7) Lokbr-lr-rtwuhky kidney injury SNOMED Code(s): 625588733 ICD Code: N17.9 - ACUTE KIDNEY FAILURE, UNSPECIFIED; N18.9 - CHRONIC KIDNEY DISEASE, UNSPECIFIED Status: Acute Current Visit: Yes (8) Hepatic failure due to alcoholism SNOMED Code(s): 143758475 ICD Code: K70.40 - ALCOHOLIC HEPATIC FAILURE WITHOUT COMA Status: Chronic Current Visit: No (9) Umbilical hernia SNOMED Code(s): 797198368 ICD Code: K42.9 - UMBILICAL HERNIA WITHOUT OBSTRUCTION OR GANGRENE Status: Chronic Current Visit: No Qualifiers: Obstruction and gangrene presence: without obstruction or gangrene Qualified Code(s): K42.9 - Umbilical hernia without obstruction or gangrene (10) Thrombocytopenia SNOMED Code(s): 554350660 ICD Code: D69.6 - THROMBOCYTOPENIA, UNSPECIFIED Status: Chronic Current Visit: Yes (11) Anemia in chronic kidney disease (CKD) SNOMED Code(s): 810592160 ICD Code: N18.9 - CHRONIC KIDNEY DISEASE, UNSPECIFIED; D63.1 - ANEMIA IN CHRONIC KIDNEY DISEASE Status: Chronic Current Visit: Yes Problem List Initiated/Reviewed/Updated: Yes Orders Last 24hrs: Active Orders 24 hr Category Date Time Status Patient Status [ADT] Routine ADT 01/06/18 13:53 Active Height and Weight [RC] DAILY Care 01/06/18 13:53 Active Intake and Output Strict [RC] ASDIRECTED Care 01/06/18 13:53 Active Oxygen Therapy [RC] PRN Care 01/06/18 13:53 Active Up With Assistance [RC] ASDIRECTED Care 01/06/18 13:53 Active VTE/DVT Education [RC] PER UNIT ROUTINE Care 01/06/18 13:53 Active Vital Signs [RC] Q4H Care 01/06/18 13:53 Active Consult to Case Management [CONS] Routine Cons 01/06/18 13:53 Active 2 Gram Sodium Diet [DIET] Diet 01/06/18 Lunch Active AMMONIA VENOUS [CHEM] AM Lab 01/07/18 05:11 Ordered CBC WITH AUTO DIFF [HEME] AM Lab 01/07/18 05:11 Ordered CBC WITH AUTO DIFF [HEME] AM Lab 01/08/18 05:11 Ordered CBC WITH AUTO DIFF [HEME] AM Lab 01/09/18 05:11 Ordered CBC WITH AUTO DIFF [HEME] AM Lab 01/10/18 05:11 Ordered COMPREHENSIVE METABOLIC PN,CMP [CHEM] AM Lab 01/07/18 05:11 Ordered COMPREHENSIVE METABOLIC PN,CMP [CHEM] AM Lab 01/08/18 05:11 Ordered COMPREHENSIVE METABOLIC PN,CMP [CHEM] AM Lab 01/09/18 05:11 Ordered COMPREHENSIVE METABOLIC PN,CMP [CHEM] AM Lab 01/10/18 05:11 Ordered Lactulose [Chronulac] Med 01/06/18 13:57 Active 30 gm PO QID Sodium Chloride 0.9% [Saline Flush] Med 01/06/18 13:53 Active 2.5 ml FLUSH ASDIRECTED PRN Saline Lock Insert [OM.PC] Routine Oth 01/06/18 13:53 Ordered Sequential Compression Device [OM.PC] Per Unit Routine Oth 01/06/18 13:54 Ordered Medication Orders Lactulose (Chronulac) 30 gm PO QID HOSSEIN Sodium Chloride (Saline Flush) 2.5 ml FLUSH ASDIRECTED PRN PRN Reason: Keep Vein Open Assessment/Plan Comment:: This 42 year old male admitted with acute hepatic encephalopathy secondary to end stage liver failure. COmpliance with home regimen of medication is hard to discern currently due to encephalopathy. 1. Hepatic encephalopathy: Ammonia 231, elevated from 80s. Acutely confused. Will Continue lactulose but give on scheduled basis to insure at least 3 BMs daily. Lactulose 30 mg QID PO. Monitor and recheck ammonia in am. Reviewed December [address] Sanford, he was hoping to restart Lasix and Spironolactone due to worsening edema. 2. Anasarca: Lasix given today in Oncology following albumin, 80 mg IV. Will continue Lasix 40 mg IV BID this evening. Daily weights, strict I/O, 1 L FR. 3. BAIRON on CKD: BUN and Cr improving. Due to anasarca need to restart Lasix. Monitor renal function daily. 4. Anemia in CKD: Stable. Hgb 10.6 today. 5. End Stage Liver disease/failure: Continue Midodrine. Hyperkalemia noted, holding Spironolactone. 6. Thrombocytopenia: Stable, Plt 63,000. No acute bleeding noted. Old healing ecchymosis to R eye from ENT consult with epitaxis VTE prophylaxis: SCDs only due to thrombocytopenia and anemia Dispo: 2-3 days pending clearance of confusion Case management consult: regarding Medicaid application. Spoke with Miguel already and has paperwork from Home Health, will assist in getting these to finance to complete application.
[2018-01-06] MEDS: Lactulose Soln 10 GM/15 ML 15 ML UD Cup PO SCH ×2 (15:09→18:04)
[2018-01-06] MEDS: Furosemide 40 MG/4 ML VIAL IVPUSH SCH (20:54)
[2018-01-07] MEDS: Lactulose Soln 10 GM/15 ML 15 ML UD Cup PO SCH ×3 (00:59→13:01)
[2018-01-07] MEDS: Furosemide 40 MG/4 ML VIAL IVPUSH SCH (09:07)
[2018-01-07 13:42] VITALS: BP 128/84
--- NOTE | 2018-01-07 14:43 | PCM.DCSUM1 ---
Discharge Summary - Hospital Course Diagnosis: Stroke: No - Discharge Data Discharge Disposition: DC/Tfer to Acute Hospital 02 Condition: Poor - Discharge Diagnosis/Problem(s) (1) Hypercalcemia SNOMED Code(s): 45489483 ICD Code: E83.52 - HYPERCALCEMIA Status: Acute - Patient Summary/Data Consults: Consultations 01/06/18 13:53 Consult to Case Management [CONS] Routine - Patient Instructions Diet: Usual Diet as Tolerated Activity: As Tolerated Driving: Do Not Drive - Discharge Plan *PRESCRIPTION DRUG MONITORING PROGRAM REVIEWED*: Not Applicable *COPY OF PRESCRIPTION DRUG MONITORING REPORT IN PATIENT ILAN: Not Applicable Home Medications: Home Meds Methadone 5 mg PO TID PRN 09/12/17 [History] Lactulose 45 ml PO QID 10/08/17 [History] Furosemide 20 mg PO DAILY 11/13/17 [History] Spironolactone 50 mg PO DAILY 11/14/17 [History] Folic Acid/Vit Bcomp,C [Renal Vitamin Tablet] 1 tab DAILY 01/07/18 [History] Midodrine 10 mg PO DAILY 01/07/18 [History] Pantoprazole [ProTONIX] 40 mg PO BIDAC 01/07/18 [History] Silver Sulfadiazine [Silvadene 1% Cream 20 GM] 1 applic TOP BID 01/07/18 [ History] - Patient Data Vitals - Most Recent: Last Vital Signs Temp 99.0 F 01/07/18 04:00 Pulse 94 01/07/18 12:00 Resp 16 01/07/18 12:00 BP 128/84 01/07/18 12:00 Pulse Ox 96 01/07/18 12:00 Weight - Most Recent: 210 lb 8 oz I&O - Last 24 hours: Intake & Output 01/06/18 01/07/18 01/07/18 22:59 06:59 14:59 Intake Total 300 Output Total 1800 Balance -1500 Lab Results - Last 24 hrs: Laboratory Results - last 24 hr 01/06/18 01/07/18 01/07/18 Range/Units 14:40 05:31 05:31 WBC 6.09 (4.0-11.0) K/uL RBC 3.26 L (4.50-5.90) M/uL Hgb 10.5 L (13.0-17.0) g/dL Hct 29.0 L (38.0-50.0) % MCV 89.0 (80.0-98.0) fL MCH 32.2 H (27.0-32.0) pg MCHC 36.2 (31.0-37.0) g/dL RDW Std Deviation 64.7 H (28.0-62.0) fl RDW Coeff of Sandra 20 H (11.0-15.0) % Plt Count 79 L (150-400) K/uL MPV 10.20 (7.40-12.00) fL Add Manual Diff YES Neutrophils % (Manual) 57 (48.0-80.0) % Band Neutrophils % 1 % Lymphocytes % (Manual) 27 (16.0-40.0) % Monocytes % (Manual) 13 (0.0-15.0) % Eosinophils % (Manual) 1 (0.0-7.0) % Basophils % (Manual) 1 (0.0-1.5) % Nucleated RBC % 0.0 /100WBC Absolute Seg Neuts 3.5 (1.4-5.7) Band Neutrophils # 0.1 Lymphocytes # (Manual) 1.6 (0.6-2.4) Monocytes # (Manual) 0.8 (0.0-0.8) Eosinophils # (Manual) 0.1 (0.0-0.7) Basophils # (Manual) 0.1 (0.0-0.1) Nucleated RBCs # 0 K/uL Sodium 140 (136-148) mmol/L Potassium 4.6 (3.5-5.1) mmol/L Chloride 110 H (98-107) mmol/L Carbon Dioxide 16.0 L (21.0-32.0) mmol/L BUN 76 H (7.0-18.0) mg/dL Creatinine 2.9 H (0.8-1.3) mg/dL Est Cr Clr Drug Dosing 39.26 mL/min Estimated GFR (MDRD) 23.9 ml/min Glucose 100 (74-106) mg/dL Calcium 11.3 H (8.5-10.1) mg/dL Total Bilirubin 8.6 H (0.2-1.0) mg/dL AST 44 H (15-37) IU/L ALT 25 (14-63) IU/L Alkaline Phosphatase 51 (46-116) U/L Ammonia (19-54) ug/dL Total Protein 7.2 (6.4-8.2) g/dL Albumin 3.6 (3.4-5.0) g/dL Globulin 3.6 H (2.0-3.5) g/dL Albumin/Globulin Ratio 1.0 L (1.3-2.8) Urine Color YELLOW Urine Appearance CLEAR Urine pH 6.0 (5.0-8.0) Ur Specific Haskins <= 1.005 (1.001-1.035) Urine Protein NEGATIVE (NEGATIVE) mg/dL Urine Glucose (UA) NEGATIVE (NEGATIVE) mg/dL Urine Ketones NEGATIVE (NEGATIVE) mg/dL Urine Occult Blood LARGE H (NEGATIVE) Urine Nitrite NEGATIVE (NEGATIVE) Urine Bilirubin NEGATIVE (NEGATIVE) Urine Urobilinogen 0.2 (<2.0) EU/dL Ur Leukocyte Esterase TRACE (NEGATIVE) Urine RBC 12-16 (0-2/HPF) Urine WBC 0-1 (0-5/HPF) Ur Epithelial Cells RARE (NONE-FEW) Urine Bacteria FEW (NEGATIVE) 01/07/18 Range/Units 05:31 WBC (4.0-11.0) K/uL RBC (4.50-5.90) M/uL Hgb (13.0-17.0) g/dL Hct (38.0-50.0) % MCV (80.0-98.0) fL MCH (27.0-32.0) pg MCHC (31.0-37.0) g/dL RDW Std Deviation (28.0-62.0) fl RDW Coeff of Sandra (11.0-15.0) % Plt Count (150-400) K/uL MPV (7.40-12.00) fL Add Manual Diff Neutrophils % (Manual) (48.0-80.0) % Band Neutrophils % % Lymphocytes % (Manual) (16.0-40.0) % Monocytes % (Manual) (0.0-15.0) % Eosinophils % (Manual) (0.0-7.0) % Basophils % (Manual) (0.0-1.5) % Nucleated RBC % /100WBC Absolute Seg Neuts (1.4-5.7) Band Neutrophils # Lymphocytes # (Manual) (0.6-2.4) Monocytes # (Manual) (0.0-0.8) Eosinophils # (Manual) (0.0-0.7) Basophils # (Manual) (0.0-0.1) Nucleated RBCs # K/uL Sodium (136-148) mmol/L Potassium (3.5-5.1) mmol/L Chloride (98-107) mmol/L Carbon Dioxide (21.0-32.0) mmol/L BUN (7.0-18.0) mg/dL Creatinine (0.8-1.3) mg/dL Est Cr Clr Drug Dosing mL/min Estimated GFR (MDRD) ml/min Glucose (74-106) mg/dL Calcium (8.5-10.1) mg/dL Total Bilirubin (0.2-1.0) mg/dL AST (15-37) IU/L ALT (14-63) IU/L Alkaline Phosphatase (46-116) U/L Ammonia 132 H (19-54) ug/dL Total Protein (6.4-8.2) g/dL Albumin (3.4-5.0) g/dL Globulin (2.0-3.5) g/dL Albumin/Globulin Ratio (1.3-2.8) Urine Color Urine Appearance Urine pH (5.0-8.0) Ur Specific Haskins (1.001-1.035) Urine Protein (NEGATIVE) mg/dL Urine Glucose (UA) (NEGATIVE) mg/dL Urine Ketones (NEGATIVE) mg/dL Urine Occult Blood (NEGATIVE) Urine Nitrite (NEGATIVE) Urine Bilirubin (NEGATIVE) Urine Urobilinogen (<2.0) EU/dL Ur Leukocyte Esterase (NEGATIVE) Urine RBC (0-2/HPF) Urine WBC (0-5/HPF) Ur Epithelial Cells (NONE-FEW) Urine Bacteria (NEGATIVE) Med Orders - Current: Current Medications Discontinued Medications Furosemide (Lasix) 40 mg IVPUSH BID [facility] Last Admin: 01/07/18 09:07 Dose: 40 mg Lactulose (Chronulac) 30 gm PO QID [facility] Last Admin: 01/07/18 13:01 Dose: Not Given Sodium Chloride (Saline Flush) 2.5 ml FLUSH ASDIRECTED PRN PRN Reason: Keep Vein Open *Q Meaningful Use (DIS) - VTE *Q VTE Pharmacological Contraindications *Q: Risk of Bleeding
== END 2018-01-07 13:00 | DRG 441 ==
LOC: MW.MS 13:45
PROVIDERS: ADMIT Internal Medicine; ATTEND Internal Medicine
DX: K72.00 Acute and subacute hepatic failure without coma (principal); N18.6 End stage renal disease; E72.20 Disorder of urea cycle metabolism, unspecified; I12.0 Hypertensive chronic kidney disease with stage 5 chronic kidney disease or end stage renal disease; D63.1 Anemia in chronic kidney disease; E80.6 Other disorders of bilirubin metabolism; E87.5 Hyperkalemia; R60.1 Generalized edema; K42.9 Umbilical hernia without obstruction or gangrene; D69.6 Thrombocytopenia, unspecified; Z79.899 Other long term (current) drug therapy
CPT/HCPCS: 36415; 51702; 80053; 81001; 82140; 85025; A9270-GY; J1940